=== PATIENT | female | born 1960 ===

== ENCOUNTER 2020-06-10 17:09 | Outpatient (REF) | payer MEDICARE, MEDICAID, SELFPAY | END 2020-06-10 17:10 | disposition home or self-care (01) | LOC: HO.LAB 17:09 | PROVIDERS: PCP Family Medicine; Visit Provider Internal Medicine | DX: Z20.828 Contact with and (suspected) exposure to other viral communicable diseases (principal) | CPT/HCPCS: C9803; U0003 ==

== ENCOUNTER 2020-09-09 07:49 | Outpatient (REF) | payer OTHER, SELFPAY ==
--- NOTE | ~2020-09-09 | XR_ITS ---
EXAMINATION: XR SHOULDER, RIGHT CLINICAL INFORMATION: Pain COMPARISON: None TECHNIQUE: Three views of the right shoulder. FINDINGS: Bone alignment is normal. No fracture or dislocation is seen. The glenohumeral joint is normal. There is arthritis at the acromioclavicular joint. Soft tissues are normal. XR/XR shoulder RT min 2V IMPRESSION: Arthritis at the acromioclavicular joint.
== END 2020-09-09 07:50 | disposition home or self-care (01) ==
LOC: HO.HOSX 07:49
PROVIDERS: Visit Provider Physician Assistant
DX: M75.41 Impingement syndrome of right shoulder (principal); M25.512 Pain in left shoulder
CPT/HCPCS: 20610; 73030; 99202

== ENCOUNTER 2020-10-05 13:39 | Outpatient (REF) | payer OTHER, SELFPAY ==
--- NOTE | ~2020-10-05 | MM_ITS ---
EXAMINATION: MM SCREENING DIGITAL BREAST TOMOSYNTHESIS, BILATERAL CLINICAL INFORMATION: Screening. Asymptomatic. The lifetime risk of breast cancer based on the Tyrer-Cuzick Model is 5%. COMPARISON: Mammography: 08/29/2019, 07/18/2018, 07/05/2018, 06/20/2017 TECHNIQUE: Digital breast tomosynthesis is performed in both the craniocaudal and mediolateral oblique views along with computer-aided detection (CAD). Synthesized 2D images are generated from the tomosynthesis. Additional bilateral exaggerated CC views are provided. FINDINGS: There are scattered areas of fibroglandular density (ACR BI-RADS breast composition Category b). There are no significant masses, abnormal calcifications, or other abnormalities. Breast tissue composition borders on predominantly fatty. Background stromal densities are stable. There are no significant changes. MM/MM tomosynthesis screening BI IMPRESSION: No mammographic evidence of malignancy. ASSESSMENT: BI-RADS 1: Negative RECOMMENDATION: Routine annual mammography screening. This patient's information was entered into a reminder system with a target due date for their next mammogram.
== END 2020-10-05 13:40 | disposition home or self-care (01) ==
LOC: HO.MAMMO 13:39
PROVIDERS: PCP Family Medicine; Visit Provider Family Medicine
DX: Z12.31 Encounter for screening mammogram for malignant neoplasm of breast (principal)
CPT/HCPCS: 77063; 77067

== ENCOUNTER 2020-10-07 08:33 | Outpatient (REF) | payer OTHER, SELFPAY ==
--- NOTE | 2020-10-07 08:38 | EMG_ITS ---
This is a 60-year-old woman with history of having had decompression of the right carpal tunnel few years ago, who comes in with bilateral hand symptoms of pain and numbness with the left being significantly worse than the right. She has a history of diabetes for 21 years and is on Victoza, Tresiba, and metformin. PHYSICAL EXAMINATION: On examination, she is alert and oriented with normal intellectual functions. Cranial nerves II through XII are normal. Muscle tone and strength are normal in all 4 extremities. There is no Tinel or Phalen sign. There is a well-healed scar of previous right carpal tunnel release. IMPRESSION: Carpal tunnel syndrome. Nerve conduction EMG study: Moderate carpal tunnel syndrome on the left. Normal EMG of the left C5 through T1 innervated muscles. There is still persistent evidence of a carpal tunnel syndrome on the right as well. MD DAVE Raymond/ANIA / [id number]
== END 2020-10-07 08:34 | disposition home or self-care (01) ==
LOC: HO.NEURO 08:33
PROVIDERS: Visit Provider Internal Medicine
DX: G56.02 Carpal tunnel syndrome, left upper limb (principal)
CPT/HCPCS: 95885; 95913

== ENCOUNTER 2020-10-15 08:00 | Outpatient (RCR) | payer MEDICARE, SELFPAY ==
--- NOTE | 2020-09-24 11:26 | MHC.PT.EP ---
[facility] [place] Office [place] Office [place] Office [address] [phone] F: [phone] F: [phone] F: [phone] F: [phone] Physical Therapy Plan of Care Date of Evaluation: 09/24/20 Date of Surgery: NA Diagnosis: right shoulder pain subacromial impingement Assessment: The patient arrived with reduced shoulder and cervical ROM. She has decreased strength in her shoulder and periscapular muscles. The patient has poor sitting posture and does a lot of forward head posture to accommodate for her poor shoulder ROM. The patient is a good candidate for skilled PT Frequency and Duration: The patient will be seen 2x/week x 4 weeks Short Term Goals: Pt to be able to report 50% improvement in functional reaching. - Pt to be able to report 50% less pain with getting dressed. Balloon Maker Goals: weeks - The patient to have greater than 160 degrees of flexion and abduction to show improved functional ROM. 4 weeks ? The patient to have 5/5 strength with flexion and abduction to demonstrate functional strength 4 weeks ? The patient to be able to return to all functional reaching, self care ADL's without any limitation from pain or loss of ROM. Treatment Plan: Modalities to reduce pain, spasms and effusion. Manual therapy to restore motion and function. Therapeutic exercise to improve strength and flexibility. Neuromuscular re-education for posture and balance. Therapeutic activities to return to functional activities of daily living. Electronically signed by: Liliam Leyva PT DPT Please sign and return to therapist. Thank you for your referral.
--- NOTE | 2020-10-15 09:29 | MHC.PT.DC ---
[facility] [place] Office [place] Office [place] Office [address] [phone] F: [phone] F: [phone] F: [phone] F: [phone] Physical Therapy Discharge Report Diagnosis: right shoulder pain subacromial impingement Date of Surgery: NA Date of Evaluation: 09/24/20 Date of Discharge: 10/15/20 Treatments to Date: 8 Cancellations to Date: No Shows to Date: Discharge Status: Achieved Goals Improved Function Independent with HEP Discharge Summary: Pt shown appropriate stretches and strengthening for maintence of her CLOF. The patient is currently pain free. She has symmetrical ROM and strength in her UE. flexion 160 bilat, abduction 165, MMT flexion 4+5, abd 4+/5, elbow flexion/ext 5/5 bilaterally. She is currently d/c from skilled PT due to being independent with her HEP. Electronically signed by: Liliam Leyva PT DPT Please sign and return to therapist. Thank you for your referral.
== END 2020-11-23 09:00 | disposition home or self-care (01) ==
LOC: HO.PT 08:00
PROVIDERS: PCP Internal Medicine; Visit Provider Physician Assistant
DX: M75.41 Impingement syndrome of right shoulder (principal)
CPT/HCPCS: 97110; 97112; 97140; 97162

== ENCOUNTER → 2020-10-28 08:44 | Outpatient (BNVA) | payer OTHER, SELFPAY | PROVIDERS: Visit Provider Orthopaedic Surgery | DX: G56.02 Carpal tunnel syndrome, left upper limb (principal); G56.01 Carpal tunnel syndrome, right upper limb; M65.342 Trigger finger, left ring finger | CPT/HCPCS: 99202 ==

== ENCOUNTER → 2021-03-10 10:43 | Outpatient (BNVA) | payer OTHER, SELFPAY | PROVIDERS: PCP Internal Medicine; Visit Provider Orthopaedic Surgery | DX: M65.342 Trigger finger, left ring finger (principal); M65.332 Trigger finger, left middle finger; G56.02 Carpal tunnel syndrome, left upper limb | CPT/HCPCS: 99212 ==

== ENCOUNTER 2021-03-25 11:34 | Day surgery (SDC) | payer OTHER, SELFPAY ==
[2021-03-25 12:29] VITALS: BMI 41.3
--- NOTE | 2021-03-25 12:34 | MHC.SHP ---
Pre-Procedural Eval Section A Date of Service: 03/25/21 The patient is an INPATIENT: No Changes since office visit: No Cold of Flu in the past 2 weeks, No New Medical Problems, No Changes in Medication and No Patient answered all questions The History & Physical has been completed within 30 days and I have reviewed it.: Yes Section B Chief Complaint: carpal tunnel,trigger ring and middle finger Allergies: Allergies Allergy/AdvReac Type Severity Reaction Status Date / Time aspirin [ASPIRIN] Allergy Severe TONGUE Verified 03/10/21 11:10 SWELLING bee pollen [BEE STINGS] Allergy Severe ANAPHYLAXIS Verified 03/10/21 11:10 Hydrocodone Bitartrate Allergy Unknown vomiting Uncoded 01/09/20 00:00 Plan I have reviewed the history and physical and performed a pertinent physical examination on my patient. No changes have occurred unless specified.
--- NOTE | 2021-03-25 12:35 | W.PM.OPN ---
Operative Note Operative Note Date of Service: 03/25/21 Narrative: Preop diagnosis: 1. Left Carpal tunnel syndrome 2. Left middle finger trigger finger 3. Left ring finger trigger finger Postop diagnosis: same Procedure: 1. Left Carpal tunnel release 2. Left middle finger A1 meredith release 3. Left ring finger A1 meredith release Surgeon: Diana Tanner MD Anesthesia: local block using 1% lidocaine with epinephrine Findings: Thickened transverse carpal ligament. EBL: Less than 5 mL Specimens: None Complications: None Disposition: Brought to recovery room in stable condition Plan: Follow-up for 7-10 days for wound check and suture removal Indications: The patient is 60 years old, with left carpal tunnel syndrome and left middle and ring finger trigger fingers that have been unresponsive to nonoperative management. The risks and benefits of operative treatment including but not limited to risk of damage to blood vessels, nerves, tendons, infection, persistent pain, persistent symptoms, or possible need for additional surgery were discussed with the patient and the patient wishes to proceed with surgery. Procedure: Once consent was obtained a local block was performed using a combination of 1% lidocaine with epinephrine. The patient was then brought back to the operating suite and placed on the operative table in supine position. A tourniquet was applied to the proximal aspect of the left upper extremity and the limb was prepped and draped in a standard surgical fashion. Once assured that we had a good block, a 1.5 cm longitudinal incision was made centered over the carpal tunnel. The incision was made through the skin to the subcutaneous tissues using a #15 blade. Dissection was made down to the level of the transverse carpal ligament with care being taken to protect the palmar cutaneous nerve. Once the transverse carpal ligament was clearly visualized, a longitudinal incision was made in the transverse carpal ligament 1st using a #15 blade, then using tenotomy scissors under direct visualization. Care was taken to look for and protect the motor branch of the median nerve when seen in this area. Once satisfied with our carpal tunnel release the wound was copiously irrigated with normal saline and hemostasis was obtained with a brief period of local pressure. Once assured that we had a good block, a 1.5 cm oblique incision was made centered over the A1 meredith of the middle finger . The incision was made through the skin to the subcutaneous tissues using a #15 blade. Careful dissection was made down to the level of the A1 meredith using tenotomy scissors, with care being taken to protect the nearby neurovascular structures. A longitudinal incision was made in the A1 meredith 1st using a #15 blade, then using tenotomy scissors under direct visualization. The A1 meredith was noted to be thickened. Following our A1 meredith release, we no longer saw any locking or catching of the digit with flexion and extension. Once assured that we had a good block, a 1.5 cm oblique incision was made centered over the A1 meredith of the ring finger . The incision was made through the skin to the subcutaneous tissues using a #15 blade. Careful dissection was made down to the level of the A1 meredith using tenotomy scissors, with care being taken to protect the nearby neurovascular structures. A longitudinal incision was made in the A1 meredith 1st using a #15 blade, then using tenotomy scissors under direct visualization. The A1 meredith was noted to be thickened. Following our A1 meredith release, we no longer saw any locking or catching of the digit with flexion and extension. The skin edges were reapproximated with some 5.0 nylon suture material and a sterile dressing was applied. The patient appears to have tolerated the procedure well and with no complications. All digits were well vascularized at the conclusion of the case.
[2021-03-25 12:41] VITALS: BP 129/64; PULSE 84; RESP 16; TEMP 36.6; O2SAT 96
[2021-03-25 14:34] VITALS: BP 130/55; PULSE 91; RESP 17; TEMP 36.2; O2SAT 97
== END 2021-03-25 14:45 | disposition home or self-care (01) ==
PROVIDERS: PCP Internal Medicine; Visit Provider Orthopaedic Surgery
PROC: (CPT 64721; principal; 2021-03-25 13:50)
DX: G56.02 Carpal tunnel syndrome, left upper limb (principal); M65.332 Trigger finger, left middle finger; M65.342 Trigger finger, left ring finger; I10 Essential (primary) hypertension; E11.9 Type 2 diabetes mellitus without complications; Z88.8 Allergy status to other drugs, medicaments and biological substances; J45.909 Unspecified asthma, uncomplicated
CPT/HCPCS: 64721; 26055 ×2

== ENCOUNTER → 2021-04-06 10:09 | Outpatient (BNVA) | payer OTHER, SELFPAY | PROVIDERS: Visit Provider Orthopaedic Surgery | DX: M65.332 Trigger finger, left middle finger (principal); M65.342 Trigger finger, left ring finger; G56.02 Carpal tunnel syndrome, left upper limb | CPT/HCPCS: 99212 ==

== ENCOUNTER 2021-10-07 14:14 | Outpatient (REF) | payer OTHER, SELFPAY ==
--- NOTE | ~2021-10-07 | MM_ITS ---
EXAMINATION: MM SCREENING DIGITAL BREAST TOMOSYNTHESIS, BILATERAL CLINICAL INFORMATION: Screening. Asymptomatic. The lifetime risk of breast cancer based on the Tyrer-Cuzick Model is 5%. COMPARISON: Mammography: October 05, 2020 and studies dating back to June 20, 2017 TECHNIQUE: Digital breast tomosynthesis is performed in both the craniocaudal and mediolateral oblique views along with computer-aided detection (CAD). Synthesized 2D images are generated from the tomosynthesis. FINDINGS: The breasts are almost entirely fatty (ACR BI-RADS breast composition Category a). There are no significant masses, abnormal calcifications, or other abnormalities. MM/MM tomosynthesis screening BI IMPRESSION: There are no significant changes from prior study. ASSESSMENT: BI-RADS 1: Negative RECOMMENDATION: Routine annual mammography screening. This patient's information was entered into a reminder system with a target due date for their next mammogram.
== END 2021-10-07 14:15 | disposition home or self-care (01) ==
LOC: HO.MAMMO 14:14
PROVIDERS: PCP Internal Medicine; Visit Provider Internal Medicine
DX: Z12.31 Encounter for screening mammogram for malignant neoplasm of breast (principal)
CPT/HCPCS: 77063; 77067

== ENCOUNTER → 2022-04-20 12:29 | Outpatient (BNVA) | payer OTHER, SELFPAY | PROVIDERS: Visit Provider Orthopaedic Surgery | DX: M65.352 Trigger finger, left little finger (principal) | CPT/HCPCS: 99212 ==

== ENCOUNTER 2022-05-02 10:28 | Day surgery (SDC) | payer OTHER, SELFPAY ==
[2022-05-02 10:41] VITALS: BMI 38.4
[2022-05-02 10:45] VITALS: BP 155/62; PULSE 67; RESP 16; TEMP 36.6; O2SAT 97
--- NOTE | 2022-05-02 11:49 | MHC.SHP ---
Pre-Procedural Eval Section A Date of Service: 05/02/22 The patient is an INPATIENT: No Changes since office visit: No Cold of Flu in the past 2 weeks, No New Medical Problems, No Changes in Medication and No Patient answered all questions The History & Physical has been completed within 30 days and I have reviewed it.: Yes Section B Chief Complaint: Trigger finger, left little finger Allergies: Allergies Allergy/AdvReac Type Severity Reaction Status Date / Time aspirin [ASPIRIN] Allergy Severe TONGUE Verified 05/02/22 10:41 SWELLING bee pollen [BEE STINGS] Allergy Severe ANAPHYLAXIS Verified 05/02/22 10:41 Plan I have reviewed the history and physical and performed a pertinent physical examination on my patient. No changes have occurred unless specified.
--- NOTE | 2022-05-02 11:49 | W.PM.OPN ---
Operative Note Operative Note Date of Service: 05/02/22 Narrative: Operative Note Preop diagnosis: 1. left little Trigger finger Postop diagnosis: 1. left little Trigger finger Procedure: 1. left little A1 meredith release Surgeon: Diana Tanner MD Anesthesia: local block using 1% lidocaine with epinephrine Findings: No locking or catching after A1 meredith release EBL: Less than 5 mL Tourniquet time: None Specimens: None Complications: None Disposition: Brought to recovery room in stable condition Plan: Follow-up for 10-14 days for wound check and suture removal Indications: The patient is 61 years old, with a left little trigger finger that has been unresponsive to nonoperative management. The risks and benefits of operative treatment including but not limited to risk of damage to blood vessels, nerves, tendons, infection, persistent pain, persistent symptoms, recurrence or possible need for additional surgery were discussed with the patient and the patient wishes to proceed with surgery. Procedure: Once consent was obtained a local block was performed in the preop area using a combination of 1% lidocaine with epinephrine. The patient was then brought back to the operating suite and placed on the operative table in supine position. A tourniquet was applied to the proximal aspect of the left upper extremity and the limb was prepped and draped in a standard surgical fashion. Once assured that we had a good block, a 1.5 cm oblique incision was made centered over the A1 meredith of the left little . The incision was made through the skin to the subcutaneous tissues using a #15 blade. Careful dissection was made down to the level of the A1 meredith using tenotomy scissors, with care being taken to protect the nearby neurovascular structures. A longitudinal incision was made in the A1 meredith 1st using a #15 blade, then using tenotomy scissors under direct visualization. The A1 emredith was noted to be thickened. Following our A1 meredith release, we no longer saw any locking or catching of the digit with flexion and extension. Once satisfied with our A1 meredith release the wound was copiously irrigated with normal saline and hemostasis was obtained with a brief period of local pressure. The skin edges were reapproximated with some 5.0 nylon suture material and a sterile dressing was applied. The patient appears to have tolerated the procedure well and with no complications. All digits were well vascularized at the conclusion of the case.
[2022-05-02 12:36] VITALS: BP 166/71; PULSE 90; RESP 16; O2SAT 96
== END 2022-05-02 12:37 | disposition home or self-care (01) ==
PROVIDERS: Visit Provider Orthopaedic Surgery
PROC: (CPT 26055; principal; 2022-05-02 13:10)
DX: M65.352 Trigger finger, left little finger (principal); E11.9 Type 2 diabetes mellitus without complications; E78.00 Pure hypercholesterolemia, unspecified; I10 Essential (primary) hypertension; J45.998 Other asthma; K21.9 Gastro-esophageal reflux disease without esophagitis; Z88.8 Allergy status to other drugs, medicaments and biological substances; F41.1 Generalized anxiety disorder
CPT/HCPCS: 26055; 88304

== ENCOUNTER 2022-10-24 11:16 | Outpatient (REF) | payer OTHER, SELFPAY ==
--- NOTE | ~2022-10-24 | MM_ITS ---
EXAMINATION: MM SCREENING DIGITAL BREAST TOMOSYNTHESIS, BILATERAL CLINICAL INFORMATION: Screening. Asymptomatic. The lifetime risk of breast cancer based on the Tyrer-Cuzick Model is 5%. COMPARISON: Mammography: 10/07/2021, 10/05/2020, 08/29/2019 TECHNIQUE: Digital breast tomosynthesis is performed in both the craniocaudal and mediolateral oblique views along with computer-aided detection (CAD). Synthesized 2D images are generated from the tomosynthesis. Additional bilateral CC views are provided. FINDINGS: There are scattered areas of fibroglandular density (ACR BI-RADS breast composition Category b). Breast tissue composition borders on predominantly fatty. The right breast is unremarkable and there is no developing density or architectural abnormality or significant mass. There are scattered bilateral benign round and rim and vascular calcifications. The bilateral axilla and skin contours are unremarkable. Left breast tomography shows subtle segmental micronodularity mid central 9:30 position measuring approximately 4 cm anterior to posterior and 2 cm medial to lateral. Some of the foci show low-attenuation centers. Findings may represent sequela from prior trauma (fat necrosis) or possibly focal fibrocystic changes. Patient will be recalled for additional imaging. MM/MM tomosynthesis screening BI IMPRESSION: Left: -Fine grouped segmental micronodularity central 9:30, possibly fat necrosis or focal fibrocystic changes. Right: -No mammographic evidence of malignancy. ASSESSMENT: BI-RADS 0: Incomplete - Need Additional Imaging Evaluation RECOMMENDATION: 1. Additional views left breast (spot CC, spot ML). 2. Targeted ultrasound if warranted after review of the additional views. 3. Radiology department staff will contact the patient for additional imaging. This patient's information was entered into a reminder system with a target due date for their next mammogram.
== END 2022-10-24 11:17 | disposition home or self-care (01) ==
LOC: HO.MAMMO 11:16
PROVIDERS: PCP Nurse Practitioner Family; Visit Provider Nurse Practitioner Family
DX: Z12.31 Encounter for screening mammogram for malignant neoplasm of breast (principal)
CPT/HCPCS: 77063; 77067

== ENCOUNTER 2022-10-28 08:18 | Outpatient (REF) | payer OTHER, SELFPAY ==
--- NOTE | ~2022-10-28 | MM_ITS ---
EXAMINATION: MM DIAGNOSTIC DIGITAL BREAST TOMOSYNTHESIS, LEFT US TARGETED BREAST, LEFT CLINICAL INFORMATION: Micronodularity COMPARISON: Mammography: 10/24/2022 and studies dating back to 06/20/2017. TECHNIQUE: Digital breast tomosynthesis is performed. 2D images are generated from the tomosynthesis. The following views are obtained: Magnification views in craniocaudal and 90-degree mediolateral projections. FINDINGS: The breasts are almost entirely fatty (ACR BI-RADS breast composition category A). Additional views demonstrate persistence of some nodular densities about the medial aspect of the left breast approximately 10 cm from the nipple. Targeted left breast ultrasound did not demonstrate any circumscribed cystic or solid lesions about the medial aspect. At the 9 o'clock to 10 o'clock position, there appears to be some dense parenchyma but this is closer to the nipple than I would suspect for the mammographic finding. Since this is a new finding without ultrasound correlate I recommend a stereotactic core biopsy. Results are discussed with the patient at time of visit. Mammography Center coordinator called above recommendation to Michelle at referring provider's office. MM/MM tomosynthesis added views L IMPRESSION: Medial left breast densities for which stereotactic core biopsy is recommended. ASSESSMENT: BI-RADS 4: Suspicious RECOMMENDATION: Stereotactic core biopsy. This patient's information was entered into a reminder system with a target due date for their next mammogram.
== END 2022-10-28 08:19 | disposition home or self-care (01) ==
LOC: HO.MAMMO 08:18
PROVIDERS: Visit Provider Nurse Practitioner Family
DX: N63.25 Unspecified lump in the left breast, overlapping quadrants (principal)
CPT/HCPCS: 76642; 77061; 77065

== ENCOUNTER 2022-11-02 08:50 | Outpatient (REF) | payer OTHER, SELFPAY ==
--- NOTE | ~2022-11-02 | MM_ITS ---
EXAMINATION: STEREOTACTIC TOMOSYNTHESIS-GUIDED VACUUM-ASSISTED BREAST BIOPSY, LEFT SPECIMEN RADIOGRAPH, LEFT POST PROCEDURE DIGITAL MAMMOGRAM, LEFT CLINICAL INFORMATION: Fine segmental fibronodular densities with lucent centers mid medial left breast, ultrasound occult. Tissue sampling recommended. COMPARISON: Mammography 10/28/2022, 10/24/2022, 10/07/2021, ultrasound left breast 10/28/2022. TECHNIQUE/PROCEDURE: Informed consent was obtained from the patient after discussion of the benefits, risks, and alternatives to biopsy today. Patient appeared to understand. Gave opportunity for questions. Patient signed consent form. BIOPSY TABLE: [employer] Biopsy System. LESION: Fine segmental fibronodular densities with lucent centers mid medial left breast, possibly fat necrosis, fibrocystic change, adenosis, or other. LOCAL ANESTHESIA: 10 mL carbonated 1% lidocaine; 10 mL 1% lidocaine with epinephrine. DERMATOTOMY: Single skin lei dermatotomy performed. NEEDLE: [employer] 9-gauge vacuum assisted core biopsy device. APPROACH: Craniocaudal. TARGETING: Combination of digital breast tomosynthesis and stereotactic digital mammography used for targeting. CORES: 10. CLIP: [employer] T-shaped marker. SPECIMEN RADIOGRAPH: Specimen radiograph is taken in separate room using digital mammography. There are scattered fibroglandular densities in the cores. POST PROCEDURE UNILATERAL DIGITAL MAMMOGRAM: The post biopsy mammogram is performed in separate room using separate digital mammography equipment from the biopsy procedure. CC and ML views are obtained. There are scattered areas of fibroglandular density (breast composition category: b). Breast tissue composition borders on predominantly fatty. The clip marker is in expected position. There is background attenuation from the procedure and anesthesia. No significant hematoma demonstrated. The patient tolerated the procedure well. No immediate complications. Home instructions reviewed with the patient. Final pathology results are pending. MM/MM stereotactic biopsy LT IMPRESSION: 1. Digital tomosynthesis-guided core biopsy left breast with clip placement. 2. Specimen radiograph taken and post procedure mammogram. There is satisfactory positioning of the biopsy clip. 3. Final pathology results pending. An addendum report will be issued.
[2022-11-02] MEDS: Lidocaine HCl 1 % 20 ML VIAL 9 ML SUBCUT (11:23)
[2022-11-02] MEDS: Sodium Bicarbonate 8.4% 50 MEQ/50 ML VIAL SUBCUT (11:24)
[2022-11-02] MEDS: Lidocaine HCl 1%/Epi 1:100,000 10 ML VIAL SUBCUT (11:25)
== END 2022-11-02 08:51 | disposition home or self-care (01) ==
LOC: HO.MAMMO 08:50
PROVIDERS: PCP Nurse Practitioner Family; Visit Provider Surgery
DX: N63.25 Unspecified lump in the left breast, overlapping quadrants (principal)
CPT/HCPCS: 19081; 88305; 99202

== ENCOUNTER → 2022-11-10 09:00 | Outpatient (BNVA) | payer OTHER, SELFPAY | PROVIDERS: PCP Nurse Practitioner Family; Visit Provider Surgery | DX: N63.20 Unspecified lump in the left breast, unspecified quadrant (principal) | CPT/HCPCS: 99212 ==

== ENCOUNTER 2022-11-22 07:35 | Outpatient (REF) | payer OTHER, SELFPAY | END 2022-11-22 07:36 | disposition home or self-care (01) | LOC: HO.US 07:35 | PROVIDERS: PCP Nurse Practitioner Family; Visit Provider Nurse Practitioner Family | DX: Z13.89 Encounter for screening for other disorder (principal) ==

== ENCOUNTER 2022-11-23 08:44 | Outpatient (REF) | payer OTHER, SELFPAY ==
--- NOTE | ~2022-11-23 | US_ITS ---
EXAMINATION: US PELVIS COMPLETE CLINICAL INFORMATION: Increased facial hair COMPARISON: None TECHNIQUE: Transabdominal and transvaginal imaging was performed. FINDINGS: The uterus is of normal size and echogenicity measuring 5.7 x 3.4 x 4.3 cm. The endometrium was not identified sonographically. Multiple myometrial vascular calcifications. The right ovary was not identified sonographically.. The left measures 2.1 x 1.9 x 1.1 cm for a volume of 2.3 mL and is unremarkable in appearance. No adnexal mass.. There is no pelvic free fluid. US/US pelvic and transvaginal IMPRESSION: 1. The right ovary was not identified sonographically. The left ovary is unremarkable in appearance. No adnexal mass. 2. Multiple myometrial vascular calcifications. 3. The endometrium was not identified sonographically.
--- NOTE | ~2022-11-23 | US_ITS ---
EXAMINATION: US ABDOMEN COMPLETE CLINICAL INFORMATION: Left upper quadrant pain. COMPARISON: None available. TECHNIQUE: Real-time imaging of the abdominal viscera. FINDINGS: PANCREAS: Visualized portions of the pancreas are unremarkable. The pancreatic body and tail is obscured by bowel gas. ABDOMINAL AORTA: The proximal, mid, and distal segments are normal in caliber. INFERIOR VENA CAVA: Visualized portions are normal. LIVER: The liver is normal in size. The liver contour is normal. There is diffuse increased liver parenchymal echogenicity, consistent with infiltrative hepatocellular disease. No focal hepatic lesion. There is no intrahepatic biliary duct dilatation seen. GALLBLADDER: Surgically absent. COMMON BILE DUCT: Normal in caliber measuring 1.0 cm in diameter. RIGHT KIDNEY: Normal. No hydronephrosis. No renal calculi or focal parenchymal lesions. The kidney measures 11.5 cm in maximum dimension. LEFT KIDNEY: 1.1 cm benign-appearing left renal cyst, no follow-up imaging recommended. No hydronephrosis or renal calculi. The kidney measures 11.6 cm in maximum dimension. SPLEEN: Normal. The spleen measures 9.9 cm in maximum dimension. FREE FLUID: None. US/US abdomen complete IMPRESSION: * No findings to explain symptoms of abdominal pain. * Increased hepatic echogenicity which can be seen in the setting of hepatic steatosis or underlying liver disease.
== END 2022-11-23 08:45 | disposition home or self-care (01) ==
LOC: HO.US 08:44
PROVIDERS: PCP Nurse Practitioner Family; Visit Provider Nurse Practitioner Family
DX: R10.12 Left upper quadrant pain (principal)
CPT/HCPCS: 76700; 76830; 76856

== ENCOUNTER 2023-06-14 09:21 | Outpatient (AMB) | payer OTHER, SELFPAY ==
--- NOTE | 2023-06-14 09:28 | MHC.OFFVIS ---
Intake Vital Signs 06/14/23 09:29 Height 5 ft 3 in Weight 202 lb BMI 35.8 Intake Visit Reasons: New problem- Right IF pain Intake Note: Armand 62 yr old female who is right hand dominant, presents today for a new problem visit for her right index finger. States she has had throbbing and swelling in palmar MC of her ring index and middle finger. States this started about 6-8 months ago and has worsen. Swelling limits her to make a close fist. Hx of Left small trigger release 05/02/22, CTR left hand CTS with Dr. Tanner, DM and O.A. Allergies aspirin [ASPIRIN] Allergy (Severe, Verified 06/14/23 09:30) TONGUE SWELLING bee pollen [BEE STINGS] Allergy (Severe, Verified 06/14/23 09:30) ANAPHYLAXIS HPI New problem- Right IF pain HPI Details Armand is a 62 year old Diabetic woman who presents with complaints of pain & swelling of her right hand. She complains of swelling & pain in her right index finger.. Her pain is localized primarily in the volar aspect of her finger. She says her swelling limits her ROM. She is concerned that her finger is getting stuck at times, similar to trigger fingers on her left hand, and she has limited the locking by keeping her index finger extended most of the time. She says she has difficulty even holding a pen at times. She has a hx of multiple trigger releases to her left hand. Her left small finger trigger release on 05/02/22, & her left middle & ring fingers on 03/25/21, with good resolution of her symptoms. FORMERLY [facility], [facility]–1983 Medical History (Updated 06/14/23 @ 10:29 by Adis Alvarez) Breast nodule Arthritis Bilateral carpal tunnel syndrome History of trigger finger DDD (degenerative disc disease) Seasonal asthma Anxiety Hypertension Acid reflux Migraines High cholesterol Diabetes Surgical History History of carpal tunnel release S/P arthroscopic surgery of left knee (~1999) History of tonsillectomy History of section Family History Mother No problems noted. Father No problems noted. Paternal Aunt Uterine cancer Social History Alcohol intake: never Patient Tobacco Use Status: Never used Tobacco Second Hand Smoke Exposure: No Current occupational status: disabled Current occupation: rt hand Female Reproductive History Menstrual Age of Menarche: 11 Review of Systems Const All systems reviewed & are unremarkable except as noted in HPI and below Physical Exam Vital Signs: BMI result Body Mass Index 35.8 Const General: cooperative, healthy appearing and no acute distress Orientation/consciousness: patient oriented x3 HEENT Head: Yes normocephalic and Yes atraumatic Eyes EOM: EOMs intact bilaterally Resp Effort & Inspection: normal respiratory effort and able to speak in complete sentences Cardio Jugular venous distension: no JVD Skin General skin exam: turgor normal Rashes: no rashes Neuro General: patient oriented x3 Extrem Other: Evaluation of Right Upper Extremity: The patient is alert, oriented, and in no acute distress She had some mild swelling over the A1 pulleys of the right index and middle fingers and was most tender to palpation over the right index finger A1 meredith. Not really tender over the A1 pulleys of the middle ring and small fingers. She also has some stiffness in the right index finger MCP joint. This was best seen when I asked her to make a fist. Worked on some stretching exercises and I was able to get her MCP joint from 0-90 degrees before leaving clinic today. She can easily bring the middle ring and small fingers close to a fist and back into full extension. With regards to the index finger she was then able to bring her index finger actively to perhaps 2-3 cm from her palm. No erythema or warmth. No lacerations or evidence of open injury. Cap refill brisk and sensation grossly intact to the tips of the digits Psych Appearance: grossly normal Affect: normal affect Attitude: cooperative Office Procedures Fracture Care Details: No fracture, injection Fracture Billing Code: Fracture Billing Code Assessment & Plan Assessment & Plan (1) Diabetes: Code(s): E11.9 - Type 2 diabetes mellitus without complications (2) Trigger finger, right index finger: Code(s): M65.321 - Trigger finger, right index finger (3) Stiffness of finger joint of right hand: Code(s): M25.641 - Stiffness of right hand, not elsewhere classified Plan Assessment & Plan: 1. Right index finger trigger finger 2. Right index finger MCP joint stiffness I educated her about this condition I discussed operative and non-operative treatment options The patient would like to proceed with an injection The risks and benefits of a steroid injection including but not limited to risk of damage to blood vessels, nerves, tendons, infection, skin bleaching, failure to improve symptoms, increased pain, and possible need for further injections or other intervention were discussed with the patient and the patient wishes to proceed with the steroid injection. Once consent was obtained, I sterilely prepped the area over the A1 meredith of the flexor tendon sheath of the right index finger. I then injected the flexor tendon sheath with a combination of 1 mL of dexamethasone (4mg/ml), and 1% lidocaine. The patient tolerated the procedure well with no complications. After her index finger became numb following the injection, we continue to work on range of motion. She was then able to actively bring all fingers including the index finger closed to a tight fist and back into extension. It was during this. That we appreciated visible and palpable locking and catching of the right index finger. If the patient continues to have locking and catching 4-6 weeks following this injection, they may call to schedule appointment to discuss alternative treatment options Follow-up prn 3. Left small trigger finger, S/P release DOS: 05/02/22 4. Left Carpal tunnel syndrome, S/P release 5. Left middle trigger finger, S/P release 6. Left ring trigger finger, S/P release DOS: 03/25/21 All with good resolution of her symptoms Scribed for Diana Tanner MD by Adis Avlarez, medical support specialist, on 06/14/23 at 10:30 AM, EST. Coding Level of Care Code Est Pt Level 3 (89782) Diagnoses Diabetes E11.9 Trigger finger, right index finger M65.321 Stiffness of finger joint of right hand M25.641 CPT Codes Fracture Care - Fracture Billing Code: Fracture Billing Code ([id number])
[2023-06-14 09:29] VITALS: BMI 35.8
== END 2023-06-14 10:35 | disposition home or self-care (01) ==
PROVIDERS: PCP Nurse Practitioner Family; Visit Provider Orthopaedic Surgery
DX: E11.9 Type 2 diabetes mellitus without complications (principal); M65.321 Trigger finger, right index finger; M25.641 Stiffness of right hand, not elsewhere classified
CPT/HCPCS: 20550; 99213

== ENCOUNTER → 2023-06-14 09:21 | Outpatient (BNVA) | payer OTHER, SELFPAY | PROVIDERS: PCP Nurse Practitioner Family; Visit Provider Orthopaedic Surgery | DX: M65.321 Trigger finger, right index finger (principal); M25.641 Stiffness of right hand, not elsewhere classified; E11.9 Type 2 diabetes mellitus without complications | CPT/HCPCS: 99212; J1100 ==

== ENCOUNTER 2023-07-27 08:04 | Outpatient (REF) | payer OTHER, SELFPAY ==
[2023-07-27 12:01] LABS: Alanine Aminotransferase 28 U/L (0-31); Albumin Level 4.2 g/dL (3.5-5.0); Alkaline Phosphatase 60 U/L (39-117); Anion Gap 13 (12-20); Aspartate Amino Transferase 32 U/L (5-31); Bilirubin Total 0.9 mg/dL (0.0-1.0); Blood Urea Nitrogen 16 mg/dL (9-16); Calcium 10.5 mg/dL (8.4-10.2); Carbon Dioxide 30 mmol/L (22-29); Chloride 103 mmol/L (96-108); Cholesterol 113 mg/dL (<200); Estimated Glomerular Filt Rate > 60; Glucose Random 67 mg/dL (60-115); HDL Cholesterol 64 mg/dL (>40); LDL Cholesterol Calculated 39 mg/dL (<100); Sodium 141 mmol/L (135-145); Total Protein 7.2 g/dL (6.5-8.0); Triglycerides 53 mg/dL (<150)
[2023-07-27 12:17] LABS: Microalbum/Creatinine Ratio Ur 12.7 ug/mg cr (<30)
== END 2023-07-27 08:05 | disposition home or self-care (01) ==
LOC: HO.HHCL 08:04
PROVIDERS: Visit Provider Nurse Practitioner Family
DX: E11.9 Type 2 diabetes mellitus without complications (principal)
CPT/HCPCS: 36415; 80053; 80061; 82043; 82570

== ENCOUNTER 2024-02-05 13:11 | Outpatient (REF) | payer OTHER, SELFPAY ==
--- NOTE | ~2024-02-05 | US_ITS ---
EXAMINATION: ULTRASOUND SOFT TISSUES RIGHT THIGH CLINICAL INFORMATION: Lump of right thigh distal lateral. COMPARISON: None available. TECHNIQUE: Targeted ultrasound images were obtained by the vp scientific affairs of the area of concern as indicated by the patient in the distal lateral right thigh. Radiologist was not in attendance. Images were later provided for interpretation. FINDINGS: No discrete mass or fluid collection identified in the area of concern indicated by the patient in the distal lateral right thigh. US/US extremity nonvascular schultz IMPRESSION: No discrete mass or fluid collection identified in the area of concern indicated by the patient in the distal lateral right thigh. Decisions regarding further imaging, treatment or biopsy should be based on the clinical exam, as not all abnormalities are detectable on ultrasound studies. Electronically signed by: Reena Rodriguez MD 02/14/2024 07:40 AM EDT
== END 2024-02-05 13:12 | disposition home or self-care (01) ==
LOC: HO.US 13:11
PROVIDERS: PCP Nurse Practitioner Family; Visit Provider Nurse Practitioner Family
DX: R22.41 Localized swelling, mass and lump, right lower limb (principal)
CPT/HCPCS: 76882

== ENCOUNTER 2024-02-19 08:17 | Outpatient (REF) | payer OTHER, SELFPAY ==
--- NOTE | ~2024-02-19 | XR_ITS ---
EXAMINATION: XR UPRIGHT AP VIEW OF BOTH KNEES XR 2 VIEWS OF THE LEFT KNEE CLINICAL INFORMATION: Pain in the right knee. COMPARISON: None available. TECHNIQUE: Upright view of both knees. Lateral and patellar view of left knee. FINDINGS: LEFT KNEE: Mild osteoarthritis of the medial and lateral compartments manifested by marginal osteophytes. Patellofemoral compartment: Marginal osteophytes and nonuniform joint space narrowing indicative of haxh-ih-kkttupuk osteoarthritis. No effusion. Arterial calcification present. RIGHT KNEE LIMITED AP UPRIGHT: Marginal osteophytes about the medial compartment indicative of mild osteoarthritis. Prominent marginal osteophytes about the lateral compartment with nonuniform joint space narrowing indicative of moderate osteoarthritis. Cannot assess patellofemoral joint on AP projection. Suspect loose body overlying the medial compartment measuring approximately 8 mm. XR/XR knee RT 1V IMPRESSION: LEFT KNEE: Osteoarthritis. RIGHT KNEE limited: Osteoarthritis. Electronically signed by: Norman Jackson MD 02/23/2024 08:06 AM EDT
--- NOTE | ~2024-02-19 | XR_ITS ---
EXAMINATION: XR UPRIGHT AP VIEW OF BOTH KNEES XR 2 VIEWS OF THE LEFT KNEE CLINICAL INFORMATION: Pain in the right knee. COMPARISON: None available. TECHNIQUE: Upright view of both knees. Lateral and patellar view of left knee. FINDINGS: LEFT KNEE: Mild osteoarthritis of the medial and lateral compartments manifested by marginal osteophytes. Patellofemoral compartment: Marginal osteophytes and nonuniform joint space narrowing indicative of vofr-ay-cbkchpbs osteoarthritis. No effusion. Arterial calcification present. RIGHT KNEE LIMITED AP UPRIGHT: Marginal osteophytes about the medial compartment indicative of mild osteoarthritis. Prominent marginal osteophytes about the lateral compartment with nonuniform joint space narrowing indicative of moderate osteoarthritis. Cannot assess patellofemoral joint on AP projection. Suspect loose body overlying the medial compartment measuring approximately 8 mm. XR/XR knee LT 3V IMPRESSION: LEFT KNEE: Osteoarthritis. RIGHT KNEE limited: Osteoarthritis. Electronically signed by: Norman Jackson MD 02/23/2024 08:06 AM EDT
== END 2024-02-19 08:18 | disposition home or self-care (01) ==
LOC: HO.HOSX 08:17
PROVIDERS: PCP Nurse Practitioner Family
DX: M17.0 Bilateral primary osteoarthritis of knee (principal); M25.562 Pain in left knee; M25.561 Pain in right knee
CPT/HCPCS: 20610; 73560; 73562; 99212; J1010

== ENCOUNTER 2024-02-19 08:39 | Outpatient (AMB) | payer OTHER, SELFPAY ==
--- NOTE | 2024-02-19 08:45 | A.OFFVIS_ITS ---
Vital Signs 02/19/24 09:04 Height 5 ft 3 in Weight 209 lb BMI 37.0 Intake Visit Reasons: New Prob - B/L knee pain Intake Note: Armand is a 63 year old female who presents today for a new problem visit with complaints of bilateral knee pain for approximately over 10 years. Patient reports she had a fall in 1998 at work in [place] landing on both of her knees. Hx of Left knee , meniscus tear repair in 1999 in [place]. She expresses sharp pain w/ flexion, extension, bending, squatting down, prolonged sitting and standing. When she ambulates stairs she goes up and down side ways, step by step, due to instability and pain. She has intermittent popping with gait initiation. She does not go out many places by herself with feel of falling. Her pain is on the anterior, medial, and lateral aspect of her B/L knees and she reports shooting pains that radiate from the lateral aspect of her left knee down to her ankle. She has a hard bump on the anterior aspect of the left knee that causes her immediate pain whenever she has to kneel down. She is also mentioning a lump on the left foot that is giving her pains whenever she walks with shoes. Tylenol offers mild relief. Cold and hot gel help with swelling but mild relief as well. She says she is not able to take aspirin or ibuprofen. Allergies aspirin [ASPIRIN] Allergy (Severe, Verified 02/19/24 09:02) TONGUE SWELLING bee pollen [BEE STINGS] Allergy (Severe, Verified 02/19/24 09:02) ANAPHYLAXIS HPI HPI New Prob - B/L knee pain: Details: Patient is a 63-year-old female who presents for evaluation of bilateral knee pain, worse on the left, ongoing for over 10 years. Patient reports that, in 1998, she had a fall while at work, and has been experiencing symptoms in bilateral knees since that time. Patient reports that she did have an arthroscopy with meniscal tear repair in the left knee in 1999 in [place]. Patient reports that she has pain with both flexion and extension of bilateral knees, and that when she kneels she has significant discomfort in both knees, worse on the left. Patient reports that stairs are particularly bothersome, and she feels both pain and instability in bilateral knees while ambulating on stairs, to the point where she feels she needs to go up and down stairs sideways. The patient does report that she also experiences some pain in her left hip and left ankle. Denies any numbness or tingling in the lower extremities. No other acute complaints or concerns at this time. FORMERLY [facility] Medical History Breast nodule Arthritis Bilateral carpal tunnel syndrome History of trigger finger DDD (degenerative disc disease) Seasonal asthma Anxiety Hypertension Acid reflux Migraines High cholesterol Diabetes Surgical History History of carpal tunnel release S/P arthroscopic surgery of left knee (~1999) History of tonsillectomy History of section Family History Mother No problems noted. Father No problems noted. Paternal Aunt Uterine cancer Social History Alcohol intake: never Patient Tobacco Use Status: Never used Tobacco Second Hand Smoke Exposure: No Current occupational status: disabled Current occupation: rt hand Female Reproductive History Menstrual Age of Menarche: 11 Review of Systems Const All systems reviewed & are unremarkable except as noted in HPI and below Physical Exam Vital Signs: BMI result Body Mass Index 37.0 Extrem Other: Patient's R knee edematous on inspection No erythema, ecchymosis noted No lacerations, abrasions, open areas No evidence of infection Patient reports tenderness to palpation of the anterior knee, peripatellar area, medial and lateral joint lines, and posterior knee Patient is able to extend the knee to 0-10 degrees without difficulty Patient is able to flex the knee to 100 degrees without difficulty, but is restricted from going further due to pain Positive Artemio's on both medial and lateral aspects Distal sensation intact Capillary refill brisk L knee exam Patient's L knee normal to inspection No erythema, ecchymosis Minimal edema noted No lacerations, abrasions, open areas No evidence of infection Patient reports tenderness to palpation of the anterior knee, medial and lateral joint lines, patella, No tenderness to palpation of the quad tendon, patellar tendon, or posterior knee Patient is able to extend the knee to 0-10 degrees without difficulty Patient is able to flex the knee to 100 degrees without difficulty, but is restricted further due to pain Positive Artemio's in both the medial and lateral joint lines of the left knee Distal sensation intact Capillary refill brisk Office Procedures Joint Injection/Aspiration Joint Injection/Aspiration Primary Site: left knee Injected: 40 mg of, DepoMedrol, with 8 mL of and 1% plain lidocaine Procedure: The patient tolerated the procedure well and there was some relief with the local anesthesia Coding 35938 - Large joint Procedure code (CPT) selection complete Results Reviewed Results Reviewed: X-rays obtained in the office today and independently reviewed by me, Osiel Deng PA-C, demonstrate moderate arthritic changes of the left knee, as well as moderate to severe arthritic changes of the right knee, with both knees having noted joint space narrowing and osteophyte formation. No fracture or acute bony abnormality noted. Assessment & Plan Assessment & Plan (1) Osteoarthritis of knees, bilateral: Code(s): M17.0 - Bilateral primary osteoarthritis of knee Category: Medical Plan 1. Osteoarthritis of left knee I educated the patient about this condition I discussed conservative, nonoperative, and operative treatment options for this condition, and the patient would like to proceed with an injection The risks and benefits of a steroid injection including but not limited to risk of damage to blood vessels, nerves, tendons, infection, skin bleaching, failure to improve symptoms, increased pain, and possible need for further injections or other intervention were discussed with the patient and the patient wishes to proceed with the steroid injection. Once consent was obtained, I aseptically prepped the area over the anterolateral joint line of the left knee. I then injected the area over the lateral epicondyle with a combination of 40 mg of dexamethasone and 8 mL of 1% lidocaine. The patient tolerated the procedure well with no complications. If the patient continues to experience symptoms over the following few weeks or months, they can make an appointment to return and discuss alternative treatment measures, such as physical therapy. 2. Osteoarthritis of right knee I educated the patient about this condition Educated the patient about conservative, nonoperative, and operative treatment options Due to the patient's diabetes, I informed the patient that I can only perform 1 injection at this time, as multiple steroid injections could cause dangerous spikes in blood sugar I informed the patient that, if she experiences good relief in 4-6 weeks with injection on the left, she can return to our office for right knee injection Patient is amenable to this plan Patient is also referred to physical therapy for range of motion, strengthening, stabilization of bilateral knees Follow-up in 6 weeks for reassessment, sooner with any acute concerns Orders: Orders XR knee LT 3V Today M25.562 - Pain in left knee XR knee RT 1V Today M25.561 - Pain in right knee Coding Level of Care Code Est Pt Level 3 (41223) Diagnoses Osteoarthritis of knees, bilateral M17.0 CPT Codes Coding - 77865 Large joint: 24134 - Large joint ([id number])
[2024-02-19 09:04] VITALS: BMI 37.0
== END 2024-02-19 09:44 | disposition home or self-care (01) ==
PROVIDERS: PCP Nurse Practitioner Family
DX: M17.0 Bilateral primary osteoarthritis of knee (principal)
CPT/HCPCS: 20610; 99213

== ENCOUNTER 2024-04-01 08:28 | Outpatient (AMB) | payer OTHER, SELFPAY ==
--- NOTE | 2024-04-01 08:34 | A.OFFVIS_ITS ---
Vital Signs 04/01/24 08:36 Height 5 ft 3 in Weight 209 lb BMI 37.0 Intake Visit Reasons: OV- Left Knee Pain Intake Note: Armand is a 63 year old female who presents today for a follow up visit of her bilateral knee OA. Patient received an injection in the left knee at her last visit, 02/19/24. Patient reports she did get relief from her last injection. She says some days she does have some pain still but she utilizes in lidocaine patches and OTC medication. She is unable to still kneel or squat down. She reports her right knee has not improved she is having severe pain and it is affecting her ADLs. She is interested in repeating injection on her right knee today. She also has complaints of cyst on her left foot that is bothering her during ambulation. Allergies aspirin [ASPIRIN] Allergy (Severe, Verified 04/01/24 08:36) TONGUE SWELLING bee pollen [BEE STINGS] Allergy (Severe, Verified 04/01/24 08:36) ANAPHYLAXIS HPI HPI OV- Left Knee Pain: Details: Patient is a 63-year-old female who presents for evaluation of right knee pain, ongoing for several years. At last visit, patient did get an injection into her left knee, and she experienced very good relief with this. FORMERLY [facility] Medical History Breast nodule Arthritis Bilateral carpal tunnel syndrome History of trigger finger DDD (degenerative disc disease) Seasonal asthma Anxiety Hypertension Acid reflux Migraines High cholesterol Diabetes Surgical History History of carpal tunnel release S/P arthroscopic surgery of left knee (~1999) History of tonsillectomy History of section Family History Mother No problems noted. Father No problems noted. Paternal Aunt Uterine cancer Social History Alcohol intake: never Patient Tobacco Use Status: Never used Tobacco Second Hand Smoke Exposure: No Current occupational status: disabled Current occupation: rt hand Female Reproductive History Menstrual Age of Menarche: 11 Physical Exam Vital Signs: BMI result Body Mass Index 37.0 Extrem Other: On inspection, there is no visible deformity of the right knee Mild to moderate joint effusion noted of the right knee No erythema, ecchymosis noted No lacerations, abrasions, open areas No evidence of infection Patient reports no tenderness to palpation in the patella, parapatellar region, medial and lateral joint line, posterior knee Patient is able to extend the left knee to 10-15 degrees and flex to approximately 120 degrees without difficulty No ligamentous laxity noted Distal sensation intact Capillary refill brisk Negative Artemio's Results Reviewed Results Reviewed: X-rays obtained in the office today and independently reviewed by me, Osiel Deng PA-C, demonstrate moderate arthritic changes of bilateral knees, slightly worse on the right. No fracture or acute bony abnormality noted. Assessment & Plan Assessment & Plan (1) Osteoarthritis of knees, bilateral: Code(s): M17.0 - Bilateral primary osteoarthritis of knee Category: Medical Plan 1. Right knee osteoarthritis I educated the patient about this condition and the treatment options available, including but not limited to conservative management, physical therapy, and injections Patient would like to proceed with steroid injection into the right knee at this time The risks and benefits of a steroid injection including but not limited to risk of damage to blood vessels, nerves, tendons, infection, skin bleaching, failure to improve symptoms, increased pain, and possible need for further injections or other intervention were discussed with the patient and the patient wishes to proceed with the steroid injection. Once consent was obtained, I aseptically prepped the area over the anterolateral joint line of the right knee. I then injected the area over the lateral epicondyle with a combination of 40 mg of dexamethasone and 8 mL of 1% lidocaine. The patient tolerated the procedure well with no complications. If the patient continues to experience symptoms over the following few weeks or months, they can make an appointment to return and discuss alternative treatment measures, such as physical therapy. Follow-up prn 2. Left knee osteoarthritis Patient experienced good relief from previous injection Patient is educated that she can only received knee injections once every 3 months, and that she can be re-evaluated at that point if the relief from the injection wears off, but does not need an acute follow-up as she has experienced good relief from her injection Patient understands this and is amenable to this plan Patient will follow-up as needed with any acute concerns Coding Level of Care Code Est Pt Level 3 (08003) Diagnoses Osteoarthritis of knees, bilateral M17.0
[2024-04-01 08:36] VITALS: BMI 37.0
== END 2024-04-01 08:58 | disposition home or self-care (01) ==
PROVIDERS: PCP Nurse Practitioner Family
DX: M17.0 Bilateral primary osteoarthritis of knee (principal)
CPT/HCPCS: 20610; 99213

== ENCOUNTER → 2024-04-01 08:28 | Outpatient (BNVA) | payer OTHER, SELFPAY | PROVIDERS: PCP Nurse Practitioner Family | DX: M17.0 Bilateral primary osteoarthritis of knee (principal) | CPT/HCPCS: 20610; 99212; J1010; J2003 ==

== ENCOUNTER 2024-05-10 10:29 | Outpatient (REF) | payer OTHER, SELFPAY | END 2024-05-10 10:30 | disposition home or self-care (01) | LOC: HO.CT 10:29 | PROVIDERS: PCP Nurse Practitioner Family; Visit Provider Nurse Practitioner Family | DX: G43.009 Migraine without aura, not intractable, without status migrainosus (principal) | CPT/HCPCS: 70450 ==

== ENCOUNTER → 2024-06-23 08:08 | Outpatient (BNV) | payer OTHER, SELFPAY | PROVIDERS: PCP Nurse Practitioner Family; Visit Provider Internal Medicine Cardiovascular Disease | DX: Z86.79 Personal history of other diseases of the circulatory system (principal) | CPT/HCPCS: 93010 ==

== ENCOUNTER 2024-07-31 12:27 | Emergency (ER) | payer OTHER, SELFPAY ==
[2024-07-31 12:57] VITALS: BP 118/64; PULSE 102; RESP 18; TEMP 36.7; O2SAT 99; BMI 37.9
--- NOTE | 2024-07-31 13:06 | ED.GENADULT ---
HPI - General Adult General Chief complaint: Abdominal Pain Stated complaint: Stomach Pain, Dizziness, Headache Related Data Home Medications ?Medication ?Instructions ?Recorded ?Confirmed albuterol sulfate 90 mcg/actuation 2 puff inhalation Q4-6H PRN 09/09/20 11/10/22 aerosol inhaler amlodipine 2.5 mg tablet 2.5 mg PO DAILY 09/09/20 11/10/22 atorvastatin 40 mg tablet 40 mg PO BEDTIME 09/09/20 11/10/22 epinephrine 0.3 mg/0.3 mL IM DIRECTED 09/09/20 11/10/22 injection, auto-injector hydrochlorothiazide 25 mg tablet 25 mg PO DAILY 09/09/20 11/10/22 insulin degludec 100 unit/mL (3 unit subcut 09/09/20 11/10/22 mL) subcutaneous pen losartan 50 mg tablet 50 mg PO DAILY 09/09/20 11/10/22 melatonin 3 mg tablet 3 mg PO BEDTIME 09/09/20 11/10/22 metformin 1,000 mg tablet 1,000 mg PO BID 09/09/20 11/10/22 omeprazole 40 mg capsule,delayed 40 mg PO DAILY 09/09/20 11/10/22 release buspirone 10 mg tablet 10 mg PO DAILY 11/02/22 11/10/22 dulaglutide 1.5 mg/0.5 mL mg subcut QWEEK 11/02/22 11/10/22 subcutaneous pen injector (Trulicity) hydroxyzine HCl 25 mg tablet 0 mg PO 11/02/22 11/10/22 insulin degludec 200 unit/mL (3 unit subcut 11/02/22 11/10/22 mL) subcutaneous pen (Tresiba FlexTouch U-200 insulin) Previous Rx's ?Medication ?Instructions ?Recorded hydrocodone 5 mg-acetaminophen 325 1 tab PO Q4-6H PRN pain #5 tabs 05/02/22 mg tablet Allergies Allergy/AdvReac Type Severity Reaction Status Date / Time aspirin [ASPIRIN] Allergy Severe TONGUE Verified 07/31/24 12:59 SWELLING bee pollen [BEE STINGS] Allergy Severe ANAPHYLAXIS Verified 07/31/24 12:59 PMFSH Past Medical History Medical History Breast nodule Arthritis Bilateral carpal tunnel syndrome History of trigger finger DDD (degenerative disc disease) Seasonal asthma Anxiety Hypertension Acid reflux Migraines High cholesterol Diabetes Surgical History History of carpal tunnel release S/P arthroscopic surgery of left knee (~1999) History of tonsillectomy History of section Family History Family History Mother No problems noted. Father No problems noted. Paternal Aunt Uterine cancer Social History Social History Alcohol intake: never Patient Tobacco Use Status: Never used Tobacco Second Hand Smoke Exposure: No Advance Directives: No Advance Directives Information Provided: No Do you have a plan to hurt others: No Plan Current occupational status: disabled Current occupation: rt hand Physical Exam ED Vital Signs: Vital Signs - 24 hr 07/31/24 12:57 Temperature 98.0 F Pulse Rate 102 H Respiratory Rate 18 Blood Pressure 118/64 Pulse Oximetry 99 Oxygen Delivery Method Room Air BMI result Body Mass Index 37.9 Course Course Course Narrative: RME, this is a rapid medical exam performed by Riccardo Riley please refer to primary provider for complete H&P- 64-year-old female presents for evaluation abdominal pain, nausea, diarrhea/constipation. She reports her symptoms are alternating. Her symptoms seemed to worsen when she started Ozempic a few months ago. She is status post cholecystectomy. She also has a history of GERD and hiatal hernia. She has an appointment with GI in October. She reports her last endoscopy was 8 years ago. Plan for labs. Will defer any advanced imaging to primary ER provider Medical Decision Making Lab Data 07/31/24 13:18 07/31/24 13:18 Labs: Lab Results 07/31/24 Range/Units 13:18 WBC 6.2 (4.8-10.8) X10*3/uL RBC 4.98 (4.20-5.50) X10*6/uL Hgb 13.9 (12.0-16.0) g/dl Hct 41.2 (37.0-47.0) % MCV 82.7 (80.0-98.0) fL MCH 27.9 (27.0-33.0) pg MCHC 33.7 (31.0-35.0) g/dl RDW 13.6 (11.0-16.0) % Plt Count 271 (160-400) X10*3/uL MPV 9.5 (9.4-12.3) fL Immature Gran % (Auto) 0.3 (0.0-0.4) % Neut % (Auto) 64.1 (45-73) % Lymph % (Auto) 27.4 (20-40) % Assumption % (Auto) 5.5 (2-11) % Eos % (Auto) 2.1 (0-4) % Baso % (Auto) 0.6 (0-2) % Lymph # (Auto) 1.7 (1.2-4.9) X10*3/uL Assumption # (Auto) 0.3 (0.1-1.2) X10*3/uL Eos # (Auto) 0.1 (0.0-0.4) X10*3/uL Baso # (Auto) 0.0 (0.0-0.2) X10*3/uL Abs Immat Gran (auto) 0.02 (0.00-0.03) X10*3/uL Absolute Neuts (auto) 4.0 (2.0-8.3) x10*3/uL Absolute Nucleated RBC 0.000 (0.0-0.012) X10*3/uL Nucleated RBC % (auto) 0.0 (0.0-0.2) /100WBC PT 10.5 L (10.9-12.4) SEC INR 0.9 (0.9-1.1) Sodium 139 (135-145) mmol/L Potassium 3.7 D (3.3-5.1) mmol/L Chloride 106 (96-108) mmol/L Carbon Dioxide 25 (22-29) mmol/L Anion Gap 12 (12-20) BUN 22 H (9-16) mg/dL Creatinine 0.80 (0.5-1.4) mg/dL Estim Creat Clear Calc 76.5 Estimated GFR > 60 Random Glucose 84 (60-115) mg/dL Lactic Acid 1.4 (0.5-2.0) mmol/L Calcium 9.4 D (8.4-10.2) mg/dL Magnesium 2.1 (1.6-2.6) mg/dL Total Bilirubin 0.6 (0.0-1.0) mg/dL AST 30 (5-31) U/L ALT 25 (0-31) U/L Alkaline Phosphatase 81 (39-117) U/L Total Protein 7.4 (6.5-8.0) g/dL Albumin 4.3 (3.5-5.0) g/dL Lipase 29 (8-78) U/L Discharge Plan Discharge Clinical Impression: Dizziness, Abdominal pain Patient Disposition: Left W/O Completing Treatment Prescriptions: No Action hydrocodone-acetaminophen 5-325 mg tablet 1 tab PO Q4-6H PRN (Reason: pain) Qty: 5 0RF Rx Instructions: Partial Fill upon patient request. hydrochlorothiazide 25 mg tablet 25 mg PO DAILY omeprazole 40 mg capsule,delayed release(DR/EC) 40 mg PO DAILY atorvastatin 40 mg tablet 40 mg PO BEDTIME losartan 50 mg tablet 50 mg PO DAILY Tresiba FlexTouch U-100 100 unit/mL (3 mL) insulin pen subcut metformin 1,000 mg tablet 1,000 mg PO BID amlodipine 2.5 mg tablet 2.5 mg PO DAILY epinephrine 0.3 mg/0.3 mL auto-injector IM DIRECTED albuterol sulfate 90 mcg/actuation HFA aerosol inhaler 2 puff inhalation Q4-6H PRN melatonin 3 mg tablet 3 mg PO BEDTIME hydroxyzine HCl 25 mg tablet 0 mg PO buspirone 10 mg tablet 10 mg PO DAILY Trulicity 1.5 mg/0.5 mL pen injector subcut QWEEK insulin degludec [Tresiba FlexTouch U-200] 200 unit/mL (3 mL) insulin pen subcut Discharge Date/Time: 07/31/24 17:37
[2024-07-31 13:31] LABS: MANUAL DIFF FLAG NO
[2024-07-31 13:33] LABS: Basophils Percent Auto 0.6 % (0-2); Eosinophils Absolute Auto 0.1 X10*3/uL (0.0-0.4); Eosinophils Percent Auto 2.1 % (0-4); Hematocrit 41.2 % (37.0-47.0); Hemoglobin 13.9 g/dl (12.0-16.0); Imm Gran Abs Auto 0.02 X10*3/uL (0.00-0.03); Imm Gran Pct Auto 0.3 % (0.0-0.4); Lymphocytes Absolute Auto 1.7 X10*3/uL (1.2-4.9); Lymphocytes Percent Auto 27.4 % (20-40); Mean Corpuscular HGB Conc 33.7 g/dl (31.0-35.0); Mean Corpuscular Hemoglobin 27.9 pg (27.0-33.0); Mean Corpuscular Volume 82.7 fL (80.0-98.0); Mean Platelet Volume 9.5 fL (9.4-12.3); Monocytes Absolute Auto 0.3 X10*3/uL (0.1-1.2); Monocytes Percent Auto 5.5 % (2-11); Neutrophils Percent Auto 64.1 % (45-73); Platelet Count 271 X10*3/uL (160-400); Red Blood Count 4.98 X10*6/uL (4.20-5.50); Red Cell Distribution Width 13.6 % (11.0-16.0); White Blood Count 6.2 X10*3/uL (4.8-10.8)
[2024-07-31 13:39] LABS: INTERNATIONAL NORM RATIO 0.9 (0.9-1.1); Prothrombin Time 10.5 SEC (10.9-12.4)
[2024-07-31 13:54] LABS: Lactic Acid 1.4 mmol/L (0.5-2.0)
[2024-07-31 13:55] LABS: Alanine Aminotransferase 25 U/L (0-31); Albumin Level 4.3 g/dL (3.5-5.0); Alkaline Phosphatase 81 U/L (39-117); Anion Gap 12 (12-20); Aspartate Amino Transferase 30 U/L (5-31); Bilirubin Total 0.6 mg/dL (0.0-1.0); Blood Urea Nitrogen 22 mg/dL (9-16); Calcium 9.4 mg/dL (8.4-10.2); Carbon Dioxide 25 mmol/L (22-29); Chloride 106 mmol/L (96-108); Creatinine Clr Calc Pharmacy 76.5; Estimated Glomerular Filt Rate > 60; Glucose Random 84 mg/dL (60-115); Lipase 29 U/L (8-78); Magnesium 2.1 mg/dL (1.6-2.6); Potassium 3.7 mmol/L (3.3-5.1); Sodium 139 mmol/L (135-145); Total Protein 7.4 g/dL (6.5-8.0)
== END 2024-07-31 17:37 | disposition left against medical advice (07) ==
PROVIDERS: Physician Assistant; Emergency Provider Emergency Medicine; PCP Nurse Practitioner Family
DX: R42 Dizziness and giddiness (principal); R10.9 Unspecified abdominal pain; Z90.49 Acquired absence of other specified parts of digestive tract
CPT/HCPCS: 36415; 80053; 83605; 83690; 83735; 85025; 85610; 99281; 99283

== ENCOUNTER 2024-08-07 08:48 | Outpatient (REF) | payer OTHER, SELFPAY ==
--- OUTSIDE RECORDS SUMMARY | 2024-08-09 14:25 | XMS_ITS | Encounter Summary ---
Author Organization [employer] Address [address] [facility] [address] [place] [address] Care Team Providers Care Clinical Unit Educator Name Role Phone Claritza CanelaP Primary Care Provider [phone] Yane Morrissey NP Primary Care Provider [phone] Reason for Visit * Reason Onset Date Comments Med Refill Abnormal mammo follow up 10/18/2022 Encounter Details Date Type Department Care Team (Late st Contact Info) Description 10/18/2022 Refill [facility] [address] [place] [address] Elsie Argueta ANP [address] [place] [address] Social History Tobacco Use Types Packs/Day Years Used Date Smoking Tobacco: Never Smokeless Tobacco: Never Alcohol Use Standard Drinks/Week Comments Never 0 (1 standard drink = 0.6 oz pur e alcohol) Depression Answer Date Recorded Patient Health Questionnaire-9 Score 2 06/01/2022 Depression Answer Date Recorded Patient Health Questionnaire-2 Score 0 06/01/2022 Comments Unknown Sex and Gender Information Value Date Recorded Sex Assigned at Female 04/11/2022 10:34 AM EDT Legal Sex Female 10:34 AM EDT Gender Identity Female 04/11/2022 10:34 AM EDT Sexual Orientation Choose not to disclose 2021 10:34 AM EDT documented as of this encounter Miscellaneous Notes * Telephone Encounter - Michelle Castillo - 10/28/2022 10:22 AM EDT Incoming call from Shana at [facility] calling to let us know that patient had abnormal mammography. Recommendation is a stereotactic biopsy of left breast nodularity. Patient is scheduled on 11/02/2022. She will have the consult at 8:00 and the biopsy will be performed at 10:00 am by . Message forwarded to pcp as sid. documented in this encounter Plan of Treatment Upcoming Encounters Date Type Department Care Team (Late st Contact Info) Description 08/12/2024 3:00 PM EST Clinical Support [address] [address] 09/27/2024 1:30 PM EDT Office Visit [address] [address] Yane Morrissey NP [address] [place] [phone] documented as of this encounter Visit Diagnoses Not on filedocumented in this encounter Additional Health Concerns Assessment Noted Time PHQ-9 Depression Total Score: 2 06/01/20 22 9:11 AM EST documented as of this encounter Care Teams Clinical Unit Educator Relationship Specialty Start Date End Date Claritza Canela FNP [address] [place] [address] PCP - General Family Medicine 05/13/22 02/13/24 Yane Morrissey NP [address] [place] [id number] PCP - General Family Medicine 02/14/24 documented as of this encounter
--- OUTSIDE RECORDS SUMMARY | 2024-08-09 14:25 | XMS_ITS | Encounter Summary ---
Author Organization [employer] Address [address] [facility] [address] [place] [address] Care Team Providers Care Data Entry Specialist Name Role Phone Claritza Canela Primary Care Provider [phone] Yane Morrissey NP Primary Care Provider [phone] Reason for Referral * Imaging (Routine) - Closed Specialty Diagnoses / Procedures Referred By Luci leon Referred To Contact Diagnoses Mass of left breast, unspecified quadrant Procedures BI Mammogram Diagnostic Tomosynthesis Left Claritza Canela FNP [address] [place] [address] Phone: tel: fax: [address] Phone: tel: fax: Referral ID Status Reason Start Date Expiration Date Visits Re quested Visits Authorized [id number] Closed 11/11/2022 05/10/2023 1 1 Encounter Details Date Type Department Care Team (Late st Contact Info) Description 11/11/2022 Orders Only [facility] MEDICINE [address] [place] [address] Claritza Canela FNP [address] [place] [address] Mass of left breast, unspecified quadrant (Primary Dx) Social History Tobacco Use Types Packs/Day Years [...] not to disclose 2021 10:34 AM EDT COVID-19 Exposure Response Date Recorded In the last 10 days, have yo u been in contact with someone who was confirmed or suspected to have Coronavirus/COVID-19? No / Unsure 10/26/2022 1:42 PM EDT documented as of this encounter Plan of Treatment Upcoming Encounters Date Type Department Care Team (Late st Contact Info) Description 08/12/2024 3:00 PM EST Clinical Support [address] [address] 09/27/2024 1:30 PM EDT Office Visit [address] [address] Yane Morrissey NP [address] [place] [address] Scheduled Orders Name Type Priority Associated Diagnoses Orde r Schedule BI Mammogram Diagnostic Tomosynthesis Left Imaging Routine Mass of left breast, unspecified quadrant Expected: 11/11/2022, Expires: 01/12/2024 documented as of this encounter Visit Diagnoses Diagnosis Mass of left breast, unspecified quadrant- Primary documented in this encounter Additional Health Concerns Assessment Noted Time PHQ-9 Depression Total Score: 2 06/01/20 22 9:11 AM EST documented as of this encounter Care Teams Data Entry Specialist Relationship Specialty Start Date End Date Claritza Canela FNP [address] [place] [address] PCP - General Family Medicine 05/13/22 02/13/24 Yane Morrissey NP [address] [place] [address] PCP - General Family Medicine 02/14/24 documented as of this encounter
--- OUTSIDE RECORDS SUMMARY | 2024-08-09 14:25 | XMS_ITS | Encounter Summary ---
Author Organization [employer] Address [address] [facility] [address] [place] [address] Care Team Providers Care Catalyst Recovery Operator Name Role Phone Yane Morrissey NP Primary Care Provider Encounter Details Date Type Department Care Team (Late st Contact Info) Description 08/06/2024 3:30 PM EST Office Visit [facility] MEDICINE [address] [place] [address] Omaira Brian MD [address] [place] [address] Generalized abdominal pain (Primary Dx); Clogged ear, bilateral Social History Tobacco Use Types Packs/Day Years Used Date Smoking Tobacco: Never Passive Smoke Exposure: Never Smokeless Tobacco: Never Tobacco Cessation:Counseling Given: Not Answered Alcohol Use Standard Drinks/Week Comments Never 0 (1 standard drink = 0.6 oz pur e alcohol) Depression Answer Date Recorded Patient Health Questionnaire-9 Score 9 05/24/2024 Patient Health Questionnaire-9 Score 9 05/24/2024 Last PHQ-9: Questionnaire Data Not on file 1 07/25/2023 Housing Stability Answer Date Recorded What is your housing situation today? I have sandra wing 05/24/[address] you li ve. Do you have problems with any of the following? None of the above 05/24/2024 Food Insecurity Answer Date Recorded Within the past 12 months, y ou worried that your food would run out before you got money to buy more: Never True 05/24/2024 Within the past 12 months,th e food you bought just didn't last and you didn't have enough money to get more: Never True Transportation Answer Date Recorded In the past 12 months, has l ack of transportation kept you from medical appts, meetings, work or from getting things needed for daily living? No 07/21/2023 Utilities Answer Date Recorded In the past 12 months, has t he electric, gas, oil or water company threatened to shut off services in your home? No 07/21/2023 Depression Answer Date Recorded Patient Health Questionnaire-2 Score 4 05/24/2024 Internet Access Answer Date Recorded Internet Access Q1 Yes 05/24/2024 Internet Access Q2 Not on file 05/24/2024 Comments Unknown Sex and Gender Information Value Date Recorded Sex Assigned at Female 04/11/2022 10:34 AM EDT Legal Sex Female 10:34 AM EDT Gender Identity Female 04/11/2022 10:34 AM EDT Sexual Orientation Choose not to disclose 2021 10:34 AM EDT documented as of this encounter Last Filed Vital Signs Vital Sign Reading Time Taken Comments Blood Pressure 148/78 08/06/2024 3:21 PM EST Pulse 101 08/06/2024 3:21 PM EST Temperature 35.4 ??C (95.8 ??F) 08/06/2024 3:21 PM ES T Respiratory Rate 18 08/06/2024 3:21 PM EST Oxygen Saturation - - Inhaled Oxygen Concentration - - Weight 97.3 kg (214 lb 6.4 oz) 08/06/2024 3:21 P M EST Height 157.5 cm (5' 2 ) 08/06/2024 3:21 PM EST Body Mass Index 39.21 08/06/2024 3:21 PM EST documented in this encounter Progress Notes * Omaira Ashby MD - 08/06/2024 3:30 PM EST SUBJECTIVE: Armand Montilla is a 64 y.o. year old female who presents for Follow up . Acute Concerns: Patient reports abdominal pain for the past month located epigastric area, radiating to left side of her abdomen accompanied with nausea, vomiting and diarrhea she also reports intermittent constipation Patient today also complained of diminished hearing and ear fullness Social History Social History Narrative Not on file Patient Active Problem List Diagnosis Severe anxiety Atypical angina (CMS/HCC) Carpal tunnel syndrome Chronic low back pain Diabetic macular edema (CMS/HCC) Diabetic retinopathy (CMS/HCC) Essential hypertension Gastroesophageal reflux disease with hiatal hernia Hiatal hernia Hyperlipidemia Major depressive disorder Mixed anxiety and depressive disorder Panic attack Post-traumatic osteoarthritis of both knees Type 2 diabetes mellitus (CMS/HCC) Mild intermittent asthma Diabetic polyneuropathy associated with type 2 diabetes mellitus (CMS/HCC) Marital problems Stress-related problem Moderate nonproliferative diabetic retinopathy without macular edema associated with type 2 diabetes mellitus (CMS/HCC) Migraine without aura and without status migrainosus, not intractable Acute gastroenteritis Exercise counseling Dietary counseling Generalized abdominal pain Clogged ear, bilateral Family History Problem Relation Name Age of Onset Diabetes type II Mother 65 Kidney failure Mother Hypertension Mother Cirrhosis Father at 52 Asthma Sister 56 Kidney failure Sister Alzheimer's disease Brother Diabetes type II Brother Review of Systems Constitutional: Negative. HENT: Positive for hearing loss. Respiratory: Negative. Cardiovascular: Negative. Gastrointestinal: Positive for abdominal distention, abdominal pain, constipation, diarrhea, nauseaand vomiting. Negative for anal bleeding, blood in stool and rectal pain. OBJECTIVE: Vitals: 08/06/24 1521 BP: (!) 148/78 BP Location: Left arm Patient Position: Sitting BP Cuff Size: Large adult Pulse: 101 Resp: 18 Temp: 95.8 ??F (35.4 ??C) TempSrc: Oral Weight: 214 lb 6.4 oz (97.3 kg) Height: 5' 2 (1.575 m) Physical Exam Constitutional: Appearance: Normal appearance. HENT: Right Ear: There is impacted cerumen. Left Ear: There is impacted cerumen. Cardiovascular: Rate and Rhythm: Normal rate and regular rhythm. Abdominal: Tenderness: There is generalized abdominal tenderness and tenderness in the epigastric area. Neurological: Mental Status: She is alert. Follow Up: Follow up for 5 days with nurse for ear lavage then f/u with PCP . Current Outpatient Medications on File Prior to Visit Medication Sig Dispense Refill albuterol (Ventolin HFA) 108 (90 Base) MCG/ACT inhaler INHALE 2 PUFFS EVERY 4 TO 6 HOURS NEEDED 18 g 3 Alcohol Swabs (Alcohol Prep) 70 % pads USE EVERY DAY OR NEEDED 100 each 11 amLODIPine (Norvasc) 2.5 MG tablet TAKE 1 TABLET BY MOUTH EVERY DAY IN THE MORNING 90 tablet 1 atorvastatin (Lipitor) 40 MG tablet TAKE 1 TABLET BY MOUTH EVERY MORNING 90 tablet 5 Blood Glucose Monitoring Suppl (FreeStyle Lite) device Inject under the skin 2 times daily. 1 each 0 Blood Glucose Monitoring Suppl (FreeStyle Lite) w/Device kit USE DIRECTED TO TEST BLOOD SUGAR TWICE DAILY busPIRone (Buspar) 10 MG tablet Take 20 mg by mouth at bedtime. clotrimazole-betamethasone (Lotrisone) cream APPLY 1/2 GRAM TOPICALLY TO AFFECTED AREA(S) TWICE DAILY DIRECTED FOR 28 DAYS 15 g 1 cyclobenzaprine (Flexeril) 5 MG tablet TAKE 1 TABLET BY MOUTH THREE TIMES DAILY IN THE MORNING, AT NOON, AND AT BEDTIME NEEDED FOR MUSCLE SPASMS 30 tablet 1 dextran 70-hypromellose (artificial tears) 0.1-0.3 % ophthalmic solution Use 2 drops in each eye every 3-4 hours as needed EPINEPHrine (Epipen) 0.3 MG/0.3ML injection syringe Inject 0.3 mL (0.3 mg) as directed 1 (one) timefor 1 dose. 0.3 mL 0 fluocinonide (Lidex) 0.05 % ointment Apply topically every 12 (twelve) hours. FreeStyle lancets 1 each by Other route if needed in the morning, at noon, and at bedtime (glucose). USE TO TEST BLOOD SUGAR TWICE A DAY 100 each 11 glucose blood (FREESTYLE LITE) test strip TEST BLOOD SUGAR TWICE DAILY DIRECTED 100 strip 5 hydroCHLOROthiazide (HYDRODiuril) 25 MG tablet TAKE ONE TABLET BY MOUTH EVERY DAY 90 tablet 1 Inositol 324 MG tablet Take 1 tablet by mouth Once per day. 90 tablet 3 lidocaine (Lidoderm) 5 % patch APPLY 1 PATCH TOPICALLY TO SKIN, LEAVE ON FOR 12 HOURS AND OFF FOR 12 HOURS DIRECTED 30 patch 2 losartan (Cozaar) 50 MG tablet TAKE 1 TABLET BY MOUTH ONCE DAILY 90 tablet 1 melatonin 3 MG tablet Take 1 tablet by mouth at bedtime. metFORMIN (Glucophage) 1000 MG tablet TAKE 1 TABLET BY MOUTH TWICE DAILY IN THE MORNING AND IN THE EVENING WITH MEALS 180 tablet 1 metoprolol tartrate (Lopressor) 25 MG tablet Take 1 tablet (25 mg) by mouth 2 times daily. 60 tablet 2 Pentips 32G X 4 MM misc USE DIRECTED 100 each 3 rizatriptan (Maxalt) 10 MG tablet Take 1 tablet (10 mg) by mouth 1 (one) time if needed for migraine. May repeat in 2 hours if unresolved. Do not exceed 30 mg in 24 hours. 9 tablet 0 semaglutide (Ozempic) 2 MG/1.5ML solution pen-injector Inject 1 mg under the skin 1 (one) time per week. 3 each 12 Tresiba FlexTouch 200 UNIT/ML injection INJECT 32 UNITS SUBCUTANEOUSLY EVERY DAY AT BEDTIME. 9 mL 1 zoster vaccine-recombinant adjuvanted (Shingrix) 50 MCG/0.5ML vaccine Inject 0.5 mL into the muscle. [DISCONTINUED] omeprazole (PriLOSEC) [address] capsule TAKE 1 CAPSULE BY MOUTH EVERY DAY BEFORE A MEAL 90 capsule 1 [DISCONTINUED] prednisoLONE acetate (Pred-Forte) 1 % ophthalmic suspension INSTILL 1 DROP IN THE AFFECTED EYE THREE TIMES DAILY [DISCONTINUED] sertraline (Zoloft) 25 MG tablet Take 1 tablet (25 mg) by mouth in the morning. 30 tablet 0 No current facility-administered medications on file prior to visit. Problem List Items Addressed This Visit Generalized abdominal pain - Primary I advise patient to avoid NSAIDs, spicy and acid food, I advise to eat at the same time every day, I advise to elevate the head of the bed and take medications as prescribe H. pylori test ordered today Famotidine 40 mg daily Zofran as needed for nausea and vomiting Relevant Medications famotidine (Pepcid) 20 MG tablet ondansetron (Zofran) 4 MG tablet Other Relevant Orders Helicobacter pylori Antigen, EIA, Stool Clogged ear, bilateral Debrox prescribed today Patient will be booked for an appointment with nurse for ear lavage Relevant Medications carbamide peroxide (Debrox) 6.5 % otic solution documented in this encounter Miscellaneous Notes * Assessment & Plan Note - Omaira Ashby MD - 08/06/2024 5:20 PM EST Associated Problem(s): Clogged ear, bilateral Debrox prescribed today Patient will be booked for an appointment with nurse for ear lavage * Assessment & Plan Note - Omaira Ashby MD - 08/06/2024 5:20 PM EST Associated Problem(s): Generalized abdominal pain I advise patient to avoid NSAIDs, spicy and acid food, I advise to eat at the same time every day, I advise to elevate the head of the bed and take medications as prescribe H. pylori test ordered today Famotidine 40 mg daily Zofran as needed for nausea and vomiting documented in this encounter Plan of Treatment Upcoming Encounters Date Type Department Care Team (Late st Contact Info) Description 08/12/2024 3:00 PM EST Clinical Support [address] [address] 09/27/2024 1:30 PM EDT Office Visit [address] [address] Yane Morrissey NP [address] [place] [address] Scheduled Orders Name Type Priority Associated Diagnoses Orde r Schedule Helicobacter pylori??Antigen, EIA, Stool Lab Routine Generalized abdominal pain Expected: 08/06/2024, Expires: 08/06/2025 documented as of this encounter Visit Diagnoses Diagnosis Generalized abdominal pain- Primary Abdominal pain, generalized Clogged ear, bilateral documented in this encounter Additional Health Concerns Assessment Noted Time PHQ-9 Depression Total Score: 9 05/24/20 24 11:18 AM EST documented as of this encounter Care Teams Catalyst Recovery Operator Relationship Specialty Start Date End Date Yane Morrissey NP [address] [place] [address] PCP - General Family Medicine 02/14/24 documented as of this encounter
--- OUTSIDE RECORDS SUMMARY | 2024-08-09 14:26 | XMS_ITS | Encounter Summary ---
Author Organization [employer] Address [address] [facility] 7t [place] [address] Care Team Providers Care Cord Maker Name Role Phone Claritza Canela Primary Care Provider [phone] Yane Morrissey NP Primary Care Provider [phone] Reason for Visit * Reason Onset Date Comments Med Refill 02/02/2024 Encounter Details Date Type Department Care Team (Late st Contact Info) Description 02/02/2024 Refill [facility]INE [address] [place] [address] Claritza Canela FNP [address] [place] [address] Diabetic polyneuropathy associated with type 2 diabetes mellitus (CMS/HCC); Type 2 diabetes mellitus without complication, with long-term current use of insulin (CMS/HCC) Social History Tobacco Use Types Packs/Day Years Used Date Smoking Tobacco: Never Smokeless Tobacco: Never Alcohol Use Standard Drinks/Week Comments Never 0 (1 standard drink = 0.6 oz pur e alcohol) Depression Answer Date Recorded Patient Health Questionnaire-9 Score 23 04/18/2023 Patient Health Questionnaire-9 Score 23 04/18/2023 Last PHQ-9: Questionnaire Data Not on file 1 06/18/2022 Housing Stability Answer Date Recorded What is your housing situation today? I do not have housing (Staying with others, in a hotel, in a longterm, living outside on the street, on a beach, in a car, or in a park 07/21/[address] you li ve. Do you have problems with any of the following? None of the above 07/21/2023 Food Insecurity Answer Date Recorded Within the past 12 months, y ou worried that your food would run out before you got money to buy more: Sometimes True 2023 Within the past 12 months,th e food you bought just didn't last and you didn't have enough money to get more: Sometimes True 07/21/2023 Transportation Answer Date Recorded In the past [...] Answer Date Recorded Patient Health Questionnaire-2 Score 6 04/18/2023 Comments Unknown Sex and Gender Information Value Date Recorded Sex Assigned at Female 04/11/2022 10:34 AM EDT Legal Sex Female 10:34 AM EDT Gender Identity Female 04/11/2022 10:34 AM EDT Sexual Orientation Choose not to disclose 2021 10:34 AM EDT documented as of this encounter Plan of Treatment Upcoming Encounters Date Type Department Care Team (Late st Contact Info) Description 08/12/2024 3:00 PM EST Clinical Support [facility] [address] [place] [address] 09/27/2024 1:30 PM EDT Office Visit [facility] [address] [place] [address] Yane Morrissey NP 230 [place] [address] documented as of this encounter Visit Diagnoses Diagnosis Diabetic polyneuropathy associated with type 2 diabetes mellitus (CMS/HCC) Type 2 diabetes mellitus without complication, with long-term current use of insulin (CMS/HCC) documented in this encounter Additional Health Concerns Assessment Noted Time PHQ-9 Depression Total Score: 23 023 10:13 AM EST documented as of this encounter Care Teams Cord Maker Relationship Specialty Start Date End Date Claritza Canela FNP [address] [place] [address] PCP - General Family Medicine 05/13/22 02/13/24 Yane Morrissey NP 230 [facility] [place] [address] PCP - General Family Medicine 02/14/24 documented as of this encounter
--- OUTSIDE RECORDS SUMMARY | 2024-08-09 14:26 | XMS_ITS | Encounter Summary ---
Author Organization [employer] Address 75 [facility] 7t [place] [address] Care Team Providers Care Room Service Waiter Name Role Phone Claritza Canela Primary Care Provider [phone] Yane Morrissey NP Primary Care Provider [phone] Reason for Visit * Reason Onset Date Comments Medication Question 01/17/2024 Encounter Details Date Type Department Care Team ([facility] st Contact Info) Description 01/17/2024 Telephone [facility] MED[facility]INE [address] [place] [address] Claritza Canela FNP [address] [place], [place] [phone] Medication Question Social History Tobacco Use Types Packs/Day Years [...] with others, in a hotel, in a senior care, living outside on the street, on a [...] encounter Miscellaneous Notes * Telephone Encounter - Shahbaz Pineda RN - 01/17/2024 4:09 PM EDT [facility], pharmacy states they cannot order below medicationbecause supplier ( ) does not carry this medication. Pt. Can buy online. Please review andadvise if needed. * Telephone Encounter - Shawn Monge - 01/17/2024 2:53 PM EDT [facility] calling in regards to Inositol 324 MG tablet. Pharmacy stated theywould not be able to fill medication, pt can buy through on online market but they would be unable to fill it in the pharmacy. If any questions you can contact [facility] at [phone]. documented in this encounter Plan of Treatment Upcoming Encounters Date Type Department Care Team (Late st Contact Info) Description 08/12/2024 3:00 PM EST Clinical Support [address] [address] 09/27/2024 1:30 PM EDT Office Visit [address] [address] Yane Morrissey NP 230 [place] [address] documented as of this encounter Visit Diagnoses Not on filedocumented in this encounter Additional Health Concerns Assessment Noted Time PHQ-9 Depression Total Score: 23 023 10:13 AM EST documented as of this encounter Care Teams Room Service Waiter Relationship Specialty Start Date End Date Claritza Canela FNP [address] [place] [address] PCP - General Family Medicine 05/13/22 02/13/24 Yane Morrissey NP [address] [place] [address] PCP - General Family Medicine 02/14/24 documented as of this encounter
--- OUTSIDE RECORDS SUMMARY | 2024-08-09 14:26 | XMS_ITS | Encounter Summary ---
Author Organization [employer] Address [address] [facility] 7t [place] [address] Care Team Providers Care Wash House Supervisor Name Role Phone Claritza Canela Primary Care Provider [phone] Yane Morrissey NP Primary Care Provider [phone] Reason for Visit * Reason Onset Date Comments Medication Question 08/17/2023 Encounter Details Date Type Department Care Team ([facility] st Contact Info) Description 08/17/2023 Telephone [facility] MEDICINE [address] [place] [address] Claritza Canela FNP [address] [place], [place] [phone] Medication Question Social History Tobacco Use Types [...] with others, in a hotel, in a care home, living outside on the street, on a [...] Telephone Encounter - Shahbaz Pineda RN - 08/17/2023 4:16 PM EST T/C to pt. For below message, pt. States cream was sent by paramedics yesterday at the [facility] pharmacywhich is not covered, pt. Does not remember the name/T/C to [facility] pharmacy for above message, pharmacy states lidocaine 4 % cream was prescribe but not covered through insurance. Pharmacy advised to request PA from provider. PT. Informed about PA request, pt. Verbally agreed and understood. * Telephone Encounter - Malu Judge - 08/17/2023 1:20 PM EST Tc from pt returning call. * Telephone Encounter - Shahbaz Pineda RN - 08/17/2023 11:47 AM EST T/C to pt. For below message, pt.states she is at dental office right now and will give call back. * Telephone Encounter - Shawn Monge - 08/17/2023 9:47 AM EST Tc from pt requesting call back regarding an ointment, pt stated it was sent by paramedics for her hip pain and pt wants to know if medication is covered by her insurance. If not pt would like a alternative medication that is coved by her insurance. Please contact pt at [phone]. documented in this encounter Plan of Treatment Upcoming Encounters Date Type Department Care Team (Late st Contact Info) Description 08/12/2024 3:00 PM EST Clinical Support [address] [address] 09/27/2024 1:30 PM EDT Office Visit [address] [address] Yane Morrissey NP [address] [place] [address] documented as of this encounter Visit Diagnoses Not on filedocumented in this encounter Additional Health Concerns Assessment Noted Time PHQ-9 Depression Total Score: 23 023 10:13 AM EST documented as of this encounter Care Teams Wash House Supervisor Relationship Specialty Start Date End Date Claritza Canela FNP [address] [place] [address] PCP - General Family Medicine 05/13/22 02/13/24 Yane Morrissey NP [address] [place] [address] PCP - General Family Medicine 02/14/24 documented as of this encounter
--- OUTSIDE RECORDS SUMMARY | 2024-08-09 14:26 | XMS_ITS | Encounter Summary ---
Author Organization [employer] Address [address] [facility] [address] 7t [place] [address] Care Team Providers Care Receivable Executive Name Role Phone Yane Morrissey NP Primary Care Provider [phone] Encounter Details Date Type Department Care Team ([facility] st Contact Info) Description 07/03/2024 Telephone [facility] MEDICINE [address] [place], [place] [phone] Latrice Fernandez RN Social History Tobacco Use Types Packs/Day Years [...] encounter Miscellaneous Notes * Telephone Encounter - Latrice Fernandez RN - 08/02/2024 9:25 AM EST TC placed to [facility]. No answer. TC placed to pt. Pt reports she is looking to see gastroenterology to see the provider Anum Conley CNP. Message forwarded to provider for review. * Telephone Encounter - Yane Morrissey NP - 08/02/2024 9:08 AM EST Can we clarify whom/which service pt was trying to see? Thank you * Telephone Encounter - Latrice Fernandez RN - 07/03/2024 10:13 AM EST Incoming fax from [facility]. [address] [facility], 3rd Floor, [place], [place]. Fax states, Patient called our office requesting appt. Patient states that she does not need a referral for insurance coverage; however, she will need a referral to our office for our purposes. Please consider reaching out to the patient to either discuss referral or alternatives. Please fax over referral when and if completed. Please call office with any questions or requests. Thank you. Fax message forwarded to provider to review and advise. documented in this encounter Plan of Treatment Upcoming Encounters Date Type Department Care Team (Late st Contact Info) Description 08/12/2024 3:00 PM EST Clinical Support [address] [address] 09/27/2024 1:30 PM EDT Office Visit [address] [address] Yane Morrissey NP [address] [place] [address] documented as of this encounter Visit Diagnoses Not on filedocumented in this encounter Additional Health Concerns Assessment Noted Time PHQ-9 Depression Total Score: 9 05/24/20 24 11:18 AM EST documented as of this encounter Care Teams Receivable Executive Relationship Specialty Start Date End Date Yane Morrissey NP [address] [place] [address] PCP - General Family Medicine 02/14/24 documented as of this encounter
--- OUTSIDE RECORDS SUMMARY | 2024-08-09 14:26 | XMS_ITS | Encounter Summary ---
Author Organization [employer] Address [address] [facility] 7t [place] [address] Care Team Providers Care Asphalt Patcher Name Role Phone Yane Morrissey NP Primary Care Provider [phone] Reason for Visit * Reason Comments Blood Pressure Check Encounter Details Date Type Department Care Team (Late st Contact Info) Description 07/10/2024 9:30 AM EST Telemedicine [facility] MEDICINE 230 [place] [address] Phuong Adler, ISAAK 230 [place] [address] Essential hypertension Social History Tobacco Use Types Packs/Day Years [...] AM EDT documented as of this encounter Progress Notes * Phuong Adler RN - 07/10/2024 9:30 AM EST S: T/C to pt for nurse televisit for BP Check. Pt reports that she exercises every day walking, doing cardio and lifting weight as able. Pt reports that she eats a lot of high fiber foods, fruits, vegetables, some chicken and turkey. Pt states she cooks with olive oil and avocado oil and prepares her food at home. Pt denies smoking or drinking alcohol. Pt states that he has been experiencing constipation lately. States she took Metmucil this morning and was able to have a small BM. Reports she feels a little uncomfortable but denies abd pain. Pt asking pcp rx a stool softener. Pt denies chestpain, sob, dizziness and visual changes today. Reports she has not been feeling dizzy lately. Pt c/o a slight headache she associates with constipation. Pt states she believes she had a colonoscopy in the [place] 11/2017 and agrees to bring record to medical records. Pt also states that she is concerned because she notices systemic lupus on her problem list. Advised that this is not listed on her current problem list. Encouraged pt to bring that record to medical records. O: Pt currently taking Losartan Potassium 50 mg Take one tablet by mouth once daily and hydrochlorothiazide 25 mg Take one tablet by mouth daily. Pt reports that she takes these medications daily. Ptstates that she stopped taking amlodipine 2.5 mg daily and metoprolol tartrate 25 mg po bid d/t hypotension. A: Pt reports the following home BP readings from 07/04/24-07/10/24: 118/71 AM; 105/66 PM, 109/74 AM;122/61 PM; 119/67 AM; 122/70 AM; 117/70 PM; 129/72 AM; 115/69 PM; 116/68 AM; 124/75; 118/77 AM. P: Pt advised to take medications as rx. Pt encouraged to adhere to low sodium diet. Pt encouraged to continue amount and frequency of exercise. Advised nurse note will be sent to pcp for review and pt will be advised of any changes. documented in this encounter Plan of Treatment Upcoming Encounters Date Type Department Care Team (Late st Contact Info) Description 08/12/2024 3:00 PM EST Clinical Support [address] [address] 09/27/2024 1:30 PM EDT Office Visit [address] [address] Yane Morrissey NP 230 [place] [address] documented as of this encounter Visit Diagnoses Diagnosis Essential hypertension Unspecified essential hypertension documented in this encounter Additional Health Concerns Assessment Noted Time PHQ-9 Depression Total Score: 9 05/24/20 11:18 AM EST documented as of this encounter Care Teams Asphalt Patcher Relationship Specialty Start Date End Date Yane Morrissey NP 230 [place] [address] PCP - General Family Medicine 02/14/24 documented as of this encounter
--- OUTSIDE RECORDS SUMMARY | 2024-08-09 14:26 | XMS_ITS | Encounter Summary ---
Author Organization [employer] Address [address] [facility] [address] 7t [place] [address] Care Team Providers Care Fire Alarm Installer Name Role Phone Claritza CanelaP Primary Care Provider [phone] Yane Morrissey NP Primary Care Provider [phone] Encounter Details Date Type Department Care Team (Late st Contact Info) Description 03/21/2023 Orders Only [facility] MEDICINE 230 [place] [address] Provider, MD [place] Social History Tobacco Use Types Packs/Day Years Used Date Smoking Tobacco: Never Smokeless Tobacco: Never Alcohol Use Standard Drinks/Week Comments Never 0 (1 standard drink = 0.6 oz pur e alcohol) Depression Answer Date Recorded Patient Health Questionnaire-9 Score 2 06/01/2022 Housing Stability Answer Date Recorded What is your housing situation today? I have sandra wing 03/21/[address] you li ve. Do you have problems with any of the following? None of the above 03/21/2023 Food Insecurity Answer Date Recorded Within the past 12 months, y ou worried that your food would run out before you got money to buy more: Never True 03/21/2023 Within the past 12 months,th e food you bought just didn't last and you didn't have enough money to get more: Never True 03/2023 Transportation Answer Date Recorded In the past 12 months, has l ack of transportation kept you from medical appts, meetings, work or from getting things needed for daily living? No 03/21/2023 Utilities Answer Date Recorded In the past 12 months, has t he electric, gas, oil or water company threatened to shut off services in your home? No 03/21/2023 Depression Answer Date Recorded Patient Health Questionnaire-2 [...] Description 08/12/2024 3:00 PM EST Clinical Support [address] [address] 09/27/2024 1:30 PM EDT Office Visit [address] [address] Yane Morrissey NP 230 [place] [address] documented as of this encounter Procedures Procedure Name Priority Date/Time Associated Diagnosis Comments BI STEREOTACTIC MAMMO CORE B IOPSY LEFT Routine 11/02/2022 documented in this encounter Results * BI STEREOTACTIC MAMMO CORE BIOPSY LEFT (11/02/2022) Anatomical Region Laterality Modality Mammography us Historical Provider MD TRACY BI PROCEDURES Final R esult documented in this encounter Visit Diagnoses Not on filedocumented in this encounter Additional Health Concerns Assessment Noted Time PHQ-9 Depression Total Score: 2 06/01/20 22 9:11 AM EST documented as of this encounter Care Teams Fire Alarm Installer Relationship Specialty Start Date End Date Claritza Canela FNP [address] [place] [address] PCP - General Family Medicine 05/13/22 02/13/24 Yane Morrissey NP [address] [place] [address] PCP - General Family Medicine 02/14/24 documented as of this encounter
--- OUTSIDE RECORDS SUMMARY | 2024-08-09 14:26 | XMS_ITS | Encounter Summary ---
Author Organization [employer] Address [address] [facility] [address] 7t [place] [address] Care Team Providers Care Ceramics Teacher Name Role Phone Claritza Canela Primary Care Provider [phone] Yane Morrissey NP Primary Care Provider [phone] Encounter Details Date Type Department Care Team (Late st Contact Info) Description 03/28/2023 Orders Only [facility] [address] [place] [address] Claritza Canela FNP [address] [place] [address] Acute bilateral low back pain with right-sided sciatica Social History Tobacco Use Types Packs/Day Years Used Date Smoking Tobacco: Never Smokeless Tobacco: Never Alcohol Use Standard Drinks/Week Comments Never 0 (1 standard drink = 0.6 oz pur e alcohol) Depression Answer Date Recorded Patient Health Questionnaire-9 Score 2 06/01/2022 Housing Stability Answer Date Recorded What is your housing situation today? I have sandra wing 03/27/[address] you li ve. Do you have problems with any of the following? None of the above 03/27/2023 Food Insecurity Answer Date Recorded Within the past 12 months, y ou worried that your food would run out before you got money to buy more: Never True 03/27/2023 Within the past 12 months,th e food you bought just didn't last and you didn't have enough money to get more: Never True Transportation Answer Date Recorded In the past 12 months, has l ack of transportation kept you from medical appts, meetings, work or from getting things needed for daily living? No 03/27/2023 Utilities Answer Date Recorded In the past 12 months, has t he electric, gas, oil or water company threatened to shut off services in your home? No 03/27/2023 Depression Answer Date Recorded Patient Health Questionnaire-2 [...] Description 08/12/2024 3:00 PM EST Clinical Support [address] [address] 09/27/2024 1:30 PM EDT Office Visit [address] [address] Yane Morrissey NP [address] [place] [address] documented as of this encounter Visit Diagnoses Diagnosis Acute bilateral low back pain with right-sided sciatica documented in this encounter Additional Health Concerns Assessment Noted Time PHQ-9 Depression Total Score: 2 06/01/20 22 9:11 AM EST documented as of this encounter Care Teams Ceramics Teacher Relationship Specialty Start Date End Date Claritza Canela FNP [address] [place] [address] PCP - General Family Medicine 05/13/22 02/13/24 Yane Morrissey NP [address] [place] [address] PCP - General Family Medicine 02/14/24 documented as of this encounter
--- OUTSIDE RECORDS SUMMARY | 2024-08-09 14:26 | XMS_ITS | Encounter Summary ---
Author Organization [employer] Address 75 [facility] 7t [place] [address] Care Team Providers Care Paste Up Copy Camera Operator Name Role Phone Claritza CanelaP Primary Care Provider [phone] Yane Morrissey NP Primary Care Provider [phone] Encounter Details Date Type Department Care Team (Late st Contact Info) Description 07/19/2022 Orders Only [facility] MEDICINE [address] [place] [address] Claritza Canela FNP [address] [place] [address] Type 2 diabetes mellitus without complication, with long-term current use of insulin ([facility]) (Primary Dx) Social History Tobacco Use Types [...] suspected to have Coronavirus/COVID-19? No / Unsure 07/11/2022 3:15 PM EST documented as of this encounter Plan of Treatment Upcoming Encounters Date Type Department Care Team (Late st Contact Info) Description 08/12/2024 3:00 PM EST Clinical Support [address] [address] 09/27/2024 1:30 PM EDT Office Visit [address] [address] Yane Morrissey NP 230 [place] [address] documented as of this encounter Visit Diagnoses Diagnosis Type 2 diabetes mellitus without complication, with long-term current use of insulin ([facility])- Primary documented in this encounter Additional Health Concerns Assessment Noted Time PHQ-9 Depression Total Score: 2 06/01/20 22 9:11 AM EST documented as of this encounter Care Teams Paste Up Copy Camera Operator Relationship Specialty Start Date End Date Claritza Canela FNP [address] [place] [address] PCP - General Family Medicine 05/13/22 02/13/24 Yane Morrissey NP [address] [place] [address] PCP - General Family Medicine 02/14/24 documented as of this encounter
--- OUTSIDE RECORDS SUMMARY | 2024-08-09 14:26 | XMS_ITS | Encounter Summary ---
Author Organization [employer] Address [address] [facility] 7t [place] [address] Care Team Providers Care Assembly Inspector Helper Name Role Phone Claritza CanelaP Primary Care Provider [phone] Yane Morrissey NP Primary Care Provider [phone] Reason for Visit * Reason Comments Med Refill Encounter Details Date Type Department Care Team (Late st Contact Info) Description 11/03/2023 Refill [facility] MEDICINE 230 [place] [address] Claritza Canela FNP [address] [place], [place] [phone] Social History Tobacco Use Types Packs/Day Years [...] with others, in a hotel, in a long-term, living outside on the street, on a [...] Description 08/12/2024 3:00 PM EST Clinical Support [facility] MEDICINE [address] [place] [address] 09/27/2024 1:30 PM EDT Office Visit [facility] MEDICINE [address] [place] [address] Yane Morrissey NP 230 [place] [address] documented as of this encounter Visit Diagnoses Not on filedocumented in this encounter Additional Health Concerns Assessment Noted Time PHQ-9 Depression Total Score: 23 023 10:13 AM EST documented as of this encounter Care Teams Assembly Inspector Helper Relationship Specialty Start Date End Date Claritza Canela FNP [address] [place] [address] PCP - General Family Medicine 05/13/22 02/13/24 Yane Morrissey NP [address] [place] [address] PCP - General Family Medicine 02/14/24 documented as of this encounter
--- OUTSIDE RECORDS SUMMARY | 2024-08-09 14:26 | XMS_ITS | Clinical Summary ---
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 Auto 0.000 0.0 - 0.012 X10*3/uL [facility] 07/31/2024 1:18 PM EST 07/31/2024 1:30 PM EST us Generic External Data Provider LAB BLOOD ORDERAB LES Final Result [facility] [address] [place] [address] [phone] * (ABNORMAL) Prothrombin Time-INR (07/31/2024 1:18 PM EST) Prothrombin Time 10.5(L) 10.9 - 12.4 SEC [facility] INTERNATIONAL NORM RATIO 0.9 0.9 - 1.1 [facility] Comment:INTERNATIONAL NORMAL IZED RATIO (INR) REFERENCE RANGES Reference RangeFor patients not on anticoagulant therapy: 0.9 - 1.1INR ranges for oral anticoagulanttherapy:For prevention and treatment of venous thrombosis and pulmonary embolism: 2.0 - 3.0For acute myocardial infarction with aspirin therapy: 2.0 - 3.0For acute myocardial infarction without aspirin therapy: 3.0 - 4.0For patients with mechanical prosthetic heart valves: 2.5 - 3.5 07/31/2024 1:18 PM EST 07/31/2024 1:30 PM EST Generic External Data Provider LAB BLOOD ORDERAB LES Final Result Performing Organization Address [facility] de Phone Number [facility] [address] [place] [phone] * Magnesium (07/31/2024 1:18 PM EST) Magnesium 2.1 1.6 - 2.6 mg/dL [facility] 07/31/2024 1:18 PM EST 07/31/2024 1:30 PM EST Generic External Data Provider LAB BLOOD ORDERAB LES Final Result Performing Organization Address [facility] Co de Phone Number [facility] [address] [place] [phone] * Lipase (07/31/2024 1:18 PM EST) Lipase 29 8 - 78 U/L [facility] 07/31/2024 1:18 PM EST 07/31/2024 1:30 PM EST Generic External Data Provider LAB BLOOD ORDERAB LES Final Result Performing Organization Address [facility] Co de Phone Number [facility] [address] [place] [address] [phone] * Lactic Acid (07/31/2024 1:18 PM EST) Lactic Acid 1.4 0.5 - 2.0 mmol/L [facility] 07/31/2024 1:18 PM EST 07/31/2024 1:32 PM EST us Generic External Data Provider LAB BLOOD ORDERAB LES Final Result [facility] [address] [place] [address] [phone] * (ABNORMAL) Comprehensive Metabolic Panel (07/31/2024 1:18 PM EST) Sodium 139 135 - 145 mmol/L [facility] Potassium 3.7 3.3 - 5.1 mmol/L [facility] Chloride 106 96 - 108 mmol/L [facility] Carbon Dioxide 25 22 - 29 mmol/L [facility] Anion Gap 12 12 - 20 [facility] Urea Nitrogen (BUN) 22(H) 9 - 16 mg/dL [facility] Creatinine, Serum 0.80 0.5 - 1.4 mg/dL [facility] Creatinine Clr Calc Pharmacy 76.5 [facility] Comment:Provided height and weight: 158.75 cm,95.4 kg.eGFR (calculated from the MDRD study equation) and eCrCl(calculated from the Cockcroft-Gault equation) are based ondifferent parameters and may not yield comparable results.If eCrCl result is absurd, please check patient'sheight/weight. Estimated Glomerular Filt Rate >60 [facility] Comment:Chronic Kidney Disea se: Estimated GFR < 60 mL/min/[id number] Kidney Disease: Estimated GFR < 15 mL/min/1.73m2 Glucose 84 60 - 115 mg/dL [facility] Calcium 9.4 8.4 - 10.2 mg/dL [facility] Bilirubin, Total 0.6 0.0 - 1.0 mg/dL [facility] Aspartate Amino Transferase 30 5 - 31 U/L [facility] Alanine Aminotransferase 25 0 - 31 U/L [facility] Total Protein 7.4 6.5 - 8.0 g/dL [facility] Albumin Level 4.3 3.5 - 5.0 g/dL [facility] Alkaline Phosphatase 81 39 - 117 U/L [facility] 07/31/2024 1:18 PM EST 07/31/2024 1:30 PM EST us Generic External Data Provider LAB BLOOD ORDERAB LES Final Result [facility] [address] [place] [address] [phone] * POCT Glucose (05/24/2024 11:33 AM EST) Glucose Blood, POC 131 60 - 200 mg/dL QC Media Lot # [id number] Lot# Expiration Date Blood Capillary blood specimen / Unknown 05/24/2024 11:33 AM EST us Yane Morrissey NP POINT OF CARE TEST ENTER/EDIT OR DERABLES Final Result * CT Head w/o Contrast (05/10/2024 10:31 AM EST) Anatomical Region Laterality Modality Head, Neck Computed Tomogra phy 05/10/2024 10:3 1 AM EST Narrative 06/26/2024 2:15 AM EST ? [facility] ?[address] ?[place] [address] ? CT Scan Report ? Signed ? Patient: Roldan,Sabad ?MR#: [id number] ?? 97 ? : 1960 ?Acct:[id number] ? Age/Sex: 63 / F ?ADM Date: 11/29/24 ? Loc: HO.CT ? Attending Dr: Yane Morrissey WALL ATTENDANT ? Ordering Physician: Yane Morrissey NP ?? Date of Service: 05/10/24 ?? Procedure(s): CT head/brain wo IV con ?? Accession Number(s): [id number] ? cc: Yane Morrissey NP ? Report Number: ?? [id number]: Total DLP = ?0.00 mGy-cm ?? EXAMINATION: ?? CT HEAD WITHOUT CONTRAST ? CLINICAL INFORMATION: ?? Chronic migraines. ? COMPARISON: ?? None available. ? TECHNIQUE: ?? Contiguous axial imaging was performed from the skull base to vertex ?? without intravenous administration of contrast. ? This CT examination was performed using dose optimization techniques as ?? appropriate, variously including the following: ?? *Automated exposure control. ?? *Adjustment of mA and/or kV according to patient size (this includes ?? techniques or standardized protocols for targeted exams where dose is ?? matched to indication/reason for exam; i.e. extremities or head). ?? *Use of iterative reconstruction technique. ? DLP: ?? 708 mGy-cm ? FINDINGS: ?? There is no evidence of acute intracranial hemorrhage or edematous ?? territorial infarction. Granados-white matter differentiation is preserved. ?? There is no abnormal attenuation within the brain parenchyma. The ?? ventricles are normal in morphology and size. No evidence for ?? obstructive hydrocephalus. The suprasellar cistern remains widely ?? patent. Normal positioning of the cerebellar tonsils. No abnormal mass ?? effect or midline shift. No extra-axial fluid collections. Calcific ?? 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 ?? No hyperdense vessel sign. ? No acute soft tissue or osseous abnormalities. Mild mucosal thickening ?? of the paranasal sinuses. The mastoid air cells and middle ear cavities ?? are clear. Bilateral lens extractions. ? CT/CT head/brain wo IV con ?? IMPRESSION: ?? 1. ??No evidence of acute intracranial hemorrhage or edematous ?? territorial infarction. ?? 2. ??Mild underlying microangiopathy and generalized cerebral volume ?? loss. ? Electronically signed by: ??Usman Engrosette DO ??06/26/2024 02:10 AM EST RP ? Dictated By: ?Orestes Shelby DO ? Signed By: ?<Electronically signed by Orestes Shelby, DO in OV> ? 06/26/24 0210 ? DD/ 1031 ? TD/TT: 05/10/24 1048 ? Tire Debeader: JL ? Procedure Note Donotuseinterpreter, Image - 06/26/[address] [id number] [address] Scan Report Signed Patient: Andrew MontillaR#: [id number] [birth year] : 1960cct:[id number] Age/Sex: 63 / FADM Date: 05/10/24 Loc: HO.CT Attending Dr: Yane Morrissey WALL ATTENDANT Ordering Physician: Yane Morrissey NP Date of Service: 05/10/24 Procedure(s): CT head/brain wo IV con Accession Number(s): [id number] cc: Yane Morrissey WALL ATTENDANT Report Number: [id number]: Total DLP = 0.00 mGy-cm EXAMINATION: CT HEAD WITHOUT CONTRAST CLINICAL INFORMATION: Chronic migraines. COMPARISON: None available. TECHNIQUE: Contiguous axial imaging was performed from the skull base to vertex without intravenous administration of contrast. This CT examination was performed using dose optimization techniques as appropriate, variously including the following: *Automated exposure control. *Adjustment of mA and/or kV according to patient size (this includes techniques or standardized protocols for targeted exams where dose is matched to indication/reason for exam; i.e. extremities or head). *Use of iterative reconstruction technique. DLP: 708 mGy-cm FINDINGS: There is no evidence of acute intracranial hemorrhage or edematous territorial infarction. Granados-white matter differentiation is preserved. There is no abnormal attenuation within the brain parenchyma. The ventricles are normal in morphology and size. No evidence for obstructive hydrocephalus. The suprasellar cistern remains widely patent. Normal positioning of the cerebellar tonsils. No abnormal mass effect or midline shift. No extra-axial fluid collections. Calcific atherosclerotic disease of the intracranial internal carotid arteries. No hyperdense vessel sign. No acute soft tissue or osseous abnormalities. Mild mucosal thickening of the paranasal sinuses. The mastoid air cells and middle ear cavities are clear. Bilateral lens extractions. CT/CT head/brain wo IV con IMPRESSION: 1. No evidence of acute intracranial hemorrhage or edematous territorial infarction. 2. Mild underlying microangiopathy and generalized cerebral volume loss. Electronically signed by: Usman Shelby DO 06/26/2024 02:10 AM EST Dictated By: Orestes Shelby DO Signed By: <Electronically signed by Orestes Shelby DO in OV> 06/26/24 0210 DD/ 1031 TD/TT: 05/10/24 1048 Tire Debeader: ALFREDO Yane Morrissey WALL ATTENDANT IMG CT PROCEDURES Final Result * (ABNORMAL) POCT HGB A1C (01/17/2024 2:21 PM EDT) Hemoglobin A1C 6.4(A) 4.0 - 6.0 % QC Media Lot # [id number] Lot# Expiration Date ,814,400 Blood 01/17/2024 2:21 PM EDT [facility] POINT OF CARE TEST ENTER/EDIT O RDERABLES Final Result * Albumin, Random Urine W/Creatinine (07/27/2023 8:40 AM EST) Creatinine, Urine 132.90 mg/dL [facility] Microalbumin Urine 17.0 mg/L [facility] Microalbum Creatinine Ratio Ur 12.7 <30 ug/mg cr [facility] Comment:Albumin/Creatinine R atio Reference Ranges: Normal: < 30 ug/mg creatinine Microalbuminuria: 30 - 300 ug/mg creatinineClinical Albuminuria: > 300 ug/mg creatinine Urine (Urine, Random) 07/27/2023 8:40 AM EST 07/27/2023 11:28 AM EST [facility] LAB URINE ORDERABLES Final Resu lt [facility] [address] [place] [phone] * Lipid Panel, Standard (07/27/2023 8:06 AM EST) Triglycerides 53 <150 mg/dL [facility] Comment:Desirable Triglyceri de: less than 150 mg/dLBorderline High Triglyceride 150-199 mg/dLHigh Triglyceride: 200-499 mg/dLVery High Triglyceride: greater than or equal to 5OO mg/dL Cholesterol 113 <200 mg/dL [facility] Comment:Desirable Cholestero l: less than 200 mg/dLBorderline High Cholesterol: 200-239 mg/dLHigh Cholesterol: greater than 239 mg/dL LDL Cholesterol Calculated 39 <100 mg/dL [facility] Comment:Desirable LDL: less than 100 mg/dLNear Optimal/Above Optimal LDL: 110- 129 mg/dLBorderline High LDL: 130-159 mg/dLHigh LDL: 160-189 mg/dLVery High LDL: greater than or equal to 190 mg/dL HDL Cholesterol 64 >40 mg/dL [facility] Comment:Desirable HDL: great er than 40 mg/dL Note: This HDL assay may give artificially low results in patients with liver disease. Blood Venous blood specimen / Unknown 07/27/2023 8:06 AM EST 07/27/2023 11:15 AM EST Claritza Canela ADULT CAREGIVER LAB BLOOD ORDERABLES Final Resu lt [facility] [address] [place] [phone] * PAP/HPV (06/16/2023 12:00 AM EST) Historical Provider HEALTH MAINTENANCE Final Result * Mammography (05/05/2023) Mammogram Bi-rads 2 Anatomical Region Laterality Modality Other Historical Provider HEALTH MAINTENANCE Final Result * HEPATITIS C ANTIBODY RFLX (06/20/2019 8:11 AM EST) HEPATITIS C ANTIBODY NONREACTIVE NONREACTIVE [facility] Comment: Antibodies to HCV not detected; does not exclude early acute HCV infection. 06/20/2019 8:11 AM EST Albert Hollingsworth MD HISTORICAL/NON ORDERABLE LABS Fi nal Result Performing Organization Address [facility] Phone Number [facility] [address] [place] [address], * HIV AB/AG (06/20/2019 8:11 AM EST) Pathologist [facility] HIV AG/AB NONREACTIVE [facility] Comment: HIV-1 p24 Ag and/or HIV-1/HIV-2 Ab not detected. ?? A test result that is nonreactive does not exclude the possibility of exposure to or infection with HIV-1 and/or HIV-2. Nonreactive results in this assay for individuals with prior exposure to HIV-1 and/or HIV-2 may be due to antigen and antibody levels that are below the limit of detection of this assay. ?? The Jaime Dicer Machine Operator HIV Ag/Ab Combo assay result and supplemental assay results should be interpreted in conjunction with the patient's clinical presentation, history and other laboratory results. ??If the results are inconsistent with clinical evidence, additional testing is suggested to confirm the result. 06/20/2019 8:11 AM EST Albert Hollingsworth MD HISTORICAL/NON ORDERABLE LABS Fi nal Result Performing Organization Address [facility] Phone Number [facility] [place] [address], * HPV mRNA E6/E7 (07/12/2018 9:56 AM EST) HPV mRNA E6/E7 Not Detected NOT DETECTED [facility] Comment: This test was performed using the APTIMA(R) HPV Assay ([employer] This assay detects E6/E7 viral messenger RNA (mRNA) from 14 high-risk HPV types (16,18,31,33,35,39,45,51, 52,56,58,59,66,68). For additional information please refer to: http://education.ticketscript.[employer]/faq/DRL396z9 (This link is being provided for informational/ educational purposes only.) The analytical performance characteristics of this assay have been determined by [facility] [place], [place]. The modifications have not been cleared or approved by the FDA. This assay has been validated pursuant to the CLIA regulations and is used for clinical purposes. Test Performed by [facility], [facility] [place], [address] [place] [address] Henok Carreno M.D., Ph.D., Director of Laboratories , CLIA [id number] Please note: ??Effective 02/22/2016, HPV testing will be performed using [employer]'s APTIMA test which targets mRNA. Detecting mRNA instead of DNA, as in older methods, offers significant improvements in specificity. 07/12/2018 9:56 AM EST Jayla Wang CNM HISTORICAL/NON ORDERABLE LABS Final Result Performing Organization Address City/State/[facility] Co de Phone Number [facility] [address] from Last 3 Months or Most Recently Relevant to Health Maintenance Insurance [facility] Care Teams Medical Billing Manager Relationship Specialty Start Date End Date Yane Morrissey NP [address] [place] [phone] PCP - General Family Medicine 02/14/24
--- OUTSIDE RECORDS SUMMARY | 2024-08-09 14:26 | XMS_ITS | Encounter Summary ---
Author Organization [employer] Address [address] [facility] 7t [place] [address] Care Team Providers Care Multi Slide Machine Tender Name Role Phone Yane Morrissey NP Primary Care Provider [phone] Reason for Visit * Reason Onset Date Comments Nurse Triage 08/01/2024 Encounter Details Date Type Department Care Team ([facility] st Contact Info) Description 08/01/2024 Telephone [facility] MEDICINE [address] [place] [address] Yane Morrissey NP [address] [place] [address] Nurse Triage Social History Tobacco Use Types Packs/Day Years [...] encounter Miscellaneous Notes * Telephone Encounter - Lizbeth Montilla - 08/01/2024 2:09 PM EST Symptom: Abdominal Pain - Female - Not Outcome: Schedule an urgent appointment (within 4 hours) or talk to a nurse or provider soon Reason: Started within the past 3 days The caller accepted this outcome. [phone] documented in this encounter Plan of Treatment Upcoming Encounters Date Type Department Care Team (Late st Contact Info) Description 08/12/2024 3:00 PM EST Clinical Support [facility] MEDICINE [address] [place] [phone] 09/27/2024 1:30 PM EDT Office Visit [facility]INE [address] [place] [phone] Yane Morrissey NP [address] [place] [address] documented as of this encounter Visit Diagnoses Not on filedocumented in this encounter Additional Health Concerns Assessment Noted Time PHQ-9 Depression Total Score: 9 05/24/20 24 11:18 AM EST documented as of this encounter Care Teams Multi Slide Machine Tender Relationship Specialty Start Date End Date Yane Morrissey NP [address] [place] [address] PCP - General Family Medicine 02/14/24 documented as of this encounter
--- OUTSIDE RECORDS SUMMARY | 2024-08-09 14:26 | XMS_ITS | Encounter Summary ---
Author Organization [employer] Address [address] [facility] [address] [place] [address] Care Team Providers Care Manager Internet Retails Sales Name Role Phone Claritza Canela Primary Care Provider [phone] Yane Morrissey NP Primary Care Provider [phone] Encounter Details Date Type Department Care Team (Late st Contact Info) Description 10/04/2023 Orders Only [facility] [address] [place] [address] Claritza Canela FNP [address] [place] [address] Social History Tobacco Use Types Packs/Day Years [...] with others, in a hotel, in a mcfp, living outside on the street, on a [...] Description 08/12/2024 3:00 PM EST Clinical Support [facility] [address] [place] [phone] 09/27/2024 1:30 PM EDT Office Visit [facility] [address] [place] [phone] Yane Morrissey NP [address] [place] [address] documented as of this encounter Visit Diagnoses Not on filedocumented in this encounter Additional Health Concerns Assessment Noted Time PHQ-9 Depression Total Score: 23 023 10:13 AM EST documented as of this encounter Care Teams Manager [employer] Retails Sales Relationship Specialty Start Date End Date Claritza Canela FNP [address] [place] [phone] PCP - General Family Medicine 05/13/22 02/13/24 Yane Morrissey NP [address] [place] [phone] PCP - General Family Medicine 02/14/24 documented as of this encounter
--- OUTSIDE RECORDS SUMMARY | 2024-08-09 14:26 | XMS_ITS | Encounter Summary ---
Author Organization [employer] Address [address] [facility] 7t [place] [address] Care Team Providers Care Chemical Processing Laborer Name Role Phone Claritza CanelaP Primary Care Provider [phone] Yane Morrissey NP Primary Care Provider [phone] Encounter Details Date Type Department Care Team (Late st Contact Info) Description 01/30/2023 Orders Only [facility] [address] [place] [address] Claritza Canela FNP [address] [place] [address] Social History Tobacco Use Types Packs/Day Years [...] Description 08/12/2024 3:00 PM EST Clinical Support [facility] MEDICINE [address] [place], [place] [phone] 09/27/2024 1:30 PM EDT Office Visit [facility] MEDICINE [address] [place] [address] Yane Morrissey NP [address] [place] [address] documented as of this encounter Visit Diagnoses Not on filedocumented in this encounter Additional Health Concerns Assessment Noted Time PHQ-9 Depression Total Score: 2 06/01/20 9:11 AM EST documented as of this encounter Care Teams Chemical Processing Laborer Relationship Specialty Start Date End Date Claritza Canela FNP [address] [place] [address] PCP - General Family Medicine 05/13/22 02/13/24 Yane Morrissey NP [address] [place] [address] PCP - General Family Medicine 02/14/24 documented as of this encounter
--- OUTSIDE RECORDS SUMMARY | 2024-08-09 14:26 | XMS_ITS | Encounter Summary ---
Author Organization [employer] Address [address] [facility] [place] [address] Care Team Providers Care Gold Blower Name Role Phone Claritza Canela Primary Care Provider [phone] Yane Morrissey NP Primary Care Provider [phone] Reason for Visit * Reason Onset Date Comments Referral 03/23/2023 Encounter Details Date Type Department Care Team ([facility] st Contact Info) Description 03/23/2023 Telephone [facility] MEDICINE [address] [place] [address] Claritza Canela FNP [address] [place] [address] Referral Social History Tobacco Use Types Packs/Day Years [...] encounter Miscellaneous Notes * Telephone Encounter - Margaret Jessica - 03/23/2023 2:11 PM EDT Tc from patient in regards to Endocrinology referral. States she has called office several times left voicemail's and no response. The referral was issued on 10/26/22. documented in this encounter Plan of Treatment Upcoming Encounters Date Type Department Care Team (Late st Contact Info) Description 08/12/2024 3:00 PM EST Clinical Support [facility] MEDICINE [address] [place] [address] 09/27/2024 1:30 PM EDT Office Visit [facility] MEDICINE [address] [place] [phone] Yane Morrissey NP [address] [place] [address] documented as of this encounter Visit Diagnoses Not on filedocumented in this encounter Additional Health Concerns Assessment Noted Time PHQ-9 Depression Total Score: 2 06/01/20 9:11 AM EST documented as of this encounter Care Teams Gold Blower Relationship Specialty Start Date End Date Claritza Canela FNP [address] [place] [address] PCP - General Family Medicine 05/13/22 02/13/24 Yane Morrissey NP [address] [place] [address] PCP - General Family Medicine 02/14/24 documented as of this encounter
--- OUTSIDE RECORDS SUMMARY | 2024-08-09 14:26 | XMS_ITS | Encounter Summary ---
Author Organization [employer] Address 75 [facility] 7t [place] [address] Care Team Providers Care Credit Analyst Name Role Phone Claritza Canela Primary Care Provider [phone] Yane Morrissey NP Primary Care Provider [phone] Reason for Visit * Reason Comments Med Refill Encounter Details Date Type Department Care Team (Late st Contact Info) Description 05/19/2023 Refill [facility] MED[facility]INE [address] [place] [address] Claritza Canela FNP [address] [place], [place] [phone] Anxiety Social History Tobacco Use Types Packs/Day Years [...] Description 08/12/2024 3:00 PM EST Clinical Support [address] [address] 09/27/2024 1:30 PM EDT Office Visit [address] [address] Yane Morrissey NP [address] [place] [address] documented as of this encounter Visit Diagnoses Diagnosis Anxiety Anxiety state, unspecified documented in this encounter Additional Health Concerns Assessment Noted Time PHQ-9 Depression Total Score: 23 023 10:13 AM EST documented as of this encounter Care Teams Credit Analyst Relationship Specialty Start Date End Date Claritza Canela FNP [address] [place] [address] PCP - General Family Medicine 05/13/22 02/13/24 Yane Morrissey NP [address] [place] [address] PCP - General Family Medicine 02/14/24 documented as of this encounter
--- OUTSIDE RECORDS SUMMARY | 2024-08-09 14:26 | XMS_ITS | Encounter Summary ---
Author Organization [employer] Address [address] [facility] [address] 7t [place] [address] Care Team Providers Care Barley Steeper Name Role Phone Claritza CanelaP Primary Care Provider [phone] Yane Morrissey NP Primary Care Provider [phone] Encounter Details Date Type Department Care Team (Late st Contact Info) Description 03/21/2023 Abstract [facility] MED[facility]INE [address] [place] [address] Michelle Castillo Social History Tobacco Use Types Packs/Day Years [...] t he electric, gas, oil or water [email or web address] threatened to shut off services in your [...] 08/12/2024 3:00 PM EST Clinical Support [address] [address] 09/27/2024 1:30 PM EDT Office Visit [address] [address] Yane Morrissey NP [address] [place] [address] documented as of this encounter Visit Diagnoses Not on filedocumented in this encounter Additional Health Concerns Assessment Noted Time PHQ-9 Depression Total Score: 2 06/01/20 22 9:11 AM EST documented as of this encounter Care Teams Barley Steeper Relationship Specialty Start Date End Date Claritza Canela FNP [address] [place] [address] PCP - General Family Medicine 05/13/22 02/13/24 Yane Morrissey NP [address] [place] [address] PCP - General Family Medicine 02/14/24 documented as of this encounter
--- OUTSIDE RECORDS SUMMARY | 2024-08-09 14:26 | XMS_ITS | Encounter Summary ---
Author Organization [employer] Address 75 [facility] 7t [place] [address] Care Team Providers Care Voice Instructor Name Role Phone Claritza Canela STEM SETTER Primary Care Provider [phone] Yane Morrissey NP Primary Care Provider [phone] Encounter Details Date Type Department Care Team ([facility] Contact Info) Description 05/18/2022 Orders Only [facility] MEDICINE [address] [place] [address] Sonya Darnell MD [address] [place] [address] Type 2 diabetes mellitus with hyperosmolarity without coma, without long-term current use of insulin ([facility]) (Primary Dx) Social History Tobacco Use Types Packs/Day Years Used Date Smoking Tobacco: Never Smokeless Tobacco: Never Alcohol Use Standard Drinks/Week Comments Never 0 (1 standard drink = 0.6 oz pur e alcohol) Comments Unknown Sex and Gender Information Value [...] suspected to have Coronavirus/COVID-19? No / Unsure 05/18/2022 2:11 PM EST documented as of this encounter Plan of Treatment Upcoming Encounters Date Type Department Care Team (Late st Contact Info) Description 08/12/2024 3:00 PM EST Clinical Support [address] [address] 09/27/2024 1:30 PM EDT Office Visit [address] [address] Yane Morrissey NP 230 [place] [address] documented as of this encounter Visit Diagnoses Diagnosis Type 2 diabetes mellitus with hyperosmolarity without coma, without long-term current use of insulin ([facility])- Primary documented in this encounter Care Teams Voice Instructor Relationship Specialty Start Date End Date Claritza Canela FNP [address] [place] [address] PCP - General Family Medicine 05/13/22 02/13/24 Yane Morrissey NP [address] [place] [address] PCP - General Family Medicine 02/14/24 documented as of this encounter
--- OUTSIDE RECORDS SUMMARY | 2024-08-09 14:26 | XMS_ITS | Encounter Summary ---
Author Organization [employer] Address 75 [facility] 7t [place] [address] Care Team Providers Care Associate Professor Of Library Science Name Role Phone Claritza Canela Primary Care Provider [phone] Yane Morrissey NP Primary Care Provider [phone] Encounter Details Date Type Department Care Team (Late st Contact Info) Description 11/25/2022 Telephone [facility] [address] [place] [address] Claritza Canela FNP [address] [place] [address] Social History Tobacco Use Types Packs/Day Years [...] PM EDT documented as of this encounter Miscellaneous Notes * Telephone Encounter - Shahbaz Pineda RN - 11/25/2022 4:51 PM EDT After discussion with PCP, pt. Was advised that as per ABD US result states pt. Has fatty liver andno other underlying liver disease. Pt. Also schedule with PCP on 12/07/2022 to discuss US result and next plan. Pt. Verbally agreed and understood. * Telephone Encounter - Ana Carmona LPN - 11/25/2022 3:04 PM EDT Critical Result Line call received from patient who was able to see ABD US results online and is concerned with Impression stating or underlying liver disease . Reassurance provided at time of call.Attempt to reach provider at time of call unavailable at present. Team tasked to follow with PCP and patient as indicated. Protocol Used: Information Only Call - No Triage (Adult) Protocol-Based Disposition: Callback or Video Visit by PCP Today Override (Final) Disposition: Home Care Override Reason: End of day call Override Notes: Await discussion with PCP for explanation of results. Video visit offer not recorded Positive Triage Question: * Nursing judgment * All higher-acuity triage questions were negative documented in this encounter Plan of Treatment Upcoming Encounters Date Type Department Care Team (Late st Contact Info) Description 08/12/2024 3:00 PM EST Clinical Support [facility] [address] [place] [address] 09/27/2024 1:30 PM EDT Office Visit [facility] [address] [place] [address] Yane Morrissey NP [address] [place] [address] documented as of this encounter Visit Diagnoses Not on filedocumented in this encounter Additional Health Concerns Assessment Noted Time PHQ-9 Depression Total Score: 2 06/01/20 22 9:11 AM EST documented as of this encounter Care Teams Associate Professor Of Library Science Relationship Specialty Start Date End Date Claritza Canela FNP [address] [place] [address] PCP - General Family Medicine 05/13/22 02/13/24 Yane Morrissey NP [address] [place] [address] PCP - General Family Medicine 02/14/24 documented as of this encounter
--- OUTSIDE RECORDS SUMMARY | 2024-08-09 14:26 | XMS_ITS | Encounter Summary ---
Author Organization [employer] Address 75 [facility] 7t [place] [address] Care Team Providers Care Actuarial Consultant Name Role Phone Tamaratevin Claritza SORTING SUPERVISOR Primary Care Provider [phone] Yane Morrissey NP Primary Care Provider [phone] Encounter Details Date Type Department Care Team ([facility] Contact Info) Description 05/27/2022 Orders Only [facility] MEDICINE [address] [place] [address] Corina Canchola, ISAAK Social History Tobacco Use Types Packs/Day Years [...] Encounters Date Type Department Care Team (Late Contact Info) Description 08/12/2024 3:00 PM EST Clinical Support [address] [address] 09/27/2024 1:30 PM EDT Office Visit [address] [place] [address] Yane Morrissey NP [address] [place] [address] documented as of this encounter Visit Diagnoses Not on filedocumented in this encounter Care Teams Actuarial Consultant Relationship Specialty Start Date End Date Claritza Canela FNP [address] [place] [address] PCP - General Family Medicine 05/13/22 02/13/24 Yane Morrissey NP 230 [place] [address] PCP - General Family Medicine 02/14/24 documented as of this encounter
--- OUTSIDE RECORDS SUMMARY | 2024-08-09 14:26 | XMS_ITS | Encounter Summary ---
Author Organization [employer] Address [address] [facility] [address] 7t [place] [address] Care Team Providers Care Hydraulic Boom Operator Name Role Phone Yane Morrissey NP Primary Care Provider [phone] Encounter Details Date Type Department Care Team (Late st Contact Info) Description 05/17/2024 Orders Only [facility] [address] [place] [address] Michelle Castillo Social History Tobacco Use Types [...] Upcoming Encounters Date Type Department Care Team ([facility] st Contact Info) Description 08/12/2024 3:00 PM EST Clinical Support [facility] [address] [place] [address] 09/27/2024 1:30 PM EDT Office Visit [facility] [address] [place] [address] Yane Morrissey NP [address] [place] [address] documented as of this encounter Procedures Procedure Name Priority Date/Time Associated Diagnosis Comments PAP/HPV Routine 06/16/2023 10:46 AM EST HM PAP/HPV Routine 06/16/2023 12:00 AM EST documented in this encounter Results * HM PAP/HPV (06/16/2023 10:46 AM EST) Historical Provider HEALTH MAINTENANCE Final Result * HM PAP/HPV (06/16/2023 12:00 AM EST) us Historical Provider HEALTH MAINTENANCE Final Result documented in this encounter Visit Diagnoses Not on filedocumented in this encounter Additional Health Concerns Assessment Noted Time PHQ-9 Depression Total Score: 23 023 10:13 AM EST documented as of this encounter Care Teams Hydraulic Boom Operator Relationship Specialty Start Date End Date Yane Morrissey NP [address] [place] [address] PCP - General Family Medicine 02/14/24 documented as of this encounter
--- OUTSIDE RECORDS SUMMARY | 2024-08-09 14:26 | XMS_ITS | Encounter Summary ---
Author Organization [employer] Address 75 [facility] 7t [place] [address] Care Team Providers Care Tools Developer Name Role Phone Claritza CanelaP Primary Care Provider [phone] Yane Morrissey NP Primary Care Provider [phone] Reason for Visit * Reason Comments Med Refill Encounter Details Date Type Department Care Team (Late st Contact Info) Description 11/29/2022 Refill [facility] [address] [place] [address] Claritza Canela FNP [address] [place], [place] [phone] Rash and nonspecific skin eruption Social History Tobacco Use Types Packs/Day Years [...] suspected to have Coronavirus/COVID-19? No / Unsure 11/30/2022 9:12 AM EDT documented as of this encounter Plan of Treatment Upcoming Encounters Date Type Department Care Team (Late st Contact Info) Description 08/12/2024 3:00 PM EST Clinical Support [facility] [address] 09/27/2024 1:30 PM EDT Office Visit [facility] [address] Yane Morrissey NP [address] [place] [address] documented as of this encounter Visit Diagnoses Diagnosis Rash and nonspecific skin eruption Rash and other nonspecific skin eruption documented in this encounter Additional Health Concerns Assessment Noted Time PHQ-9 Depression Total Score: 2 06/01/20 9:11 AM EST documented as of this encounter Care Teams Tools Developer Relationship Specialty Start Date End Date Clarit[place] [address] PCP - General Family Medicine 05/13/22 02/13/24 Yane Morrissey NP [address] [place] [address] PCP - General Family Medicine 02/14/24 documented as of this encounter
--- OUTSIDE RECORDS SUMMARY | 2024-08-09 14:26 | XMS_ITS | Encounter Summary ---
Author Organization [employer] Address 75 [facility] 7t [place] [address] Care Team Providers Care Naturalist Name Role Phone Yane Morrissey NP Primary Care Provider [phone] Reason for Visit * Reason Onset Date Comments Lab Orders 08/02/2024 ER Follow-up 08/02/2024 Encounter Details Date Type Department Care Team (Late st Contact Info) Description 08/02/2024 Telephone [facility]INE [address] [place] [address] Yane Morrissey NP [address] [place] [address] Lab Orders; ER Follow-up Social History Tobacco Use Types Packs/Day Years [...] encounter Miscellaneous Notes * Telephone Encounter - Evie العراقي RN - 08/02/2024 1:54 PM EST called pt to triage, spoke to pt. pt states seen [facility] 07/24 ER for stomach pain and intermittent vomiting. pt states did not stay for dispo as she felt sick and did not want to stay longer than the 4 hours she was there. also, states was told in Triage that she would need a CT scan but never heard anything about it. pt reports persistent stomach pain, bloating, but denies connection to eating or other activities. given appt 08/06 with red team provider at 3:30 for exam and recheck. advised home care: rest, fluids, light diet, monitor temperature, and call back as needed. insurance verified. Protocol Used: Abdominal Pain - Female (Adult) Protocol-Based Disposition: See in Office or Video Visit within 2 Weeks Positive Triage Question: * Abdominal pain is a chronic symptom (recurrent or ongoing AND lasting > 4 weeks) * All higher-acuity triage questions were negative Care Advice Discussed: * Reassurance and Education - Mild Stomachache * Rest * Drink Clear Fluids * Diet * Avoid Aspirin and NSAIDs * Reasons To Call Back - Severe pain lasts over 1 hour - Constant pain lasts over 2 hours - Intermittent pains (comes and goes, cramps) lasts over 48 hours - You are - You become worse * Telephone Encounter - Alessandro Burch - 08/02/2024 11:37 AM EST Patient calling to report ED visit on : Date: 07/24/2024 Hospital: [facility] Seen for: Adonmonial Pain Symptomatic Yes *if yes message should go to Triage Patient advised will forward to team nurse for follow up Pt states that (ER doctor) called daughter stating that pt needs an outpatient Cat scan order sent to [facility]. Pt is still in a lot of pain currently. Don't Call pt from private number. documented in this encounter Plan of Treatment Upcoming Encounters Date Type Department Care Team (Late st Contact Info) Description 08/12/2024 3:00 PM EST Clinical Support [facility] [address] [place] [address] 09/27/2024 1:30 PM EDT Office Visit [facility] [address] [place] [address] Yane Morrissey NP [address] [place] [address] documented as of this encounter Visit Diagnoses Not on filedocumented in this encounter Additional Health Concerns Assessment Noted Time PHQ-9 Depression Total Score: 9 05/24/20 11:18 AM EST documented as of this encounter Care Teams Naturalist Relationship Specialty Start Date End Date Yane Morrissey NP [address] [place] [address] PCP - General Family Medicine 02/14/24 documented as of this encounter
--- OUTSIDE RECORDS SUMMARY | 2024-08-09 14:26 | XMS_ITS | Encounter Summary ---
Author Organization [employer] Address 75 [facility] 7t [place] [address] Care Team Providers Care Rod Puller Name Role Phone Claritza Canela Primary Care Provider [phone] Yane Morrissey NP Primary Care Provider [phone] Encounter Details Date Type Department Care Team (Late st Contact Info) Description 11/25/2022 Telephone [facility] MEDICINE [address] [place] [address] Claritza Canela FNP [address] [place] [address] Social History Tobacco Use Types Packs/Day Years [...] Description 08/12/2024 3:00 PM EST Clinical Support [address] [address] 09/27/2024 1:30 PM EDT Office Visit [address] [address] Yane Morrsisey NP [address] [place] [address] documented as of this encounter Visit Diagnoses Not on filedocumented in this encounter Additional Health Concerns Assessment Noted Time PHQ-9 Depression Total Score: 2 06/01/20 22 9:11 AM EST documented as of this encounter Care Teams Rod Puller Relationship Specialty Start Date End Date Claritza Canela FNP [address] [place] [address] PCP - General Family Medicine 05/13/22 02/13/24 Yane Morrissey NP [address] [place] [address] PCP - General Family Medicine 02/14/24 documented as of this encounter
--- OUTSIDE RECORDS SUMMARY | 2024-08-09 14:26 | XMS_ITS | Encounter Summary ---
Author Organization [employer] Address [address] [facility] [address] 7t [place] [address] Care Team Providers Care Payroll Administrative Assistant Name Role Phone Yane Morrissey NP Primary Care Provider [phone] Encounter Details Date Type Department Care Team ([facility] st Contact Info) Description 06/03/2024 Telephone [facility] MEDICINE [address] [place] [address] Yane Morrissey NP 230 [place] [address] Social History Tobacco Use Types Packs/Day Years [...] Description 08/12/2024 3:00 PM EST Clinical Support [address] [address] 09/27/2024 1:30 PM EDT Office Visit [address] [address] Yane Morrissey NP [address] [place] [address] documented as of this encounter Visit Diagnoses Not on filedocumented in this encounter Additional Health Concerns Assessment Noted Time PHQ-9 Depression Total Score: 9 05/24/20 24 11:18 AM EST documented as of this encounter Care Teams Payroll Administrative Assistant Relationship Specialty Start Date End Date Yane Morrissey NP [address] [place] [address] PCP - General Family Medicine 02/14/24 documented as of this encounter
--- OUTSIDE RECORDS SUMMARY | 2024-08-09 14:26 | XMS_ITS | Encounter Summary ---
Author Organization [employer] Address 75 [facility] 7t [place] [address] Care Team Providers Care Advertising Strategist Name Role Phone Claritza Canela Primary Care Provider [phone] Yane Morrissey NP Primary Care Provider [phone] Encounter Details Date Type Department Care Team (Late st Contact Info) Description 09/05/2022 Orders Only [facility] MEDICINE 230 [place] [address] Claritza Canela FNP 230 [place] [address] Type 2 diabetes mellitus with hyperosmolarity without coma, without long-term current use of insulin ([facility]) Social History Tobacco Use Types Packs/Day Years [...] suspected to have Coronavirus/COVID-19? No / Unsure 08/30/2022 10:51 AM EDT documented as of this encounter Plan of Treatment Upcoming Encounters Date Type Department Care Team (Late st Contact Info) Description 08/12/2024 3:00 PM EST Clinical Support [address] [address] 09/27/2024 1:30 PM EDT Office Visit [address] [address] Yane Morrissey NP [address] [place] [address] documented as of this encounter Visit Diagnoses Diagnosis Type 2 diabetes mellitus with hyperosmolarity without coma, without long-term current use of insulin ([facility]) documented in this encounter Additional Health Concerns Assessment Noted Time PHQ-9 Depression Total Score: 2 06/01/20 22 9:11 AM EST documented as of this encounter Care Teams Advertising Strategist Relationship Specialty Start Date End Date Claritza Canela FNP [address] [place] [address] PCP - General Family Medicine 05/13/22 02/13/24 Yane Morrissey NP [address] [place] [address] PCP - General Family Medicine 02/14/24 documented as of this encounter
--- OUTSIDE RECORDS SUMMARY | 2024-08-09 14:26 | XMS_ITS | Encounter Summary ---
Author Organization [employer] Address 75 [facility] 7t [place] [address] Care Team Providers Care Student Recruiter Name Role Phone Claritza CanelaP Primary Care Provider [phone] Yane Morrissey NP Primary Care Provider [phone] Encounter Details Date Type Department Care Team (Late st Contact Info) Description 01/30/2023 Orders Only [facility] [address] [place] [address] Claritza Canela FNP [address] [place] [address] Breast density (Primary Dx) Social History Tobacco Use Types [...] Description 08/12/2024 3:00 PM EST Clinical Support [facility] [address] [place] [address] 09/27/2024 1:30 PM EDT Office Visit [facility] 230 [facility] [place] [address] Yane Morrissey NP 230 [place] [address] documented as of this encounter Visit Diagnoses Diagnosis Breast density- Primary Other sign and symptom in breast documented in this encounter Additional Health Concerns Assessment Noted Time PHQ-9 Depression Total Score: 2 06/01/20 22 9:11 AM EST documented as of this encounter Care Teams Student Recruiter Relationship Specialty Start Date End Date Claritza Canela FNP [address] [place] [address] PCP - General Family Medicine 05/13/22 02/13/24 Yane Morrissey NP 230 [place] [address] PCP - General Family Medicine 02/14/24 documented as of this encounter
--- OUTSIDE RECORDS SUMMARY | 2024-08-09 14:26 | XMS_ITS | Encounter Summary ---
Author Organization [employer] Address [address] [facility] [address]t [place] [address] Care Team Providers Care Tile Trimmer Name Role Phone Yane Morrissey NP Primary Care Provider [phone] Encounter Details Date Type Department Care Team (Late st Contact Info) Description 07/31/2024 Orders Only GENERIC EXTERNAL DATA DEPARTMENT Provider, Generic External Data Social History Tobacco Use Types Packs/Day Years [...] Description 08/12/2024 3:00 PM EST Clinical Support [facility] [address] [place] [address] 09/27/2024 1:30 PM EDT Office Visit [facility] [address] [place] [address] Yane Morrissey NP [address] [place] [address] documented as of this encounter Procedures Procedure Name Priority Date/Time Associated Diagnosis Comments CBC WITH AUTO DIFFERENTIAL Routine 07/31/2024 1:18 PM EST PROTHROMBIN TIME-INR Routine 07/31/2024 1:18 PM EST MAGNESIUM Routine 07/31/2024 1:18 PM EST LIPASE Routine 07/31/2024 1:18 PM EST LACTIC ACID Routine 07/31/2024 1:18 PM EST COMPREHENSIVE METABOLIC PANEL Routine 07/31/2024 1:18 PM EST documented in this encounter Results * Lipase (07/31/2024 1:18 PM EST) Lipase 29 8 - 78 U/L [facility] 07/31/2024 1:18 PM EST 07/31/2024 1:30 PM EST us Generic External Data Provider LAB BLOOD ORDERAB LES Final Result Performing Organization Address [facility] Co de Phone Number [facility] [address] [place] [phone] * Magnesium (07/31/2024 1:18 PM EST) Magnesium 2.1 1.6 - 2.6 mg/dL [facility] 07/31/2024 1:18 PM EST 07/31/2024 1:30 PM EST [employer] External Data Provider LAB BLOOD ORDERAB LES Final Result Performing Organization Address [facility] de Phone Number [facility] [address] [place] [phone] * (ABNORMAL) Comprehensive Metabolic Panel (07/31/2024 1:18 PM EST) Sodium 139 135 - 145 mmol/L [facility] Potassium 3.7 3.3 - 5.1 mmol/L [facility] Chloride 106 96 - 108 mmol/L [facility] Carbon Dioxide 25 22 - 29 mmol/L [facility] Anion Gap 12 12 - 20 [facility] Urea Nitrogen (BUN) 22(H) 9 - 16 mg/dL [facility] Creatinine, Serum 0.80 0.5 - 1.4 mg/dL [facility] Creatinine Clr Calc Pharmacy 76.5 [facility] Comment:Provided height and weight: 158.75 cm,95.4 kg.eGFR (calculated from the MDRD study equation) and eCrCl(calculated from the Cockcroft-Gault equation) are based ondifferent parameters and may not yield comparable results.If eCrCl result is absurd, please check patient'sheight/weight. Estimated Glomerular Filt Rate >60 [facility] Comment:Chronic Kidney Disea se: Estimated GFR < 60 mL/min/1.83q0Oplwsn Kidney Disease: Estimated GFR < 15 mL/min/1.73m2 Glucose 84 60 - 115 mg/dL [facility] Calcium 9.4 8.4 - 10.2 mg/dL [facility] Bilirubin, Total 0.6 0.0 - 1.0 mg/dL [facility] Aspartate Amino Transferase 30 5 - 31 U/L [facility] Alanine Aminotransferase 25 0 - 31 U/L [facility] Total Protein 7.4 6.5 - 8.0 g/dL [facility] Albumin Level 4.3 3.5 - 5.0 g/dL [facility] Alkaline Phosphatase 81 39 - 117 U/L [facility] 07/31/2024 1:18 PM EST 07/31/2024 1:30 PM EST us Generic External Data Provider LAB BLOOD ORDERAB LES Final Result Performing Organization Address [facility] Co de Phone Number [facility] [address] [place] [phone] * Lactic Acid (07/31/2024 1:18 PM EST) Lactic Acid 1.4 0.5 - 2.0 mmol/L [facility] 07/31/2024 1:18 PM EST 07/31/2024 1:32 PM EST Generic External Data Provider LAB BLOOD ORDERAB LES Final Result Performing Organization Address [facility] Co de Phone Number [facility] [address] [place] [phone] * (ABNORMAL) Prothrombin Time-INR (07/31/2024 1:18 PM EST) Prothrombin Time 10.5(L) 10.9 - 12.4 SEC [facility] INTERNATIONAL NORM RATIO 0.9 0.9 - 1.1 [facility] Comment:INTERNATIONAL NORMAL IZED RATIO (INR) [...] Provider LAB BLOOD ORDERAB LES Final Result [facility] [address], [place] [phone] * CBC auto differential (07/31/2024 1:18 PM EST) White Blood Count 6.2 4.8 - 10.8 X10*3/uL [facility] Red Blood Count 4.98 4.20 - 5.50 X10*6/uL [facility] Hemoglobin 13.9 12.0 - 16.0 g/dl [facility] Hematocrit 41.2 37.0 - 47.0 % [facility] Mean Corpuscular Volume 82.7 80.0 - 98.0 fL [facility] Mean Corpuscular Hemoglobin 27.9 27.0 - 33.0 pg [facility] Mean Corpuscular HGB Conc 33.7 31.0 - 35.0 g/dl [facility] Red Cell Distribution Width 13.6 11.0 - 16.0 % [facility] Platelet Count 271 160 - 400 X10*3/uL [facility] Mean Platelet Volume 9.5 9.4 - 12.3 fL [facility] Neutrophils Percent Auto 64.1 45 - 73 % [facility] Imm Gran Pct Auto 0.3 0.0 - 0.4 % [facility] Lymphocytes Percent Auto 27.4 20 - 40 % [facility] Monocytes Percent Auto 5.5 2 - 11 % [facility] Eosinophils Percent Auto 2.1 0 - 4 % [facility] Basophils Percent Auto 0.6 0 - 2 % [facility] NRBC Pct Auto 0.0 0.0 - 0.2 /100WBC [facility] Neutrophils Absolute Auto 4.0 2.0 - 8.3 x10*3/uL [facility] Imm Gran Abs Auto 0.02 0.00 - 0.03 X10*3/uL [facility] Lymphocytes Absolute Auto 1.7 1.2 - 4.9 X10*3/uL [facility] Monocytes Absolute Auto 0.3 0.1 - 1.2 X10*3/uL [facility] Eosinophils Absolute Auto 0.1 0.0 - 0.4 X10*3/uL [facility] Basophils Absolute Auto 0.0 0.0 - 0.2 X10*3/uL [facility] NRBC Abs Auto 0.000 0.0 - 0.012 X10*3/uL [facility] 07/31/2024 1:18 PM EST 07/31/2024 1:30 PM EST us Generic External Data Provider LAB BLOOD ORDERAB LES Final Result Performing Organization Address City/State/[facility] Co de Phone Number [facility] [address] [place] [phone] documented in this encounter Visit Diagnoses Not on filedocumented in this encounter Additional Health Concerns Assessment Noted Time PHQ-9 Depression Total Score: 9 05/24/20 24 11:18 AM EST documented as of this encounter Care Teams Tile Trimmer Relationship Specialty Start Date End Date Yane Morrissey NP [address] [place] [address] PCP - General Family Medicine 02/14/24 documented as of this encounter
--- OUTSIDE RECORDS SUMMARY | 2024-08-09 14:26 | XMS_ITS | Encounter Summary ---
Author Organization [employer] Address [address] [place] [address] Care Team Providers Care Filter Tank Operator Name Role Phone Yane Morrissey NP Primary Care Provider [phone] Encounter Details Date Type Department Care Team (Latest Contact Info) Description 08/06/2024 Travel Social History Tobacco Use Types Packs/Day Years Used Date Smoking Tobacco: Never Passive Smoke Exposure: Never Smokeless Tobacco: Never Alcohol Use Standard [...] Description 08/12/2024 3:00 PM EST Clinical Support [address] [address] 09/27/2024 1:30 PM EDT Office Visit [address] [address] Yane Morrissey NP [address] [place] [address] documented as of this encounter Visit Diagnoses Not on filedocumented in this encounter Additional Health Concerns Assessment Noted Time PHQ-9 Depression Total Score: 9 05/24/20 24 11:18 AM EST documented as of this encounter Care Teams Filter Tank Operator Relationship Specialty Start Date End Date Yane Morrissey NP [address] [place] [address] PCP - General Family Medicine 02/14/24 documented as of this encounter
== END 2024-08-07 08:49 | disposition home or self-care (01) ==
LOC: HO.HHCLNP 08:48
PROVIDERS: Visit Provider Internal Medicine
DX: R10.84 Generalized abdominal pain (principal)
CPT/HCPCS: 87338

== ENCOUNTER 2024-09-28 13:42 | Outpatient (REF) | payer OTHER, SELFPAY ==
--- OUTSIDE RECORDS SUMMARY | 2024-09-28 13:44 | XMS_ITS | Encounter Summary ---
Author Organization [employer] Address [address] [facility] 7t [place] [address] Care Team Providers Care Tree Surgeon Name Role Phone Claritza Canela Primary Care Provider [phone] Ynae Morrissey NP Primary Care Provider [phone] Encounter Details Date Type Department Care Team (Late st Contact Info) Description 09/05/[address] [facility] [address] [place] [address] Claritza Canela FNP [address] [place] [address] Type 2 diabetes mellitus with hyperosmolarity without coma, without long-term current use of insulin ([facility]) Social History Tobacco Use Types Packs/Day Years [...] as of this encounter Plan of Treatment Not on file documented as of this encounter Visit Diagnoses Diagnosis Type 2 diabetes mellitus with hyperosmolarity without coma, without long-term current use of insulin ([facility]) documented in this encounter Additional Health Concerns Assessment Noted Time PHQ-9 Depression Total Score: 2 06/01/20 22 9:11 AM EST documented as of this encounter Care Teams Tree Surgeon Relationship Specialty Start Date End Date Claritza Canela FNP [address] [place] [address] PCP - General Family Medicine 05/13/22 02/13/24 Yane Morrissey NP [address] [place] [address] PCP - General Family Medicine 02/14/24 documented as of this encounter
--- OUTSIDE RECORDS SUMMARY | 2024-09-28 13:44 | XMS_ITS | Encounter Summary ---
Author Organization [employer] Address [address] [facility] [address] [address] [place] [address] Care Team Providers Care Facilities Maintenance Assistant Name Role Phone Claritza CanelaP Primary Care Provider [phone] Yane Morrissey NP Primary Care Provider [phone] Encounter Details Date Type Department Care Team (Late st Contact Info) Description 03/21/2023 Abstract [facility] [address] [place] [address] Michelle Castillo Social History Tobacco Use Types [...] t he electric, gas, oil or water Bubbli threatened to shut off services in your [...] documented as of this encounter Care Teams Facilities Maintenance Assistant Relationship Specialty Start Date End Date Claritza Canela FNP [address] [place] [address] PCP - General Family Medicine 05/13/22 02/13/24 Yane Morrissey NP [address] [place] [address] PCP - General Family Medicine 02/14/24 documented as of this encounter
--- OUTSIDE RECORDS SUMMARY | 2024-09-28 13:44 | XMS_ITS | Encounter Summary ---
Author Organization [employer] Address [address] [facility] 7t [place] [address] Care Team Providers Care Literary Agent Name Role Phone Claritza Canela Primary Care Provider [phone] Yane Morrissey NP Primary Care Provider [phone] Encounter Details Date Type Department Care Team (Late st Contact Info) Description 01/30/2023 Orders Only [facility] [address] [place] [address] Claritza Canela FNP [address] [place] [address] Social History Tobacco Use Types Packs/Day Years [...] documented as of this encounter Care Teams Literary Agent Relationship Specialty Start Date End Date Claritza Canela FNP [address] [place] [address] PCP - General Family Medicine 05/13/22 02/13/24 Yane Morrissey NP [address] [place] [address] PCP - General Family Medicine 02/14/24 documented as of this encounter
--- OUTSIDE RECORDS SUMMARY | 2024-09-28 13:44 | XMS_ITS | Encounter Summary ---
Author Organization [employer] Address [address] [facility] 7t [place] [address] Care Team Providers Care Caustic Preparer Name Role Phone Claritza Canela Primary Care Provider [phone] Yane Morrissey NP Primary Care Provider [phone] Encounter Details Date Type Department Care Team (Late st Contact Info) Description 05/27/2022 Orders Only [facility] [address] [place] [address] Corina Canchola, ISAAK Social History Tobacco Use [...] on filedocumented in this encounter Care Teams Caustic Preparer Relationship Specialty Start Date End Date Claritza Canela FNP [address] [place] [address] PCP - General Family Medicine 05/13/22 02/13/24 Yane Morrissey NP [address] [place] [address] PCP - General Family Medicine 02/14/24 documented as of this encounter
--- OUTSIDE RECORDS SUMMARY | 2024-09-28 13:44 | XMS_ITS | Encounter Summary ---
Author Organization [employer] Address [address] [facility] 7t [place] [address] Care Team Providers Care Press Operator Assistant Name Role Phone Yane Morrissey NP Primary Care Provider [phone] Reason for Visit * Reason Comments Med Refill Encounter Details Date Type Department Care Team (Late st Contact Info) Description 08/20/2024 Refill [facility] [address] [place] [address] Omaira Brian MD [address] [place] [address] Clogged ear, bilateral Social History Tobacco Use [...] as of this encounter Visit Diagnoses Diagnosis Clogged ear, bilateral documented in this encounter Additional Health Concerns Assessment Noted Time PHQ-9 Depression Total Score: 9 05/24/20 24 11:18 AM EST documented as of this encounter Care Teams Press Operator Assistant Relationship Specialty Start Date End Date Yane Morrissey NP [address] [place] [address] PCP - General Family Medicine 02/14/24 documented as of this encounter
--- OUTSIDE RECORDS SUMMARY | 2024-09-28 13:44 | XMS_ITS | Encounter Summary ---
Author Organization [employer] Address [address] [facility] [address] [place] [address] Care Team Providers Care Commissary Manager Name Role Phone Yane Morrissey NP Primary Care Provider [phone] Encounter Details Date Type Department Care Team ([facility] st Contact Info) Description 06/03/2024 Telephone [facility] [address] [place] [address] Yane Morrissey NP [address] [place] [address] Social History Tobacco Use Types Packs/Day Years [...] documented as of this encounter Care Teams Commissary Manager Relationship Specialty Start Date End Date Yane Morrissey NP [address] [place] [address] PCP - General Family Medicine 02/14/24 documented as of this encounter
--- OUTSIDE RECORDS SUMMARY | 2024-09-28 13:44 | XMS_ITS | Encounter Summary ---
Author Organization [employer] Address [address] [facility] 7t [place] [address] Care Team Providers Care Java Lead Engineer Name Role Phone Yane Morrissey NP Primary Care Provider [phone] Reason for Visit * Reason Onset Date Comments Lab Orders 08/02/2024 ER Follow-up 08/02/2024 Encounter Details Date Type Department Care Team (Late st Contact Info) Description 08/02/2024 Telephone [facility] [address] [place] [address] Yane Morrissey NP [address] [place] [address] Lab Orders; ER Follow-up Social History Tobacco [...] triage, spoke to pt. pt states seen [facility] 07/24 ER for stomach pain and intermittent [...] ED visit on : Date: 07/24/2024 Hospital: [facility] Seen for: Adonmonial Pain Symptomatic Yes *if yes message should go to Triage Patient advised will forward to team nurse for follow up Pt states that (ER doctor) called daughter stating that pt needs an outpatient Cat scan order sent to [facility]. Pt is still in a lot of pain currently. Don't Call pt from private number. documented in this encounter Plan of Treatment Not on file documented as of this encounter Visit Diagnoses Not on filedocumented in this encounter Additional Health Concerns Assessment Noted Time PHQ-9 Depression Total Score: 9 05/24/20 11:18 AM EST documented as of this encounter Care Teams Java Lead Engineer Relationship Specialty Start Date End Date Yane Morrissey NP [address] [place] [address] PCP - General Family Medicine 02/14/24 documented as of this encounter
--- OUTSIDE RECORDS SUMMARY | 2024-09-28 13:44 | XMS_ITS | Encounter Summary ---
Author Organization [employer] Address [address] [facility] 7t [place] [address] Care Team Providers Care Feed Crusher Operator Name Role Phone Claritza Canela Primary Care Provider [phone] Yane Morrissey NP Primary Care Provider [phone] Reason for Visit * Reason Onset Date Comments Med Refill 02/02/2024 Encounter Details Date Type Department Care Team (Late st Contact Info) Description 02/02/2024 Refill [facility] [address] [place] [address] Claritza Canela FNP [address] [place] [address] Diabetic polyneuropathy associated with type 2 diabetes [...] with others, in a hotel, in a snf, living outside on the street, on a [...] polyneuropathy associated with type 2 diabetes mellitus ([facility]/HCC) Type 2 diabetes mellitus without complication, with long-term current use of insulin ([facility]) documented in this encounter Additional Health Concerns Assessment Noted Time PHQ-9 Depression Total Score: 23 023 10:13 AM EST documented as of this encounter Care Teams Feed Crusher Operator Relationship Specialty Start Date End Date Claritza Canela FNP [address] [place] [address] PCP - General Family Medicine 05/13/22 02/13/24 Yane Morrissey NP [address] [place] [address] PCP - General Family Medicine 02/14/24 documented as of this encounter
--- OUTSIDE RECORDS SUMMARY | 2024-09-28 13:44 | XMS_ITS | Encounter Summary ---
Author Organization [employer] Address [address] [facility] 7t [place] [address] Care Team Providers Care Ride Attendant Name Role Phone Claritza Canela Primary Care Provider [phone] Yane Morrissey NP Primary Care Provider [phone] Encounter Details Date Type Department Care Team (Late st Contact Info) Description 11/25/2022 Telephone [facility] [address] [place] [address] Claritza Canela FNP [address] [place] [address] Social History Tobacco Use Types Packs/Day Years [...] documented as of this encounter Care Teams Ride Attendant Relationship Specialty Start Date End Date Claritza Canela FNP [address] [place] [address] PCP - General Family Medicine 05/13/22 02/13/24 Yane Morrissey NP [address] [place] [address] PCP - General Family Medicine 02/14/24 documented as of this encounter
--- OUTSIDE RECORDS SUMMARY | 2024-09-28 13:44 | XMS_ITS | Encounter Summary ---
Author Organization [employer] Address 75 [facility] 7t [place] [address] Care Team Providers Care Manager Fleet Name Role Phone Yane Morrissey NP Primary Care Provider [phone] Reason for Visit * Reason Comments Med Refill Encounter Details Date Type Department Care Team (Late st Contact Info) Description 08/26/2024 Refill [facility] [address] [place] [address] Claritza Canela FNP [address] [place] [address] Diabetic polyneuropathy associated with type 2 diabetes mellitus (CMS/HCC) Social History Tobacco Use Types Packs/Day [...] associated with type 2 diabetes mellitus (CMS/HCC) documented in this encounter Additional Health Concerns Assessment Noted Time PHQ-9 Depression Total Score: 9 05/24/20 24 11:18 AM EST documented as of this encounter Care Teams Manager Fleet Relationship Specialty Start Date End Date Yane Morrissey NP [address] [place] [address] PCP - General Family Medicine 02/14/24 documented as of this encounter
--- OUTSIDE RECORDS SUMMARY | 2024-09-28 13:44 | XMS_ITS | Encounter Summary ---
Author Organization [employer] Address 75 [facility] 7t [place] [address] Care Team Providers Care Commercial Singer Name Role Phone Claritza Canela Primary Care Provider [phone] Yane Morrissey NP Primary Care Provider [phone] Reason for Visit * Reason Comments Med Refill Encounter Details Date Type Department Care Team (Late st Contact Info) Description 05/19/2023 Refill [facility] [address] [place] [address] Claritza Canela FNP [address] [place], [place] [phone] Anxiety Social History Tobacco Use Types Packs/Day [...] documented as of this encounter Care Teams Commercial Singer Relationship Specialty Start Date End Date Claritza Canela FNP [address] [place] [address] PCP - General Family Medicine 05/13/22 02/13/24 Yane Morrissey NP [address] [place] [address] PCP - General Family Medicine 02/14/24 documented as of this encounter
--- OUTSIDE RECORDS SUMMARY | 2024-09-28 13:44 | XMS_ITS | Encounter Summary ---
Author Organization [employer] Address [address] [facility] 7t [place] [address] Care Team Providers Care Circulation Worker Name Role Phone Claritza CanelaP Primary Care Provider [phone] Yane Morrissey NP Primary Care Provider [phone] Reason for Visit * Reason Comments Med Refill Encounter Details Date Type Department Care Team (Late st Contact Info) Description 11/03/2023 Refill [facility] [address] [place] [address] Claritza Canela FNP [address] [place], [place] [phone] Social History Tobacco Use Types Packs/Day Years [...] with others, in a hotel, in a mcc, living outside on the street, on a [...] documented as of this encounter Care Teams Circulation Worker Relationship Specialty Start Date End Date Claritza Canela FNP [address] [place] [address] PCP - General Family Medicine 05/13/22 02/13/24 Yane Morrissey NP [address] [place] [address] PCP - General Family Medicine 02/14/24 documented as of this encounter
--- OUTSIDE RECORDS SUMMARY | 2024-09-28 13:44 | XMS_ITS | Encounter Summary ---
Author Organization [employer] Address [address] [facility] [address]t [place] [address] Care Team Providers Care Shop Firer/Fireman Name Role Phone Claritza Canela Primary Care Provider [phone] Yane Morrissey NP Primary Care Provider [phone] Reason for Visit * Reason Onset Date Comments Medication Question 01/17/2024 Encounter Details Date Type Department Care Team ([facility] st Contact Info) Description 01/17/[address] [facility] [address] [place] [address] Calritza Canela FNP [address] [place], [place] [id number] Medication Question Social History Tobacco Use Types [...] others, in a hotel, in a senior living, living outside on the street, on a [...] the past 12 months, has t he [employer], gas, oil or water [employer] threatened to shut off services in your [...] encounter Miscellaneous Notes * Telephone Encounter - Sahhbaz Pineda RN - 01/17/2024 4:09 PM EDT [...] any questions you can contact [facility] at [phone]. documented in this encounter Plan of Treatment Not on file documented as of this encounter Visit Diagnoses Not on filedocumented in this encounter Additional Health Concerns Assessment Noted Time PHQ-9 Depression Total Score: 23 11/07/2 023 10:13 AM EST documented as of this encounter Care Teams Shop Firer/Fireman Relationship Specialty Start Date End Date Claritza Canela FNP [address] [place] [address] PCP - General Family Medicine 05/13/22 02/13/24 Yane Morrissey NP [address] [place] [address] PCP - General Family Medicine 02/14/24 documented as of this encounter
--- OUTSIDE RECORDS SUMMARY | 2024-09-28 13:44 | XMS_ITS | Encounter Summary ---
Author Organization [employer] Address [address] [address] [facility] [address] [place] [address] Care Team Providers Care Model Maker Plastic Name Role Phone Yane Morrissey NP Primary Care Provider [phone] Encounter Details Date Type Department Care Team (Late st Contact Info) Description 05/17/2024 Orders Only [facility] MED[facility]INE [address] [place] [address] Michelle Castillo Social History Tobacco Use Types [...] with others, in a hotel, in a assisted, living outside on the street, on a [...] on file documented as of this encounter Procedures Procedure Name Priority Date/Time Associated Diagnosis Comments HM PAP/HPV Routine 06/16/2023 10:46 AM EST PAP/HPV Routine 06/16/2023 12:00 AM EST documented in this encounter Results * HM PAP/HPV (06/16/2023 10:46 AM EST) us Historical Provider HEALTH MAINTENANCE Final Result * HM PAP/HPV (06/16/2023 12:00 AM EST) us Historical Provider HEALTH MAINTENANCE Final Result documented in this encounter Visit Diagnoses Not on filedocumented in this encounter Additional Health Concerns Assessment Noted Time PHQ-9 Depression Total Score: 23 023 10:13 AM EST documented as of this encounter Care Teams Model Maker Plastic Relationship Specialty Start Date End Date Yane Morrissey NP [address] [place] [address] PCP - General Family Medicine 02/14/24 documented as of this encounter
--- OUTSIDE RECORDS SUMMARY | 2024-09-28 13:44 | XMS_ITS | Encounter Summary ---
Author Organization [employer] Address [address] [facility] [address] [place] [address] Care Team Providers Care Area Forester Name Role Phone Yane Morrissey NP Primary Care Provider [phone] Reason for Visit * Reason Onset Date Comments Nurse Triage 08/01/2024 Encounter Details Date Type Department Care Team ([facility] st Contact Info) Description 08/01/2024 Telephone [facility] [address] [place] [address] Yane Morrissey NP [address] [place] [address] Nurse Triage Social History Tobacco Use Types [...] 3 days The caller accepted this outcome. [phone] documented in this encounter Plan of Treatment Not on file documented as of this encounter Visit Diagnoses Not on filedocumented in this encounter Additional Health Concerns Assessment Noted Time PHQ-9 Depression Total Score: 9 05/24/20 11:18 AM EST documented as of this encounter Care Teams Area Forester Relationship Specialty Start Date End Date Yane Morrissey NP [address] [place] [address] PCP - General Family Medicine 02/14/24 documented as of this encounter
--- OUTSIDE RECORDS SUMMARY | 2024-09-28 13:44 | XMS_ITS | Encounter Summary ---
Author Organization [employer] Address [address] [place] [address] Care Team Providers Care Fiber Optic Technician Name Role Phone Claritza Canela Primary Care Provider [phone] Yane Morrissey NP Primary Care Provider [phone] Reason for Visit * Reason Onset Date Comments Referral 03/23/2023 Encounter Details Date Type Department Care Team ([facility] st Contact Info) Description 03/23/2023 Telephone [facility] MEDICINE [address] [place] [address] Claritza Canela FNP [address] [place] [address] Referral Social History Tobacco Use Types Packs/Day [...] documented as of this encounter Care Teams Fiber Optic Technician Relationship Specialty Start Date End Date Claritza Canela FNP [address] [place] [address] PCP - General Family Medicine 05/13/22 02/13/24 Yane Morrissey NP [address] [place] [address] PCP - General Family Medicine 02/14/24 documented as of this encounter
--- OUTSIDE RECORDS SUMMARY | 2024-09-28 13:44 | XMS_ITS | Encounter Summary ---
Author Organization [employer] Address [address] [facility] [address] [place] [address] Care Team Providers Care Trackwalker Name Role Phone Yane Morrissey NP Primary Care Provider [phone] Encounter Details Date Type Department Care Team (Latest Contact Info) Description 09/27/2024 Travel Social History Tobacco Use Types Packs/Day [...] documented as of this encounter Care Teams Trackwalker Relationship Specialty Start Date End Date Yane Morrissey NP [address] [place] [address] PCP - General Family Medicine 02/14/24 documented as of this encounter
--- OUTSIDE RECORDS SUMMARY | 2024-09-28 13:44 | XMS_ITS | Encounter Summary ---
Author Organization [employer] Address [address] [address] [place] [address] Care Team Providers Care Bellmaker Name Role Phone Claritza Canela Primary Care Provider [phone] Yane Morrissey NP Primary Care Provider [phone] Encounter Details Date Type Department Care Team (Late st Contact Info) Description 01/30/[address] [facility] [address] [place] [address] Claritza Canela FNP [address] [place] [address] Breast density (Primary Dx) Social History Tobacco [...] documented as of this encounter Care Teams Bellmaker Relationship Specialty Start Date End Date Claritza Canela FNP [address] [place] [address] PCP - General Family Medicine 05/13/22 02/13/24 Yane Morrissey NP [address] [place] [address] PCP - General Family Medicine 02/14/24 documented as of this encounter
--- OUTSIDE RECORDS SUMMARY | 2024-09-28 13:44 | XMS_ITS | Clinical Summary ---
Author Organization [employer] Address [address] [place] [address] Care Team Providers Care Biometry Teacher Name Role Phone Yane Morrissey NP Primary Care Provider [phone] Allergies Active Allergy Reactions Criticality Noted Date [...] 2 times daily. 1 each 024 Active glucose blood (FREESTYLE LITE) test stripIndications: Diabetic polyneuropathy associated with type 2 diabetes mellitus (CMS/HCC) TEST BLOOD SUGAR TWICE DAILY DIRECTED 100 strip 5 05/16/2 024 Active atorvastatin (Lipitor) 40 MG tablet [...] vaccine Inject 0.5 mL into the muscle. Active Blood Glucose Monitoring Suppl (FreeStyle Lite) w/Device kit USE DIRECTED TO TEST BLOOD SUGAR TWICE DAILY Active busPIRone (Buspar) 10 MG tablet Take 20 mg by mouth at bedtime. Active losartan (Cozaar) 50 MG tabletIndications :Essential hypertension TAKE 1 TABLET BY MOUTH ONCE DAILY 90 tablet 1 Active Alcohol Swabs (Alcohol Prep) 70 % pads USE EVERY DAY OR NEEDED 100 each 11 024 Active amLODIPine (Norvasc) 2.5 MG tabletIndications :Primary hypertension TAKE 1 TABLET BY MOUTH EVERY DAY IN THE MORNING 90 tablet 1 024 Active metFORMIN (Glucophage) 1000 MG tabletIndications :Type 2 diabetes mellitus with hyperosmolarity without coma, without long-term current use of insulin ([facility]) TAKE 1 TABLET BY MOUTH TWICE DAILY IN THE MORNING AND IN THE EVENING WITH MEALS 180 tablet 024 Active FreeStyle lancetsIndication s:Diabetic polyneuropathy associated with type 2 diabetes mellitus ([facility]/HCC) 1 each by Other route if needed in the morning, at noon, and at bedtime (glucose). USE TO TEST BLOOD SUGAR TWICE A DAY 100 each 024 Active hydroCHLOROthiazi de (HYDRODiuril) 25 MG tabletIndications :Essential hypertension TAKE ONE TABLET BY MOUTH EVERY DAY 90 tablet 1 025 Active TRUEplus Lancets 33G miscIndications:T ype 2 diabetes mellitus with diabetic macular edema resolved after treatment, unspecified laterality, unspecified whether mcfp insulin use ([facility]) TEST BLOOD SUGAR TWICE DAILY DIRECTED 100 each 11 025 Active famotidine (Pepcid) 20 MG tabletIndications :Generalized abdominal pain TAKE 2 TABLETS BY MOUTH ONCE A DAY 30 tablet 1 025 Active BD Pen Needle Gaviota 2nd Gen 32G X 4 MM miscIndications:A cute bilateral low back pain with right-sided sciatica,Type 2 diabetes mellitus without complication, with long-term current use of insulin ([facility]) USE DIRECTED 100 each 025 Active Tresiba FlexTouch 200 UNIT/ML injectionIndicati ons:Type 2 diabetes mellitus without complication, with long-term current use of insulin ([facility]) INJECT 32 UNITS SUBCUTANEOUSLY DAILY AT BEDTIME 9 mL 1 025 Active Continuous Glucose Stock Plan Administrator (FreeStyle Ryder 3 [place]) deviceIndications :Type 2 diabetes mellitus without complication, with long-term current use of insulin ([facility]) 1 each Once per day. Use as directed for CGM 1 each 025 Active Continuous Glucose Sensor (FreeStyle Ryder 3 Plus Sensor) miscIndications:T ype 2 diabetes mellitus without complication, with long-term current use of insulin (CMS/HCC) 1 each every 15 days. Apply 1 every 15 days as directed for CGM 2 each Active glucose blood (FreeStyle Precision Petr Test) test strip Use to test blood sugar 4 times daily in case of CGM failure or extremes of BG 100 each 025 2025 Active Semaglutide,0.25 or 0.5MG/DOS, (Ozempic, 0.25 or 0.5 MG/DOSE,) 2 MG/3ML solution pen-injectorIndic ations:Type 2 diabetes mellitus without complication, with long-term current use of insulin (CMS/[facility]) Inject 0.5 mg under the skin 1 (one) time per week. 2 mL 1 Active Pentips 32G X 4 MM miscIndications:A cute bilateral low back pain with right-sided sciatica,Type 2 diabetes mellitus without complication, with long-term current use of insulin (CMS/HCC) USE DIRECTED 100 each 3 024 2024 Discontinued semaglutide (Ozempic) 2 MG/1.5ML solution pen-injector Inject 1 mg under the skin 1 (one) time per week. 3 each 024 2024 Discontinued Tresiba FlexTouch 200 UNIT/ML injectionIndicati ons:Type 2 diabetes mellitus without complication, with long-term current use of insulin ([facility]) INJECT 32 UNITS SUBCUTANEOUSLY EVERY DAY AT BEDTIME. 9 mL 1 024 2024 Discontinued famotidine (Pepcid) 20 MG tabletIndications :Generalized abdominal pain Take 2 tablets (40 mg) by mouth Once per day. 30 tablet 1 025 2024 Discontinued Ozempic, 1 MG/DOSE, 4 MG/3ML solution pen-injector INJECT 1MG SUBCUTANEOUSLY EVERY 7 DAYS IN THE ABDOMEN, THIGHS OR UPPER ARM. ROTATE INJECTION SITES 3 mL 1 025 2024 Discontinued Active Problems Problem Noted Date Diagnosed Date Cervicogenic headache 09/27/2024 Primary hypertension 09/27/2024 Dysuria 09/27/2024 Left lower quadrant abdominal pain 09/27/2024 Pain of left hip 09/27/2024 Generalized abdominal pain 08/06/2024 Assessment & Plan [...] with services. PLAN: 1. Follow up with [facility]: Not recommended for follow-up 2. Patient goal [...] her . Recommended to keep appt with [facility] therapist Carol Schaefer. At this time Armand Montilla meets criteria for Visit Diagnoses: Problem List Items Addressed This Visit Other Severe anxiety Major depressive disorder Patient ready to address current needs Armand is already engage in MH services at [facility]. Strengths include She is in action stage of change and this motivation will serve as treatment engagement. PLAN: 1. Follow up with [facility]: Not recommended for follow-up 2. Patient goal [...] Encounters Date Type Department Care Team Description 09/27/2024 4:00 PM EDT Office Visit [facility] [address] [place] [phone] Yane Morrissey NP Cervicogenic headache (Primary Dx); Type 2 diabetes mellitus without complication, with long-term current use of insulin (CMS/HCC); Primary hypertension; Dysuria; Pain of left hip; Left lower quadrant abdominal pain 09/27/2024 Travel 09/20/2024 Refill [facility] [address] [place] [address] Yane Morrissey NP Type 2 diabetes mellitus without complication, with long-term current use of insulin (CMS/HCC) 09/17/2024 Telephone [facility] [address] [place] [address] [phone] Bridget Hickey MA Chart prep 09/09/2024 Refill [facility] [address] [place] [address] Claritza Canela FNP Acute bilateral low back pain with right-sided sciatica; Type 2 diabetes mellitus without complication, with long-term current use of insulin (CMS/HCC) 09/06/2024 Refill [facility] [address] [place] [phone] Omaira Brian MD Generalized abdominal pain 08/30/[address] [phone] Yane Morrissey NP Prior Authorization (Lidocaine patches); Prior Auth Prescription 08/30/2024 Refill [facility] [address] [place] [phone] Claritza Canela FNP 08/27/2024 Refill [facility] [address] [place] [address] Yane Morrissey NP 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, unspecified laterality, unspecified whether terminal operations supervisor insulin use ([facility]) 08/26/2024 Refill [facility] [address] [place] [phone] Claritza Canela FNP Diabetic polyneuropathy associated with type 2 diabetes mellitus ([facility]) 08/20/2024 Refill [facility] [address] [place] [phone] Omaira Brian MD Clogged ear, bilateral 08/12/2024 3:00 PM EST Clinical Support [address] [address] Johana Howe RN Impacted cerumen of both ears 08/12/2024 Travel 08/06/2024 3:30 PM EST Office Visit [address] [address] Omaira Brian MD Generalized abdominal pain (Primary Dx); Clogged ear, bilateral 08/06/2024 Travel 08/02/[address] [address] Yane Morrissey NP Lab Orders; ER Follow-up 08/01/[address] [address] Yane Morrissey NP Nurse Triage 07/31/2024 Orders Only GENERIC EXTERNAL DATA DEPARTMENT Provider, Generic External Data 07/10/2024 9:30 AM EST Telemedicine [facility] [address] [place] [address] Phuong Adler, ISAAK Essential hypertension 07/04/2024 Travel 07/03/2024 Telephone [facility] [address] [place] [address] Melissa Temple, ISAAK 07/03/2024 Telephone [facility] [address] [place] [address] Latrice Fernandez, ISAAK from Last 3 Months Immunizations Name Administration [...] Sign Reading Time Taken Comments Blood Pressure 152/91 09/27/2024 4:22 PM EDT Pulse 101 09/27/2024 4:12 PM EDT Temperature 36.4 ??C (97.5 ??F) 09/27/2024 4:12 PM ED T Respiratory Rate 18 09/27/2024 4:12 PM EDT Oxygen Saturation 98% 09/27/2024 4:12 PM EDT Inhaled Oxygen Concentration - - Weight 97.5 kg (215 lb) 09/27/2024 4:12 PM EDT Height 157.5 cm (5' 2 ) 09/27/2024 4:12 PM EDT Body Mass Index 39.32 09/27/2024 4:12 PM EDT Plan of Treatment Health Maintenance Due Date Last Done Comments CT Colonography 1960 Colonoscopy 1960 Colorectal Cancer Screening 1960 FIT DNA/Cologuard 1960 FIT 1960 FOBT 1960 Sigmoidoscopy 1960 Diabetes: Foot Exam 1970 DTaP/Tdap/Td Vaccines (1 - Tdap) 1979 Pneumococcal Vaccine: 50+ Years (2 of 2 - PCV) 07/05/2019 07/05/2018 Hepatitis B Vaccines (3 of 3 - 19+ 3-dose series) 08/05/2019 06/10/2019, 08/21/2018 COVID-19 Vaccine (4 - season) 2024 05/18/2022, 04/23/2021, 08/26/2020 Influenza Vaccine (#1) 2024 , 05/18/2022, 07/30/2020, Additional history exists Mammogram 05/05/2024 05/05/2023, 10/10, 10/24/2022, Additional history exists Eye Exam 06/12/2024 06/12/2023 Diabetes: Urine Protein Screening 07/27/2024 07/27/2023, 09/06/2021, 08/31/2020, Additional history exists Lipid Panel 07/27/2024 07/27/2023, 05/12, 09/06/2021, Additional history exists Diabetes: Hemoglobin A1C 03/29/2025 025, 01/17/2024, 07/21/2023, Additional history exists Alcohol/Substance Use Screening 05/24/2025 05/24/2024 Depression Screening 05/24/2025 05/24/2024, 05/24/20 24 SDOH Screening 05/24/2025 05/24/2024 Tobacco Screening 09/27/2025 09/27/2024 Cervical Cancer Screening 06/16/2028 HPV/Cotest 06/16/2028 07/12/2018 [...] Procedure Name Priority Date/Time Associated Diagnosis Comments POCT URINALYSIS DIPSTICK Routine 09/27/2024 5:09 PM EDT Dysuria POCT GLYCATED HEMOGLOBIN, TOTAL Routine 09/27/2024 4:38 PM EDT Type 2 diabetes mellitus without complication, with long-term current use of insulin ([facility]) POCT GLUCOSE Routine 09/27/2024 4:38 PM EDT Type 2 diabetes mellitus without complication, with long-term current use of insulin ([facility]) DE REMOVAL IMPACTED CERUMEN IRRIGATION/LVG UNILAT Routine 08/12/2024 2:44 PM EST Impacted cerumen of both ears HELICOBACTER PYLORI AG, EIA, STOOL Routine 08/07/2024 8:48 AM EST Generalized abdominal pain LIPASE Routine 07/31/2024 1:18 PM EST MAGNESIUM Routine 07/31/2024 1:18 PM EST COMPREHENSIVE METABOLIC PANEL Routine 07/31/2024 1:18 PM EST LACTIC ACID Routine 07/31/2024 1:18 PM EST PROTHROMBIN TIME-INR Routine 07/31/2024 1:18 PM EST CBC WITH AUTO DIFFERENTIAL Routine 07/31/2024 1:18 PM EST ALBUMIN, RANDOM URINE W/CREATININE Routine 07/27/2023 8:40 AM EST Type 2 diabetes mellitus without complication, unspecified whether terminal operations supervisor insulin use ([facility]) LIPID PANEL, STANDARD Routine 07/27/2023 8:06 AM EST Type 2 diabetes mellitus without complication, unspecified whether terminal operations supervisor insulin use (CMS/[facility]) HM PAP/HPV Routine 06/16/2023 12:00 AM EST HM MAMMOGRAPHY Routine 05/05/2023 JAIME HISTORICAL HEPATITIS C ANTIBODY RFLX Routine 06/20/2019 8:11 AM EST CHRISTOPHER HISTORICAL HIV AB/AG Routine 06/20/2019 8:11 AM EST CHRISTOPHER HISTORICAL HPV MRNA E6/E7 Routine 07/12/2018 9:56 AM EST from Last 3 Months or Most Recently Relevant to Health Maintenance Results * (ABNORMAL) POCT Urinalysis (09/27/2024 5:09 PM EDT) Color, UA Yellow Clarity, UA Clear Glucose, UA Negative Bilirubin, UA Negative Ketones, UA Negative Spec Grav, UA 1.020 Blood, UA Positive(A) Negative, None Detected Comment:Trace pH, UA 5.5 Protein, UA Negative Urobilinogen, UA 0.2 Leukocytes, UA Few 15(A) Negative, Rare, Trace Comment:Small Nitrite, UA Negative Negative, None Detected Appearance, UA Clear QC Media Lot # [id number] Lot# Expiration Date ,[id number] Urine 09/27/2024 5:09 PM EDT Yane Morrissey NP POINT OF CARE TEST ENTER/EDIT OR DERABLES Final Result * POCT HGB A1C (09/27/2024 4:38 PM EDT) Hemoglobin A1C 5.9 4.0 - 6.0 % QC Media Lot # [id number] Lot# Expiration Date [id number] Blood 09/27/2024 4:38 PM EDT us Yane Morrissey NP POINT OF CARE TEST ENTER/EDIT OR DERABLES Final Result * POCT Glucose (09/27/2024 4:38 PM EDT) Glucose Blood, POC 89 60 - 200 mg/dL QC Media Lot # [id number] Lot# Expiration Date Blood Capillary blood specimen / Unknown 09/27/2024 4:38 PM EDT Result [facility] Yane Morrissey NP POINT OF CARE TEST ENTER/EDIT OR DERABLES Final Result * DE REMOVAL IMPACTED CERUMEN IRRIGATION/LVG UNILAT (08/12/2024 2:44 PM EST) Narrative Johana Howe RN - 08/12/2024 2:44 PM EST Johana Howe RN ? 08/12/2024 ??2:57 PM Ear Cerumen Removal Date/Time: 08/12/2024 2:44 PM Performed by: Johana Howe RN Authorized by: Capo Marie MD ?? Consent: ??Consent obtained: ??Verbal ??Consent given by: ??Patient ??Risks, benefits, and alternatives were discussed: yes ?Risks discussed: ??Dizziness and incomplete removal [place] protocol: ??Patient identity confirmed: ??Verbally with patient Procedure details: ??Location: ??L ear and R ear ??Procedure type: irrigation ?Procedure outcomes: cerumen removed ?? Post-procedure details: ??Inspection: ??No bleeding and TM intact ??Hearing quality: ??Improved ??Procedure completion: ??Tolerated Result [facility] Capo Marie MD IN CLINIC/BEDSIDE ORDERABLES Fin al Result * Helicobacter pylori??Antigen, EIA, Stool (08/07/2024 8:48 AM EST) H pylori Ag Stool SEE NOTE [facility] Comment:HELICOBACTER PYLORI AG, EIA, STOOL Micro Number: [id number] Test Status: Final Specimen Source: Stool Specimen Quality: Adequate H.pylori Ag: Not Detected Antimicrobials, proton pump inhibitors, and bismuth preparations inhibit H. pylori and ingestion up to two weeks prior to testing may cause false negative results. If clinically indicated the test should be repeated on a new specimen obtained two weeks after discontinuing treatment. Reference Range: Not DetectedTHIS TEST WAS PERFORMED AT:[employer] [place] [id number] HAMILTON MD Stool Rectal contents / Unknown 08/07/2024 8:48 AM EST 08/09/2024 12:13 PM EST Omaira Ashby MD LAB BODY FLUIDS AND S TOOLS ORDERABLES Final Result [facility] [address] [place] [phone] * CBC auto differential (07/31/2024 1:18 PM EST) White Blood Count 6.2 4.8 - 10.8 X10*3/uL [facility] Red Blood Count 4.98 4.20 - 5.50 X10*6/uL [facility] Hemoglobin 13.9 12.0 - 16.0 g/dl [facility] Hematocrit 41.2 37.0 - 47.0 % [facility] Mean Corpuscular Volume 82.7 80.0 - 98.0 fL [facility] Mean Corpuscular Hemoglobin 27.9 27.0 - 33.0 pg [facility] Mean Corpuscular HGB Conc 33.7 31.0 - 35.0 g/dl [facility] Red Cell Distribution Width 13.6 11.0 - 16.0 % [facility] Platelet Count 271 160 - 400 X10*3/uL [facility] Mean Platelet Volume 9.5 9.4 - 12.3 fL [facility] Neutrophils Percent Auto 64.1 45 - 73 % [facility] Imm Gran Pct Auto 0.3 0.0 - 0.4 % [facility] Lymphocytes Percent Auto 27.4 20 - 40 % [facility] Monocytes Percent Auto 5.5 2 - 11 % [facility] Eosinophils Percent Auto 2.1 0 - 4 % [facility] Basophils Percent Auto 0.6 0 - 2 % [facility] NRBC Pct Auto 0.0 0.0 - 0.2 /100WBC [facility] Neutrophils Absolute Auto 4.0 2.0 - 8.3 x10*3/uL [facility] Imm Gran Abs Auto 0.02 0.00 - 0.03 X10*3/uL [facility] Lymphocytes Absolute Auto 1.7 1.2 - 4.9 X10*3/uL [facility] Monocytes Absolute Auto 0.3 0.1 - 1.2 X10*3/uL [facility] Eosinophils Absolute Auto 0.1 0.0 - 0.4 X10*3/uL [facility] Basophils Absolute Auto 0.0 0.0 - 0.2 X10*3/uL [facility] NRBC Abs Auto 0.000 0.0 - 0.012 X10*3/uL [facility] 07/31/2024 1:18 PM EST 07/31/2024 1:30 PM EST us Generic External Data Provider LAB BLOOD ORDERAB LES Final Result Performing Organization Address City/State/[facility] Co de Phone Number [facility] [address] [place] [phone] * (ABNORMAL) Prothrombin Time-INR (07/31/2024 1:18 PM EST) Prothrombin Time 10.5(L) 10.9 - 12.4 SEC [facility] INTERNATIONAL NORM RATIO 0.9 0.9 - 1.1 [facility] Comment:INTERNATIONAL NORMAL IZED RATIO (INR) [...] ORDERAB LES Final Result Performing Organization Address [facility] Co de Phone Number [facility] [address] [place] [phone] * Magnesium (07/31/2024 1:18 PM EST) Magnesium 2.1 1.6 - 2.6 mg/dL [facility] 07/31/2024 1:18 PM EST 07/31/2024 1:30 PM EST us Generic External Data Provider LAB BLOOD ORDERAB LES Final Result Performing Organization Address [facility] ma Phone Number [facility] [address] [place] [phone] * Lipase (07/31/2024 1:18 PM EST) Lipase 29 8 - 78 U/L [facility] 07/31/2024 1:18 PM EST 07/31/2024 1:30 PM EST us Generic External Data Provider LAB BLOOD ORDERAB LES Final Result Performing Organization Address [facility] Co de Phone Number [facility] [address] [place] [phone] * Lactic Acid (07/31/2024 1:18 PM EST) Lactic Acid 1.4 0.5 - 2.0 mmol/L [facility] 07/31/2024 1:18 PM EST 07/31/2024 1:32 PM EST us Generic External Data Provider LAB BLOOD ORDERAB LES Final Result Performing Organization Address [facility] Co de Phone Number [facility] [address] [place] [phone] * (ABNORMAL) Comprehensive Metabolic Panel (07/31/2024 1:18 PM EST) Sodium 139 135 - 145 mmol/L [facility] Potassium 3.7 3.3 - 5.1 mmol/L [facility] Chloride 106 96 - 108 mmol/L [facility] Carbon Dioxide 25 22 - 29 mmol/L [facility] Anion Gap 12 12 - 20 [facility] Urea Nitrogen (BUN) 22(H) 9 - 16 mg/dL [facility] Creatinine, Serum 0.80 0.5 - 1.4 mg/dL [facility] Creatinine Clr Calc Pharmacy 76.5 [facility] Comment:Provided height and weight: 158.75 cm,95.4 kg.eGFR (calculated from the MDRD study equation) and eCrCl(calculated from the Cockcroft-Gault equation) are based ondifferent parameters and may not yield comparable results.If eCrCl result is absurd, please check patient'sheight/weight. Estimated Glomerular Filt Rate >60 [facility] Comment:Chronic Kidney Disea se: Estimated GFR < 60 mL/min/1.99u0Bvpxso Kidney Disease: Estimated GFR < 15 mL/min/1.73m2 Glucose 84 60 - 115 mg/dL [facility] Calcium 9.4 8.4 - 10.2 mg/dL [facility] Bilirubin, Total 0.6 0.0 - 1.0 mg/dL [facility] Aspartate Amino Transferase 30 5 - 31 U/L [facility] Alanine Aminotransferase 25 0 - 31 U/L [facility] Total Protein 7.4 6.5 - 8.0 g/dL [facility] Albumin Level 4.3 3.5 - 5.0 g/dL [facility] Alkaline Phosphatase 81 39 - 117 U/L [facility] 07/31/2024 1:18 PM EST 07/31/2024 1:30 PM EST us Generic External Data Provider LAB BLOOD ORDERAB LES Final Result Performing Organization Address [facility] de Phone Number [facility] [address] [place] [phone] * Albumin, Random Urine W/Creatinine (07/27/2023 8:40 AM EST) Creatinine, Urine 132.90 mg/dL [facility] Microalbumin Urine 17.0 mg/L [facility] Microalbum Creatinine Ratio Ur 12.7 <30 ug/mg cr [facility] Comment:Albumin/Creatinine R atio Reference Ranges: Normal: < 30 ug/mg creatinine Microalbuminuria: 30 - 300 ug/mg creatinineClinical Albuminuria: > 300 ug/mg creatinine Urine (Urine, Random) 07/27/2023 8:40 AM EST 07/27/2023 11:28 AM EST Claritza Canela [facility] LAB URINE ORDERABLES Final Resu lt Performing Organization Address [facility] Co de Phone Number [facility] [address] [place] [phone] * Lipid Panel, Standard (07/27/2023 8:06 AM EST) Triglycerides 53 <150 mg/dL [facility] Comment:Desirable Triglyceri de: less than 150 mg/dLBorderline High Triglyceride 150-199 mg/dLHigh Triglyceride: 200-499 mg/dLVery High Triglyceride: greater than or equal to 5OO mg/dL Cholesterol 113 <200 mg/dL [facility] Comment:Desirable Cholestero l: less than 200 mg/dLBorderline High Cholesterol: 200-239 mg/dLHigh Cholesterol: greater than 239 mg/dL LDL Cholesterol Calculated 39 <100 mg/dL [facility] Comment:Desirable LDL: less than 100 mg/dLNear Optimal/Above Optimal LDL: 110- 129 mg/dLBorderline High LDL: 130-159 mg/dLHigh LDL: 160-189 mg/dLVery High LDL: greater than or equal to 190 mg/dL HDL Cholesterol 64 >40 mg/dL [facility] Comment:Desirable HDL: great er than 40 mg/dL Note: This HDL assay may give artificially low results in patients with liver disease. Blood Venous blood specimen / Unknown 07/27/2023 8:06 AM EST 07/27/2023 11:15 AM EST Claritza Canela [facility] LAB BLOOD ORDERABLES Final Resu lt [facility] [address] [place] [phone] * PAP/HPV (06/16/2023 12:00 AM EST) Historical Provider HEALTH MAINTENANCE Final Result * Mammography (05/05/2023) Pathologist [facility] Mammogram Bi-rads 2 Anatomical Region Laterality Modality Other Historical Provider HEALTH MAINTENANCE Final Result * HEPATITIS C ANTIBODY RFLX (06/20/2019 8:11 AM EST) [facility] HEPATITIS C ANTIBODY NONREACTIVE NONREACTIVE [facility] Comment: Antibodies to HCV not detected; does not exclude early acute HCV infection. 06/20/2019 8:11 AM EST Albert Hollingsworth MD HISTORICAL/NON ORDERABLE LABS Fi nal Result [facility] [address] * HIV AB/AG (06/20/2019 8:11 AM EST) Pathologist [facility] HIV AG/AB NONREACTIVE [facility] ON LAB [...] detection of this assay. ?? The [facility] HIV Ag/Ab Combo assay result and supplemental assay results should be interpreted in conjunction with the patient's clinical presentation, history and other laboratory results. ??If the results are inconsistent with clinical evidence, additional testing is suggested to confirm the result. 06/20/2019 8:11 AM EST Albert Hollingsworth MD HISTORICAL/NON ORDERABLE LABS Fi nal Result [facility] [address] * HPV mRNA E6/E7 (07/12/2018 9:56 AM EST) HPV mRNA E6/E7 Not Detected NOT DETECTED [facility] Comment: This test was performed using the APTIMA(R) HPV Assay ([employer] This assay detects E6/E7 viral messenger RNA (mRNA) from 14 high-risk HPV types (16,18,31,33,35,39,45,51, 52,56,58,59,66,68). For additional information please refer to: http://education.[employer]faq/XZC172i9 (This link is being provided for informational/ educational purposes only.) The analytical performance characteristics of this assay have been determined by [employer] [place], [place]. The modifications have not been cleared or approved by the FDA. This assay has been validated pursuant to the CLIA regulations and is used for clinical purposes. Test Performed by [email or web address], [facility], [address] [place] [address] Henok Carreno M.D., Ph.D., Director of Laboratories , CLIA [id number] Please note: ??Effective 02/22/2016, HPV testing will be performed using [employer]'s APTIMA test which targets mRNA. Detecting mRNA instead of DNA, as in older methods, offers significant improvements in specificity. 07/12/2018 9:56 AM EST Jayla Rizzardini CNM HISTORICAL/NON ORDERABLE LABS Final Result [facility] [address] from Last 3 Months or Most Recently Relevant to Health Maintenance Insurance [facility] < 65 [address] [id number] Care Teams Biometry Teacher Relationship Specialty Start Date End Date Yane Morrissey NP [address] [place] [address] PCP - General Family Medicine 02/14/24
--- OUTSIDE RECORDS SUMMARY | 2024-09-28 13:44 | XMS_ITS | Encounter Summary ---
Author Organization [employer] Address [address] 7[address] [place] [address] Care Team Providers Care Director Of Planning Name Role Phone Claritza CanelaP Primary Care Provider [phone] Yane Morrissey NP Primary Care Provider Encounter Details Date Type Department Care Team (Late st Contact Info) Description 03/21/2023 Orders Only [facility] MEDICINE [address] [place] [address] Provider, MD [place] Social History Tobacco Use [...] documented as of this encounter Care Teams Director Of Planning Relationship Specialty Start Date End Date Claritza Canela FNP [address] [place] [address] PCP - General Family Medicine 05/13/22 02/13/24 Yane Morrissey NP [address] [place] [address] PCP - General Family Medicine 02/14/24 documented as of this encounter
--- OUTSIDE RECORDS SUMMARY | 2024-09-28 13:44 | XMS_ITS | Encounter Summary ---
Author Organization [employer] Address [address] 7[address] [place] [address] Care Team Providers Care Shiatsu Therapist Name Role Phone Claritza Canela Primary Care Provider [phone] Yane Morrissey NP Primary Care Provider [phone] Encounter Details Date Type Department Care Team (Late st Contact Info) Description 03/28/2023 Orders Only [facility] MED & PEDS [address] [place] [address] Claritza Canela FNP [address] [place] [address] Acute bilateral low back pain with right-sided [...] documented as of this encounter Care Teams Shiatsu Therapist Relationship Specialty Start Date End Date Claritza Canela FNP [address] [place] [address] PCP - General Family Medicine 05/13/22 02/13/24 Yane Morrissey NP [address] [place] [address] PCP - General Family Medicine 02/14/24 documented as of this encounter
--- OUTSIDE RECORDS SUMMARY | 2024-09-28 13:44 | XMS_ITS | Encounter Summary ---
Author Organization [employer] Address [address] [facility] [address] 7t [place] [address] Care Team Providers Care First Line Supervisor Name Role Phone Claritza Canela Primary Care Provider [phone] Yane Morrissey NP Primary Care Provider [phone] Reason for Visit * Reason Onset Date Comments Medication Question 08/17/2023 Encounter Details Date Type Department Care Team ([facility] st Contact Info) Description 08/17/2023 Telephone [facility] MEDICINE [address] [place] [address] Claritza Canela FNP [address] [place], [place] [phone] Medication Question Social History Tobacco Use Types [...] was sent by paramedics yesterday at the [facility] pharmacywhich is not covered, pt. Does not remember the name/T/C to [facility] pharmacy for above message, pharmacy states lidocaine [...] by her insurance. Please contact pt at [phone]. documented in this encounter Plan of Treatment Not on file documented as of this encounter Visit Diagnoses Not on filedocumented in this encounter Additional Health Concerns Assessment Noted Time PHQ-9 Depression Total Score: 23 023 10:13 AM EST documented as of this encounter Care Teams First Line Supervisor Relationship Specialty Start Date End Date Claritza Canela FNP [address] [place] [address] PCP - General Family Medicine 05/13/22 02/13/24 Yane Morrissey NP [address] [place] [address] PCP - General Family Medicine 02/14/24 documented as of this encounter
--- OUTSIDE RECORDS SUMMARY | 2024-09-28 13:44 | XMS_ITS | Encounter Summary ---
Author Organization [employer] Address [address] [facility] [address]t [place] [address] Care Team Providers Care Apparel Stock Checker Name Role Phone Claritza Canela Primary Care Provider [phone] Yane Morrissey NP Primary Care Provider [phone] Encounter Details Date Type Department Care Team (Late st Contact Info) Description 11/25/2022 Telephone [facility] MEDICINE [address] [place] [address] Claritza Canela FNP [address] [place] [address] Social History Tobacco Use Types Packs/Day Years [...] documented as of this encounter Care Teams Apparel Stock Checker Relationship Specialty Start Date End Date Claritza Canela FNP [address] [place] [address] PCP - General Family Medicine 05/13/22 02/13/24 Yane Morrissey NP [address] [place] [address] PCP - General Family Medicine 02/14/24 documented as of this encounter
--- OUTSIDE RECORDS SUMMARY | 2024-09-28 13:44 | XMS_ITS | Encounter Summary ---
Author Organization [employer] Address [address] [facility] 7t [place] [address] Care Team Providers Care Answering Service Telephone Operator Name Role Phone Claritza Canela CHIEF DRAFTER Primary Care Provider [phone] Yane Morrissey NP Primary Care Provider [phone] Encounter Details Date Type Department Care Team (Late st Contact Info) Description 05/18/2022 Orders Only [facility] MEDICINE [address] [place] [address] Sonya Darnell MD [address] [place] [address] Type 2 diabetes mellitus with hyperosmolarity without coma, without long-term current use of insulin ([facility]) (Primary Dx) Social History Tobacco Use Types [...] coma, without long-term current use of insulin ([facility])- Primary documented in this encounter Care Teams Answering Service Telephone Operator Relationship Specialty Start Date End Date Claritza Canela FNP [address] [place] [address] PCP - General Family Medicine 05/13/22 02/13/24 Yane Morrissey NP [address] [place] [address] PCP - General Family Medicine 02/14/24 documented as of this encounter
--- OUTSIDE RECORDS SUMMARY | 2024-09-28 13:44 | XMS_ITS | Encounter Summary ---
Author Organization [employer] Address [address] [place] [address] Care Team Providers Care Chemical Production Technician Name Role Phone Claritza Canela Primary Care Provider [phone] Yane Morrissey NP Primary Care Provider [phone] Encounter Details Date Type Department Care Team (Late st Contact Info) Description 10/04/2023 Orders Only [facility] CHC MED & PEDS [address] [place] [address] Claritza Canela FNP [address] [place] [address] Social History Tobacco Use Types Packs/Day Years [...] with others, in a hotel, in a chcf, living outside on the street, on a [...] as of this encounter Care Teams Chemical Production Technician Relationship Specialty Start Date End Date Claritza Canela FNP [address] [place] [address] PCP - General Family Medicine 05/13/22 02/13/24 Yane Morrissey NP [address] [place] [address] PCP - General Family Medicine 02/14/24 documented as of this encounter
--- OUTSIDE RECORDS SUMMARY | 2024-09-28 13:44 | XMS_ITS | Encounter Summary ---
Author Organization [employer] Address [address] [facility] 7t [place] [address] Care Team Providers Care Research Nurse Name Role Phone Claritza CanelaP Primary Care Provider [phone] Yane Morrissey NP Primary Care Provider [phone] Reason for Visit * Reason Comments Med Refill Encounter Details Date Type Department Care Team (Late st Contact Info) Description 11/29/2022 Refill [facility] MEDICINE [address] [place] [address] Claritza Canela FNP [address] [place], [place] [phone] Rash and nonspecific skin eruption Social History [...] documented as of this encounter Care Teams Research Nurse Relationship Specialty Start Date End Date Claritza Canela FNP [address] [place] [address] PCP - General Family Medicine 05/13/22 02/13/24 Yane Morrissey NP [address] [place] [address] PCP - General Family Medicine 02/14/24 documented as of this encounter
--- OUTSIDE RECORDS SUMMARY | 2024-09-28 13:44 | XMS_ITS | Encounter Summary ---
Author Organization [employer] Address [address] [place] [address] 7t [place] [address] Care Team Providers Care Fabric Designer Name Role Phone Yane Morrissey NP Primary Care Provider [phone] Reason for Referral * Medications - Closed Specialty Diagnoses / Procedures Referred By Luci t Referred To Contact Diagnoses Type 2 diabetes mellitus without complication, with long-term current use of insulin ([facility]) Yane Morrissey NP [address] [place], [place] Phone: tel: fax: Referral ID Status Reason Start Date Expiration Date Visits Re quested Visits Authorized [id number] Closed 1 1 * Medications - Pending Review Specialty Diagnoses / Procedures Referred By Luci leon Referred To Contact Diagnoses Type 2 diabetes mellitus without complication, with long-term current use of insulin ([facility]) Yane Morrissey NP [address] [place], [place] Phone: tel: fax: Referral ID Status Reason Start Date Expiration Date V isits Requested Visits Authorized [id number] Pending Review 1 1 * Medications - Pending Review Specialty Diagnoses / Procedures Referred By Luci leno Referred To Contact Diagnoses Type 2 diabetes mellitus without complication, with long-term current use of insulin ([facility]) Yane Morrissey NP [address] [place], [place] Phone: tel: fax: Referral ID Status Reason Start Date Expiration Date V isits Requested Visits Authorized [id number] Pending Review 1 1 * Consultation (Routine) - Pending Review Specialty Diagnoses / Procedures Referred By Contac t Referred To Contact Orthopaedic Surgery Diagnoses Pain of left hip Left lower quadrant abdominal pain Yane Morrissey NP [address] [place] [address] Phone: tel: fax: Referral ID Status Reason Start Date Expiration Date Visits Requested Visits Authorized [id number] Pending Review Specialty Services Required 09/27/2024 09/27/2025 1 1 * Imaging (Urgent) - Pending Review Specialty Diagnoses / Procedures Referred By Contac t Referred To Contact Radiology Diagnoses Left lower quadrant abdominal pain Procedures CT Abdomen Pelvis w/ and w/o Contrast Yane Morrissey NP [address] [place] [address] Phone: tel: fax: Referral ID Status Reason Start Date Expiration Date V isits Requested Visits Authorized [id number] Pending Review 09/27/2024 09/27/2025 1 1 Encounter Details Date Type Department Care Team (Late st Contact Info) Description 09/27/2024 4:00 PM EDT Office Visit [facility] MEDICINE [address] [place] [address] Yane Morrissey NP [address] [place] [address] Cervicogenic headache (Primary Dx); Type 2 diabetes mellitus without complication, with long-term current use of insulin ([facility]); Primary hypertension; Dysuria; Pain of left hip; Left lower quadrant abdominal pain Social History Tobacco Use Types Packs/Day Years [...] Mass Index 39.32 09/27/2024 4:12 PM EDT documented in this encounter Plan of Treatment Scheduled Orders Name Type Priority Associated Diagnoses Orde r Schedule Culture, Urine, Routine Microbiology Routine Dysuria Expected: 09/27/2024 (Approximate), Expires: 09/27/2025 XR Hip 2 or 3 Views Left Imaging Routine Pain of left hip Expected: 09/27/2024, Expires: 09/27/2025 CT Abdomen Pelvis w/ and w/o Contrast Imaging Urgent Left lower quadrant abdominal pain Expected: 09/27/2024, Expires: 09/27/2025 Scheduled Referrals Name Type Priority Associated Diagnoses Order Schedule Referral to Orthopaedic Surgery Outpatient Referral Routine Pain of left hip Left lower quadrant abdominal pain Expected: 09/27/2024 (Approximate), Expires: 09/27/2025 documented as of this encounter Procedures Procedure Name Priority Date/Time Associated Diagnosis Comments POCT URINALYSIS DIPSTICK Routine 09/27/2024 5:09 PM EDT Dysuria POCT GLYCATED HEMOGLOBIN, TOTAL Routine 09/27/2024 4:38 PM EDT Type 2 diabetes mellitus without complication, with long-term current use of insulin ([facility]) POCT GLUCOSE Routine 09/27/2024 4:38 PM EDT Type 2 diabetes mellitus without complication, with long-term current use of insulin ([facility]) documented in this encounter Results * (ABNORMAL) POCT Urinalysis (09/27/2024 5:09 [...] Media Lot # [id number] Lot# Expiration Date 260,450 Urine 09/27/2024 5:09 PM EDT Yane Morrissey MANAGER INTERN POINT OF CARE TEST ENTER/EDIT OR DERABLES Final Result * POCT HGB A1C (09/27/2024 4:38 PM EDT) Hemoglobin A1C 5.9 4.0 - 6.0 % QC Media Lot # [id number] Lot# Expiration Date ,026 Blood 09/27/2024 4:38 PM EDT Yane Morrissey MANAGER INTERN POINT OF CARE TEST ENTER/EDIT OR DERABLES Final Result * POCT Glucose (09/27/2024 4:38 PM EDT) Glucose Blood, POC 89 60 - 200 mg/dL QC Media Lot # [id number] Lot# Expiration Date 620 Blood Capillary blood specimen / Unknown 09/27/2024 4:38 PM EDT Yane Morrissey NP POINT OF CARE TEST ENTER/EDIT OR DERABLES Final Result documented in this encounter Visit Diagnoses Diagnosis Cervicogenic headache- Primary Headache Type 2 diabetes mellitus without complication, with long-term current use of insulin ([facility]) Primary hypertension Unspecified essential hypertension Dysuria Pain of left hip Left lower quadrant abdominal pain documented in this encounter Additional Health Concerns Assessment Noted Time PHQ-9 Depression Total Score: 9 05/24/20 24 11:18 AM EST documented as of this encounter Care Teams Fabric Designer Relationship Specialty Start Date End Date Yane Morrissey NP [address] [place] [address] PCP - General Family Medicine 02/14/24 documented as of this encounter
--- OUTSIDE RECORDS SUMMARY | 2024-09-28 13:44 | XMS_ITS | Encounter Summary ---
Author Organization [employer] Address [address] [facility] 7t [place] [address] Care Team Providers Care Vice President Business Development Name Role Phone Claritza CanelaP Primary Care Provider [phone] Yane Morrissey NP Primary Care Provider [phone] Encounter Details Date Type Department Care Team (Late st Contact Info) Description 07/19/2022 Orders Only [facility] MEDICINE [address] [place] [address] Claritza Canela FNP [address] [place] [address] Type 2 diabetes mellitus without complication, with long-term current use of insulin ([facility]) (Primary Dx) Social History Tobacco Use Types [...] complication, with long-term current use of insulin ([facility])- Primary documented in this encounter Additional Health Concerns Assessment Noted Time PHQ-9 Depression Total Score: 2 06/01/20 22 9:11 AM EST documented as of this encounter Care Teams Vice President Business Development Relationship Specialty Start Date End Date Claritza Canela FNP [address] [place] [address] PCP - General Family Medicine 05/13/22 02/13/24 Yane Morrissey NP [address] [place] [address] PCP - General Family Medicine 02/14/24 documented as of this encounter
--- OUTSIDE RECORDS SUMMARY | 2024-09-28 13:44 | XMS_ITS | Encounter Summary ---
Author Organization [employer] Address [address] [facility] [address]t [place] [address] Care Team Providers Care Acoustical Tile Patternmaker Name Role Phone Claritza CanelaP Primary Care Provider [phone] Yane Morrissey NP Primary Care Provider [phone] Reason for Visit * Reason Onset Date Comments Med Refill Abnormal mammo follow up 10/18/2022 Encounter Details Date Type Department Care Team (Late st Contact Info) Description 10/18/2022 Refill [facility] MEDICINE [address] [place] [address] Elsie Argueta ANP [address] [place] [address] Social History Tobacco Use Types Packs/Day Years [...] AM EDT Incoming call from Shana at [facility] calling to let us know [...] documented as of this encounter Care Teams Acoustical Tile Patternmaker Relationship Specialty Start Date End Date Claritza Canela FNP [address] [place] [address] PCP - General Family Medicine 05/13/22 02/13/24 Yane Morrissey NP [address] [place] [address] PCP - General Family Medicine 02/14/24 documented as of this encounter
== END 2024-09-28 13:43 | disposition home or self-care (01) ==
LOC: HO.HHCLNP 13:42
PROVIDERS: Visit Provider Nurse Practitioner Family
DX: R30.0 Dysuria (principal)
CPT/HCPCS: 87086

== ENCOUNTER 2024-10-23 08:13 | Outpatient (AMB) | payer OTHER, SELFPAY ==
--- NOTE | 2024-10-23 08:17 | A.OFFVIS_ITS ---
Vital Signs 10/23/24 08:19 Height 5 ft 3 in Weight 213 lb BMI 37.7 BP 124/76 Blood Pressure Location Rt brachial Position Sitting Pulse 88 Pulse Source Pulse Oximeter Pulse Oximetry (%) 100 Oxygen Delivery Method Room Air Intake Visit Reasons: Acute Gastroenteritis Intake Note: NEW PATIENT for initial eval of diarrhea, nausea. Last colo/egd 2017. Hospital in the [place]. CC; intermittent N+V, lack of appetite, early satiety, occasional reflux, RLQ pain. Pt also reports having constipation and bloating, denies any evidence of hemorrhoids. Pt reports having chronic sx for many years and have had varying severity throughout. However, pt comments that their sx have been worse over the last 6 mos. Pt did seek care @ [facility] but did not have a positive experience and did not receive the care they were hoping for. Cloth Shrinking Machine Operator Required: No Allergies aspirin [ASPIRIN] Allergy (Severe, Verified 10/23/24 08:28) TONGUE SWELLING bee pollen [BEE STINGS] Allergy (Severe, Verified 10/23/24 08:28) ANAPHYLAXIS HPI HPI Acute Gastroenteritis: Details: 64-year-old female with past medical history of osteoarthritis of her knees, diabetes, hypertension, hyperlipidemia, anxiety is here today for initial consultation. Patient reports she had a colonoscopy and upper endoscopy in October of 2017 in [place]. Patient had normal colonoscopy however she was diagnosed with hiatal hernia and ulcers. Patient was on PPI currently she is on H2 kathy, taking Pepcid. Patient has frequent alternating stools sometimes constipated sometimes diarrhea. Occasionally uses Metamucil. Sometimes patient drinks only water and feels full. Patient reports that when she goes to the bathroom she feels like she does not empty completely. Reports occasional left lower quadrant cramping. Patient denies melena, hematochezia, unintentional weight loss or ribbon like stools. Patient reports occasional dyspepsia without dysphagia or odynophagia. Feels like famotidine has been working for her. Patient is on Ozempic, recently her dose was lowered as her A1c was 5.8 %. Patient is trying to eat food cooked at home [facility] Medical History Breast nodule Arthritis Bilateral carpal tunnel syndrome History of trigger finger DDD (degenerative disc disease) Seasonal asthma Anxiety Hypertension Acid reflux Migraines High cholesterol Diabetes Surgical History S/P LASIK surgery of both eyes History of carpal tunnel release S/P arthroscopic surgery of left knee (~1999) History of tonsillectomy History of section Family History Mother No problems noted. Father No problems noted. Paternal Aunt Uterine cancer Social History Alcohol intake: never Patient Tobacco Use Status: Never used Tobacco Second Hand Smoke Exposure: No Current occupational status: disabled Current occupation: rt hand Female Reproductive History Menstrual Age of Menarche: 11 Review of Systems Const Denies weight gain and Denies weight loss ENT Reports no additional complaints, Denies dysphagia and Denies odynophagia Card Reports no additional complaints Resp Reports no additional complaints GI Reports abdominal pain (Epigastric, LLQ), Denies belching, Denies melena, Reports bloating, Denies change in bowel habits, Reports constipation, Denies dysphagia, Denies excessive flatus, Denies dyspepsia, Reports heartburn, Denies diarrhea, Reports loose stools, Denies nausea, Denies odynophagia and Denies vomiting Reports no additional complaints Musc Reports no additional complaints Neuro Reports no additional complaints Psych Reports no additional complaints Endo Reports no additional complaints Physical Exam Vital Signs: Last Vital Signs Pulse 88 10/23/24 08:19 BP 124/76 10/23/24 08:19 Pulse Ox 100 10/23/24 08:19 Oxygen Delivery Method Room Air 10/23/24 08:19 BMI result Body Mass Index 37.7 Const General: healthy appearing and no acute distress Nutritional Appearance: well nourished and obese Orientation/consciousness: patient oriented x3 Resp Effort & Inspection: normal respiratory effort, able to speak in complete sentences, no tracheal deviation and symmetric chest movement Auscultation: clear to auscultation bilaterally Cardio Rate: regular rate GI Inspection: Yes normal to inspection, No distended and Yes obesity Palpation (GI): Soft to palpation, not firm, nontender and No hepatosplenomegaly present Auscultation: normal bowel sounds General: Yes no CVA tenderness Back/Spine/Pelvis Back: no CVA tenderness Skin General skin exam: elasticity normal, turgor normal and dry skin Neuro General: patient oriented x3 Psych Appearance: grossly normal Mental Status: mental status grossly normal Assessment & Plan Assessment & Plan (1) GERD (gastroesophageal reflux disease): Code(s): K21.9 - Gastro-esophageal reflux disease without esophagitis Qualifiers: Esophagitis presence: esophagitis presence not specified Qualified Code(s): K21.9 - Gastro-esophageal reflux disease without esophagitis (2) Postprandial epigastric pain: Code(s): R10.13 - Epigastric pain (3) Postprandial diarrhea: Code(s): K52.9 - Noninfective gastroenteritis and colitis, unspecified (4) Constipation: Code(s): K59.00 - Constipation, unspecified Qualifiers: Constipation type: slow transit constipation Qualified Code(s): K59.01 - Slow transit constipation (5) LLQ abdominal pain: Code(s): R10.32 - Left lower quadrant pain Plan Patient will start taking fiber daily. Increase fluid intake and activity to promote better bowel motility. Patient will take Senokot in the evening. She will return in couple days for H pylori testing. Stop famotidine 24 hours before the test. Will rule out chronic pancreatitis, celiac. Will check liver panel, vitamin-D, B12, folate, thyroid study. Patient will be sent for upper GI with barium swallow. Discussed with patient avoiding dietary triggers and late night snacking. Staying upright for minimum 3 hours after meals discussed with patient. We also discuss low FODMAP diet. List of food recommended as well as list of food to avoid given to patient. Patient will return to the office in 3 months, sooner on as needed basis. She is agreeable to this plan and verbalizes understanding of instructions. She was given the opportunity to ask questions and all questions answered. Thank you for allowing me to participate in her care Orders: Orders Liver Panel Today R74.01 - Elevation of levels of liver transaminase levels Vitamin D 25-OH (D2 and D3) Today E55.9 - Vitamin D deficiency, unspecified TSH reflex Free T4 Today K59.00 - Constipation, unspecified Transglutaminase IgA Today R10.9 - Unspecified abdominal pain Lipase Today R10.9 - Unspecified abdominal pain Vitamin B12 and Folate Today R19.7 - Diarrhea, unspecified H Pylori Breath Test Today K21.9 - Gastro-esophageal reflux disease without esophagitis FL upper GI w Ba Swallow Today K21.9 - Gastro-esophageal reflux disease without esophagitis Medications: New methylcellulose (laxative) (Citrucel) take it with full glass of water 500 mg PO DAILY 90 tabs 2RF K59.00 - Constipation, unspecified sennosides (Natural Senna Laxative) 17.2 mg (2 x 8.6 mg) PO BEDTIME 60 tabs 3RF constipation K59.00 - Constipation, unspecified famotidine 40 mg PO BEDTIME 30 tabs 3RF K21.9 - Gastro-esophageal reflux disease without esophagitis Coding Level of Care Code New Pt Level 4 (09900) Diagnoses Gastroesophageal reflux disease, unspecified whether esophagitis present K21.9 Esophagitis presence: esophagitis presence not specified Postprandial epigastric pain R10.13 Postprandial diarrhea K52.9 Slow transit constipation K59.01 Constipation type: slow transit constipation LLQ abdominal pain R10.32 Time Spent (min) 50 Comment 35 minutes spent with patient and additional 15 minutes spent reviewing her records
[2024-10-23 08:19] VITALS: BP 124/76; PULSE 88; O2SAT 100; BMI 37.7
--- OUTSIDE RECORDS SUMMARY | 2024-10-23 08:21 | XMS_ITS | Clinical Summary ---
Author Organization [employer] Address [address] [facility] [facility] [address] [place] [address] Care Team Providers Care Brush Filler Hand Name Role Phone Yane Morrissey NP Primary Care Provider [phone] Allergies Active Allergy Reactions Criticality Noted Date [...] BY MOUTH EVERY MORNING 90 tablet 5 Active cyclobenzaprine (Flexeril) 5 MG tablet TAKE [...] 20 mg by mouth at bedtime. Active Alcohol Swabs (Alcohol Prep) 70 % pads USE EVERY DAY OR NEEDED 100 each 11 Active amLODIPine (Norvasc) 2.5 MG tabletIndications :Primary hypertension TAKE 1 TABLET BY MOUTH EVERY DAY IN THE MORNING 90 tablet 1 024 Active metFORMIN (Glucophage) 1000 MG tabletIndications :Type 2 diabetes mellitus with hyperosmolarity without coma, without long-term current use of insulin (CMS/HCC) TAKE 1 TABLET BY MOUTH TWICE DAILY IN THE MORNING AND IN THE EVENING WITH MEALS 180 tablet 1 024 Active FreeStyle lancetsIndication s:Diabetic polyneuropathy associated with type 2 diabetes mellitus (CMS/HCC) 1 each by Other route if needed in the morning, at noon, and at bedtime (glucose). USE TO TEST BLOOD SUGAR TWICE A DAY 100 each 11 024 Active hydroCHLOROthiazi de (HYDRODiuril) 25 MG tabletIndications :Essential hypertension TAKE ONE TABLET BY MOUTH EVERY DAY 90 tablet 1 025 Active TRUEplus Lancets 33G miscIndications:T ype 2 diabetes mellitus with diabetic macular edema resolved after treatment, unspecified laterality, unspecified whether tank terminal gauger insulin use (CMS/HCC) TEST BLOOD SUGAR TWICE DAILY DIRECTED 100 each 025 Active BD Pen Needle Gaviota 2nd Gen 32G X 4 MM miscIndications:A cute bilateral low back pain with right-sided sciatica,Type 2 diabetes mellitus without complication, with long-term current use of insulin (CMS/HCC) USE DIRECTED 100 each 025 Active Tresiba FlexTouch 200 UNIT/ML injectionIndicati ons:Type 2 diabetes mellitus without complication, with long-term current use of insulin (CMS/HCC) INJECT 32 UNITS SUBCUTANEOUSLY DAILY AT BEDTIME 9 mL 1 025 Active Continuous Glucose Assembly Line Brazer (FreeStyle Ryder 3 Edna) deviceIndications :Type 2 diabetes mellitus without complication, with long-term current use of insulin (CMS/HCC) 1 each Once per day. Use as directed for CGM 1 each 025 Active Continuous Glucose Sensor (FreeStyle Ryder 3 Plus Sensor) miscIndications:T ype 2 diabetes mellitus without complication, with long-term current use of insulin (CMS/HCC) 1 each every 15 days. Apply 1 every 15 days as directed for CGM 2 each 025 Active glucose blood (FreeStyle Precision Petr Test) test strip Use to test blood sugar 4 times daily in case of CGM failure or extremes of BG 100 each 11 025 2025 Active Semaglutide,0.25 or 0.5MG/DOS, (Ozempic, 0.25 or 0.5 MG/DOSE,) 2 MG/3ML solution pen-injectorIndic ations:Type 2 diabetes mellitus without complication, with long-term current use of insulin ([facility]) Inject 0.5 mg under the skin 1 (one) time per week. 2 mL 1 025 Active famotidine (Pepcid) 20 MG tabletIndications :Generalized abdominal pain TAKE TWO TABLETS BY MOUTH ONCE A DAY 30 tablet 1 025 Active losartan (Cozaar) 50 MG tabletIndications :Essential hypertension TAKE ONE TABLET BY MOUTH EVERY DAY 90 tablet 1 025 Active semaglutide (Ozempic) 2 MG/1.5ML solution pen-injector Inject 1 mg under the skin 1 (one) time per week. 3 each 024 2024 Discontinued losartan (Cozaar) 50 MG tabletIndications :Essential hypertension TAKE 1 TABLET BY MOUTH ONCE DAILY 90 tablet 1 024 2024 Discontinued Ozempic, 1 MG/DOSE, 4 MG/3ML solution pen-injector INJECT 1MG SUBCUTANEOUSLY EVERY 7 DAYS IN THE ABDOMEN, THIGHS OR UPPER ARM. ROTATE INJECTION SITES 3 mL 1 025 2024 Discontinued famotidine (Pepcid) 20 MG tabletIndications :Generalized abdominal pain TAKE 2 TABLETS BY MOUTH ONCE A DAY 30 tablet 1 025 2024 Discontinued Active Problems Problem Noted Date Diagnosed Date Cervicogenic headache 09/27/2024 Primary hypertension 09/27/2024 Assessment & Plan (10/01/2024 10:39 AM EDT): Above goal today, but pt attributes this to pain and stress Does measure at home Dysuria 09/27/2024 Assessment & Plan (10/01/2024 10:46 AM EDT): UA non diagnostic, will send for culture Left lower quadrant abdominal pain 09/27/2024 Assessment & Plan (10/01/2024 10:46 AM EDT): Pt with left lower quadrant pain, tenderness on palpation CT abdomen and pelvis ordered Pain of left hip 09/27/2024 Assessment & Plan (10/01/2024 10:47 AM EDT): Pt with baseline OA, sig pain with ROM, No recent trauma associated with pain X-ray ordered CT ordered for abd pain Referral to ortho Generalized abdominal pain 08/06/2024 Assessment & Plan [...] continue Dietary counseling 06/06/2024 Assessment & Plan (10/01/2024 10:45 AM EDT): Dietary Recommendations: Fruits, vegetables, whole grains, protein foods, and fat-free or low-fat dairy products are healthy choices. Eat different types of protein foods in your diet. This can include seafood, lean meats, poultry, beans, peas, lentils, nuts, seeds, soy products, and eggs. Limit foods and beverages higher in added sugars, saturated fat, and sodium. Exercise Recommendations: At least 150 minutes of moderate-intensity physical activity per week, or an equivalent combination of moderate- and vigorous-intensity activity Assessment & Plan (06/06/2024 3:21 PM EST): [...] with services. PLAN: 1. Follow up with [facility]: Not recommended for follow-up 2. Patient goal [...] 2 diabetes mellitus 09/03/2018 Assessment & Plan (10/01/2024 10:45 AM EDT): Cgtm, ordered, Pt notes sig appetite reduction, and associated fatigue, Will reduce glp-1 Monitor for hyperglycemia Assessment & Plan (07/14/2022 9:37 AM EST): [...] with services. PLAN: 1. Follow up with [facility]: Not recommended for follow-up 2. Patient goal [...] her . Recommended to keep appt with [facility] therapist Carol Schaefer. At this time Armand Montilla meets criteria for Visit Diagnoses: Problem List Items Addressed This Visit Other Severe anxiety Major depressive disorder Patient ready to address current needs Armand is already engage in MH services at [facility]. Strengths include She is in action stage of change and this motivation will serve as treatment engagement. PLAN: 1. Follow up with [facility]: Not recommended for follow-up 2. Patient goal [...] with services. PLAN: 1. Follow up with [facility]: Not recommended for follow-up 2. Patient goal is to continue attending individual therapy with [facility] 3. Behavioral Recommendations a. Follow PCP recommendation for med management b. Practice self-care and self-compassion c. Set-up healthy boundaries with partner and improve communication skills Panic attack 12/15/2017 Encounters Date Type Department Care Team Description 10/18/2024 Telephone [facility] [address] [place] [address] Melissa Temple, ISAAK 10/17/2024 Refill [facility] [address] [place] [address] Yane Morrissey NP Essential hypertension 10/08/2024 Telephone [facility] [address] [place] [address] Melissa Temple RN 10/07/2024 Refill [facility] [address] [place] [phone] Yane Morrissey NP Generalized abdominal pain 10/02/2024 Telephone [facility] [address] [place] [phone] Yane Morrissey NP Prior Authorization 09/27/2024 4:00 PM EDT Office Visit [facility] [address] [place] [phone] Yane Morrissey NP Cervicogenic headache (Primary Dx); Type 2 diabetes mellitus without complication, with long-term current use of insulin ([facility]); Primary hypertension; Dysuria; Pain of left hip; Left lower quadrant abdominal pain; Dietary counseling; Exercise counseling 09/27/2024 Travel 09/20/2024 Refill [facility] [address] [place] [address] Yane Morrissey NP Type 2 diabetes mellitus without complication, with long-term current use of insulin ([facility]) 09/17/2024 Telephone [facility] [address] [place] [phone] Bridget Hickey MA Chart prep 09/09/2024 Refill [facility] [address] [place] [address] Claritza Canela FNP Acute bilateral low back pain with right-sided sciatica; Type 2 diabetes mellitus without complication, with long-term current use of insulin ([facility]) 09/06/2024 Refill [facility] [address] [place] [address] Omaira Brian MD Generalized abdominal pain 08/30/2024 Telephone [facility] [address] [place] [address] Yane Morrissey NP Prior Authorization (Lidocaine patches); Prior Auth Prescription 08/30/2024 Refill [facility] [address] [place] [address] Claritza Canela FNP 08/27/2024 Refill [facility] [address] [place], [place] [phone] Yane Morrissey NP 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, unspecified laterality, unspecified whether skilled nursing insulin use ([facility]) 08/26/2024 Refill [facility] [address] [place] [address] Claritza Canela FNP Diabetic polyneuropathy associated with type 2 diabetes mellitus ([facility]) 08/20/2024 Refill [facility] [address] [place] [phone] Omaira Brian MD Clogged ear, bilateral 08/12/2024 3:00 PM EST Clinical Support [address] [address] Johana Howe RN Impacted cerumen of both ears 08/12/2024 Travel 08/06/2024 3:30 PM EST Office Visit [address] [phone] Omaira Brian MD Generalized abdominal pain (Primary Dx); Clogged ear, bilateral 08/06/2024 Travel 08/02/2024 Telephone [facility] [address] [place] [address] Yane Morrissey NP Lab Orders; ER Follow-up 08/01/2024 Telephone [facility] [address] [place] [address] Yane Morrissey NP Nurse Triage 07/31/2024 Orders Only GENERIC EXTERNAL DATA DEPARTMENT Provider, Generic External Data from Last 3 Months Immunizations Immunization Administration Dates Next Due Hep B, adult [...] 09/27/2024 4:12 PM EDT Plan of Treatment Upcoming Encounters Date Type Department Care Team (Late st Contact Info) Description 10/29/2024 11:30 AM EDT Clinical Support [address] [address] Health Maintenance Due Date Last Done Comments [...] 05/24/2025 05/24/2024 Depression Screening 05/24/2025 05/24/2024, 05/24/20 SDOH Screening 05/24/2025 05/24/2024 Tobacco Screening 09/27/2025 [...] patient's age to complete this topic Meningococcal B Vaccine Aged Out No l onger eligible based on patient's age to complete [...] Procedure Name Priority Date/Time Associated Diagnosis Comments CULTURE, URINE, ROUTINE Routine 09/28/2024 12:00 AM EDT Dysuria POCT URINALYSIS DIPSTICK Routine 09/27/2024 5:09 PM EDT Dysuria POCT GLYCATED HEMOGLOBIN, TOTAL Routine 09/27/2024 4:38 PM EDT Type 2 diabetes mellitus without complication, with long-term current use of insulin ([facility]) POCT GLUCOSE Routine 09/27/2024 4:38 PM EDT Type 2 diabetes mellitus without complication, with long-term current use of insulin ([facility]) ID REMOVAL IMPACTED CERUMEN IRRIGATION/LVG UNILAT Routine 08/12/2024 [...] 2 diabetes mellitus without complication, unspecified whether skilled nursing insulin use ([facility]) LIPID PANEL, STANDARD Routine 07/27/2023 8:06 AM EST Type 2 diabetes mellitus without complication, unspecified whether tank terminal gauger insulin use ([facility]) PAP/HPV Routine 06/16/2023 12:00 AM EST MAMMOGRAPHY Routine 05/05/2023 JAIME HISTORICAL HEPATITIS C ANTIBODY RFLX Routine 06/20/2019 8:11 AM EST [facility] HISTORICAL HIV AB/AG Routine 06/20/2019 8:11 AM EST [facility] HISTORICAL HPV MRNA E6/E7 Routine 07/12/2018 9:56 AM EST from Last 3 Months or Most Recently Relevant to Health Maintenance Results * Culture, Urine, Routine (09/28/2024 12:00 AM EDT) Urine Urine specimen obtained by clean catch procedure / Unknown 09/28/2024 09/28/2024 Comment:UACC Narrative [facility] - 09/29/2024 11:27 AM EDT Urine Culture Report Result Urine Culture 50,000 to 100,000 cfu/ml Urine Culture Mixed bacterial noé characteristic of Urine Culture urogenital contamination. Specimen Source: Urine clean catch Yane Morrissey NP LAB MICROBIOLOGY - GENERAL ORDER PENNIE Final Result [facility] [address] [place] [phone] * (ABNORMAL) POCT Urinalysis (09/27/2024 5:09 PM [...] Media Lot # [id number] Lot# Expiration Date [id number] Urine 09/27/2024 5:09 PM EDT Yane Morrissey FLIGHT DISPATCHER POINT OF CARE TEST ENTER/EDIT OR DERABLES Final Result * POCT HGB A1C (09/27/2024 4:38 PM EDT) Hemoglobin A1C 5.9 4.0 - 6.0 % QC Media Lot # [id number] Lot# Expiration Date , Blood 09/27/2024 4:38 PM EDT Result [facility] Yane Morrissey FLIGHT DISPATCHER POINT OF CARE TEST ENTER/EDIT OR DERABLES Final Result * POCT Glucose (09/27/2024 4:38 PM EDT) Pathologist [facility] [place] Glucose Blood, POC 89 60 - 200 mg/dL QC Media Lot # [id number] Lot# Expiration Date 025 Blood Capillary blood specimen / Unknown 09/27/2024 4:38 PM EDT Result [facility] Yane Morrissey FLIGHT DISPATCHER POINT OF CARE TEST ENTER/EDIT OR DERABLES Final Result * ID REMOVAL IMPACTED CERUMEN IRRIGATION/LVG UNILAT (08/12/2024 2:44 [...] yes ?Risks discussed: ??Dizziness and incomplete removal Brea protocol: ??Patient identity confirmed: ??Verbally with patient Procedure details: ??Location: ??L ear and R ear ??Procedure type: irrigation ?Procedure outcomes: cerumen removed ?? Post-procedure details: ??Inspection: ??No bleeding and TM intact ??Hearing quality: ??Improved ??Procedure completion: ??Tolerated us Capo Marie MD IN CLINIC/BEDSIDE ORDERABLES Fin al Result * Helicobacter pylori??Antigen, EIA, Stool (08/07/2024 8:48 AM EST) H pylori Ag Stool SEE NOTE [facility] Comment:HELICOBACTER PYLORI AG, EIA, STOOL Micro Number: [id number] Test Status: Final Specimen Source: Stool Specimen Quality: Adequate H.pylori Ag: Not Detected Antimicrobials, proton pump inhibitors, and bismuth preparations inhibit H. pylori and ingestion up to two weeks prior to testing may cause false negative results. If clinically indicated the test should be repeated on a new specimen obtained two weeks after discontinuing treatment. Reference Range: Not DetectedTHIS TEST WAS PERFORMED AT:[facility] [place] [phone] HAMILTON MD Stool Rectal contents / Unknown 08/07/2024 8:48 AM EST 08/09/2024 12:13 PM EST Omaira Ashby MD LAB BODY FLUIDS AND S TOOLS ORDERABLES Final Result [facility] [address] [place] [phone] * CBC auto differential (07/31/2024 1:18 PM EST) White Blood Count 6.2 4.8 - 10.8 X10*3/uL [facility] Red Blood Count 4.98 4.20 - 5.50 X10*6/uL [facility] Hemoglobin 13.9 12.0 - 16.0 g/dl [facility] Hematocrit 41.2 37.0 - 47.0 % [facility] Mean Corpuscular Volume 82.7 80.0 - 98.0 fL [facility] Mean Corpuscular Hemoglobin 27.9 27.0 - 33.0 pg [facility] Mean Corpuscular HGB Conc 33.7 31.0 - 35.0 g/dl [facility] Red Cell Distribution Width 13.6 11.0 - 16.0 % [facility] Platelet Count 271 160 - 400 X10*3/uL [facility] Mean Platelet Volume 9.5 9.4 - 12.3 fL [facility] Neutrophils Percent Auto 64.1 45 - 73 % [facility] Imm Gran Pct Auto 0.3 0.0 - 0.4 % [facility] Lymphocytes Percent Auto 27.4 20 - 40 % [facility] Monocytes Percent Auto 5.5 2 - 11 % [facility] Eosinophils Percent Auto 2.1 0 - 4 % [facility] Basophils Percent Auto 0.6 0 - 2 % [facility] NRBC Pct Auto 0.0 0.0 - 0.2 /100WBC [facility] Neutrophils Absolute Auto 4.0 2.0 - 8.3 x10*3/uL [facility] Imm Gran Abs Auto 0.02 0.00 - 0.03 X10*3/uL [facility] Lymphocytes Absolute Auto 1.7 1.2 - 4.9 X10*3/uL [facility] Monocytes Absolute Auto 0.3 0.1 - 1.2 X10*3/uL [facility] Eosinophils Absolute Auto 0.1 0.0 - 0.4 X10*3/uL [facility] Basophils Absolute Auto 0.0 0.0 - 0.2 X10*3/uL [facility] NRBC Abs Auto 0.000 0.0 - 0.012 X10*3/uL [facility] 07/31/2024 1:18 PM EST 07/31/2024 1:30 PM EST us Generic External Data Provider LAB BLOOD ORDERAB LES Final Result [facility] [address] [place] [phone] * (ABNORMAL) Prothrombin Time-INR (07/31/2024 1:18 PM EST) Prothrombin Time 10.5(L) 10.9 - 12.4 SEC [facility] INTERNATIONAL NORM RATIO 0.9 0.9 - 1.1 [facility] Comment:INTERNATIONAL NORMAL IZED RATIO (INR) REFERENCE [...] ORDERAB LES Final Result Performing Organization Address [facility] Co de Phone Number [facility] [address] [place] [phone] * Magnesium (07/31/2024 1:18 PM EST) Magnesium 2.1 1.6 - 2.6 mg/dL [facility] 07/31/2024 1:18 PM EST 07/31/2024 1:30 PM EST Generic External Data Provider LAB BLOOD ORDERAB LES Final Result Performing Organization Address [facility] Co de Phone Number [facility] [address] [place] [phone] * Lipase (07/31/2024 1:18 PM EST) Lipase 29 8 - 78 U/L [facility] 07/31/2024 1:18 PM EST 07/31/2024 1:30 PM EST Generic External Data Provider LAB BLOOD ORDERAB LES Final Result Performing Organization Address [facility] Co de Phone Number [facility] [address] [place] [phone] * Lactic Acid (07/31/2024 1:18 PM EST) Lactic Acid 1.4 0.5 - 2.0 mmol/L [facility] 07/31/2024 1:18 PM EST 07/31/2024 1:32 PM EST us Generic External Data Provider LAB BLOOD ORDERAB LES Final Result [facility] [address] [place] [phone] * (ABNORMAL) Comprehensive Metabolic Panel (07/31/2024 1:18 PM EST) Sodium 139 135 - 145 mmol/L [facility] Potassium 3.7 3.3 - 5.1 mmol/L [facility] Chloride 106 96 - 108 mmol/L [facility] Carbon Dioxide 25 22 - 29 mmol/L [facility] Anion Gap 12 12 - 20 [facility] Urea Nitrogen (BUN) 22(H) 9 - 16 mg/dL [facility] Creatinine, Serum 0.80 0.5 - 1.4 mg/dL [facility] Creatinine Clr Calc Pharmacy 76.5 [facility] Comment:Provided height and weight: 158.75 cm,95.4 kg.eGFR (calculated from the MDRD study equation) and eCrCl(calculated from the Cockcroft-Gault equation) are based ondifferent parameters and may not yield comparable results.If eCrCl result is absurd, please check patient'sheight/weight. Estimated Glomerular Filt Rate >60 [facility] Comment:Chronic Kidney Disea se: Estimated GFR < 60 mL/min/[id number] Kidney Disease: Estimated GFR < 15 mL/min/1.73m2 Glucose 84 60 - 115 mg/dL [facility] Calcium 9.4 8.4 - 10.2 mg/dL [facility] Bilirubin, Total 0.6 0.0 - 1.0 mg/dL [facility] Aspartate Amino Transferase 30 5 - 31 U/L [facility] Alanine Aminotransferase 25 0 - 31 U/L [facility] Total Protein 7.4 6.5 - 8.0 g/dL [facility] Albumin Level 4.3 3.5 - 5.0 g/dL [facility] Alkaline Phosphatase 81 39 - 117 U/L [facility] 07/31/2024 1:18 PM EST 07/31/2024 1:30 PM EST us Generic External Data Provider LAB BLOOD ORDERAB LES Final Result Performing Organization Address [facility] Co de Phone Number [facility] [address] [place] [phone] * Albumin, Random Urine W/Creatinine (07/27/2023 8:40 AM EST) Creatinine, Urine 132.90 mg/dL [facility] Microalbumin Urine 17.0 mg/L [facility] Microalbum Creatinine Ratio Ur 12.7 <30 ug/mg cr [facility] Comment:Albumin/Creatinine R atio Reference Ranges: Normal: < 30 ug/mg creatinine Microalbuminuria: 30 - 300 ug/mg creatinineClinical Albuminuria: > 300 ug/mg creatinine Urine (Urine, Random) 07/27/2023 8:40 AM EST 07/27/2023 11:28 AM EST us Claritza KEYSP LAB URINE ORDERABLES Final Resu lt Performing Organization Address City/[facility]/ZIP Co de Phone Number [facility] [address] [place] [phone] * Lipid Panel, Standard (07/27/2023 8:06 AM EST) Triglycerides 53 <150 mg/dL [facility] Comment:Desirable Triglyceri de: less than 150 mg/dLBorderline High Triglyceride 150-199 mg/dLHigh Triglyceride: 200-499 mg/dLVery High Triglyceride: greater than or equal to 5OO mg/dL Cholesterol 113 <200 mg/dL [facility] Comment:Desirable Cholestero l: less than 200 mg/dLBorderline High Cholesterol: 200-239 mg/dLHigh Cholesterol: greater than 239 mg/dL LDL Cholesterol Calculated 39 <100 mg/dL [facility] Comment:Desirable LDL: less than 100 mg/dLNear Optimal/Above Optimal LDL: 110- 129 mg/dLBorderline High LDL: 130-159 mg/dLHigh LDL: 160-189 mg/dLVery High LDL: greater than or equal to 190 mg/dL HDL Cholesterol 64 >40 mg/dL [facility] Comment:Desirable HDL: great er than 40 mg/dL Note: This HDL assay may give artificially low results in patients with liver disease. Blood Venous blood specimen / Unknown 07/27/2023 8:06 AM EST 07/27/2023 11:15 AM EST Claritza Canela [employer] LAB BLOOD ORDERABLES Final Resu lt Performing Organization Address [facility] Co de Phone Number [facility] [address] [place] [phone] * PAP/HPV (06/16/2023 12:00 AM EST) Historical Provider HEALTH MAINTENANCE Final Result * Hm Mammography (05/05/2023) Mammogram Bi-rads 2 Anatomical Region Laterality Modality Other Historical Provider HEALTH MAINTENANCE Final Result * HEPATITIS C ANTIBODY RFLX (06/20/2019 8:11 AM EST) HEPATITIS C ANTIBODY NONREACTIVE NONREACTIVE [facility] Comment: Antibodies to HCV not detected; does not exclude early acute HCV infection. 06/20/2019 8:11 AM EST Albert Hollingsworth MD HISTORICAL/NON ORDERABLE LABS Fi nal Result Performing Organization Address City/[facility]/ZIP Co de Phone Number [facility] [address] * HIV AB/AG (06/20/2019 8:11 AM EST) HIV AG/AB NONREACTIVE [facility] [...] detection of this assay. ?? The [employer] Manager HIV Ag/Ab Combo assay result and supplemental assay results should be interpreted in conjunction with the patient's clinical presentation, history and other laboratory results. ??If the results are inconsistent with clinical evidence, additional testing is suggested to confirm the result. 06/20/2019 8:11 AM EST Albert Hollingsworth MD HISTORICAL/NON ORDERABLE LABS Fi nal Result [facility] [address] * HPV mRNA E6/E7 (07/12/2018 9:56 AM EST) Pathologist [facility] [place] HPV mRNA E6/E7 Not Detected NOT DETECTED [facility] Comment: This test was performed using the APTIMA(R) HPV Assay ([employer] This assay detects E6/E7 viral messenger RNA (mRNA) from 14 high-risk HPV types (16,18,31,33,35,39,45,51, 52,56,58,59,66,68). For additional information please refer to: http://education.Eventmag.ru.[employer]/faq/AQM602t5 (This link is being provided for informational/ educational purposes only.) The analytical performance characteristics of this assay have been determined by [employer] [place], [place]. The modifications have not been cleared or approved by the FDA. This assay has been validated pursuant to the CLIA regulations and is used for clinical purposes. Test Performed by [employer], [employer] [facility], [address] [place] [address] Henok Carreno M.D., Ph.D., Director of Laboratories , [facility] [id number] Please note: ??Effective 02/22/2016, HPV testing will be performed using [employer]'s APTIMA test which targets mRNA. Detecting mRNA instead of DNA, as in older methods, offers significant improvements in specificity. 07/12/2018 9:56 AM EST us Jayla Wang CNM HISTORICAL/NON ORDERABLE LABS Final Result [facility] Anywhere [address] from Last 3 Months or Most Recently Relevant to Health Maintenance Insurance [facility] [address] [id number] Care Teams Brush Filler Hand Relationship Specialty Start Date End Date Yane Morrissey NP [address] [place] [address] PCP - General Family Medicine 02/14/24
--- OUTSIDE RECORDS SUMMARY | 2024-10-23 08:21 | XMS_ITS | Encounter Summary ---
Author Organization [employer] Address 75 [facility] 7t [place] [address] Care Team Providers Care Small Stock Facer Name Role Phone Claritza Canela COMMERCIAL CRABBER Primary Care Provider [phone] Yane Morrissey NP Primary Care Provider [phone] Encounter Details Date Type Department Care Team (Late st Contact Info) Description 05/18/2022 Orders Only [facility] MEDICINE [address] [place] [address] Sonya Darnell MD [address] [place] [address] Type 2 diabetes mellitus with hyperosmolarity without coma, without long-term current use of insulin (CMS/[facility]) (Primary Dx) Social History Tobacco Use [...] PM EST documented as of this encounter Functional Status * Over the past 2 weeks, how often have you been bothered by any of the following problems? Question Answer Date of Assessment Author Little interest or pleasure in doing things Several days 05/18/2022 2:39 PM Regla Ybarra [place] Feeling down, depressed, or hopeless Several days 05/18/2022 2:39 PM Regla Ybarra MA Patient Health Questionnaire-2 Score 2 05/18/2022 2:39 PM Emma Ybarra [place] * If you checked off any problems on this questionnaire so far, Question Answer Date of Assessment Author How difficult have these problems made it for you to do your work, take care of things at home, or get along with other people? Somewhat difficult 05/18/2022 2:39 PM Regla Ybarra [place] * Over the past 2 weeks, how often have you been bothered by any of the following problems? Question Answer Date of Assessment Author Feeling tired or having little energy Several days 05/18/2022 2:39 PM Regla Ybarra [place] Poor appetite or overeating Several days 05/18/2022 2: 39 PM Regla Ybarra [place] Feeling bad about yourself - or that you are a failure or have let yourself or your family down Not at all 05/18/2022 2:39 PM Regla Ybarra [place] Trouble concentrating on things, such as reading the newspaper or watching television Several days 05/18/2022 2:39 PM Regla Ybarra MA Moving or speaking so slowly that other people could have noticed? Or the opposite - being so fidgety or restless that you have been moving around a lot more than usual. Not at all 05/18/2022 2:39 PM Regla Ybarra MA Thoughts that you would be better off or hurting yourself in some way Not at all 05/18/2022 2:39 PM Regla Ybarra MA documented as of this encounter Plan of Treatment Upcoming Encounters Date Type Department Care Team (Late st Contact Info) Description 10/29/2024 11:30 AM EDT Clinical Support [address] [address] documented as of this encounter Visit Diagnoses Diagnosis Type 2 diabetes mellitus with hyperosmolarity without coma, without long-term current use of insulin ([facility])- Primary documented in this encounter Care Teams Small Stock Facer Relationship Specialty Start Date End Date Claritza Canela FNP [address] [place] [address] PCP - General Family Medicine 05/13/22 02/13/24 Yane Morrissey NP [address] [place] [address] PCP - General Family Medicine 02/14/24 documented as of this encounter
--- OUTSIDE RECORDS SUMMARY | 2024-10-23 08:21 | XMS_ITS | Encounter Summary ---
Author Organization [employer] Address 75 [facility] 7t [place] [address] Care Team Providers Care Hair Designer Name Role Phone Claritza Canela Primary Care Provider [phone] Yane Morrissey NP Primary Care Provider [phone] Encounter Details Date Type Department Care Team (Late st Contact Info) Description 09/05/2022 Orders Only [facility] MEDICINE [address] [place] [address] Claritza Canela FNP [address] [place] [address] Type 2 diabetes mellitus with hyperosmolarity without coma, without long-term current use of insulin ([facility]) Social History Tobacco Use Types Packs/Day Years [...] Description 10/29/2024 11:30 AM EDT Clinical Support [facility] MEDICINE [address] [place] [address] documented as of this encounter Visit Diagnoses Diagnosis Type 2 diabetes mellitus with hyperosmolarity without coma, without long-term current use of insulin ([facility]) documented in this encounter Additional Health Concerns Assessment Noted Time PHQ-9 Depression Total Score: 2 06/01/20 9:11 AM EST documented as of this encounter Care Teams Hair Designer Relationship Specialty Start Date End Date Claritza Canela FNP [address] [place] [address] PCP - General Family Medicine 05/13/22 02/13/24 Yane Morrissey NP [address] [place] [address] PCP - General Family Medicine 02/14/24 documented as of this encounter
--- OUTSIDE RECORDS SUMMARY | 2024-10-23 08:21 | XMS_ITS | Encounter Summary ---
Author Organization [employer] Address [address] [facility] [address] 7t [place] [address] Care Team Providers Care Welder And Fitter Name Role Phone Claritza CanelaP Primary Care Provider [phone] Yane Morrissey NP Primary Care Provider [phone] Encounter Details Date Type Department Care Team (Late st Contact Info) Description 03/21/2023 Orders Only [facility] MEDICINE [address] [place] [address] Provider, MD [place] Social History Tobacco Use [...] t he electric, gas, oil or water [employer] threatened to shut off services in your [...] Description 10/29/2024 11:30 AM EDT Clinical Support [facility] MEDICINE [address] [place] [address] documented as of this encounter Procedures Procedure Name Priority Date/Time Associated Diagnosis Comments BI STEREOTACTIC MAMMO CORE B IOPSY LEFT Routine 11/02/2022 documented in this encounter Results * BI STEREOTACTIC MAMMO CORE BIOPSY LEFT (11/02/2022) Anatomical Region Laterality Modality Mammography Historical Provider MD TRACY BI PROCEDURES Final R esult documented in this encounter Visit Diagnoses Not on filedocumented in this encounter Additional Health Concerns Assessment Noted Time PHQ-9 Depression Total Score: 2 06/01/20 22 9:11 AM EST documented as of this encounter Care Teams Welder And Fitter Relationship Specialty Start Date End Date Claritza Canela FNP [address] [place] [address] PCP - General Family Medicine 05/13/22 02/13/24 Yane Morrissey NP [address] [place] [address] PCP - General Family Medicine 02/14/24 documented as of this encounter
--- OUTSIDE RECORDS SUMMARY | 2024-10-23 08:21 | XMS_ITS | Encounter Summary ---
Author Organization [employer] Address 75 [facility] 7t [place] [address] Care Team Providers Care Patient Access Specialist Name Role Phone Claritza Canela Primary Care Provider [phone] Yane Morrissey NP Primary Care Provider [phone] Encounter Details Date Type Department Care Team (Late st Contact Info) Description 01/30/2023 Orders Only [facility] [address] [place] [address] Claritza Canela FNP [address] [place] [address] Breast density (Primary Dx) Social History Tobacco [...] Description 10/29/2024 11:30 AM EDT Clinical Support [facility] MED[facility]INE [address] [place] [address] documented as of this encounter Visit Diagnoses Diagnosis Breast density- Primary Other sign and symptom in breast documented in this encounter Additional Health Concerns Assessment Noted Time PHQ-9 Depression Total Score: 2 06/01/20 22 9:11 AM EST documented as of this encounter Care Teams Patient Access Specialist Relationship Specialty Start Date End Date Claritza Canela FNP [address] [place] [address] PCP - General Family Medicine 05/13/22 02/13/24 Yane Morrissey NP [address] [place] [address] PCP - General Family Medicine 02/14/24 documented as of this encounter
--- OUTSIDE RECORDS SUMMARY | 2024-10-23 08:21 | XMS_ITS | Encounter Summary ---
Author Organization [employer] Address 75 [facility] 7t [place] [address] Care Team Providers Care Keyboarding Teacher Name Role Phone Claritza CanelaP Primary Care Provider [phone] Yane Morrissey NP Primary Care Provider [phone] Reason for Visit * Reason Comments Med Refill Encounter Details Date Type Department Care Team (Late st Contact Info) Description 11/29/2022 Refill [facility] MEDICINE [address] [place] [address] Claritza Canela FNP [address] [place] [address] Rash and nonspecific skin eruption Social History [...] Description 10/29/2024 11:30 AM EDT Clinical Support [facility] MEDICINE [address] [place] [address] documented as of this encounter Visit Diagnoses Diagnosis Rash and nonspecific skin eruption Rash and other nonspecific skin eruption documented in this encounter Additional Health Concerns Assessment Noted Time PHQ-9 Depression Total Score: 2 06/01/20 9:11 AM EST documented as of this encounter Care Teams Keyboarding Teacher Relationship Specialty Start Date End Date Claritza Canela FNP [address] [place] [address] PCP - General Family Medicine 05/13/22 02/13/24 Yane Morrissey NP [address] [place] [address] PCP - General Family Medicine 02/14/24 documented as of this encounter
--- OUTSIDE RECORDS SUMMARY | 2024-10-23 08:21 | XMS_ITS | Encounter Summary ---
Author Organization [employer] Address 75 [facility] 7t [place] [address] Care Team Providers Care Wire Machine Cutter Name Role Phone Claritza CanelaP Primary Care Provider [phone] Yane Morrissey NP Primary Care Provider [phone] Reason for Visit * Reason Onset Date Comments Med Refill Abnormal mammo follow up 10/18/2022 Encounter Details Date Type Department Care Team (Late st Contact Info) Description 10/18/2022 Refill [facility] MEDICINE [address] [place] [address] Elsie Argueta ANP [address] [place] [address] Social History Tobacco Use Types Packs/Day Years [...] AM EDT Incoming call from Shana at [facility] calling to let us know [...] Description 10/29/2024 11:30 AM EDT Clinical Support [facility] MEDICINE [address] [place] [address] documented as of this encounter Visit Diagnoses Not on filedocumented in this encounter Additional Health Concerns Assessment Noted Time PHQ-9 Depression Total Score: 2 06/01/20 22 9:11 AM EST documented as of this encounter Care Teams Wire Machine Cutter Relationship Specialty Start Date End Date Claritza Canela FNP [address] [place] [address] PCP - General Family Medicine 05/13/22 02/13/24 Yane Morrissey NP [address] [place] [address] PCP - General Family Medicine 02/14/24 documented as of this encounter
--- OUTSIDE RECORDS SUMMARY | 2024-10-23 08:21 | XMS_ITS | Encounter Summary ---
Author Organization [employer] Address 75 [facility] 7t [place] [address] Care Team Providers Care Inspector Structural Bonding Name Role Phone Yane Morrissey NP Primary Care Provider Reason for Visit * Reason Comments Med Refill Encounter Details Date Type Department Care Team ([facility] st Contact Info) Description 08/26/2024 Refill [facility] MEDICINE [address] [place] [address] Claritza Canela FNP [address] [place] [address] Diabetic polyneuropathy associated with type 2 diabetes [...] Description 10/29/2024 11:30 AM EDT Clinical Support [facility] MEDICINE [address] [place] [address] documented as of this encounter Visit Diagnoses Diagnosis Diabetic polyneuropathy associated with type 2 diabetes mellitus (CMS/HCC) documented in this encounter Additional Health Concerns Assessment Noted Time PHQ-9 Depression Total Score: 9 05/24/20 11:18 AM EST documented as of this encounter Care Teams Inspector Structural Bonding Relationship Specialty Start Date End Date Yane Morrissey NP [address] [place] [address] PCP - General Family Medicine 02/14/24 documented as of this encounter
--- OUTSIDE RECORDS SUMMARY | 2024-10-23 08:21 | XMS_ITS | Encounter Summary ---
Author Organization [employer] Address [address] [facility] [address] 7t [place] [address] Care Team Providers Care Regional Sales Associate Name Role Phone Claritza CanelaP Primary Care Provider [phone] Yane Morrissey NP Primary Care Provider [phone] Encounter Details Date Type Department Care Team (Late st Contact Info) Description 03/21/2023 Abstract [facility] MEDICINE [address] [place] [address] Michelle Castillo Social History Tobacco Use Types [...] the past 12 months, has t he [employer], [employer], oil or water company threatened to shut [...] Description 10/29/2024 11:30 AM EDT Clinical Support [facility] MEDICINE [address] [place] [address] documented as of this encounter Visit Diagnoses Not on filedocumented in this encounter Additional Health Concerns Assessment Noted Time PHQ-9 Depression Total Score: 2 06/01/20 22 9:11 AM EST documented as of this encounter Care Teams Regional Sales Associate Relationship Specialty Start Date End Date Claritza Canela FNP [address] [place] [address] PCP - General Family Medicine 05/13/22 02/13/24 Yane Morrissey NP [address] [place] [address] PCP - General Family Medicine 02/14/24 documented as of this encounter
--- OUTSIDE RECORDS SUMMARY | 2024-10-23 08:21 | XMS_ITS | Encounter Summary ---
Author Organization [employer] Address 75 [facility] 7t [place] [address] Care Team Providers Care Keysmith Name Role Phone Claritza Canela Primary Care Provider [phone] Yane Morrissey NP Primary Care Provider [phone] Reason for Referral * Imaging (Routine) - Closed Specialty Diagnoses / Procedures Referred By Luci leon Referred To Contact Diagnoses Mass of left breast, unspecified quadrant Procedures BI Mammogram Diagnostic Tomosynthesis Left Claritza Canela FNP [address] [place] [address] Phone: tel: fax: [address] Phone: tel: fax: Referral ID Status Reason Start Date Expiration Date Visits Re quested Visits Authorized [id number] Closed 11/11/2022 05/10/2023 1 1 Encounter Details Date Type Department Care Team (Late st Contact Info) Description 11/11/2022 Orders Only [facility] MEDICINE [address] [place] [address] Claritza Canela FNP [address] [place] [address] Mass of left breast, unspecified quadrant (Primary [...] Description 10/29/2024 11:30 AM EDT Clinical Support [facility] MEDICINE [address] [place] [address] Scheduled Orders Name Type Priority Associated Diagnoses [...] documented as of this encounter Care Teams Keysmith Relationship Specialty Start Date End Date Claritza Canela FNP [address] [place] [address] PCP - General Family Medicine 05/13/22 02/13/24 Yane Morrissey NP [address] [place] [address] PCP - General Family Medicine 02/14/24 documented as of this encounter
--- OUTSIDE RECORDS SUMMARY | 2024-10-23 08:21 | XMS_ITS | Encounter Summary ---
Author Organization [employer] Address 75 [facility] 7t [place] [address] Care Team Providers Care Branch Account Executive Name Role Phone Claritza Canela Primary Care Provider [phone] Yane Morrissey NP Primary Care Provider [phone] Encounter Details Date Type Department Care Team (Late st Contact Info) Description 11/25/2022 Telephone [facility] MEDICINE [address] [place] [address] Claritza Canela FNP [address] [place] [address] Social History Tobacco Use Types Packs/Day Years [...] Description 10/29/2024 11:30 AM EDT Clinical Support [facility] MEDICINE [address] [place] [address] documented as of this encounter Visit Diagnoses Not on filedocumented in this encounter Additional Health Concerns Assessment Noted Time PHQ-9 Depression Total Score: 2 06/01/20 22 9:11 AM EST documented as of this encounter Care Teams Branch Account Executive Relationship Specialty Start Date End Date Claritza Canela FNP [address] [place] [address] PCP - General Family Medicine 05/13/22 02/13/24 Yane Morrissey NP [address] [place] [address] PCP - General Family Medicine 02/14/24 documented as of this encounter
--- OUTSIDE RECORDS SUMMARY | 2024-10-23 08:21 | XMS_ITS | Encounter Summary ---
Author Organization [employer] Address 75 [facility] 7t [place] [address] Care Team Providers Care Community Service Organization Director Name Role Phone Yane Morrissey NP Primary Care Provider [phone] Reason for Visit * Reason Comments Med Refill Encounter Details Date Type Department Care Team ([facility] st Contact Info) Description 08/20/2024 Refill [facility] MEDICINE [address] [place] [address] Omaira Brian MD [address] [place] [address] Clogged ear, bilateral Social History Tobacco Use [...] Description 10/29/2024 11:30 AM EDT Clinical Support [facility] MEDICINE [address] [place] [address] documented as of this encounter Visit Diagnoses Diagnosis Clogged ear, bilateral documented in this encounter Additional Health Concerns Assessment Noted Time PHQ-9 Depression Total Score: 9 05/24/20 11:18 AM EST documented as of this encounter Care Teams Community Service Organization Director Relationship Specialty Start Date End Date Yane Morrissey NP [address] [place] [address] PCP - General Family Medicine 02/14/24 documented as of this encounter
--- OUTSIDE RECORDS SUMMARY | 2024-10-23 08:21 | XMS_ITS | Encounter Summary ---
Author Organization [employer] Address 75 [facility] 7t [place] [address] Care Team Providers Care Contact Lens Polisher Name Role Phone Yane Morrissey NP Primary Care Provider [phone] Reason for Visit * Reason Onset Date Comments Lab Orders 08/02/2024 ER Follow-up 08/02/2024 Encounter Details Date Type Department Care Team (Late st Contact Info) Description 08/02/2024 Telephone [facility] MEDICINE [address] [place] [address] Yane Morrissey NP [address] [place] [address] Lab Orders; ER Follow-up Social History Tobacco [...] triage, spoke to pt. pt states seen [facility] [place] for stomach pain and intermittent [...] ED visit on : Date: 07/24/2024 Hospital: [facility] Seen for: Adonmonial Pain Symptomatic Yes *if yes message should go to Triage Patient advised will forward to team nurse for follow up Pt states that (ER doctor) called daughter stating that pt needs an outpatient Cat scan order [place] [facility]. Pt is still in a lot of pain currently. Don't Call pt from private number. documented in this encounter Plan of Treatment Upcoming Encounters Date Type Department Care Team (Late st Contact Info) Description 10/29/2024 11:30 AM EDT Clinical Support [facility] MEDICINE [address] [place] [address] documented as of this encounter Visit Diagnoses Not on filedocumented in this encounter Additional Health Concerns Assessment Noted Time PHQ-9 Depression Total Score: 9 05/24/20 24 11:18 AM EST documented as of this encounter Care Teams Contact Lens Polisher Relationship Specialty Start Date End Date Yane Morrissey NP [address] [place] [address] PCP - General Family Medicine 02/14/24 documented as of this encounter
--- OUTSIDE RECORDS SUMMARY | 2024-10-23 08:21 | XMS_ITS | Encounter Summary ---
Author Organization [employer] Address 75 [facility] 7t [place] [address] Care Team Providers Care Finishing Powder Press Operator Name Role Phone Claritza Canela Primary Care Provider [phone] Yane Morrissey NP Primary Care Provider [phone] Reason for Visit * Reason Onset Date Comments Med Refill 02/02/2024 Encounter Details Date Type Department Care Team (Late st Contact Info) Description 02/02/2024 Refill [facility] MEDICINE [address] [place] [address] Claritza Canela FNP [address] [place] [address] Diabetic polyneuropathy associated with type 2 diabetes [...] with others, in a hotel, in a fpc, living outside on the street, on a [...] Description 10/29/2024 11:30 AM EDT Clinical Support [facility] MEDICINE [address] [place] [address] documented as of this encounter Visit Diagnoses Diagnosis Diabetic polyneuropathy associated with type 2 diabetes mellitus ([facility]/HCC) Type 2 diabetes mellitus without complication, with long-term current use of insulin ([facility]) documented in this encounter Additional Health Concerns Assessment Noted Time PHQ-9 Depression Total Score: 23 023 10:13 AM EST documented as of this encounter Care Teams Finishing Powder Press Operator Relationship Specialty Start Date End Date Claritza Canela FNP [address] [place] [address] PCP - General Family Medicine 05/13/22 02/13/24 Yane Morrissey NP [address] [place] [address] PCP - General Family Medicine 02/14/24 documented as of this encounter
--- OUTSIDE RECORDS SUMMARY | 2024-10-23 08:21 | XMS_ITS | Encounter Summary ---
Author Organization [employer] Address 75 [facility] 7t [place] [address] Care Team Providers Care School Photograph Editor Name Role Phone Clarizta Canela Primary Care Provider [phone] Yane Morrissey NP Primary Care Provider [phone] Encounter Details Date Type Department Care Team (Late st Contact Info) Description 01/30/2023 Orders Only [facility] MED & PEDS [address] [place] [address] Claritza Canela FNP [address] [place] [address] Social History Tobacco Use Types Packs/Day Years [...] Description 10/29/2024 11:30 AM EDT Clinical Support [facility] MEDICINE [address] [place] [address] documented as of this encounter Visit Diagnoses Not on filedocumented in this encounter Additional Health Concerns Assessment Noted Time PHQ-9 Depression Total Score: 2 06/01/20 22 9:11 AM EST documented as of this encounter Care Teams School Photograph Editor Relationship Specialty Start Date End Date Claritza Canela FNP [address] [place] [address] PCP - General Family Medicine 05/13/22 02/13/24 Yane Morrissey NP [address] [place] [address] PCP - General Family Medicine 02/14/24 documented as of this encounter
--- OUTSIDE RECORDS SUMMARY | 2024-10-23 08:21 | XMS_ITS | Encounter Summary ---
Author Organization [employer] Address [address] [facility] 7t [place] [address] Care Team Providers Care Chocolatier Name Role Phone Claritza Canela Primary Care Provider [phone] Yane Morrissey NP Primary Care Provider [phone] Reason for Visit * Reason Onset Date Comments Medication Question 01/17/2024 Encounter Details Date Type Department Care Team (Late st Contact Info) Description 01/17/2024 Telephone [facility] MEDICINE [address] [place] [address] Claritza Canela FNP [address] [place], [place] [phone] Medication Question Social History Tobacco Use Types [...] with others, in a hotel, in a fdc, living outside on the street, on a [...] any questions you can contact [facility] at [phone]. documented in this encounter Plan of Treatment Upcoming Encounters Date Type Department Care Team ([facility] st Contact Info) Description 10/29/2024 11:30 AM EDT Clinical Support [facility] [address] [place] [address] documented as of this encounter Visit Diagnoses Not on filedocumented in this encounter Additional Health Concerns Assessment Noted Time PHQ-9 Depression Total Score: 23 023 10:13 AM EST documented as of this encounter Care Teams Chocolatier Relationship Specialty Start Date End Date Claritza Canela FNP [address] [place] [address] PCP - General Family Medicine 05/13/22 02/13/24 Yane Morrissey NP [address] [place] [address] PCP - General Family Medicine 02/14/24 documented as of this encounter
--- OUTSIDE RECORDS SUMMARY | 2024-10-23 08:21 | XMS_ITS | Encounter Summary ---
Author Organization [employer] Address 75 [facility] 7t [place] [address] Care Team Providers Care Division Order Analyst Name Role Phone Claritza Canela Primary Care Provider [phone] Yane Morrissey NP Primary Care Provider [phone] Encounter Details Date Type Department Care Team (Late st Contact Info) Description 11/25/2022 Telephone [facility] MEDICINE [address] [place] [address] Claritza Canela FNP [address] [place] [address] Social History Tobacco Use Types Packs/Day Years [...] Description 10/29/2024 11:30 AM EDT Clinical Support [facility]INE [address] [place] [address] documented as of this encounter Visit Diagnoses Not on filedocumented in this encounter Additional Health Concerns Assessment Noted Time PHQ-9 Depression Total Score: 2 06/01/20 22 9:11 AM EST documented as of this encounter Care Teams Division Order Analyst Relationship Specialty Start Date End Date Claritza Canela FNP [address] [place] [address] PCP - General Family Medicine 05/13/22 02/13/24 Yane Morrissey NP [address] [place] [address] PCP - General Family Medicine 02/14/24 documented as of this encounter
--- OUTSIDE RECORDS SUMMARY | 2024-10-23 08:22 | XMS_ITS | Encounter Summary ---
Author Organization [employer] Address [address] [facility] [address] [facility] [address] 7t [place] [address] Care Team Providers Care Headlight Assembler Name Role Phone Claritza Canela Primary Care Provider [phone] Yane Morrissey NP Primary Care Provider [phone] Encounter Details Date Type Department Care Team (Late st Contact Info) Description 03/28/2023 Orders Only [facility] MED [facility] PEDS [address] [place] [address] Claritza Canela FNP [address] [place] [address] Acute bilateral low back pain with right-sided [...] Description 10/29/2024 11:30 AM EDT Clinical Support [facility] MEDICINE [address] [place] [address] documented as of this encounter Visit Diagnoses Diagnosis Acute bilateral low back pain with right-sided sciatica documented in this encounter Additional Health Concerns Assessment Noted Time PHQ-9 Depression Total Score: 2 06/01/20 9:11 AM EST documented as of this encounter Care Teams Headlight Assembler Relationship Specialty Start Date End Date Claritza Canela FNP [address] [place] [address] PCP - General Family Medicine 05/13/22 02/13/24 Yane Morrissey NP [address] [place] [address] PCP - General Family Medicine 02/14/24 documented as of this encounter
--- OUTSIDE RECORDS SUMMARY | 2024-10-23 08:22 | XMS_ITS | Encounter Summary ---
Author Organization [employer] Address [address] [facility] [address] 7[address] [place] [address] Care Team Providers Care Entry Level Assistant Manager Name Role Phone Yane Morrissey NP Primary Care Provider [phone] Encounter Details Date Type Department Care Team (Late st Contact Info) Description 06/03/2024 Telephone [facility] MEDICINE [address] [place] [address] Yane Morrissey NP [address] [place] [address] Social History Tobacco Use Types Packs/Day Years [...] Description 10/29/2024 11:30 AM EDT Clinical Support [facility] MEDICINE [address] [place] [address] documented as of this encounter Visit Diagnoses Not on filedocumented in this encounter Additional Health Concerns Assessment Noted Time PHQ-9 Depression Total Score: 9 05/24/20 24 11:18 AM EST documented as of this encounter Care Teams Entry Level Assistant Manager Relationship Specialty Start Date End Date Yane Morrissey NP [address] [place] [address] PCP - General Family Medicine 02/14/24 documented as of this encounter
--- OUTSIDE RECORDS SUMMARY | 2024-10-23 08:22 | XMS_ITS | Encounter Summary ---
Author Organization [employer] Address 75 [facility] 7t [place] [address] Care Team Providers Care Hand Bindery Assembly Worker Name Role Phone Claritza CanelaP Primary Care Provider [phone] Yane Morrissey NP Primary Care Provider [phone] Reason for Visit * Reason Comments Med Refill Encounter Details Date Type Department Care Team (Late st Contact Info) Description 05/19/2023 Refill [facility] MEDICINE [address] [place] [address] Claritza Canela FNP [address] [place] [address] Anxiety Social History Tobacco Use Types Packs/Day [...] Description 10/29/2024 11:30 AM EDT Clinical Support [facility] [address] [place] [address] documented as of this encounter Visit Diagnoses Diagnosis Anxiety Anxiety state, unspecified documented in this encounter Additional Health Concerns Assessment Noted Time PHQ-9 Depression Total Score: 23 023 10:13 AM EST documented as of this encounter Care Teams Hand Bindery Assembly Worker Relationship Specialty Start Date End Date Claritza Canela FNP [address] [place] [address] PCP - General Family Medicine 05/13/22 02/13/24 Yane Morrissey NP [address] [place] [address] PCP - General Family Medicine 02/14/24 documented as of this encounter
--- OUTSIDE RECORDS SUMMARY | 2024-10-23 08:22 | XMS_ITS | Encounter Summary ---
Author Organization [employer] Address 75 [facility] 7t [place] [address] Care Team Providers Care Furnace Repair Mechanic Name Role Phone [place] Claritza WEB MARKETING SPECIALIST Primary Care Provider [phone] Yane Morrissey NP Primary Care Provider [phone] Encounter Details Date Type Department Care Team ([facility] Contact Info) Description 05/27/2022 Orders Only [facility] MEDICINE [address] [place] [address] Corina Canchola, ISAAK Social History Tobacco Use [...] Description 10/29/2024 11:30 AM EDT Clinical Support [facility] [address] [place] [address] documented as of this encounter Visit Diagnoses Not on filedocumented in this encounter Care Teams Furnace Repair Mechanic Relationship Specialty Start Date End Date Claritza Canela FNP [address] [place] [address] PCP - General Family Medicine 05/13/22 02/13/24 Yane Morrissey NP [address] [place] [address] PCP - General Family Medicine 02/14/24 documented as of this encounter
--- OUTSIDE RECORDS SUMMARY | 2024-10-23 08:22 | XMS_ITS | Encounter Summary ---
Author Organization [employer] Address 75 [facility] 7t [place] [address] Care Team Providers Care Mainframe Consultant Name Role Phone Claritza CanelaP Primary Care Provider [phone] Yane Morrissey NP Primary Care Provider [phone] Encounter Details Date Type Department Care Team (Late st Contact Info) Description 07/19/2022 Orders Only [facility] MEDICINE [address] [place] [address] Claritza Canela FNP [address] [place] [address] Type 2 diabetes mellitus without complication, with long-term current use of insulin ([facility]) (Primary Dx) Social History Tobacco Use [...] Description 10/29/2024 11:30 AM EDT Clinical Support [facility]ICINE [address] [place] [address] documented as of this encounter Visit Diagnoses Diagnosis Type 2 diabetes mellitus without complication, with long-term current use of insulin ([facility])- Primary documented in this encounter Additional Health Concerns Assessment Noted Time PHQ-9 Depression Total Score: 2 06/01/20 22 9:11 AM EST documented as of this encounter Care Teams Mainframe Consultant Relationship Specialty Start Date End Date Claritza [place] [address] PCP - General Family Medicine 05/13/22 02/13/24 Yane Morrissey NP [address] [place] [address] PCP - General Family Medicine 02/14/24 documented as of this encounter
--- OUTSIDE RECORDS SUMMARY | 2024-10-23 08:22 | XMS_ITS | Encounter Summary ---
Author Organization [employer] Address [address] [facility] [address] [place] [address] Care Team Providers Care Manager Access Name Role Phone Yane Morrissey NP Primary Care Provider [phone] Encounter Details Date Type Department Care Team (Late st Contact Info) Description 10/18/2024 Telephone [facility] MEDICINE [address] [place], [place] [phone] Melissa [place] RN Social History Tobacco Use Types Packs/Day [...] encounter Miscellaneous Notes * Telephone Encounter - Melissa Temple RN - 10/18/2024 3:06 PM EDT Tc to pt to let them know that the PA has been approved for the CGM supplies. Pt advised to bring supplies to the day of the appointment and agrees with plan. Appointment scheduled on 10/30/24 with [place] team nurse and pt expressed understanding. documented in this encounter Plan of Treatment Upcoming Encounters Date Type Department Care Team (Late st Contact Info) Description 10/29/2024 11:30 AM EDT Clinical Support [facility] MEDICINE [address] [place] [address] documented as of this encounter Visit Diagnoses Not on filedocumented in this encounter Additional Health Concerns Assessment Noted Time PHQ-9 Depression Total Score: 9 05/24/20 11:18 AM EST documented as of this encounter Care Teams Manager Access Relationship Specialty Start Date End Date Yane Morrissey NP [address] [place] [address] PCP - General Family Medicine 02/14/24 documented as of this encounter
--- OUTSIDE RECORDS SUMMARY | 2024-10-23 08:22 | XMS_ITS | Encounter Summary ---
Author Organization [employer] Address 75 [facility] 7t [place] [address] Care Team Providers Care Automation Software Engineer Name Role Phone Yane Morrissey NP Primary Care Provider [phone] Reason for Visit * Reason Comments Med Refill Encounter Details Date Type Department Care Team ([facility] st Contact Info) Description 10/17/2024 Refill [facility] [address] [place] [address] Yane Morrissey NP [address] [place] [address] Essential hypertension Social History Tobacco Use Types [...] Clinical Support [facility] [address] [place] [address] documented as of this encounter Visit Diagnoses Diagnosis Essential hypertension Unspecified essential hypertension documented in this encounter Additional Health Concerns Assessment Noted Time PHQ-9 Depression Total Score: 9 05/24/20 24 11:18 AM EST documented as of this encounter Care Teams Automation Software Engineer Relationship Specialty Start Date End Date Yane Morrissey NP [address] [place] [address] PCP - General Family Medicine 02/14/24 documented as of this encounter
--- OUTSIDE RECORDS SUMMARY | 2024-10-23 08:22 | XMS_ITS | Encounter Summary ---
Author Organization [employer] Address 75 [facility] 7t [place] [address] Care Team Providers Care Pathological Technician Name Role Phone Claritza Canela Primary Care Provider [phone] Yane Morrissey NP Primary Care Provider [phone] Reason for Visit * Reason Onset Date Comments Medication Question 08/17/2023 Encounter Details Date Type Department Care Team (Late st Contact Info) Description 08/17/2023 Telephone [facility] MEDICINE [address] [place] [address] Claritza Canela FNP [address] [place] [address] Medication Question Social History Tobacco Use Types [...] with others, in a hotel, in a prison, living outside on the street, on a [...] was sent by paramedics yesterday at the [facility] pharmacywhich is not covered, pt. Does not remember the name/T/C to [facility] pharmacy for above message, pharmacy states lidocaine [...] by her insurance. Please contact pt at [phone]. documented in this encounter Plan of Treatment Upcoming Encounters Date Type Department Care Team (Late st Contact Info) Description 10/29/2024 11:30 AM EDT Clinical Support [facility] MEDICINE [address] [place] [address] documented as of this encounter Visit Diagnoses Not on filedocumented in this encounter Additional Health Concerns Assessment Noted Time PHQ-9 Depression Total Score: 23 023 10:13 AM EST documented as of this encounter Care Teams Pathological Technician Relationship Specialty Start Date End Date Claritza Canela FNP [address] [place] [address] PCP - General Family Medicine 05/13/22 02/13/24 Yane Morrissey NP [address] [place] [address] PCP - General Family Medicine 02/14/24 documented as of this encounter
--- OUTSIDE RECORDS SUMMARY | 2024-10-23 08:22 | XMS_ITS | Encounter Summary ---
Author Organization [employer] Address [address] [facility] [address] 7[address] [place] [address] Care Team Providers Care Net Developer Contract Name Role Phone Clarizta CanelaP Primary Care Provider [phone] Yane Morrissey NP Primary Care Provider [phone] Reason for Visit * Reason Onset Date Comments Referral 03/23/2023 Encounter Details Date Type Department Care Team ([facility] st Contact Info) Description 03/23/2023 Telephone [facility] MEDICINE [address] [place] [address] Claritza Canela FNP [address] [place] [address] Referral Social History Tobacco Use Types Packs/Day [...] Support [facility] MEDICINE [address] [place] [address] documented as of this encounter Visit Diagnoses Not on filedocumented in this encounter Additional Health Concerns Assessment Noted Time PHQ-9 Depression Total Score: 2 06/01/20 9:11 AM EST documented as of this encounter Care Teams Net Developer Contract Relationship Specialty Start Date End Date Claritza Canela FNP [address] [place] [address] PCP - General Family Medicine 05/13/22 02/13/24 Yane Morrissey NP [address] [place] [address] PCP - General Family Medicine 02/14/24 documented as of this encounter
--- OUTSIDE RECORDS SUMMARY | 2024-10-23 08:22 | XMS_ITS | Encounter Summary ---
Author Organization [employer] Address 75 [facility] 7t [place] [address] Care Team Providers Care Aircraft Machinist Name Role Phone Claritza Canela Primary Care Provider [phone] Yane Morrissey NP Primary Care Provider [phone] Encounter Details Date Type Department Care Team (Late st Contact Info) Description 10/04/2023 Orders Only [facility] MED & PEDS [address] [place] [address] Claritza Canela FNP [address] [place] [address] Social History Tobacco Use Types Packs/Day Years [...] Description 10/29/2024 11:30 AM EDT Clinical Support [facility] MEDICINE [address] [place] [address] documented as of this encounter Visit Diagnoses Not on filedocumented in this encounter Additional Health Concerns Assessment Noted Time PHQ-9 Depression Total Score: 23 023 10:13 AM EST documented as of this encounter Care Teams Aircraft Machinist Relationship Specialty Start Date End Date Claritza Canela FNP [address] [place] [address] PCP - General Family Medicine 05/13/22 02/13/24 Yane Morrissey NP [address] [place] [address] PCP - General Family Medicine 02/14/24 documented as of this encounter
--- OUTSIDE RECORDS SUMMARY | 2024-10-23 08:22 | XMS_ITS | Encounter Summary ---
Author Organization [employer] Address [address] [facility] [address] [place] [address] Care Team Providers Care Supervisor Felting Name Role Phone Yane Morrissey NP Primary Care Provider [phone] Encounter Details Date Type Department Care Team (Late st Contact Info) Description 05/17/2024 Orders Only [facility] MEDICINE [address] [place] [address] Michelle Castillo Social History Tobacco Use Types [...] Description 10/29/2024 11:30 AM EDT Clinical Support [facility] MEDICINE [address] [place] [address] documented as of this encounter Procedures Procedure Name Priority Date/Time Associated Diagnosis Comments HM PAP/HPV Routine 06/16/2023 10:46 AM EST HM [...] documented as of this encounter Care Teams Supervisor Felting Relationship Specialty Start Date End Date Yane Morrissey NP [address] [place] [address] PCP - General Family Medicine 02/14/24 documented as of this encounter
--- OUTSIDE RECORDS SUMMARY | 2024-10-23 08:22 | XMS_ITS | Encounter Summary ---
Author Organization [employer] Address 75 [facility] 7t [place] [address] Care Team Providers Care Camp Dining Room Attendant Name Role Phone Yane Morrissey NP Primary Care Provider [phone] Reason for Visit * Reason Onset Date Comments Nurse Triage 08/01/2024 Encounter Details Date Type Department Care Team ([facility] st Contact Info) Description 08/01/2024 Telephone [facility] MEDICINE [address] [place] [address] Yane Morrissey NP [address] [place] [address] Nurse Triage Social History Tobacco Use Types [...] 3 days The caller accepted this outcome. [phone] documented in this encounter Plan of Treatment Upcoming Encounters Date Type Department Care Team (Late st Contact Info) Description 10/29/2024 11:30 AM EDT Clinical Support [facility] MEDICINE [address] [place] [address] documented as of this encounter Visit Diagnoses Not on filedocumented in this encounter Additional Health Concerns Assessment Noted Time PHQ-9 Depression Total Score: 9 05/24/20 11:18 AM EST documented as of this encounter Care Teams Camp Dining Room Attendant Relationship Specialty Start Date End Date aYne Morrissey NP [address] [place] [address] PCP - General Family Medicine 02/14/24 documented as of this encounter
--- OUTSIDE RECORDS SUMMARY | 2024-10-23 08:22 | XMS_ITS | Encounter Summary ---
Author Organization [employer] Address 75 [facility] 7t [place] [address] Care Team Providers Care Bale Sewer Name Role Phone Claritza CanelaP Primary Care Provider [phone] Yane Morrissey NP Primary Care Provider [phone] Reason for Visit * Reason Comments Med Refill Encounter Details Date Type Department Care Team (Late st Contact Info) Description 11/03/[address] [facility] MEDICINE [address] [place] [address] Claritza Canela FNP [address] [place] [address] Social History Tobacco Use Types Packs/Day Years [...] 11:30 AM EDT Clinical Support [facility] MEDICINE [address] [place] [address] documented as of this encounter Visit Diagnoses Not on filedocumented in this encounter Additional Health Concerns Assessment Noted Time PHQ-9 Depression Total Score: 23 023 10:13 AM EST documented as of this encounter Care Teams Bale Sewer Relationship Specialty Start Date End Date Claritza Canela FNP [address] [place] [address] PCP - General Family Medicine 05/13/22 02/13/24 Yane Morrissey NP [address] [place] [address] PCP - General Family Medicine 02/14/24 documented as of this encounter
== END 2024-10-23 09:11 | disposition home or self-care (01) ==
LOC: HO.HGI 08:13
PROVIDERS: PCP Nurse Practitioner Family; Visit Provider Nurse Practitioner Family
DX: K21.9 Gastro-esophageal reflux disease without esophagitis (principal); R10.13 Epigastric pain; K52.9 Noninfective gastroenteritis and colitis, unspecified; K59.01 Slow transit constipation; R10.32 Left lower quadrant pain
CPT/HCPCS: 99204

== ENCOUNTER → 2024-10-23 08:13 | Outpatient (BNVA) | payer OTHER, SELFPAY | PROVIDERS: PCP Nurse Practitioner Family; Visit Provider Nurse Practitioner Family | DX: K21.9 Gastro-esophageal reflux disease without esophagitis (principal); K52.9 Noninfective gastroenteritis and colitis, unspecified; K59.01 Slow transit constipation; R10.13 Epigastric pain; R10.32 Left lower quadrant pain | CPT/HCPCS: 99202 ==

== ENCOUNTER 2024-10-25 11:20 | Outpatient (REF) | payer OTHER, SELFPAY ==
[2024-10-25 14:48] LABS: Alanine Aminotransferase 27 U/L (0-31); Albumin Level 4.5 g/dL (3.5-5.0); Alkaline Phosphatase 71 U/L (39-117); Aspartate Amino Transferase 29 U/L (5-31); Bilirubin Direct 0.3 mg/dL (0.0-0.5); Bilirubin Total 0.7 mg/dL (0.0-1.0); Lipase 132 U/L (8-78); Total Protein 7.5 g/dL (6.5-8.0)
[2024-10-25 15:02] LABS: TSH reflex Free T4 2.69 uIU/mL (0.32-4.0)
[2024-10-25 15:14] LABS: Folate 11.8 ng/mL (> or = 4.0); Vitamin B12 600 pg/mL (200-900)
[2024-10-29 20:04] LABS: Transglutaminase IgA <1.0 U/mL
[2024-10-30 13:19] LABS: Vitamin D 25-OH, D2 <4 ng/mL; Vitamin D 25-OH, D3 59 ng/mL; Vitamin D 25-OH, Total 59 ng/mL (30-100)
== END 2024-10-25 11:21 | disposition home or self-care (01) ==
LOC: HO.LAB 11:20
PROVIDERS: PCP Internal Medicine; Visit Provider Nurse Practitioner Family
DX: M17.0 Bilateral primary osteoarthritis of knee (principal); K21.9 Gastro-esophageal reflux disease without esophagitis; R74.01 Elevation of levels of liver transaminase levels; E55.9 Vitamin D deficiency, unspecified; K59.00 Constipation, unspecified; R10.9 Unspecified abdominal pain; R19.7 Diarrhea, unspecified
CPT/HCPCS: 20610; 36415; 80076; 82306; 82607; 82746; 83013; 83690; 84443; 86364; 99211; 99212; J1010; J2003

== ENCOUNTER 2024-10-25 11:20 | Outpatient (AMB) | payer OTHER, SELFPAY ==
[2024-10-25 11:23] VITALS: BMI 37.7
--- NOTE | 2024-10-25 11:23 | MHC.OFFVIS ---
Vital Signs 10/25/24 11:23 Height 5 ft 3 in Weight 213 lb BMI 37.7 Intake Visit Reasons: OV - Bilateral Knee OA Intake Note: Armand is a 64 year old female for a follow up of her Bilateral Knee OA. Right Knee Injection - 04/01/24 & Left Knee Injection - 02/19/2024. Pt states the injections were very helpful. Pt states about 2 months ago her knees started bothering her again. Allergies aspirin [ASPIRIN] Allergy (Severe, Verified 10/25/24 11:23) TONGUE SWELLING bee pollen [BEE STINGS] Allergy (Severe, Verified 10/25/24 11:23) ANAPHYLAXIS HPI HPI OV - Bilateral Knee OA: Details: Armand is a 64 year old female for a follow up of her Bilateral Knee OA. Right Knee Injection - 04/01/24 & Left Knee Injection - 02/19/2024. Pt states the injections were very helpful. Pt states about 2 months ago her knees started bothering her again. Patient states that her left knee is bothering her more than her right knee at this time. No other acute complaints or concerns at this time. [facility] Medical History Breast nodule Arthritis Bilateral carpal tunnel syndrome History of trigger finger DDD (degenerative disc disease) Seasonal asthma Anxiety Hypertension Acid reflux Migraines High cholesterol Diabetes Surgical History S/P LASIK surgery of both eyes History of carpal tunnel release S/P arthroscopic surgery of left knee (~1999) History of tonsillectomy History of section Family History Mother No problems noted. Father No problems noted. Paternal Aunt Uterine cancer Social History Alcohol intake: never Patient Tobacco Use Status: Never used Tobacco Second Hand Smoke Exposure: No Current occupational status: disabled Current occupation: rt hand Female Reproductive History Menstrual Age of Menarche: 11 Review of Systems Const All systems reviewed & are unremarkable except as noted in HPI and below Physical Exam Vital Signs: BMI result Body Mass Index 37.7 Extrem Other: L knee exam Patient's L knee normal to inspection No erythema, ecchymosis Minimal edema noted No lacerations, abrasions, open areas No evidence of infection Patient reports tenderness to palpation of the anterior knee, medial and lateral joint lines, patella, No tenderness to palpation of the quad tendon, patellar tendon, or posterior knee Patient is able to extend the knee to 0-10 degrees without difficulty Patient is able to flex the knee to 100 degrees without difficulty, but is restricted further due to pain Negative Artemio's Distal sensation intact Capillary refill brisk Office Procedures AMB Joint Injection/Aspiration Joint Injection/Aspiration Primary Site: left knee Injected: 40 mg of, DepoMedrol, with 8 mL of and 1% plain lidocaine Approach Used: anterolateral Procedure: The patient tolerated the procedure well and there was some relief with the local anesthesia Coding - Large joint Procedure code (CPT) selection complete Assessment & Plan Assessment & Plan (1) Osteoarthritis of knees, bilateral: Code(s): M17.0 - Bilateral primary osteoarthritis of knee Category: Medical Plan 1. Left knee osteoarthritis Patient is educated about this condition Patient is educated about the typical treatment course Patient is a interested in repeat steroid injection at this time The risks and benefits of a steroid injection including but not limited to risk of damage to blood vessels, nerves, tendons, infection, skin bleaching, failure to improve symptoms, increased pain, and possible need for further injections or other intervention were discussed with the patient and the patient wishes to proceed with the steroid injection. Once consent was obtained, I aseptically prepped the area over the anterolateral joint line of the left knee. I then injected the area over the lateral epicondyle with a combination of 40 mg of dexamethasone and 8 mL of 1% lidocaine. The patient tolerated the procedure well with no complications. If the patient continues to experience symptoms over the following few weeks or months, they can make an appointment to return and discuss alternative treatment measures, such as physical therapy. Follow-up prn Coding Level of Care Code Est Pt Level 3 (57293) Diagnoses Osteoarthritis of knees, bilateral M17.0 CPT Codes Coding - Large joint: 56564 - Large joint ([id number])
--- OUTSIDE RECORDS SUMMARY | 2024-10-25 11:42 | XMS_ITS | Encounter Summary ---
Author Organization [employer] Address [address] [facility] [address]t [place] [address] Care Team Providers Care Ct Mri Technologist Name Role Phone Claritza Canela Primary Care Provider [phone] Yane Morrissey NP Primary Care Provider [phone] Encounter Details Date Type Department Care Team (Late st Contact Info) Description 09/05/2022 Orders Only [facility] [address] [place] [address] Claritza Canela FNP [address] [place] [address] Type 2 diabetes mellitus with hyperosmolarity without coma, without long-term current use of insulin ([facility]) Social History Tobacco Use Types Packs/Day Years [...] Description 10/29/2024 11:30 AM EDT Clinical Support [facility] [address] [place] [id number] documented as of this encounter Visit Diagnoses Diagnosis Type 2 diabetes mellitus with hyperosmolarity without coma, without long-term current use of insulin ([facility]) documented in this encounter Additional Health Concerns Assessment Noted Time PHQ-9 Depression Total Score: 2 06/01/20 9:11 AM EST documented as of this encounter Care Teams Ct Mri Technologist Relationship Specialty Start Date End Date Claritza Canela FNP [address] [place] [address] PCP - General Family Medicine 05/13/22 02/13/24 Yane Morrissey NP [address] [place] [address] PCP - General Family Medicine 02/14/24 documented as of this encounter
--- OUTSIDE RECORDS SUMMARY | 2024-10-25 11:42 | XMS_ITS | Encounter Summary ---
Author Organization [employer] Address [address] [facility] 7t [place] [address] Care Team Providers Care Chief Design Drafter Name Role Phone Claritza CanelaP Primary Care Provider [phone] Yane Morrissey NP Primary Care Provider [phone] Reason for Visit * Reason Comments Med Refill Encounter Details Date Type Department Care Team (Late st Contact Info) Description 11/29/2022 Refill [facility] MED[facility]INE [address] [place] [address] Claritza Canela FNP [address] [place] [address] Rash and nonspecific skin eruption Social History [...] Description 10/29/2024 11:30 AM EDT Clinical Support [facility] [address] [place] [address] documented as of this encounter Visit Diagnoses Diagnosis Rash and nonspecific skin eruption Rash and other nonspecific skin eruption documented in this encounter Additional Health Concerns Assessment Noted Time PHQ-9 Depression Total Score: 2 06/01/20 9:11 AM EST documented as of this encounter Care Teams Chief Design Drafter Relationship Specialty Start Date End Date Claritza Canela FNP [address] [place] [address] PCP - General Family Medicine 05/13/22 02/13/24 Yane Morrissey NP [address] [place] [address] PCP - General Family Medicine 02/14/24 documented as of this encounter
--- OUTSIDE RECORDS SUMMARY | 2024-10-25 11:42 | XMS_ITS | Encounter Summary ---
Author Organization [employer] Address [address] [facility] [address]t [place] [address] Care Team Providers Care Foreman/Pile Driving And Erection Name Role Phone Claritza Canela Primary Care Provider [phone] Yane Morrissey NP Primary Care Provider [phone] Encounter Details Date Type Department Care Team (Late st Contact Info) Description 11/25/2022 Telephone [facility] MEDICINE [address] [place] [address] Claritza Canela FNP [address] [place] [address] Social History Tobacco Use Types Packs/Day Years [...] Description 10/29/2024 11:30 AM EDT Clinical Support [facility] MEDICINE [address] [place] [address] documented as of this encounter Visit Diagnoses Not on filedocumented in this encounter Additional Health Concerns Assessment Noted Time PHQ-9 Depression Total Score: 2 06/01/20 22 9:11 AM EST documented as of this encounter Care Teams Foreman/Pile Driving And Erection Relationship Specialty Start Date End Date Claritza Canela FNP [address] [place] [address] PCP - General Family Medicine 05/13/22 02/13/24 Yane Morrissey NP [address] [place] [address] PCP - General Family Medicine 02/14/24 documented as of this encounter
--- OUTSIDE RECORDS SUMMARY | 2024-10-25 11:42 | XMS_ITS | Encounter Summary ---
Author Organization [employer] Address [address] [facility] 7t [place] [address] Care Team Providers Care Moisture Meter Operator Name Role Phone Claritza Canela Primary Care Provider [phone] Yane Morrissey NP Primary Care Provider [phone] Reason for Visit * Reason Onset Date Comments Medication Question 01/17/2024 Encounter Details Date Type Department Care Team (Late st Contact Info) Description 01/17/2024 Telephone [facility] MEDICINE [address] [place] [address] Claritza Canela FNP [address] [place], [place] [id number] Medication Question Social History Tobacco Use Types [...] with others, in a hotel, in a half-way, living outside on the street, on a [...] any questions you can contact [facility] at [phone]. documented in this encounter Plan of Treatment Upcoming Encounters Date Type Department Care Team ([facility] st Contact Info) Description 10/29/2024 11:30 AM EDT Clinical Support [facility] MEDICINE [address] [place] [address] documented as of this encounter Visit Diagnoses Not on filedocumented in this encounter Additional Health Concerns Assessment Noted Time PHQ-9 Depression Total Score: 23 023 10:13 AM EST documented as of this encounter Care Teams Moisture Meter Operator Relationship Specialty Start Date End Date Claritza Canela FNP [address] [place] [address] PCP - General Family Medicine 05/13/22 02/13/24 Yane Morrissey NP [address] [place] [address] PCP - General Family Medicine 02/14/24 documented as of this encounter
--- OUTSIDE RECORDS SUMMARY | 2024-10-25 11:42 | XMS_ITS | Encounter Summary ---
Author Organization [employer] Address [address] [address] [facility] [address] 7[address] [place] [address] Care Team Providers Care Denture Laboratory Technician Name Role Phone Claritza CanelaP Primary Care Provider [phone] Yane Morrissey NP Primary Care Provider [phone] Encounter Details Date Type Department Care Team (Late st Contact Info) Description 03/21/2023 Abstract [facility] MED[facility]INE [address] [place] [address] Michelle Castillo Social History Tobacco Use Types [...] the past 12 months, has t he [employer], oil or water company threatened to shut [...] Description 10/29/2024 11:30 AM EDT Clinical Support [facility] [address] [place] [address] documented as of this encounter Visit Diagnoses Not on filedocumented in this encounter Additional Health Concerns Assessment Noted Time PHQ-9 Depression Total Score: 2 06/01/20 22 9:11 AM EST documented as of this encounter Care Teams Denture Laboratory Technician Relationship Specialty Start Date End Date Claritza Canela FNP [address] [place] [address] PCP - General Family Medicine 05/13/22 02/13/24 Yane Morrissey NP [address] [place] [address] PCP - General Family Medicine 02/14/24 documented as of this encounter
--- OUTSIDE RECORDS SUMMARY | 2024-10-25 11:42 | XMS_ITS | Encounter Summary ---
Author Organization [employer] Address [address] [facility] [address]t [place] [address] Care Team Providers Care Medical Administrative Name Role Phone Claritza Canela Primary Care Provider [phone] Yane Morrissey NP Primary Care Provider [phone] Reason for Referral * Imaging (Routine) - Closed Specialty Diagnoses / Procedures Referred By Luci leon Referred To Contact Diagnoses Mass of left breast, unspecified quadrant Procedures BI Mammogram Diagnostic Tomosynthesis Left Claritza Canela FNP [address] [place] [address] Phone: tel: fax: [address] Phone: tel: fax: Referral ID Status Reason Start Date Expiration Date Visits Re quested Visits Authorized [id number] Closed 11/11/2022 05/10/2023 1 1 Encounter Details Date Type Department Care Team (Late st Contact Info) Description 11/11/2022 Orders Only [facility] MEDICINE [address] [place] [address] Claritza Canela FNP [address] [place] [address] Mass of left breast, unspecified quadrant (Primary [...] Description 10/29/2024 11:30 AM EDT Clinical Support [facility] MEDICINE [address] [place] [address] Scheduled Orders Name Type Priority Associated Diagnoses [...] documented as of this encounter Care Teams Medical Administrative Relationship Specialty Start Date End Date Claritza Canela FNP [address] [place] [address] PCP - General Family Medicine 05/13/22 02/13/24 Yane Morrissey NP [address] [place] [address] PCP - General Family Medicine 02/14/24 documented as of this encounter
--- OUTSIDE RECORDS SUMMARY | 2024-10-25 11:42 | XMS_ITS | Encounter Summary ---
Author Organization [employer] Address [address] [facility] 7t [place] [address] Care Team Providers Care Regional Marketing Director Name Role Phone Claritza CanelaP Primary Care Provider [phone] Yane Morrissey NP Primary Care Provider [phone] Reason for Visit * Reason Onset Date Comments Med Refill Abnormal mammo follow up 10/18/2022 Encounter Details Date Type Department Care Team (Late st Contact Info) Description 10/18/2022 Refill [facility] [address] [place] [address] Elsie Argueta ANP [address] [place] [address] Social History Tobacco Use Types Packs/Day Years [...] EDT Incoming call from Shana at [facility] calling to let us know [...] Clinical Support [facility] [address] [place] [address] documented as of this encounter Visit Diagnoses Not on filedocumented in this encounter Additional Health Concerns Assessment Noted Time PHQ-9 Depression Total Score: 2 06/01/20 22 9:11 AM EST documented as of this encounter Care Teams Regional Marketing Director Relationship Specialty Start Date End Date Claritza Canela FNP [address] [place] [address] PCP - General Family Medicine 05/13/22 02/13/24 Yane Morrissey NP [address] [place] [address] PCP - General Family Medicine 02/14/24 documented as of this encounter
--- OUTSIDE RECORDS SUMMARY | 2024-10-25 11:42 | XMS_ITS | Clinical Summary ---
Author Organization [employer] Address [address] [facility] 7t [place] [address] Care Team Providers Care Continuous Pickling Line Pickler Name Role Phone Yane Morrissey NP Primary Care Provider [phone] Allergies Active Allergy Reactions Criticality Noted Date [...] resolved after treatment, unspecified laterality, unspecified whether watermelon harvesting supervisor insulin use (CMS/HCC) TEST BLOOD SUGAR TWICE [...] 9 mL 1 025 Active Continuous Glucose Stitch Welder (FreeStyle Ryder 3 [place]) deviceIndications :Type 2 diabetes mellitus without complication, [...] complication, with long-term current use of insulin ([facility]) Inject 0.5 mg under the skin 1 [...] with services. PLAN: 1. Follow up with [facility]: Not recommended for follow-up 2. Patient [...] with services. PLAN: 1. Follow up with [facility]: Not recommended for follow-up 2. Patient [...] her . Recommended to keep appt with [facility] therapist Carol Schaefer. At this time Armand Montilla meets criteria for Visit Diagnoses: Problem List Items Addressed This Visit Other Severe anxiety Major depressive disorder Patient ready to address current needs Armand is already engage in MH services at [facility]. Strengths include She is in action stage of change and this motivation will serve as treatment engagement. PLAN: 1. Follow up with [facility]: Not recommended for follow-up 2. Patient [...] with services. PLAN: 1. Follow up with [facility]: Not recommended for follow-up 2. Patient goal is to continue attending individual therapy with [facility] 3. Behavioral Recommendations a. Follow PCP recommendation for med management b. Practice self-care and self-compassion c. Set-up healthy boundaries with partner and improve communication skills Panic attack 12/15/2017 Encounters Date Type Department Care Team Description 10/18/2024 Telephone [facility] MED[facility] [address] [place] [address] Melissa Temple, ISAAK 10/17/2024 Refill [facility] [address] [place] [address] Yane Morrissey NP Essential hypertension 10/08/2024 Telephone [facility] [address] [place] [address] Melissa Temple RN 10/07/2024 Refill [facility] MED[facility]INE [address] [place] [phone] Yane Morrissey NP Generalized abdominal pain 10/02/2024 Telephone [facility] MED[facility] [address] [place] [phone] Yane Morrissey NP Prior Authorization 09/27/2024 4:00 PM EDT Office Visit [facility] [address] [place] [phone] Yane Morrissey NP Cervicogenic headache (Primary Dx); Type 2 diabetes mellitus without complication, with long-term current use of insulin ([facility]); Primary hypertension; Dysuria; Pain of left hip; Left lower quadrant abdominal pain; Dietary counseling; Exercise counseling 09/27/2024 Travel 09/20/2024 Refill [facility] PEDIATRICS [address] [place] [address] Yane Morrissey NP Type 2 diabetes mellitus without complication, with long-term current use of insulin ([facility]) 09/17/2024 Telephone [facility] [address] [place] [phone] Bridget Hickey MA Chart prep 09/09/2024 Refill [facility] [address] [place] [address] Claritza Canela FNP Acute bilateral low back pain with right-sided sciatica; Type 2 diabetes mellitus without complication, with long-term current use of insulin ([facility]) 09/06/2024 Refill [facility] [address] [place] [address] Omaira Brian MD Generalized abdominal pain 08/30/2024 Telephone [facility] [address] [place] [address] Yane Morrissey NP Prior Authorization (Lidocaine patches); Prior Auth Prescription 08/30/2024 Refill [facility] [address] [place] [address] Claritza Canela FNP 08/27/2024 Refill [facility] MED & PEDS [address] [place], [place] [phone] Yane Morrissey NP 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, unspecified laterality, unspecified whether mcfp insulin use ([facility]) 08/26/2024 Refill [facility] [address] [place] [address] Claritza Canela FNP Diabetic polyneuropathy associated with type 2 diabetes mellitus ([facility]) 08/20/2024 Refill [facility] [address] [place] [phone] Omaira Brian MD Clogged ear, bilateral 08/12/2024 3:00 PM EST Clinical Support [address] [address] Johana Howe RN Impacted cerumen of both ears 08/12/2024 Travel 08/06/2024 3:30 PM EST Office Visit [address] [address] Omaira Brian MD Generalized abdominal pain (Primary Dx); Clogged ear, bilateral 08/06/2024 Travel 08/02/2024 Telephone [facility] MEDICINE [address] [place] [address] Yane Morrissey NP Lab Orders; ER Follow-up 08/01/2024 Telephone [facility] [address] [place] [address] Yane Morrissey NP Nurse Triage 07/31/2024 Orders [...] Description 10/29/2024 11:30 AM EDT Clinical Support [address] [address] Health Maintenance Due Date Last Done Comments [...] complication, with long-term current use of insulin ([facility]) POCT GLUCOSE Routine 09/27/2024 4:38 PM EDT Type 2 diabetes mellitus without complication, with long-term current use of insulin ([facility]) [place] REMOVAL IMPACTED CERUMEN IRRIGATION/LVG UNILAT Routine 08/12/2024 [...] 2 diabetes mellitus without complication, unspecified whether mcfp insulin use ([facility]) LIPID PANEL, STANDARD Routine 07/27/2023 8:06 AM EST Type 2 diabetes mellitus without complication, unspecified whether watermelon harvesting supervisor insulin use ([facility]) PAP/HPV Routine 06/16/2023 12:00 AM EST MAMMOGRAPHY [...] procedure / Unknown 09/28/2024 09/28/2024 Comment:UACC Narrative [facility] - 09/29/2024 11:27 AM EDT Urine Culture Report Result Urine Culture 50,000 to 100,000 cfu/ml Urine Culture Mixed bacterial noé characteristic of Urine Culture urogenital contamination. Specimen Source: Urine clean catch Yane Morrissey NP LAB MICROBIOLOGY - GENERAL ORDER PENNIE Final Result [facility] [address] [place] [phone] * (ABNORMAL) POCT Urinalysis (09/27/2024 5:09 [...] Media Lot # [id number] Lot# Expiration Date [id number] Urine 09/27/2024 5:09 PM EDT Yane Morrissey VP SALES POINT OF CARE TEST ENTER/EDIT OR DERABLES Final Result * POCT HGB A1C (09/27/2024 4:38 PM EDT) Hemoglobin A1C 5.9 4.0 - 6.0 % QC Media Lot # [id number] Lot# Expiration Date , Blood 09/27/2024 4:38 PM EDT Result [facility] Yane Morrissey VP SALES POINT OF CARE TEST ENTER/EDIT OR DERABLES Final Result * POCT Glucose (09/27/2024 4:38 PM EDT) Pathologist [facility] Glucose Blood, POC 89 60 - 200 mg/dL QC Media Lot # [id number] Lot# Expiration Date 025 Blood Capillary blood specimen / Unknown 09/27/2024 4:38 PM EDT Result [facility] Yane Morrissey VP SALES POINT OF CARE TEST ENTER/EDIT OR DERABLES Final Result * KS REMOVAL IMPACTED CERUMEN IRRIGATION/LVG UNILAT (08/12/2024 2:44 [...] yes ?Risks discussed: ??Dizziness and incomplete removal Bellamy protocol: ??Patient identity confirmed: ??Verbally with patient Procedure details: ??Location: ??L ear and R ear ??Procedure type: irrigation ?Procedure outcomes: cerumen removed ?? Post-procedure details: ??Inspection: ??No bleeding and TM intact ??Hearing quality: ??Improved ??Procedure completion: ??Tolerated us Capo Marie MD IN CLINIC/BEDSIDE ORDERABLES Fin al Result * Helicobacter pylori??Antigen, EIA, Stool (08/07/2024 8:48 AM EST) H pylori Ag Stool SEE NOTE [facility] Comment:HELICOBACTER PYLORI AG, EIA, STOOL Micro Number: [id number] Test Status: Final Specimen Source: Stool Specimen Quality: Adequate H.pylori Ag: Not Detected Antimicrobials, proton pump inhibitors, and bismuth preparations inhibit H. pylori and ingestion up to two weeks prior to testing may cause false negative results. If clinically indicated the test should be repeated on a new specimen obtained two weeks after discontinuing treatment. Reference Range: Not DetectedTHIS TEST WAS PERFORMED AT:[employer] [place] [id number] HAMILTON MD Stool Rectal contents / Unknown 08/07/2024 8:48 AM EST 08/09/2024 12:13 PM EST Omaira Ashby MD LAB BODY FLUIDS AND S TOOLS ORDERABLES Final Result [facility] [address] [place] [phone] * CBC auto differential (07/31/2024 1:18 PM EST) White Blood Count 6.2 4.8 - 10.8 X10*3/uL [facility] Red Blood Count 4.98 4.20 - 5.50 X10*6/uL [facility] Hemoglobin 13.9 12.0 - 16.0 g/dl [facility] Hematocrit 41.2 37.0 - 47.0 % [facility] Mean Corpuscular Volume 82.7 80.0 - 98.0 fL [facility] Mean Corpuscular Hemoglobin 27.9 27.0 - 33.0 pg [facility] Mean Corpuscular HGB Conc 33.7 31.0 - 35.0 g/dl [facility] Red Cell Distribution Width 13.6 11.0 - 16.0 % [facility] Platelet Count 271 160 - 400 X10*3/uL [facility] Mean Platelet Volume 9.5 9.4 - 12.3 fL [facility] Neutrophils Percent Auto 64.1 45 - 73 % [facility] Imm Gran Pct Auto 0.3 0.0 - 0.4 % [facility] Lymphocytes Percent Auto 27.4 20 - 40 % [facility] Monocytes Percent Auto 5.5 2 - 11 % [facility] Eosinophils Percent Auto 2.1 0 - 4 % [facility] Basophils Percent Auto 0.6 0 - 2 % [facility] NRBC Pct Auto 0.0 0.0 - 0.2 /100WBC [facility] Neutrophils Absolute Auto 4.0 2.0 - 8.3 x10*3/uL [facility] Imm Gran Abs Auto 0.02 0.00 - 0.03 X10*3/uL [facility] Lymphocytes Absolute Auto 1.7 1.2 - 4.9 X10*3/uL [facility] Monocytes Absolute Auto 0.3 0.1 - 1.2 X10*3/uL [facility] Eosinophils Absolute Auto 0.1 0.0 - 0.4 X10*3/uL [facility] Basophils Absolute Auto 0.0 0.0 - 0.2 X10*3/uL [facility] NRBC Abs Auto 0.000 0.0 - 0.012 X10*3/uL [facility] 07/31/2024 1:18 PM EST 07/31/2024 1:30 PM EST us Generic External Data Provider LAB BLOOD ORDERAB LES Final Result [facility] [address] [place] [phone] * (ABNORMAL) Prothrombin Time-INR (07/31/2024 1:18 PM EST) Prothrombin Time 10.5(L) 10.9 - 12.4 SEC [facility] INTERNATIONAL NORM RATIO 0.9 0.9 - 1.1 [facility] Comment:INTERNATIONAL NORMAL IZED RATIO (INR) REFERENCE [...] ORDERAB LES Final Result Performing Organization Address [facility] Co de Phone Number [facility] [address] [place] [phone] * Magnesium (07/31/2024 1:18 PM EST) Magnesium 2.1 1.6 - 2.6 mg/dL [facility] 07/31/2024 1:18 PM EST 07/31/2024 1:30 PM EST Generic External Data Provider LAB BLOOD ORDERAB LES Final Result Performing Organization Address [facility] Co de Phone Number [facility] [address] [place] [phone] * Lipase (07/31/2024 1:18 PM EST) Lipase 29 8 - 78 U/L [facility] 07/31/2024 1:18 PM EST 07/31/2024 1:30 PM EST Generic External Data Provider LAB BLOOD ORDERAB LES Final Result Performing Organization Address [facility] Co de Phone Number [facility] [address] [place] [phone] * Lactic Acid (07/31/2024 1:18 PM EST) Lactic Acid 1.4 0.5 - 2.0 mmol/L [facility] 07/31/2024 1:18 PM EST 07/31/2024 1:32 PM EST us Generic External Data Provider LAB BLOOD ORDERAB LES Final Result [facility] [address] [place] [phone] [phone] * (ABNORMAL) Comprehensive Metabolic Panel (07/31/2024 1:18 PM EST) Sodium 139 135 - 145 mmol/L [facility] Potassium 3.7 3.3 - 5.1 mmol/L [facility] Chloride 106 96 - 108 mmol/L [facility] Carbon Dioxide 25 22 - 29 mmol/L [facility] Anion Gap 12 12 - 20 [facility] Urea Nitrogen (BUN) 22(H) 9 - 16 mg/dL [facility] Creatinine, Serum 0.80 0.5 - 1.4 mg/dL [facility] Creatinine Clr Calc Pharmacy 76.5 [facility] Comment:Provided height and weight: 158.75 cm,95.4 kg.eGFR (calculated from the MDRD study equation) and eCrCl(calculated from the Cockcroft-Gault equation) are based ondifferent parameters and may not yield comparable results.If eCrCl result is absurd, please check patient'sheight/weight. Estimated Glomerular Filt Rate >60 [facility] Comment:Chronic Kidney Disea se: Estimated GFR < 60 mL/min/1.59g7Vijwfn Kidney Disease: Estimated GFR < 15 mL/min/1.73m2 Glucose 84 60 - 115 mg/dL [facility] Calcium 9.4 8.4 - 10.2 mg/dL [facility] Bilirubin, Total 0.6 0.0 - 1.0 mg/dL [facility] Aspartate Amino Transferase 30 5 - 31 U/L [facility] Alanine Aminotransferase 25 0 - 31 U/L [facility] Total Protein 7.4 6.5 - 8.0 g/dL [facility] Albumin Level 4.3 3.5 - 5.0 g/dL [facility] Alkaline Phosphatase 81 39 - 117 U/L [facility] 07/31/2024 1:18 PM EST 07/31/2024 1:30 PM EST us Generic External Data Provider LAB BLOOD ORDERAB LES Final Result Performing Organization Address [facility] Co de Phone Number [facility] [address] [place] [phone] * Albumin, Random Urine W/Creatinine (07/27/2023 8:40 AM EST) Creatinine, Urine 132.90 mg/dL [facility] Microalbumin Urine 17.0 mg/L [facility] Microalbum Creatinine Ratio Ur 12.7 <30 ug/mg cr [facility] Comment:Albumin/Creatinine R atio Reference Ranges: Normal: < 30 ug/mg creatinine Microalbuminuria: 30 - 300 ug/mg creatinineClinical Albuminuria: > 300 ug/mg creatinine Urine (Urine, Random) 07/27/2023 8:40 AM EST 07/27/2023 11:28 AM EST us Claritza KEYSP LAB URINE ORDERABLES Final Resu lt Performing Organization Address City/[facility]/ZIP Co de Phone Number [facility] [address] [place] [phone] * Lipid Panel, Standard (07/27/2023 8:06 AM EST) Triglycerides 53 <150 mg/dL [facility] Comment:Desirable Triglyceri de: less than 150 mg/dLBorderline High Triglyceride 150-199 mg/dLHigh Triglyceride: 200-499 mg/dLVery High Triglyceride: greater than or equal to 5OO mg/dL Cholesterol 113 <200 mg/dL [facility] Comment:Desirable Cholestero l: less than 200 mg/dLBorderline High Cholesterol: 200-239 mg/dLHigh Cholesterol: greater than 239 mg/dL LDL Cholesterol Calculated 39 <100 mg/dL [facility] Comment:Desirable LDL: less than 100 mg/dLNear Optimal/Above Optimal LDL: 110- 129 mg/dLBorderline High LDL: 130-159 mg/dLHigh LDL: 160-189 mg/dLVery High LDL: greater than or equal to 190 mg/dL HDL Cholesterol 64 >40 mg/dL [facility] Comment:Desirable HDL: great er than 40 mg/dL Note: This HDL assay may give artificially low results in patients with liver disease. Blood Venous blood specimen / Unknown 07/27/2023 8:06 AM EST 07/27/2023 11:15 AM EST Claritza Canela SILVER WRAPPER LAB BLOOD ORDERABLES Final Resu lt Performing Organization Address [facility] Co de Phone Number [facility] [address] [place] [phone] * PAP/HPV (06/16/2023 12:00 AM EST) Historical Provider HEALTH MAINTENANCE Final Result * Hm Mammography (05/05/2023) Mammogram Bi-rads 2 Anatomical Region Laterality Modality Other Historical Provider HEALTH MAINTENANCE Final Result * HEPATITIS C ANTIBODY RFLX (06/20/2019 8:11 AM EST) HEPATITIS C ANTIBODY NONREACTIVE NONREACTIVE [facility] Comment: Antibodies to HCV not detected; does not exclude early acute HCV infection. 06/20/2019 8:11 AM EST Albert Hollingsworth MD HISTORICAL/NON ORDERABLE LABS Fi nal Result Performing Organization Address City/[facility]/ZIP Co de Phone Number [facility] [address] * HIV AB/AG (06/20/2019 8:11 AM [...] detection of this assay. ?? The Jaime Staff Certified Nurse Midwife HIV Ag/Ab Combo assay result and supplemental assay results should be interpreted in conjunction with the patient's clinical presentation, history and other laboratory results. ??If the results are inconsistent with clinical evidence, additional testing is suggested to confirm the result. 06/20/2019 8:11 AM EST Albert Hollingsworth MD HISTORICAL/NON ORDERABLE LABS Fi nal Result [facility] [address] * HPV mRNA E6/E7 (07/12/2018 9:56 AM EST) Pathologist [facility] HPV mRNA E6/E7 Not Detected NOT DETECTED [facility] Comment: This test was performed using the APTIMA(R) HPV Assay ([employer] This assay detects E6/E7 viral messenger RNA (mRNA) from 14 high-risk HPV types (16,18,31,33,35,39,45,51, 52,56,58,59,66,68). For additional information please refer to: http://education.MessageGears.Digital Performance/faq/KCT386z5 (This link is being provided for informational/ educational purposes only.) The analytical performance characteristics of this assay have been determined by [employer] [place], [place]. The modifications have not been cleared or approved by the FDA. This assay has been validated pursuant to the CLIA regulations and is used for clinical purposes. Test Performed by [employer], [employer] [facility], [address] [place] [address] Henok Carreno M.D., Ph.D., Director of Laboratories , [facility] [id number] Please note: ??Effective 02/22/2016, HPV testing will be performed using [employer]'s APTIMA test which targets mRNA. Detecting mRNA instead of DNA, as in older methods, offers significant improvements in specificity. 07/12/2018 9:56 AM EST us Jayla Wang CNM HISTORICAL/NON ORDERABLE LABS Final Result [facility] Any[address] from Last 3 Months or Most Recently Relevant to Health Maintenance Insurance [employer] [address] [id number] Care Teams Continuous Pickling Line Pickler Relationship Specialty Start Date End Date Yane Morrissey NP [address] [place] [address] PCP - General Family Medicine 02/14/24
--- OUTSIDE RECORDS SUMMARY | 2024-10-25 11:42 | XMS_ITS | Encounter Summary ---
Author Organization [employer] Address [address] [facility] [address]t [place] [address] Care Team Providers Care Sales Management Trainee Name Role Phone Claritza Canela Primary Care Provider [phone] Yane Morrissey NP Primary Care Provider Encounter Details Date Type Department Care Team (Late st Contact Info) Description 01/30/2023 Orders Only [facility] MED & PEDS [address] [place] [address] Claritza Canela FNP [address] [place] [address] Social History Tobacco Use Types Packs/Day Years [...] 10/29/2024 11:30 AM EDT Clinical Support [facility] MEDICINE [address] [place] [address] documented as of this encounter Visit Diagnoses Not on filedocumented in this encounter Additional Health Concerns Assessment Noted Time PHQ-9 Depression Total Score: 2 06/01/20 22 9:11 AM EST documented as of this encounter Care Teams Sales Management Trainee Relationship Specialty Start Date End Date Claritza Canela FNP [address] [place] [address] PCP - General Family Medicine 05/13/22 02/13/24 Yane Morrissey NP [address] [place] [address] PCP - General Family Medicine 02/14/24 documented as of this encounter
--- OUTSIDE RECORDS SUMMARY | 2024-10-25 11:42 | XMS_ITS | Encounter Summary ---
Author Organization [employer] Address [address] [facility] 7t [place] [address] Care Team Providers Care Jeweler Apprentice Name Role Phone Claritza Canela HAIR WORKER Primary Care Provider [phone] Yane Morrissey NP Primary Care Provider [phone] Encounter Details Date Type Department Care Team (Late st Contact Info) Description 05/18/2022 Orders Only [facility] MEDICINE [address] [place] [address] Sonya Darnell MD [address] [place] [address] Type 2 diabetes mellitus with hyperosmolarity without coma, without long-term current use of insulin ([facility]) (Primary Dx) Social History Tobacco Use [...] Description 10/29/2024 11:30 AM EDT Clinical Support [address] [address] documented as of this encounter Visit Diagnoses Diagnosis Type 2 diabetes mellitus with hyperosmolarity without coma, without long-term current use of insulin ([facility])- Primary documented in this encounter Care Teams Jeweler Apprentice Relationship Specialty Start Date End Date Claritza Canela FNP [address] [place] [address] PCP - General Family Medicine 05/13/22 02/13/24 Yane Morrissey NP [address] [place] [address] PCP - General Family Medicine 02/14/24 documented as of this encounter
--- OUTSIDE RECORDS SUMMARY | 2024-10-25 11:42 | XMS_ITS | Encounter Summary ---
Author Organization [employer] Address 75 [facility] 7t [place] [address] Care Team Providers Care Lean Facilitator Name Role Phone Claritza Canela Primary Care Provider [phone] Yane Morrissey NP Primary Care Provider Encounter Details Date Type Department Care Team (Late st Contact Info) Description 11/25/[address] [facility] MEDICINE [address] [place] [address] Claritza Canela FNP [address] [place] [address] Social History Tobacco Use Types Packs/Day Years [...] 11:30 AM EDT Clinical Support [facility] MEDICINE [address] [place] [address] documented as of this encounter Visit Diagnoses Not on filedocumented in this encounter Additional Health Concerns Assessment Noted Time PHQ-9 Depression Total Score: 2 06/01/20 22 9:11 AM EST documented as of this encounter Care Teams Lean Facilitator Relationship Specialty Start Date End Date Claritza Canela FNP [address] [place] [address] PCP - General Family Medicine 05/13/22 02/13/24 Yane Morrissey NP [address] [place] [address] PCP - General Family Medicine 02/14/24 documented as of this encounter
--- OUTSIDE RECORDS SUMMARY | 2024-10-25 11:42 | XMS_ITS | Encounter Summary ---
Author Organization [email or web address] Address 75 [facility] 7t [place] [address] Care Team Providers Care Credit Collector Name Role Phone Claritza Canela Primary Care Provider [phone] Yane Morrissey NP Primary Care Provider [phone] Reason for Visit * Reason Onset Date Comments Med Refill 02/02/2024 Encounter Details Date Type Department Care Team (Late st Contact Info) Description 02/02/2024 Refill [facility] MEDICINE [address] [place] [address] Claritza Canela FNP [address] [place] [address] Diabetic polyneuropathy associated with type 2 diabetes [...] with others, in a hotel, in a residential, living outside on the street, on a [...] Description 10/29/2024 11:30 AM EDT Clinical Support [facility] MEDICINE [address] [place] [address] documented as of this encounter Visit Diagnoses Diagnosis Diabetic polyneuropathy associated with type 2 diabetes mellitus ([facility]/HCC) Type 2 diabetes mellitus without complication, with long-term current use of insulin ([facility]) documented in this encounter Additional Health Concerns Assessment Noted Time PHQ-9 Depression Total Score: 23 023 10:13 AM EST documented as of this encounter Care Teams Credit Collector Relationship Specialty Start Date End Date Claritza Canela FNP [address] [place] [address] PCP - General Family Medicine 05/13/22 02/13/24 Yane Morrissey NP [address] [place] [address] PCP - General Family Medicine 02/14/24 documented as of this encounter
--- OUTSIDE RECORDS SUMMARY | 2024-10-25 11:42 | XMS_ITS | Encounter Summary ---
Author Organization [employer] Address 75 [facility] 7t [place] [address] Care Team Providers Care Assistant Media Planner Name Role Phone Claritza Canela Primary Care Provider [phone] Yane Morrissey NP Primary Care Provider [phone] Encounter Details Date Type Department Care Team (Late st Contact Info) Description 01/30/2023 Orders Only [facility] PEDS [address] [place] [address] Claritza Canela FNP [address] [place] [address] Breast density (Primary Dx) Social History Tobacco [...] Description 10/29/2024 11:30 AM EDT Clinical Support [facility] MEDICINE [address] [place] [address] documented as of this encounter Visit Diagnoses Diagnosis Breast density- Primary Other sign and symptom in breast documented in this encounter Additional Health Concerns Assessment Noted Time PHQ-9 Depression Total Score: 2 06/01/20 22 9:11 AM EST documented as of this encounter Care Teams Assistant Media Planner Relationship Specialty Start Date End Date Claritza Canela FNP [address] [place] [address] PCP - General Family Medicine 05/13/22 02/13/24 Yane Morrissey NP [address] [place] [address] PCP - General Family Medicine 02/14/24 documented as of this encounter
--- OUTSIDE RECORDS SUMMARY | 2024-10-25 11:42 | XMS_ITS | Encounter Summary ---
Author Organization [employer] Address [address] [facility] [address] 7t [place] [address] Care Team Providers Care Client Manager Large Law Name Role Phone Claritza CanelaP Primary Care Provider [phone] Yane Morrissey NP Primary Care Provider [phone] Encounter Details Date Type Department Care Team (Late st Contact Info) Description 03/21/2023 Orders Only [facility] MEDICINE [address] [place] [address] Provider, MD [place] Social History Tobacco Use [...] t he electric, gas, oil or water [employer] threatened to shut off services in your [...] Description 10/29/2024 11:30 AM EDT Clinical Support [facility] MEDICINE [address] [place] [address] documented as of this encounter Procedures Procedure [...] documented as of this encounter Care Teams Client Manager Large Law Relationship Specialty Start Date End Date Claritza Canela FNP [address] [place] [address] PCP - General Family Medicine 05/13/22 02/13/24 Yane Morrissey NP [address] [place] [address] PCP - General Family Medicine 02/14/24 documented as of this encounter
--- OUTSIDE RECORDS SUMMARY | 2024-10-25 11:43 | XMS_ITS | Encounter Summary ---
Author Organization [employer] Address 75 [facility] 7t [place] [address] Care Team Providers Care Performance Management Consultant Name Role Phone Tamaratevin Claritza WRINGER MACHINE OPERATOR Primary Care Provider [phone] Yane Morrissey NP Primary Care Provider [phone] Encounter Details Date Type Department Care Team ([facility] Contact Info) Description 05/27/2022 Orders Only [facility] MEDICINE [address] [place] [address] Corina Canchola, ISAAK Social History Tobacco Use [...] EDT Clinical Support [facility] MEDICINE [address] [place] [address] documented as of this encounter Visit Diagnoses Not on filedocumented in this encounter Care Teams Performance Management Consultant Relationship Specialty Start Date End Date Claritza Canela FNP [address] [place] [address] PCP - General Family Medicine 05/13/22 02/13/24 Yane Morrissey NP [address] [place] [address] PCP - General Family Medicine 02/14/24 documented as of this encounter
--- OUTSIDE RECORDS SUMMARY | 2024-10-25 11:43 | XMS_ITS | Encounter Summary ---
Author Organization [email or web address] Address 75 [facility] 7t [place] [address] Care Team Providers Care Video Production Intern Name Role Phone Claritza CanelaP Primary Care Provider [phone] Yane Morrissey NP Primary Care Provider [phone] Encounter Details Date Type Department Care Team (Late st Contact Info) Description 07/19/2022 Orders Only [facility] MEDICINE [address] [place] [address] Claritza Canela FNP [address] [place] [address] Type 2 diabetes mellitus without complication, with long-term current use of insulin ([facility]) (Primary Dx) Social History Tobacco Use Types [...] Description 10/29/2024 11:30 AM EDT Clinical Support [facility] MEDICINE [address] [place] [address] documented as of this encounter Visit Diagnoses Diagnosis Type 2 diabetes mellitus without complication, with long-term current use of insulin ([facility])- Primary documented in this encounter Additional Health Concerns Assessment Noted Time PHQ-9 Depression Total Score: 2 06/01/20 22 9:11 AM EST documented as of this encounter Care Teams Video Production Intern Relationship Specialty Start Date End Date Clar[place] [address] PCP - General Family Medicine 05/13/22 02/13/24 Yane Morrissey NP [address] [place] [address] PCP - General Family Medicine 02/14/24 documented as of this encounter
--- OUTSIDE RECORDS SUMMARY | 2024-10-25 11:43 | XMS_ITS | Encounter Summary ---
Author Organization [employer] Address 75 [facility] 7t [place] [address] Care Team Providers Care Recruitment Specialist Name Role Phone Claritza CanelaP Primary Care Provider [phone] Yane Morrissey NP Primary Care Provider [phone] Reason for Visit * Reason Comments Med Refill Encounter Details Date Type Department Care Team (Late st Contact Info) Description 11/03/2023 Refill [facility] MEDICINE [address] [place] [address] Claritza Canela FNP [address] [place] [address] Social History Tobacco Use Types Packs/Day Years [...] 10/29/2024 11:30 AM EDT Clinical Support [facility] MEDICINE [address] [place] [address] documented as of this encounter Visit Diagnoses Not on filedocumented in this encounter Additional Health Concerns Assessment Noted Time PHQ-9 Depression Total Score: 23 023 10:13 AM EST documented as of this encounter Care Teams Recruitment Specialist Relationship Specialty Start Date End Date Claritza Canela FNP [address] [place] [address] PCP - General Family Medicine 05/13/22 02/13/24 Yane Morrissey NP [address] [place] [address] PCP - General Family Medicine 02/14/24 documented as of this encounter
--- OUTSIDE RECORDS SUMMARY | 2024-10-25 11:43 | XMS_ITS | Encounter Summary ---
Author Organization [employer] Address 75 [facility] 7t [place] [address] Care Team Providers Care Vehicle Safety Inspector Name Role Phone Claritza Canela Primary Care Provider [phone] Yane Morrissey NP Primary Care Provider [phone] Reason for Visit * Reason Onset Date Comments Medication Question 08/17/2023 Encounter Details Date Type Department Care Team (Late st Contact Info) Description 08/17/[address] [facility] MEDICINE [address] [place] [address] Claritza Canela FNP [address] [place] [address] Medication Question Social History Tobacco Use Types [...] was sent by paramedics yesterday at the [facility] pharmacywhich is not covered, pt. Does not remember the name/T/C to [facility] pharmacy for above message, pharmacy states [...] by her insurance. Please contact pt at [phone]. documented in this encounter Plan of Treatment Upcoming Encounters Date Type Department Care Team (Late st Contact Info) Description 10/29/2024 11:30 AM EDT Clinical Support [facility] MEDICINE [address] [place] [address] documented as of this encounter Visit Diagnoses Not on filedocumented in this encounter Additional Health Concerns Assessment Noted Time PHQ-9 Depression Total Score: 23 023 10:13 AM EST documented as of this encounter Care Teams Vehicle Safety Inspector Relationship Specialty Start Date End Date Claritza Canela FNP [address] [place] [address] PCP - General Family Medicine 05/13/22 02/13/24 Yane Morrissey NP [address] [place] [address] PCP - General Family Medicine 02/14/24 documented as of this encounter
--- OUTSIDE RECORDS SUMMARY | 2024-10-25 11:43 | XMS_ITS | Encounter Summary ---
Author Organization [employer] Address 75 [facility] 7t [place] [address] Care Team Providers Care Router Machine Operator Name Role Phone Yane Morrissey NP Primary Care Provider [phone] Reason for Visit * Reason Onset Date Comments Lab Orders 08/02/2024 ER Follow-up 08/02/2024 Encounter Details Date Type Department Care Team (Late st Contact Info) Description 08/02/2024 Telephone [facility] MEDICINE [address] [place] [address] Yane Morrissey NP [address] [place] [address] Lab Orders; ER Follow-up Social History Tobacco [...] triage, spoke to pt. pt states seen [facility] 07/24 ER for stomach pain and intermittent [...] ED visit on : Date: 07/24/2024 Hospital: [facility] Seen for: Adonmonial Pain Symptomatic Yes *if yes message should go to Triage Patient advised will forward to team nurse for follow up Pt states that (ER doctor) called daughter stating that pt needs an outpatient Cat scan order sent to [facility]. Pt is still in a lot of pain currently. Don't Call pt from private number. documented in this encounter Plan of Treatment Upcoming Encounters Date Type Department Care Team (Late st Contact Info) Description 10/29/2024 11:30 AM EDT Clinical Support [facility] MEDICINE [address] [place] [address] documented as of this encounter Visit Diagnoses Not on filedocumented in this encounter Additional Health Concerns Assessment Noted Time PHQ-9 Depression Total Score: 9 05/24/20 24 11:18 AM EST documented as of this encounter Care Teams Router Machine Operator Relationship Specialty Start Date End Date Yane Morrissey NP [address] [place] [address] PCP - General Family Medicine 02/14/24 documented as of this encounter
--- OUTSIDE RECORDS SUMMARY | 2024-10-25 11:43 | XMS_ITS | Encounter Summary ---
Author Organization [employer] Address [address] [facility] [address] 7t [place] [address] Care Team Providers Care Cardiac Care Unit Nurse Name Role Phone Yane Morrissey NP Primary Care Provider [phone] Encounter Details Date Type Department Care Team (Late st Contact Info) Description 06/03/2024 Telephone [facility] MEDICINE [address] [place] [address] Yane Morrissey NP [address] [place] [address] Social History Tobacco Use Types Packs/Day Years [...] Description 10/29/2024 11:30 AM EDT Clinical Support [facility] MEDICINE [address] [place] [address] documented as of this encounter Visit Diagnoses Not on filedocumented in this encounter Additional Health Concerns Assessment Noted Time PHQ-9 Depression Total Score: 9 05/24/20 24 11:18 AM EST documented as of this encounter Care Teams Cardiac Care Unit Nurse Relationship Specialty Start Date End Date Yane Morrissey NP [address] [place] [address] PCP - General Family Medicine 02/14/24 documented as of this encounter
--- OUTSIDE RECORDS SUMMARY | 2024-10-25 11:43 | XMS_ITS | Encounter Summary ---
Author Organization [employer] Address 75 [facility] 7t [place] [address] Care Team Providers Care Benzene Operator Name Role Phone Claritza CanelaP Primary Care Provider [phone] Yane Morrissey NP Primary Care Provider Reason for Visit * Reason Comments Med Refill Encounter Details Date Type Department Care Team (Late st Contact Info) Description 05/19/2023 Refill [facility] MEDICINE [address] [place] [address] Claritza Canela FNP [address] [place] [address] Anxiety Social History Tobacco Use Types Packs/Day [...] 11:30 AM EDT Clinical Support [facility] MEDICINE [address] [place] [address] documented as of this encounter Visit Diagnoses Diagnosis Anxiety Anxiety state, unspecified documented in this encounter Additional Health Concerns Assessment Noted Time PHQ-9 Depression Total Score: 23 023 10:13 AM EST documented as of this encounter Care Teams Benzene Operator Relationship Specialty Start Date End Date Claritza Canela FNP [address] [place] [address] PCP - General Family Medicine 05/13/22 02/13/24 Yane Morrissey NP [address] [place] [address] PCP - General Family Medicine 02/14/24 documented as of this encounter
--- OUTSIDE RECORDS SUMMARY | 2024-10-25 11:43 | XMS_ITS | Encounter Summary ---
Author Organization [employer] Address 75 [facility] 7t [place] [address] Care Team Providers Care Hourly Shift Manager Name Role Phone Yane Morrissey NP Primary Care Provider [phone] Reason for Visit * Reason Comments Med Refill Encounter Details Date Type Department Care Team ([facility] st Contact Info) Description 08/26/2024 Refill [facility] MEDICINE [address] [place] [address] Claritza Canela FNP [address] [place] [address] Diabetic polyneuropathy associated with type 2 diabetes [...] 11:30 AM EDT Clinical Support [facility] MEDICINE [address] [place] [address] documented as of this encounter Visit Diagnoses Diagnosis Diabetic polyneuropathy associated with type 2 diabetes mellitus ([facility]/HCC) documented in this encounter Additional Health Concerns Assessment Noted Time PHQ-9 Depression Total Score: 9 05/24/20 11:18 AM EST documented as of this encounter Care Teams Hourly Shift Manager Relationship Specialty Start Date End Date Yane Morrissey NP [address] [place] [address] PCP - General Family Medicine 02/14/24 documented as of this encounter
--- OUTSIDE RECORDS SUMMARY | 2024-10-25 11:43 | XMS_ITS | Encounter Summary ---
Author Organization [employer] Address 75 [facility] 7t [place] [address] Care Team Providers Care Lead Warehouse Associate Name Role Phone Yane Morrissey NP Primary Care Provider [phone] Reason for Visit * Reason Onset Date Comments Nurse Triage 08/01/2024 Encounter Details Date Type Department Care Team ([facility] st Contact Info) Description 08/01/2024 Telephone [facility] MEDICINE [address] [place] [address] Yane Morrissey NP [address] [place] [address] Nurse Triage Social History Tobacco Use Types [...] 3 days The caller accepted this outcome. [phone] documented in this encounter Plan of Treatment Upcoming Encounters Date Type Department Care Team (Late st Contact Info) Description 10/29/2024 11:30 AM EDT Clinical Support [facility] MEDICINE [address] [place] [address] documented as of this encounter Visit Diagnoses Not on filedocumented in this encounter Additional Health Concerns Assessment Noted Time PHQ-9 Depression Total Score: 9 05/24/20 11:18 AM EST documented as of this encounter Care Teams Lead Warehouse Associate Relationship Specialty Start Date End Date Yane Morrissey NP [address] [place] [address] PCP - General Family Medicine 02/14/24 documented as of this encounter
--- OUTSIDE RECORDS SUMMARY | 2024-10-25 11:43 | XMS_ITS | Encounter Summary ---
Author Organization [employer] Address 75 [facility] 7t [place] [address] Care Team Providers Care Dag Coater Name Role Phone Claritza Canela Primary Care Provider [phone] Yane Morrissey NP Primary Care Provider [phone] Encounter Details Date Type Department Care Team (Late st Contact Info) Description 10/04/2023 Orders Only [facility]EDS [address] [place] [address] Claritza Canela FNP [address] [place] [address] Social History Tobacco Use Types Packs/Day Years [...] with others, in a hotel, in a fci, living outside on the street, on a [...] 11:30 AM EDT Clinical Support [facility] MEDICINE [address] [place] [address] documented as of this encounter Visit Diagnoses Not on filedocumented in this encounter Additional Health Concerns Assessment Noted Time PHQ-9 Depression Total Score: 23 023 10:13 AM EST documented as of this encounter Care Teams Dag Coater Relationship Specialty Start Date End Date Claritza Canela FNP [address] [place] [address] PCP - General Family Medicine 05/13/22 02/13/24 Yane Morrissey NP [address] [place] [address] PCP - General Family Medicine 02/14/24 documented as of this encounter
--- OUTSIDE RECORDS SUMMARY | 2024-10-25 11:43 | XMS_ITS | Encounter Summary ---
Author Organization [employer] Address [address] [facility] [address] 7t [place] [address] Care Team Providers Care Maternal Fetal Physician Name Role Phone Claritza CanelaP Primary Care Provider [phone] Yane Morrissey NP Primary Care Provider [phone] Reason for Visit * Reason Onset Date Comments Referral 03/23/2023 Encounter Details Date Type Department Care Team ([facility] st Contact Info) Description 03/23/2023 Telephone [facility] MEDICINE [address] [place] [address] Claritza Canela FNP [address] [place] [address] Referral Social History Tobacco Use Types Packs/Day [...] Description 10/29/2024 11:30 AM EDT Clinical Support [facility] MEDICINE [address] [place] [address] documented as of this encounter Visit Diagnoses Not on filedocumented in this encounter Additional Health Concerns Assessment Noted Time PHQ-9 Depression Total Score: 2 06/01/20 9:11 AM EST documented as of this encounter Care Teams Maternal Fetal Physician Relationship Specialty Start Date End Date Claritza Canela FNP [address] [place] [address] PCP - General Family Medicine 05/13/22 02/13/24 Yane Morrissey NP [address] [place] [address] PCP - General Family Medicine 02/14/24 documented as of this encounter
--- OUTSIDE RECORDS SUMMARY | 2024-10-25 11:43 | XMS_ITS | Encounter Summary ---
Author Organization [employer] Address 75 [facility] 7t [place] [address] Care Team Providers Care Ballet Company Artistic Director Name Role Phone Yane Morrissey NP Primary Care Provider [phone] Reason for Visit * Reason Comments Med Refill Encounter Details Date Type Department Care Team ([facility] st Contact Info) Description 08/20/2024 Refill [facility] MEDICINE [address] [place] [address] Omaira Brian MD [address] [place] [address] Clogged ear, bilateral Social History Tobacco Use [...] Description 10/29/2024 11:30 AM EDT Clinical Support [facility] MEDICINE [address] [place] [address] documented as of this encounter Visit Diagnoses Diagnosis Clogged ear, bilateral documented in this encounter Additional Health Concerns Assessment Noted Time PHQ-9 Depression Total Score: 9 05/24/20 11:18 AM EST documented as of this encounter Care Teams [employer] Artistic Director Relationship Specialty Start Date End Date Yane Morrissey NP [address] [place] [address] PCP - General Family Medicine 02/14/24 documented as of this encounter
--- OUTSIDE RECORDS SUMMARY | 2024-10-25 11:43 | XMS_ITS | Encounter Summary ---
Author Organization [employer] Address [address] [facility] [address] [place] [address] Care Team Providers Care Car Racer Name Role Phone Yane Morrissey NP Primary Care Provider [phone] Encounter Details Date Type Department Care Team (Late st Contact Info) Description 05/17/2024 Orders Only [facility] MEDICINE [address] [place] [address] Michelle Castillo Social History Tobacco Use Types [...] with others, in a hotel, in a intermediate, living outside on the street, on a [...] Description 10/29/2024 11:30 AM EDT Clinical Support [facility] MEDICINE [address] [place] [address] documented as of this encounter Procedures Procedure [...] documented as of this encounter Care Teams Car Racer Relationship Specialty Start Date End Date Yane Morrissey NP [address] [place] [address] PCP - General Family Medicine 02/14/24 documented as of this encounter
--- OUTSIDE RECORDS SUMMARY | 2024-10-25 11:43 | XMS_ITS | Encounter Summary ---
Author Organization [employer] Address [address] [place] [address] Care Team Providers Care Brake Engineer Name Role Phone Claritza Canela Primary Care Provider [phone] Yane Morrissey NP Primary Care Provider [phone] Encounter Details Date Type Department Care Team (Late st Contact Info) Description 03/28/2023 Orders Only [facility]ED[facility] [address] [place] [address] Claritza Canela FNP [address] [place] [address] Acute bilateral low back pain with right-sided [...] 11:30 AM EDT Clinical Support [facility] [address] [place] [address] documented as of this encounter Visit Diagnoses Diagnosis Acute bilateral low back pain with right-sided sciatica documented in this encounter Additional Health Concerns Assessment Noted Time PHQ-9 Depression Total Score: 2 06/01/20 9:11 AM EST documented as of this encounter Care Teams Brake Engineer Relationship Specialty Start Date End Date Claritza Canela FNP [address] [place] [id number] PCP - General Family Medicine 05/13/22 02/13/24 Yane Morrissey NP [address] [place] [id number] PCP - General Family Medicine 02/14/24 documented as of this encounter
== END 2024-10-25 12:05 | disposition home or self-care (01) ==
LOC: HO.HOS 11:20
PROVIDERS: PCP Internal Medicine
DX: M17.0 Bilateral primary osteoarthritis of knee (principal)
CPT/HCPCS: 20610; 99213

== ENCOUNTER 2024-10-25 11:58 | Outpatient (AMB) | payer OTHER, SELFPAY ==
--- NOTE | 2024-10-25 12:35 | AM.OFFVISNUR ---
Intake Visit Reasons: h pylori Allergies aspirin [ASPIRIN] Allergy (Severe, Verified 10/25/24 11:23) TONGUE SWELLING bee pollen [BEE STINGS] Allergy (Severe, Verified 10/25/24 11:23) ANAPHYLAXIS Nursing Note Patient presents for collection of H Pylori breath test. Patient has been fasting for 1 hour (nothing to eat, drink, no chewing gum or smoking) has not taken any antacid medication for at least 2 weeks and has no allergies to artificial sweeteners.?? Assessment & Plan Assessment & Plan (1) GERD (gastroesophageal reflux disease): Code(s): K21.9 - Gastro-esophageal reflux disease without esophagitis Plan Patient presents for collection of H Pylori breath test. Patient has been fasting for 1 hour (nothing to eat, drink, no chewing gum or smoking) has not taken any antacid medication for at least 2 weeks and has no allergies to artificial sweeteners. This test checks for an overgrowth of bacteria in your stomach. We all have bacteria but some may have more than others. It is treatable. if the test comes back negative there is nothing else to do. If the test result is positive we will treat you with 2 antibiotics and a medication to decrease the acid in your stomach (PPI) for 2 weeks. Two weeks after you have completed the treatment we will retest you to make sure the overgrowth has resolved. Patient Instructions: Process for specimen collection and reason for testing was explained to the patient. Specimen collection. Patient instructed to take a deep breath and then exhale into the blue bag, filling it up as much as possible. Patient instructed to drink a mixture of water and the artificial sweetener with a straw. A 15 minute wait period was observed. Patient instructed to take a deep breath and then exhale into the pink bag, filling it up as much as possible Coding Level of Care Code Established Pt Est Pt Level 1 (85127) Patient Type Established Medical Decision Making Straight Forward Diagnoses GERD (gastroesophageal reflux disease) K21.9
== END 2024-10-25 12:36 | disposition home or self-care (01) ==
LOC: HO.HGI 11:58
PROVIDERS: PCP Internal Medicine; Visit Provider Nurse Practitioner Family
DX: K21.9 Gastro-esophageal reflux disease without esophagitis (principal)

== ENCOUNTER 2024-10-25 12:50 | Outpatient (REF) | payer OTHER, SELFPAY ==
--- OUTSIDE RECORDS SUMMARY | 2024-10-25 12:52 | XMS_ITS | Encounter Summary ---
Author Organization [employer] Address [address] [facility] [address] [place] [address] Care Team Providers Care Graduate Engineer Name Role Phone Claritza Canela Primary Care Provider [phone] Yane Morrissey NP Primary Care Provider [phone] Encounter Details Date Type Department Care Team (Late st Contact Info) Description 09/05/2022 Orders Only [facility] [address] [place] [address] Claritza Canela FNP [address] [place] [address] Type 2 diabetes mellitus with hyperosmolarity without coma, without long-term current use of insulin ([facility]) Social History Tobacco Use Types Packs/Day [...] AM EDT Clinical Support [facility] [address] [place] [id number] documented as of this encounter Visit Diagnoses Diagnosis Type 2 diabetes mellitus with hyperosmolarity without coma, without long-term current use of insulin ([facility]) documented in this encounter Additional Health Concerns Assessment Noted Time PHQ-9 Depression Total Score: 2 06/01/20 9:11 AM EST documented as of this encounter Care Teams Graduate Engineer Relationship Specialty Start Date End Date Claritza Canela FNP [address] [place] [id number] PCP - General Family Medicine 05/13/22 02/13/24 Yane Morrissey NP [address] [place] [address] PCP - General Family Medicine 02/14/24 documented as of this encounter
--- OUTSIDE RECORDS SUMMARY | 2024-10-25 12:52 | XMS_ITS | Encounter Summary ---
Author Organization [employer] Address [address] [facility] 7t [place] [address] Care Team Providers Care Registered Nursing Professor Name Role Phone Claritza CanelaP Primary Care Provider [phone] Yane Morrissey NP Primary Care Provider [phone] Reason for Visit * Reason Onset Date Comments Med Refill Abnormal mammo follow up 10/18/2022 Encounter Details Date Type Department Care Team (Late st Contact Info) Description 10/18/2022 Refill [facility] [address] [place] [address] Elsie Argueta ANP [address] [place] [address] Social History Tobacco Use Types Packs/Day Years [...] AM EDT Incoming call from Shana at [facility] calling to let us know [...] 11:30 AM EDT Clinical Support [facility] [address] [place] [address] documented as of this encounter Visit Diagnoses Not on filedocumented in this encounter Additional Health Concerns Assessment Noted Time PHQ-9 Depression Total Score: 2 06/01/20 22 9:11 AM EST documented as of this encounter Care Teams Registered Nursing Professor Relationship Specialty Start Date End Date Claritza Canela FNP [address] [place] [id number] PCP - General Family Medicine 05/13/22 02/13/24 Yane Morrissey NP [address] [place] [address] PCP - General Family Medicine 02/14/24 documented as of this encounter
--- OUTSIDE RECORDS SUMMARY | 2024-10-25 12:52 | XMS_ITS | Encounter Summary ---
Author Organization [employer] Address [address] [facility] [address] [place] [address] Care Team Providers Care Tread Cutter Name Role Phone Claritza CanelaP Primary Care Provider [phone] Yane Morrissey NP Primary Care Provider [phone] Encounter Details Date Type Department Care Team (Late st Contact Info) Description 03/21/2023 Orders Only [facility] [address] [place] [address] Provider, MD [place] Social History Tobacco Use [...] t he electric, gas, oil or water [employer] threatened to shut off services in your [...] Description 10/29/2024 11:30 AM EDT Clinical Support [facility] [address] [place] [address] documented as of this encounter Procedures Procedure [...] documented as of this encounter Care Teams Tread Cutter Relationship Specialty Start Date End Date Claritza Canela FNP [address] [place] [address] PCP - General Family Medicine 05/13/22 02/13/24 Yane Morrissey NP [address] [place] [address] PCP - General Family Medicine 02/14/24 documented as of this encounter
--- OUTSIDE RECORDS SUMMARY | 2024-10-25 12:52 | XMS_ITS | Encounter Summary ---
Author Organization [employer] Address [address] [facility] 7[address] [place] [address] Care Team Providers Care It Generalist Name Role Phone Claritza Canela Primary Care Provider [phone] Yane Morrissey NP Primary Care Provider [phone] Encounter Details Date Type Department Care Team (Late st Contact Info) Description 01/30/2023 Orders Only [facility] PEDS [address] [place] [address] Claritza Canela FNP [address] [place] [address] Social History Tobacco Use Types Packs/Day Years [...] Description 10/29/2024 11:30 AM EDT Clinical Support [facility] [address] [place] [address] documented as of this encounter Visit Diagnoses Not on filedocumented in this encounter Additional Health Concerns Assessment Noted Time PHQ-9 Depression Total Score: 2 06/01/20 22 9:11 AM EST documented as of this encounter Care Teams It Generalist Relationship Specialty Start Date End Date Claritza Canela FNP [address] [place] [address] PCP - General Family Medicine 05/13/22 02/13/24 Yane Morrissey NP [address] [place] [address] PCP - General Family Medicine 02/14/24 documented as of this encounter
--- OUTSIDE RECORDS SUMMARY | 2024-10-25 12:52 | XMS_ITS | Clinical Summary ---
Author Organization [employer] Address [address] [place] [address] Care Team Providers Care Care Nurse Rn Name Role Phone Yane Morrissey NP Primary Care Provider [phone] Allergies Active Allergy Reactions Criticality Noted Date [...] resolved after treatment, unspecified laterality, unspecified whether long term acute care registered nurse insulin use (CMS/HCC) TEST BLOOD SUGAR TWICE [...] 9 mL 1 025 Active Continuous Glucose Engine Research Engineer (FreeStyle Ry[place] 3 [place]) deviceIndications :Type 2 diabetes mellitus without complication, [...] each 025 Active glucose blood (FreeStyle Precision Pter Test) test strip Use to test blood sugar 4 times daily in case of CGM failure or extremes of BG 100 each 11 025 2025 Active Semaglutide,0.25 or 0.5MG/DOS, (Ozempic, 0.25 or 0.5 MG/DOSE,) 2 MG/3ML solution pen-injectorIndic ations:Type 2 diabetes mellitus without complication, with long-term current use of insulin ([facility]) Inject 0.5 mg under the skin 1 [...] with services. PLAN: 1. Follow up with [facility]: Not recommended for follow-up 2. [...] with services. PLAN: 1. Follow up with [facility]: Not recommended for follow-up 2. [...] her . Recommended to keep appt with [facility] therapist Carol Schaefer. At this time Armand Montilla meets criteria for Visit Diagnoses: Problem List Items Addressed This Visit Other Severe anxiety Major depressive disorder Patient ready to address current needs Armand is already engage in MH services at [facility]. Strengths include She is in action stage of change and this motivation will serve as treatment engagement. PLAN: 1. Follow up with [facility]: Not recommended for follow-up 2. [...] with services. PLAN: 1. Follow up with [facility]: Not recommended for follow-up 2. Patient goal is to continue attending individual therapy with [facility]. Behavioral Recommendations a. Follow PCP recommendation for med management b. Practice self-care and self-compassion c. Set-up healthy boundaries with partner and improve communication skills Panic attack 12/15/2017 Encounters Date Type Department Care Team Description 10/18/2024 Telephone [facility] [address] [place] [address] Melissa Temple, ISAAK 10/17/2024 Refill [facility] [address] [place] [address] Yane Morrissey NP Essential hypertension 10/08/2024 Telephone [facility] [address] [place] [address] Melissa Temple RN 10/07/2024 Refill [facility] [address] [place] [phone] Yane Morrissey NP Generalized abdominal pain 10/02/2024 Telephone [facility] [address] [place] [address] Yane Morrissey NP Prior Authorization 09/27/2024 4:00 PM EDT Office Visit [facility] [address] [place] [address] Yane Morrissey NP Cervicogenic headache (Primary Dx); Type 2 diabetes mellitus without complication, with long-term current use of insulin ([facility]); Primary hypertension; Dysuria; Pain of left hip; Left lower quadrant abdominal pain; Dietary counseling; Exercise counseling 09/27/2024 Travel 09/20/2024 Refill [facility] [address] [place] [address] Yane Morrissey NP Type 2 diabetes mellitus without complication, with long-term current use of insulin ([facility]) 09/17/2024 Telephone [facility] [address] [place] [phone] Bridget Hickey MA Chart prep 09/09/2024 Refill [facility] [address] [place] [address] Claritza Canela FNP Acute bilateral low back pain with right-sided sciatica; Type 2 diabetes mellitus without complication, with long-term current use of insulin ([facility]) 09/06/2024 Refill [facility] [address] [place] [address] Omaira Brian MD Generalized abdominal pain 08/30/2024 Telephone [facility] [address] [place] [address] Yane Morrissey NP Prior Authorization (Lidocaine patches); Prior Auth Prescription 08/30/2024 Refill [facility] [address] [place] [address] Claritza Canela FNP 08/27/2024 Refill [facility] [address] [place], [place] [phone] Yane Morrissey NP 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, unspecified laterality, unspecified whether mcc insulin use ([facility]) 08/26/2024 Refill [facility] [address] [place] [address] Claritza Canela FNP Diabetic polyneuropathy associated with type 2 diabetes mellitus ([facility]) 08/20/2024 Refill [facility] [address] [place] [phone] Omaira Brian MD Clogged ear, bilateral 08/12/2024 3:00 PM EST Clinical Support [address] [address] Johana Howe RN Impacted cerumen of both ears 08/12/2024 Travel 08/06/2024 3:30 PM EST Office Visit [address] [address] Omaira Brian MD Generalized abdominal pain (Primary Dx); Clogged ear, bilateral 08/06/2024 Travel 08/02/2024 Telephone [facility] [address] [place] [address] Yane Morrissey NP Lab Orders; ER Follow-up 08/01/2024 Telephone [facility] [address] [place] [address] Yane Morrissey NP Nurse Triage 07/31/2024 Orders [...] Description 10/29/2024 11:30 AM EDT Clinical Support [address] [address] Health Maintenance Due Date Last Done Comments [...] complication, with long-term current use of insulin ([facility]) POCT GLUCOSE Routine 09/27/2024 4:38 PM EDT Type 2 diabetes mellitus without complication, with long-term current use of insulin ([facility]) [place] REMOVAL IMPACTED CERUMEN IRRIGATION/LVG UNILAT Routine 08/12/2024 [...] 2 diabetes mellitus without complication, unspecified whether mcc insulin use ([facility]) LIPID PANEL, STANDARD Routine 07/27/2023 8:06 AM EST Type 2 diabetes mellitus without complication, unspecified whether long term acute care registered nurse insulin use ([facility]) PAP/HPV Routine 06/16/2023 12:00 AM EST MAMMOGRAPHY [...] procedure / Unknown 09/28/2024 09/28/2024 Comment:UACC Narrative [facility] - 09/29/2024 11:27 AM EDT Urine Culture Report Result Urine Culture 50,000 to 100,000 cfu/ml Urine Culture Mixed bacterial noé characteristic of Urine Culture urogenital contamination. Specimen Source: Urine clean catch Yane Morrissey NP LAB MICROBIOLOGY - GENERAL ORDER PENNIE Final Result [facility] [address] [place] [phone] * (ABNORMAL) POCT Urinalysis (09/27/2024 5:09 [...] Media Lot # [id number] Lot# Expiration Date [id number] Urine 09/27/2024 5:09 PM EDT Yane Morrissey WATER FILTERER HELPER POINT OF CARE TEST ENTER/EDIT OR DERABLES Final Result * POCT HGB A1C (09/27/2024 4:38 PM EDT) Hemoglobin A1C 5.9 4.0 - 6.0 % QC Media Lot # [id number] Lot# Expiration Date , Blood 09/27/2024 4:38 PM EDT Result [facility] Yane Morrissey WATER FILTERER HELPER POINT OF CARE TEST ENTER/EDIT OR DERABLES Final Result * POCT Glucose (09/27/2024 4:38 PM EDT) Pathologist [facility] Glucose Blood, POC 89 60 - 200 mg/dL QC Media Lot # [id number] Lot# Expiration Date 025 Blood Capillary blood specimen / Unknown 09/27/2024 4:38 PM EDT Result [facility] Yane Morrissey WATER FILTERER HELPER POINT OF CARE TEST ENTER/EDIT OR DERABLES Final Result * [place] REMOVAL IMPACTED CERUMEN IRRIGATION/LVG UNILAT (08/12/2024 2:44 [...] yes ?Risks discussed: ??Dizziness and incomplete removal Kevil protocol: ??Patient identity confirmed: ??Verbally with patient Procedure details: ??Location: ??L ear and R ear ??Procedure type: irrigation ?Procedure outcomes: cerumen removed ?? Post-procedure details: ??Inspection: ??No bleeding and TM intact ??Hearing quality: ??Improved ??Procedure completion: ??Tolerated us Capo Marie MD IN CLINIC/BEDSIDE ORDERABLES Fin al Result * Helicobacter pylori??Antigen, EIA, Stool (08/07/2024 8:48 AM EST) H pylori Ag Stool SEE NOTE [facility] Comment:HELICOBACTER PYLORI AG, EIA, STOOL Micro Number: [id number] Test Status: Final Specimen Source: Stool Specimen Quality: Adequate H.pylori Ag: Not Detected Antimicrobials, proton pump inhibitors, and bismuth preparations inhibit H. pylori and ingestion up to two weeks prior to testing may cause false negative results. If clinically indicated the test should be repeated on a new specimen obtained two weeks after discontinuing treatment. Reference Range: Not DetectedTHIS TEST WAS PERFORMED AT:[employer] [place] [phone] HAMILTON MD Stool Rectal contents / Unknown 08/07/2024 8:48 AM EST 08/09/2024 12:13 PM EST Omaira Ashby MD LAB BODY FLUIDS AND S TOOLS ORDERABLES Final Result [facility] [address] [place] [phone] * CBC auto differential (07/31/2024 1:18 PM EST) White Blood Count 6.2 4.8 - 10.8 X10*3/uL [facility] Red Blood Count 4.98 4.20 - 5.50 X10*6/uL [facility] Hemoglobin 13.9 12.0 - 16.0 g/dl [facility] Hematocrit 41.2 37.0 - 47.0 % [facility] Mean Corpuscular Volume 82.7 80.0 - 98.0 fL [facility] Mean Corpuscular Hemoglobin 27.9 27.0 - 33.0 pg [facility] Mean Corpuscular HGB Conc 33.7 31.0 - 35.0 g/dl [facility] Red Cell Distribution Width 13.6 11.0 - 16.0 % [facility] Platelet Count 271 160 - 400 X10*3/uL [facility] Mean Platelet Volume 9.5 9.4 - 12.3 fL [facility] Neutrophils Percent Auto 64.1 45 - 73 % [facility] Imm Gran Pct Auto 0.3 0.0 - 0.4 % [facility] Lymphocytes Percent Auto 27.4 20 - 40 % [facility] Monocytes Percent Auto 5.5 2 - 11 % [facility] Eosinophils Percent Auto 2.1 0 - 4 % [facility] Basophils Percent Auto 0.6 0 - 2 % [facility] NRBC Pct Auto 0.0 0.0 - 0.2 /100WBC [facility] Neutrophils Absolute Auto 4.0 2.0 - 8.3 x10*3/uL [facility] Imm Gran Abs Auto 0.02 0.00 - 0.03 X10*3/uL [facility] Lymphocytes Absolute Auto 1.7 1.2 - 4.9 X10*3/uL [facility] Monocytes Absolute Auto 0.3 0.1 - 1.2 X10*3/uL [facility] Eosinophils Absolute Auto 0.1 0.0 - 0.4 X10*3/uL [facility] Basophils Absolute Auto 0.0 0.0 - 0.2 X10*3/uL [facility] NRBC Abs Auto 0.000 0.0 - 0.012 X10*3/uL [facility] 07/31/2024 1:18 PM EST 07/31/2024 1:30 PM EST us Generic External Data Provider LAB BLOOD ORDERAB LES Final Result [facility] [address] [place] [phone] * (ABNORMAL) Prothrombin Time-INR (07/31/2024 1:18 PM EST) Prothrombin Time 10.5(L) 10.9 - 12.4 SEC [facility] INTERNATIONAL NORM RATIO 0.9 0.9 - 1.1 [facility] Comment:INTERNATIONAL NORMAL IZED RATIO (INR) REFERENCE [...] ORDERAB LES Final Result Performing Organization Address [facility] Co de Phone Number [facility] [address] [place] [phone] * Magnesium (07/31/2024 1:18 PM EST) Magnesium 2.1 1.6 - 2.6 mg/dL [facility] 07/31/2024 1:18 PM EST 07/31/2024 1:30 PM EST Generic External Data Provider LAB BLOOD ORDERAB LES Final Result Performing Organization Address [facility] Co de Phone Number [facility] [address] [place] [phone] * Lipase (07/31/2024 1:18 PM EST) Lipase 29 8 - 78 U/L [facility] 07/31/2024 1:18 PM EST 07/31/2024 1:30 PM EST Generic External Data Provider LAB BLOOD ORDERAB LES Final Result Performing Organization Address [facility] Co de Phone Number [facility] [address] [place] [phone] * Lactic Acid (07/31/2024 1:18 PM EST) Lactic Acid 1.4 0.5 - 2.0 mmol/L [facility] 07/31/2024 1:18 PM EST 07/31/2024 1:32 PM EST us Generic External Data Provider LAB BLOOD ORDERAB LES Final Result [facility] [address] [place] [phone] * (ABNORMAL) Comprehensive Metabolic Panel (07/31/2024 1:18 PM EST) Sodium 139 135 - 145 mmol/L [facility] Potassium 3.7 3.3 - 5.1 mmol/L [facility] Chloride 106 96 - 108 mmol/L [facility] Carbon Dioxide 25 22 - 29 mmol/L [facility] Anion Gap 12 12 - 20 [facility] Urea Nitrogen (BUN) 22(H) 9 - 16 mg/dL [facility] Creatinine, Serum 0.80 0.5 - 1.4 mg/dL [facility] Creatinine Clr Calc Pharmacy 76.5 [facility] Comment:Provided height and weight: 158.75 cm,95.4 kg.eGFR (calculated from the MDRD study equation) and eCrCl(calculated from the Cockcroft-Gault equation) are based ondifferent parameters and may not yield comparable results.If eCrCl result is absurd, please check patient'sheight/weight. Estimated Glomerular Filt Rate >60 [facility] Comment:Chronic Kidney Disea se: Estimated GFR < 60 mL/min/[id number] Kidney Disease: Estimated GFR < 15 mL/min/1.73m2 Glucose 84 60 - 115 mg/dL [facility] Calcium 9.4 8.4 - 10.2 mg/dL [facility] Bilirubin, Total 0.6 0.0 - 1.0 mg/dL [facility] Aspartate Amino Transferase 30 5 - 31 U/L [facility] Alanine Aminotransferase 25 0 - 31 U/L [facility] Total Protein 7.4 6.5 - 8.0 g/dL [facility] Albumin Level 4.3 3.5 - 5.0 g/dL [facility] Alkaline Phosphatase 81 39 - 117 U/L [facility] 07/31/2024 1:18 PM EST 07/31/2024 1:30 PM EST us Generic External Data Provider LAB BLOOD ORDERAB LES Final Result Performing Organization Address [facility] Co de Phone Number [facility] [address] [place] [phone] * Albumin, Random Urine W/Creatinine (07/27/2023 8:40 AM EST) Creatinine, Urine 132.90 mg/dL [facility] Microalbumin Urine 17.0 mg/L [facility] Microalbum Creatinine Ratio Ur 12.7 <30 ug/mg cr [facility] Comment:Albumin/Creatinine R atio Reference Ranges: Normal: < 30 ug/mg creatinine Microalbuminuria: 30 - 300 ug/mg creatinineClinical Albuminuria: > 300 ug/mg creatinine Urine (Urine, Random) 07/27/2023 8:40 AM EST 07/27/2023 11:28 AM EST us Claritza KEYSP LAB URINE ORDERABLES Final Resu lt Performing Organization Address City/[facility]/ZIP Co de Phone Number [facility] [address] [place] [phone] * Lipid Panel, Standard (07/27/2023 8:06 AM EST) Triglycerides 53 <150 mg/dL [facility] Comment:Desirable Triglyceri de: less than 150 mg/dLBorderline High Triglyceride 150-199 mg/dLHigh Triglyceride: 200-499 mg/dLVery High Triglyceride: greater than or equal to 5OO mg/dL Cholesterol 113 <200 mg/dL [facility] Comment:Desirable Cholestero l: less than 200 mg/dLBorderline High Cholesterol: 200-239 mg/dLHigh Cholesterol: greater than 239 mg/dL LDL Cholesterol Calculated 39 <100 mg/dL [facility] Comment:Desirable LDL: less than 100 mg/dLNear Optimal/Above Optimal LDL: 110- 129 mg/dLBorderline High LDL: 130-159 mg/dLHigh LDL: 160-189 mg/dLVery High LDL: greater than or equal to 190 mg/dL HDL Cholesterol 64 >40 mg/dL [facility] Comment:Desirable HDL: great er than 40 mg/dL Note: This HDL assay may give artificially low results in patients with liver disease. Blood Venous blood specimen / Unknown 07/27/2023 8:06 AM EST 07/27/2023 11:15 AM EST Claritza Canela MONOMER RECOVERY SUPERVISOR LAB BLOOD ORDERABLES Final Resu lt Performing Organization Address [facility] Co de Phone Number [facility] [address] [place] [phone] * PAP/HPV (06/16/2023 12:00 AM EST) Historical Provider HEALTH MAINTENANCE Final Result * Hm Mammography (05/05/2023) Mammogram Bi-rads 2 Anatomical Region Laterality Modality Other Historical Provider HEALTH MAINTENANCE Final Result * HEPATITIS C ANTIBODY RFLX (06/20/2019 8:11 AM EST) HEPATITIS C ANTIBODY NONREACTIVE NONREACTIVE [facility] Comment: Antibodies to HCV not detected; does not exclude early acute HCV infection. 06/20/2019 8:11 AM EST Albert Hollingsworth MD HISTORICAL/NON ORDERABLE LABS Fi nal Result Performing Organization Address City/[facility]/ZIP Co de Phone Number [facility] [address] * HIV AB/AG (06/20/2019 8:11 AM [...] detection of this assay. ?? The [employer] HIV Ag/Ab Combo assay result and supplemental assay results should be interpreted in conjunction with the patient's clinical presentation, history and other laboratory results. ??If the results are inconsistent with clinical evidence, additional testing is suggested to confirm the result. 06/20/2019 8:11 AM EST Albert Hollingsworth MD HISTORICAL/NON ORDERABLE LABS Fi nal Result [facility] [address] * HPV mRNA E6/E7 (07/12/2018 9:56 AM EST) Pathologist [facility] [place] HPV mRNA E6/E7 Not Detected NOT DETECTED [facility] Comment: This test was performed using the APTIMA(R) HPV Assay ([employer] This assay detects E6/E7 viral messenger RNA (mRNA) from 14 high-risk HPV types (16,18,31,33,35,39,45,51, 52,56,58,59,66,68). For additional information please refer to: http://education.Typemock.Atamasoft/faq/HPP770b8 (This link is being provided for informational/ educational purposes only.) The analytical performance characteristics of this assay have been determined by [employer] [place], [place]. The modifications have not been cleared or approved by the FDA. This assay has been validated pursuant to the CLIA regulations and is used for clinical purposes. Test Performed by [employer], [facility] [employer] [facility], [address] [place] [address] Henok Carreno M.D., Ph.D., Director of Laboratories , [facility] [id number] Please note: ??Effective 02/22/2016, HPV testing will be performed using [employer]'s APTIMA test which targets mRNA. Detecting mRNA instead of DNA, as in older methods, offers significant improvements in specificity. 07/12/2018 9:56 AM EST us Jayla Wang CNM HISTORICAL/NON ORDERABLE LABS Final Result [facility] [address] from Last 3 Months or Most Recently Relevant to Health Maintenance Insurance [facility] [address] [id number] Care Teams Care Nurse Rn Relationship Specialty Start Date End Date Yane Morrissey NP [address] [place] [address] PCP - General Family Medicine 02/14/24
--- OUTSIDE RECORDS SUMMARY | 2024-10-25 12:53 | XMS_ITS | Encounter Summary ---
Author Organization [employer] Address [address] [facility] [address] [place] [address] Care Team Providers Care Final Armature Tester Name Role Phone Yane Morrissey NP Primary Care Provider [phone] Encounter Details Date Type Department Care Team (Late st Contact Info) Description 06/03/2024 Telephone [facility] [address] [place] [address] Yane Morrissey NP [address] [place] [address] Social History Tobacco Use Types Packs/Day Years [...] Clinical Support [facility] [address] [place] [address] documented as of this encounter Visit Diagnoses Not on filedocumented in this encounter Additional Health Concerns Assessment Noted Time PHQ-9 Depression Total Score: 9 05/24/20 24 11:18 AM EST documented as of this encounter Care Teams Final Armature Tester Relationship Specialty Start Date End Date Yane Morrissey NP [address] [place] [address] PCP - General Family Medicine 02/14/24 documented as of this encounter
--- OUTSIDE RECORDS SUMMARY | 2024-10-25 12:53 | XMS_ITS | Encounter Summary ---
Author Organization [employer] Address [address] [facility] [employer] [facility] [employer] [address] [place] [address] Care Team Providers Care Medical Billing Specialist Name Role Phone Claritza Canela Primary Care Provider [phone] Yane Morrissey NP Primary Care Provider [phone] Reason for Visit * Reason Onset Date Comments Med Refill 02/02/2024 Encounter Details Date Type Department Care Team (Late st Contact Info) Description 02/02/2024 Refill [facility] [address] [place] [address] Claritza Canela FNP [address] [place] [address] Diabetic polyneuropathy associated with type 2 diabetes [...] with others, in a hotel, in a penitentiary, living outside on the street, on a [...] Description 10/29/2024 11:30 AM EDT Clinical Support [facility] [address] [place] [address] documented as of this encounter Visit Diagnoses Diagnosis Diabetic polyneuropathy associated with type 2 diabetes mellitus ([facility]/HCC) Type 2 diabetes mellitus without complication, with long-term current use of insulin ([facility]) documented in this encounter Additional Health Concerns Assessment Noted Time PHQ-9 Depression Total Score: 23 023 10:13 AM EST documented as of this encounter Care Teams Medical Billing Specialist Relationship Specialty Start Date End Date Claritza Canela FNP [address] [place] [address] PCP - General Family Medicine 05/13/22 02/13/24 Yane Morrissey NP [address] [place] [address] PCP - General Family Medicine 02/14/24 documented as of this encounter
--- OUTSIDE RECORDS SUMMARY | 2024-10-25 12:53 | XMS_ITS | Encounter Summary ---
Author Organization [employer] Address [address] [facility] [address] [place] [address] Care Team Providers Care Tax Manager Cpa Name Role Phone Claritza Canela Primary Care Provider [phone] Yane Morrissey NP Primary Care Provider [phone] Encounter Details Date Type Department Care Team (Late st Contact Info) Description 11/25/2022 Telephone [facility] [address] [place] [address] Claritza Canela FNP [address] [place] [address] Social History Tobacco Use Types Packs/Day Years [...] Clinical Support [facility] [address] [place] [address] documented as of this encounter Visit Diagnoses Not on filedocumented in this encounter Additional Health Concerns Assessment Noted Time PHQ-9 Depression Total Score: 2 06/01/20 22 9:11 AM EST documented as of this encounter Care Teams Tax Manager Cpa Relationship Specialty Start Date End Date Claritza Canela FNP [address] [place] [address] PCP - General Family Medicine 05/13/22 02/13/24 Yane Morrissey NP [address] [place] [phone] PCP - General Family Medicine 02/14/24 documented as of this encounter
--- OUTSIDE RECORDS SUMMARY | 2024-10-25 12:53 | XMS_ITS | Encounter Summary ---
Author Organization [employer] Address [address] [facility] 7t [place] [address] Care Team Providers Care Vertica Architect Name Role Phone Yane Morrissey NP Primary Care Provider [phone] Reason for Visit * Reason Onset Date Comments Lab Orders 08/02/2024 ER Follow-up 08/02/2024 Encounter Details Date Type Department Care Team (Late st Contact Info) Description 08/02/2024 Telephone [facility] MEDICINE [address] [place] [address] Yane Morrissey NP [address] [place] [address] Lab Orders; ER Follow-up Social History Tobacco [...] triage, spoke to pt. pt states seen [facility] 07/24 ER for stomach pain and intermittent [...] ED visit on : Date: 07/24/2024 Hospital: [facility] Seen for: Adonmonial Pain Symptomatic Yes *if yes message should go to Triage Patient advised will forward to team nurse for follow up Pt states that (ER doctor) called daughter stating that pt needs an outpatient Cat scan order sent to [facility]. Pt is still in a lot of pain currently. Don't Call pt from private number. documented in this encounter Plan of Treatment Upcoming Encounters Date Type Department Care Team (Late st Contact Info) Description 10/29/2024 11:30 AM EDT Clinical Support [facility] MEDICINE [address] [place] [address] documented as of this encounter Visit Diagnoses Not on filedocumented in this encounter Additional Health Concerns Assessment Noted Time PHQ-9 Depression Total Score: 9 05/24/20 24 11:18 AM EST documented as of this encounter Care Teams Vertica Architect Relationship Specialty Start Date End Date Yane Morrissey NP [address] [place] [address] PCP - General Family Medicine 02/14/24 documented as of this encounter
--- OUTSIDE RECORDS SUMMARY | 2024-10-25 12:53 | XMS_ITS | Encounter Summary ---
Author Organization [employer] Address 75 [facility] 7t [place] [address] Care Team Providers Care Comic Artist Name Role Phone Yane Morrissey NP Primary Care Provider [phone] Reason for Visit * Reason Comments Med Refill Encounter Details Date Type Department Care Team ([facility] st Contact Info) Description 08/26/2024 Refill [facility] MEDICINE [address] [place] [address] Claritza Canela FNP [address] [place] [address] Diabetic polyneuropathy associated with type 2 diabetes [...] Description 10/29/2024 11:30 AM EDT Clinical Support [facility] MEDICINE [address] [place] [address] documented as of this encounter Visit Diagnoses Diagnosis Diabetic polyneuropathy associated with type 2 diabetes mellitus (CMS/HCC) documented in this encounter Additional Health Concerns Assessment Noted Time PHQ-9 Depression Total Score: 9 05/24/20 11:18 AM EST documented as of this encounter Care Teams Comic Artist Relationship Specialty Start Date End Date Yane Morrissey NP [address] [place] [address] PCP - General Family Medicine 02/14/24 documented as of this encounter
--- OUTSIDE RECORDS SUMMARY | 2024-10-25 12:53 | XMS_ITS | Encounter Summary ---
Author Organization [employer] Address [address] [facility] [address] 7t [place] [address] Care Team Providers Care Senior Java Data Architect Name Role Phone Claritza CanelaP Primary Care Provider [phone] Yane Morrissey NP Primary Care Provider [phone] Encounter Details Date Type Department Care Team (Late st Contact Info) Description 03/21/2023 Abstract [facility] MEDICINE [address] [place] [address] Michelle Castillo Social History Tobacco Use Types [...] the past 12 months, has t he [email or web address] oil or water company threatened to shut [...] [facility] MEDICINE [address] [place] [address] documented as of this encounter Visit Diagnoses Not on filedocumented in this encounter Additional Health Concerns Assessment Noted Time PHQ-9 Depression Total Score: 2 06/01/20 22 9:11 AM EST documented as of this encounter Care Teams Senior Java Data Architect Relationship Specialty Start Date End Date Claritza Canela FNP [address] [place] [address] PCP - General Family Medicine 05/13/22 02/13/24 Yane Morrissey NP [address] [place] [address] PCP - General Family Medicine 02/14/24 documented as of this encounter
--- OUTSIDE RECORDS SUMMARY | 2024-10-25 12:53 | XMS_ITS | Encounter Summary ---
Author Organization [employer] Address 75 [facility] 7t [place] [address] Care Team Providers Care Language Specialist Name Role Phone Tamaratevin Claritza [employer] Primary Care Provider [phone] Yane Morrissey NP Primary Care Provider [phone] Encounter Details Date Type Department Care Team ([facility] Contact Info) Description 05/27/2022 Orders Only [facility] MEDICINE [address] [place] [id number] Corina Canchola, ISAAK Social History Tobacco Use [...] Clinical Support [facility] MEDICINE [address] [place] [address] documented as of this encounter Visit Diagnoses Not on filedocumented in this encounter Care Teams Language Specialist Relationship Specialty Start Date End Date Claritza Canela FNP [address] [place] [address] PCP - General Family Medicine 05/13/22 02/13/24 Yane Morrissey NP [address] [place] [address] PCP - General Family Medicine 02/14/24 documented as of this encounter
--- OUTSIDE RECORDS SUMMARY | 2024-10-25 12:53 | XMS_ITS | Encounter Summary ---
Author Organization [employer] Address 75 [facility] 7t [place] [address] Care Team Providers Care Position Classification Manager Name Role Phone Claritza CanelaP Primary Care Provider [phone] Yane Morrissey NP Primary Care Provider [phone] Reason for Visit * Reason Comments Med Refill Encounter Details Date Type Department Care Team (Late st Contact Info) Description 11/03/2023 Refill [facility] MEDICINE [address] [place] [address] Claritza Canela FNP [address] [place] [address] Social History Tobacco Use Types Packs/Day Years [...] Description 10/29/2024 11:30 AM EDT Clinical Support [facility] MEDICINE [address] [place] [address] documented as of this encounter Visit Diagnoses Not on filedocumented in this encounter Additional Health Concerns Assessment Noted Time PHQ-9 Depression Total Score: 23 023 10:13 AM EST documented as of this encounter Care Teams Position Classification Manager Relationship Specialty Start Date End Date Claritza Canela FNP [address] [place] [address] PCP - General Family Medicine 05/13/22 02/13/24 Yane Morrissey NP [address] [place] [address] PCP - General Family Medicine 02/14/24 documented as of this encounter
--- OUTSIDE RECORDS SUMMARY | 2024-10-25 12:53 | XMS_ITS | Encounter Summary ---
Author Organization [employer] Address [address] [facility] [address] 7[address] [place] [address] Care Team Providers Care Public Health Nurse Name Role Phone Yane Morrissey NP Primary Care Provider [phone] Encounter Details Date Type Department Care Team (Late st Contact Info) Description 05/17/2024 Orders Only [facility] MEDICINE [address] [place] [address] Michelle Castillo Social History Tobacco Use Types [...] Description 10/29/2024 11:30 AM EDT Clinical Support [facility] MEDICINE [address] [place] [address] documented as of this encounter Procedures Procedure [...] documented as of this encounter Care Teams Public Health Nurse Relationship Specialty Start Date End Date Yane Morrissey NP [address] [place] [address] PCP - General Family Medicine 02/14/24 documented as of this encounter
--- OUTSIDE RECORDS SUMMARY | 2024-10-25 12:53 | XMS_ITS | Encounter Summary ---
Author Organization [employer] Address 75 [facility] 7t [place] [address] Care Team Providers Care Structured Cabling Technician Name Role Phone Yane Morrissey NP Primary Care Provider [phone] Reason for Visit * Reason Comments Med Refill Encounter Details Date Type Department Care Team ([facility] st Contact Info) Description 08/20/2024 Refill [facility] MEDICINE [address] [place] [address] Omaira Brian MD [address] [place] [address] Clogged ear, bilateral Social History Tobacco Use [...] Description 10/29/2024 11:30 AM EDT Clinical Support [facility] MEDICINE [address] [place] [address] documented as of this encounter Visit Diagnoses Diagnosis Clogged ear, bilateral documented in this encounter Additional Health Concerns Assessment Noted Time PHQ-9 Depression Total Score: 9 05/24/20 11:18 AM EST documented as of this encounter Care Teams Structured Cabling Technician Relationship Specialty Start Date End Date Yane Morrissey NP [address] [place] [address] PCP - General Family Medicine 02/14/24 documented as of this encounter
--- OUTSIDE RECORDS SUMMARY | 2024-10-25 12:53 | XMS_ITS | Encounter Summary ---
Author Organization [employer] Address 75 [facility] 7t [place] [address] Care Team Providers Care Epic Cupid Specialists Name Role Phone Claritza Canela Primary Care Provider [phone] Yane Morrissey NP Primary Care Provider [phone] Encounter Details Date Type Department Care Team (Late st Contact Info) Description 11/25/[address] [facility] MEDICINE [address] [place] [address] Claritza Canela FNP [address] [place] [address] Social History Tobacco Use Types Packs/Day Years [...] Description 10/29/2024 11:30 AM EDT Clinical Support [facility] MEDICINE [address] [place] [address] documented as of this encounter Visit Diagnoses Not on filedocumented in this encounter Additional Health Concerns Assessment Noted Time PHQ-9 Depression Total Score: 2 06/01/20 22 9:11 AM EST documented as of this encounter Care Teams Epic Cupid Specialists Relationship Specialty Start Date End Date Claritza Canela FNP [address] [place] [address] PCP - General Family Medicine 05/13/22 02/13/24 Yane Morrissey NP [address] [place] [address] PCP - General Family Medicine 02/14/24 documented as of this encounter
--- OUTSIDE RECORDS SUMMARY | 2024-10-25 12:53 | XMS_ITS | Encounter Summary ---
Author Organization [employer] Address [address] [facility] [address] [place] [address] Care Team Providers Care Medical Auditor Name Role Phone Claritza Canela Primary Care Provider [phone] Yane Morrissey NP Primary Care Provider [phone] Encounter Details Date Type Department Care Team (Late st Contact Info) Description 03/28/2023 Orders Only [facility] MED & PEDS [address] [place] [address] Claritza Canela FNP [address] [place] [address] Acute bilateral low back pain with right-sided [...] [facility] MED[facility]INE [address] [place] [address] documented as of this encounter Visit Diagnoses Diagnosis Acute bilateral low back pain with right-sided sciatica documented in this encounter Additional Health Concerns Assessment Noted Time PHQ-9 Depression Total Score: 2 06/01/20 9:11 AM EST documented as of this encounter Care Teams Medical Auditor Relationship Specialty Start Date End Date Claritza Canela FNP [address] [place] [address] PCP - General Family Medicine 05/13/22 02/13/24 Yane Morrissey NP [address] [place] [address] PCP - General Family Medicine 02/14/24 documented as of this encounter
--- OUTSIDE RECORDS SUMMARY | 2024-10-25 12:53 | XMS_ITS | Encounter Summary ---
Author Organization [employer] Address 75 [facility] 7t [place] [address] Care Team Providers Care On Air Talent Name Role Phone Claritza Canela Primary Care Provider [phone] Yane Morrissey NP Primary Care Provider [phone] Encounter Details Date Type Department Care Team (Late st Contact Info) Description 01/30/2023 Orders Only [facility] MED & PEDS [address] [place] [address] Claritza Canela FNP [address] [place] [address] Breast density (Primary Dx) Social History Tobacco [...] Clinical Support [facility] MEDICINE [address] [place] [address] documented as of this encounter Visit Diagnoses Diagnosis Breast density- Primary Other sign and symptom in breast documented in this encounter Additional Health Concerns Assessment Noted Time PHQ-9 Depression Total Score: 2 06/01/20 22 9:11 AM EST documented as of this encounter Care Teams On Air Talent Relationship Specialty Start Date End Date Claritza Canela FNP [address] [place] [address] PCP - General Family Medicine 05/13/22 02/13/24 Yane Morrissey NP [address] [place] [address] PCP - General Family Medicine 02/14/24 documented as of this encounter
--- OUTSIDE RECORDS SUMMARY | 2024-10-25 12:53 | XMS_ITS | Encounter Summary ---
Author Organization [employer] Address 75 [facility] 7t [place] [address] Care Team Providers Care Field Sales Manager Name Role Phone Yane Morrissey NP Primary Care Provider [phone] Reason for Visit * Reason Onset Date Comments Nurse Triage 08/01/2024 Encounter Details Date Type Department Care Team ([facility] st Contact Info) Description 08/01/2024 Telephone [facility] MEDICINE [address] [place] [address] Yane Morrissey NP [address] [place] [address] Nurse Triage Social History Tobacco Use Types [...] 3 days The caller accepted this outcome. [phone] documented in this encounter Plan of Treatment Upcoming Encounters Date Type Department Care Team (Late st Contact Info) Description 10/29/2024 11:30 AM EDT Clinical Support [facility] MEDICINE [address] [place] [address] documented as of this encounter Visit Diagnoses Not on filedocumented in this encounter Additional Health Concerns Assessment Noted Time PHQ-9 Depression Total Score: 9 05/24/20 11:18 AM EST documented as of this encounter Care Teams Field Sales Manager Relationship Specialty Start Date End Date Yane Morrissey NP [address] [place] [address] PCP - General Family Medicine 02/14/24 documented as of this encounter
--- OUTSIDE RECORDS SUMMARY | 2024-10-25 12:53 | XMS_ITS | Encounter Summary ---
Author Organization [employer] Address 75 [facility] 7t [place] [address] Care Team Providers Care Assembly Loader Name Role Phone Claritza CanelaP Primary Care Provider [phone] Yane Morrissey NP Primary Care Provider Reason for Visit * Reason Comments Med Refill Encounter Details Date Type Department Care Team (Late st Contact Info) Description 11/29/2022 Refill [facility] MEDICINE [address] [place] [address] Claritza Canela FNP [address] [place] [address] Rash and nonspecific skin eruption Social History [...] Description 10/29/2024 11:30 AM EDT Clinical Support [facility] MEDICINE [address] [place] [address] documented as of this encounter Visit Diagnoses Diagnosis Rash and nonspecific skin eruption Rash and other nonspecific skin eruption documented in this encounter Additional Health Concerns Assessment Noted Time PHQ-9 Depression Total Score: 2 06/01/20 9:11 AM EST documented as of this encounter Care Teams Assembly Loader Relationship Specialty Start Date End Date Claritza Canela FNP [address] [place] [address] PCP - General Family Medicine 05/13/22 02/13/24 Yane Morrissey NP [address] [place] [address] PCP - General Family Medicine 02/14/24 documented as of this encounter
--- OUTSIDE RECORDS SUMMARY | 2024-10-25 12:53 | XMS_ITS | Encounter Summary ---
Author Organization [employer] Address 75 [facility] 7t [place] [address] Care Team Providers Care Solar Sales Specialist Name Role Phone Claritza Canela Primary Care Provider [phone] Yane Morrissey NP Primary Care Provider [phone] Encounter Details Date Type Department Care Team (Late st Contact Info) Description 10/04/2023 Orders Only [facility] CHC MED & PEDS [address] [place] [address] Claritza Canela FNP [address] [place] [address] Social History Tobacco Use Types Packs/Day Years [...] Description 10/29/2024 11:30 AM EDT Clinical Support [facility] MEDICINE [address] [place] [address] documented as of this encounter Visit Diagnoses Not on filedocumented in this encounter Additional Health Concerns Assessment Noted Time PHQ-9 Depression Total Score: 23 023 10:13 AM EST documented as of this encounter Care Teams Solar Sales Specialist Relationship Specialty Start Date End Date Claritza Canela FNP [address] [place] [address] PCP - General Family Medicine 05/13/22 02/13/24 Yane Morrissey NP [address] [place] [address] PCP - General Family Medicine 02/14/24 documented as of this encounter
--- OUTSIDE RECORDS SUMMARY | 2024-10-25 12:53 | XMS_ITS | Encounter Summary ---
Author Organization [employer] Address 75 [facility] 7t [place] [address] Care Team Providers Care Snow Removing Supervisor Name Role Phone Claritza Canela Primary Care Provider [phone] Yane Morrissey NP Primary Care Provider [phone] Reason for Visit * Reason Onset Date Comments Medication Question 01/17/2024 Encounter Details Date Type Department Care Team (Late st Contact Info) Description 01/17/2024 Telephone [facility] MEDICINE [address] [place] [address] Claritza Canela FNP [address] [place], [place] [address] Medication Question Social History Tobacco Use Types [...] with others, in a hotel, in a skilled nursing, living outside on the street, on a [...] any questions you can contact [facility] at [phone]. documented in this encounter Plan of Treatment Upcoming Encounters Date Type Department Care Team ([facility] st Contact Info) Description 10/29/2024 11:30 AM EDT Clinical Support [facility] MEDICINE [address] [place] [address] documented as of this encounter Visit Diagnoses Not on filedocumented in this encounter Additional Health Concerns Assessment Noted Time PHQ-9 Depression Total Score: 23 023 10:13 AM EST documented as of this encounter Care Teams Snow Removing Supervisor Relationship Specialty Start Date End Date Claritza Canela FNP [address] [place] [address] PCP - General Family Medicine 05/13/22 02/13/24 Yane Morrissey NP [address] [place] [address] PCP - General Family Medicine 02/14/24 documented as of this encounter
--- OUTSIDE RECORDS SUMMARY | 2024-10-25 12:53 | XMS_ITS | Encounter Summary ---
Author Organization [employer] Address 75 [facility] 7t [place] [address] Care Team Providers Care Byproducts Extractor Name Role Phone Claritza Canela [employer] Primary Care Provider [phone] Yane Morrissey NP Primary Care Provider [phone] Encounter Details Date Type Department Care Team (Late st Contact Info) Description 05/18/2022 Orders Only [facility] MEDICINE [address] [place] [address] Sonya Darnell MD [address] [place] [address] Type 2 diabetes mellitus with hyperosmolarity without coma, without long-term current use of insulin (CMS/[facility]) (Primary Dx) Social History Tobacco Use Types [...] Description 10/29/2024 11:30 AM EDT Clinical Support [address] [address] documented as of this encounter Visit Diagnoses Diagnosis Type 2 diabetes mellitus with hyperosmolarity without coma, without long-term current use of insulin ([facility])- Primary documented in this encounter Care Teams Byproducts Extractor Relationship Specialty Start Date End Date Claritza Canela FNP [address] [place] [address] PCP - General Family Medicine 05/13/22 02/13/24 Yane Morrissey NP [address] [place] [address] PCP - General Family Medicine 02/14/24 documented as of this encounter
--- OUTSIDE RECORDS SUMMARY | 2024-10-25 12:53 | XMS_ITS | Encounter Summary ---
Author Organization [employer] Address 75 [facility] 7t [place] [address] Care Team Providers Care Chief Innovation Officer Name Role Phone Claritza Canela Primary Care Provider Yane Morrissey NP Primary Care Provider [phone] Reason for Visit * Reason Onset Date Comments Medication Question 08/17/2023 Encounter Details Date Type Department Care Team (Late st Contact Info) Description 08/17/2023 Telephone [facility] MEDICINE [address] [place] [address] Claritza Canela FNP [address] [place] [address] Medication Question Social History Tobacco Use Types [...] with others, in a hotel, in a alf, living outside on the street, on a [...] was sent by paramedics yesterday at the [facility] pharmacywhich is not covered, pt. Does not remember the name/T/C to [facility] pharmacy for above message, pharmacy [...] by her insurance. Please contact pt at [phone]. documented in this encounter Plan of Treatment Upcoming Encounters Date Type Department Care Team (Late st Contact Info) Description 10/29/2024 11:30 AM EDT Clinical Support [facility] MEDICINE [address] [place] [address] documented as of this encounter Visit Diagnoses Not on filedocumented in this encounter Additional Health Concerns Assessment Noted Time PHQ-9 Depression Total Score: 23 023 10:13 AM EST documented as of this encounter Care Teams Chief Innovation Officer Relationship Specialty Start Date End Date Claritza Canela FNP [address] [place] [address] PCP - General Family Medicine 05/13/22 02/13/24 Yane Morrissey NP [address] [place] [address] PCP - General Family Medicine 02/14/24 documented as of this encounter
--- OUTSIDE RECORDS SUMMARY | 2024-10-25 12:53 | XMS_ITS | Encounter Summary ---
Author Organization [employer] Address 75 [facility] 7t [place] [address] Care Team Providers Care Ehs Manager Name Role Phone Claritza CanelaP Primary Care Provider [phone] Yane Morrissey NP Primary Care Provider [phone] Encounter Details Date Type Department Care Team (Late st Contact Info) Description 07/19/2022 Orders Only [facility] MEDICINE [address] [place] [address] Claritza Canela FNP [address] [place] [address] Type 2 diabetes mellitus without complication, with long-term current use of insulin ([facility]) (Primary Dx) Social History Tobacco [...] 10/29/2024 11:30 AM EDT Clinical Support [facility] MEDICINE [address] [place] [address] documented as of this encounter Visit Diagnoses Diagnosis Type 2 diabetes mellitus without complication, with long-term current use of insulin ([facility])- Primary documented in this encounter Additional Health Concerns Assessment Noted Time PHQ-9 Depression Total Score: 2 06/01/20 22 9:11 AM EST documented as of this encounter Care Teams Ehs Manager Relationship Specialty Start Date End Date [place] [address] PCP - General Family Medicine 05/13/22 02/13/24 Yane Morrissey NP [address] [place] [address] PCP - General Family Medicine 02/14/24 documented as of this encounter
--- OUTSIDE RECORDS SUMMARY | 2024-10-25 12:53 | XMS_ITS | Encounter Summary ---
Author Organization [employer] Address [address] [facility] [address] [place] [address] Care Team Providers Care Supervisor Hot Dip Tinning Name Role Phone Claritza CanelaP Primary Care Provider [phone] Yane Morrissey NP Primary Care Provider [phone] Reason for Visit * Reason Comments Med Refill Encounter Details Date Type Department Care Team (Late st Contact Info) Description 05/19/2023 Refill [facility] [address] [place] [address] Claritza Canela FNP [address] [place] [address] Anxiety Social History Tobacco Use Types Packs/Day [...] Clinical Support [facility] [address] [place] [address] documented as of this encounter Visit Diagnoses Diagnosis Anxiety Anxiety state, unspecified documented in this encounter Additional Health Concerns Assessment Noted Time PHQ-9 Depression Total Score: 23 023 10:13 AM EST documented as of this encounter Care Teams Supervisor Hot Dip Tinning Relationship Specialty Start Date End Date Claritza Canela FNP [address] [place] [address] PCP - General Family Medicine 05/13/22 02/13/24 Yane Morrissey NP [address] [place] [address] PCP - General Family Medicine 02/14/24 documented as of this encounter
--- OUTSIDE RECORDS SUMMARY | 2024-10-25 12:53 | XMS_ITS | Encounter Summary ---
Author Organization [employer] Address [address] [facility] [address] [place] [address] Care Team Providers Care Salary And Wage Administrator Name Role Phone Claritza CanelaP Primary Care Provider [phone] Yane Morrissey NP Primary Care Provider [phone] Reason for Visit * Reason Onset Date Comments Referral 03/23/2023 Encounter Details Date Type Department Care Team ([facility] st Contact Info) Description 03/23/2023 Telephone [facility] [address] [place] [address] Claritza Canela FNP [address] [place] [address] Referral Social History Tobacco Use Types Packs/Day [...] 10/29/2024 11:30 AM EDT Clinical Support [facility] [address] [place] [address] documented as of this encounter Visit Diagnoses Not on filedocumented in this encounter Additional Health Concerns Assessment Noted Time PHQ-9 Depression Total Score: 2 06/01/20 9:11 AM EST documented as of this encounter Care Teams Salary And Wage Administrator Relationship Specialty Start Date End Date Claritza Canela FNP [address] [place] [address] PCP - General Family Medicine 05/13/22 02/13/24 Yane Morrissey NP [address] [place] [address] PCP - General Family Medicine 02/14/24 documented as of this encounter
[2024-10-25 13:43] LABS: H Pylori Breath Test Negative (Negative)
== END 2024-10-25 12:51 | disposition home or self-care (01) ==
LOC: HO.LNP 12:50
PROVIDERS: Visit Provider Nurse Practitioner Family
DX: Z13.89 Encounter for screening for other disorder (principal)
CPT/HCPCS: 83013

== ENCOUNTER 2024-11-15 06:28 | Outpatient (REF) | payer OTHER, SELFPAY ==
--- NOTE | ~2024-11-15 | CT_ITS ---
EXAMINATION: CT ABDOMEN PELVIS WITH IV CONTRAST HISTORY: tender left lower quadrant pain COMPARISON: There are no prior studies for available comparison. TECHNIQUE: CT scan of the abdomen and pelvis was performed following administration of 85 mL Omnipaque 350 using standard departmental protocol. Coronal and sagittal reformatted images were generated and reviewed. The patient received oral contrast material. This CT exam was performed with one or more of the following dose reduction techniques: automated exposure control, adjustment of the mA and/or kV according to patient size, use of iterative reconstruction technique. DLP: 727 mGy-cm FINDINGS: LOWER CHEST: The visualized lung bases are clear. There is no pleural effusion. CARDIOVASCULATURE: The heart is normal in size. There is no pericardial effusion. LIVER: The liver is normal in size and contour. No liver mass is identified. The hepatic and portal veins are patent. GALLBLADDER / BILE DUCTS: The gallbladder is surgically absent. There is no intra or extrahepatic biliary ductal dilatation. SPLEEN: The spleen is normal in size. No focal splenic lesion is identified. PANCREAS: The pancreas is unremarkable in appearance. ADRENAL GLANDS: Within normal limits. KIDNEYS/RETROPERITONEUM: No renal calculi are identified. There is no hydronephrosis. No renal masses are identified. LYMPH NODES: No abdominal or pelvic lymphadenopathy. VASCULATURE: The abdominal aorta demonstrates atherosclerotic calcification, but is normal in caliber. MESENTERY/PERITONEUM: No free fluid. No masses. There is no free intraperitoneal gas. STOMACH: The stomach is collapsed, limiting evaluation. SMALL BOWEL: The small bowel is normal in caliber. COLON: There is a moderate to large amount of stool throughout the colon. APPENDIX: Normal. URINARY BLADDER/PELVIC ORGANS: The urinary bladder is collapsed, limiting evaluation. The uterus is unremarkable. BONES / SOFT TISSUES: No suspicious bony or soft tissue abnormalities. CT/CT abdomen pelvis w IV con IMPRESSION: Moderate to large amount of stool throughout the colon. Otherwise unremarkable contrast-enhanced CT of the abdomen and pelvis. Electronically signed by: Praveen Farias MD 11/15/2024 10:33 AM EDT
[2024-11-15] MEDS: iohexoL 350 MG/ML 100 ML INFUS..BTL IV (10:26)
[2024-11-15] MEDS: Barium Sulfate Oral (Berry) 450 ML ORAL.SUSP 900 ML PO (10:27)
[2024-11-15 10:59] LABS: Creatinine POC 0.7 mg/dL (0.5-1.4); GFR POC > 60
== END 2024-11-15 06:29 | disposition home or self-care (01) ==
LOC: HO.CT 06:28
PROVIDERS: PCP Nurse Practitioner Family; Visit Provider Nurse Practitioner Family
DX: R10.32 Left lower quadrant pain (principal)
CPT/HCPCS: 20610; 74177; 82565; J1010; J2003; Q9967

== ENCOUNTER → 2024-11-15 06:31 | Outpatient (BNV) | payer OTHER, SELFPAY | PROVIDERS: PCP Nurse Practitioner Family; Visit Provider Radiology Diagnostic Radiology | DX: K56.41 Fecal impaction (principal) | CPT/HCPCS: 74177 ==

== ENCOUNTER 2024-11-15 10:02 | Outpatient (AMB) | payer OTHER, SELFPAY ==
--- NOTE | 2024-11-15 10:04 | A.OFFVIS_ITS ---
Vital Signs 11/15/24 10:06 Height 5 ft 3 in Weight 213 lb BMI 37.7 Intake Visit Reasons: INJ-RT knee injection Intake Note: Armand is a 64 year old female who presents today for a right knee injection for her osteoarthritis of the knee. Patient Allergies aspirin [ASPIRIN] Allergy (Severe, Verified 11/15/24 10:06) TONGUE SWELLING bee pollen [BEE STINGS] Allergy (Severe, Verified 11/15/24 10:06) ANAPHYLAXIS HPI HPI INJ-RT knee injection: Details: Armand is a 64 year old female who presents today for a right knee injection for her osteoarthritis of the knee. Patient states that her L knee has felt much better in the L knee since injection, but the R knee has returned essentially to its pre-injection pain level for the last 1-2 months. [facility] Medical History Breast nodule Arthritis Bilateral carpal tunnel syndrome History of trigger finger DDD (degenerative disc disease) Seasonal asthma Anxiety Hypertension Acid reflux Migraines High cholesterol Diabetes Surgical History S/P LASIK surgery of both eyes History of carpal tunnel release S/P arthroscopic surgery of left knee (~1999) History of tonsillectomy History of section Family History Mother No problems noted. Father No problems noted. Paternal Aunt Uterine cancer Social History Alcohol intake: never Patient Tobacco Use Status: Never used Tobacco Second Hand Smoke Exposure: No Current occupational status: disabled Current occupation: rt hand Female Reproductive History Menstrual Age of Menarche: 11 Review of Systems Const All systems reviewed & are unremarkable except as noted in HPI and below Physical Exam Vital Signs: BMI result Body Mass Index 37.7 Office Procedures Joint Inj/Aspir; Non-Pain Clin Joint Injection/Drain Prep: site was prepped using aseptic technique and injection warnings given Approach Used: anterolateral Shoulders, Hips, Knees, Knee Large Joint Injection : Right Knee Coding Procedure code (CPT) selection complete Assessment & Plan Assessment & Plan (1) Osteoarthritis of knees, bilateral: Code(s): M17.0 - Bilateral primary osteoarthritis of knee Category: Medical Plan 1. Right knee osteoarthritis Patient is educated about this condition Patient is educated about the typical treatment course Patient is a interested in repeat steroid injection at this time The risks and benefits of a steroid injection including but not limited to risk of damage to blood vessels, nerves, tendons, infection, skin bleaching, failure to improve symptoms, increased pain, and possible need for further injections or other intervention were discussed with the patient and the patient wishes to proceed with the steroid injection. Once consent was obtained, I aseptically prepped the area over the anterolateral joint line of the right knee. I then injected the area over the lateral epicondyle with a combination of 40 mg of dexamethasone and 8 mL of 1% lidocaine. The patient tolerated the procedure well with no complications. If the patient continues to experience symptoms over the following few weeks or months, they can make an appointment to return and discuss alternative treatment measures, such as physical therapy. Follow-up prn Coding Level of Care Code Procedure Only Diagnoses Osteoarthritis of knees, bilateral M17.0 CPT Codes Shoulders, Hips, Knees, - Knee Large Joint Injection : Right Knee ([id number])
[2024-11-15 10:06] VITALS: BMI 37.7
--- OUTSIDE RECORDS SUMMARY | 2024-11-15 10:45 | XMS_ITS | Encounter Summary ---
Author Organization [employer] Address [address] [facility] [address] [place] [address] Care Team Providers Care Meter Attendant Name Role Phone Claritza Canela Primary Care Provider [phone] Yane Morrissey NP Primary Care Provider [phone] Reason for Referral * Imaging (Routine) - Closed Specialty Diagnoses / Procedures Referred By Luci leon Referred To Contact Diagnoses Mass of left breast, unspecified quadrant Procedures BI Mammogram Diagnostic Tomosynthesis Left Claritza Canela FNP [address] [place] [address] Phone: tel: fax: [address] Phone: tel: fax: Referral ID Status Reason Start Date Expiration Date Visits Re quested Visits Authorized [id number] Closed 11/11/2022 05/10/2023 1 1 Encounter Details Date Type Department Care Team (Late st Contact Info) Description 11/11/2022 Orders Only [facility] [address] [place] [address] Claritza Canela FNP [address] [place] [address] Mass of left breast, unspecified quadrant (Primary [...] as of this encounter Plan of Treatment Scheduled Orders [...] documented as of this encounter Care Teams Meter Attendant Relationship Specialty Start Date End Date Claritza Canela FNP [address] [place] [address] PCP - General Family Medicine 05/13/22 02/13/24 Yane Morrissey NP [address] [place] [address] PCP - General Family Medicine 02/14/24 documented as of this encounter
== END 2024-11-15 10:26 | disposition home or self-care (01) ==
LOC: HO.HOS 10:02
PROVIDERS: PCP Internal Medicine
DX: M17.0 Bilateral primary osteoarthritis of knee (principal)
CPT/HCPCS: 20610

== ENCOUNTER 2024-12-30 15:11 | Outpatient (AMB) | payer OTHER, SELFPAY ==
[2024-12-30 15:17] VITALS: BMI 37.7
--- NOTE | 2024-12-30 15:17 | MHC.OFFVIS ---
Vital Signs 12/30/24 15:17 Height 5 ft 3 in Weight 213 lb BMI 37.7 Intake Visit Reasons: New prob-LT hip pain Intake Note: Armand is a 64 year old female who presents as an established patient, new problem to evaluate left hip pain. Patient reports her pain has been present for years, states that she has had a lot of falls in the past. States at times her pain becomes severe making it difficult to stand or walk. No previous tx. She described her pain as a persistent stabbing sensation that is located at the posterior aspect of hip that travels to her groin area and down her leg. Numbness and tingling. Hx of vertigo. Patient was recently seen with SARTHAK Deng for bilateral knee pain. Allergies aspirin (ASPIRIN) Allergy (Severe, Verified 12/30/24 15:19) TONGUE SWELLING bee pollen (BEE STINGS) Allergy (Severe, Verified 12/30/24 15:19) ANAPHYLAXIS Medication List - Last Reconciled 12/31/24 by Cory Velasquez PA-C albuterol sulfate 90 mcg/actuation 2 puffs inhalation Q4-6H PRN atorvastatin 40 mg PO BEDTIME buspirone 10 mg PO DAILY epinephrine IM DIRECTED famotidine 40 mg PO BEDTIME hydroxyzine HCl 0 mg PO insulin degludec (Tresiba FlexTouch U-200 insulin) units subcut lancets (TRUEplus Lancets) As directed lidocaine 5% patches topical losartan 50 mg PO DAILY melatonin 3 mg PO BEDTIME metformin 1,000 mg PO BID methylcellulose (laxative) (Citrucel) 500 mg PO DAILY ondansetron HCl mg PO TID-QID PRN rizatriptan mg PO ONCE PRN semaglutide (Ozempic) 0.5 mg subcut QWEEK sennosides (Natural Senna Laxative) 17.2 mg (2 x 8.6 mg) PO BEDTIME topiramate 50 mg PO BID 90 days HPI HPI New prob-LT hip pain: Details: 64 yo female presents to the office today for c/o left sided Si joint and low back pain. She states the pain has been present for years. she denies injury. She states the pain wraps around to the side of her body down her leg. She does c/o n/t. She denies treatment to date. [facility] Medical History (Updated 12/30/24 @ 20:53 by Cory Velasquez PA-C) Breast nodule Arthritis Bilateral carpal tunnel syndrome History of trigger finger DDD (degenerative disc disease) Seasonal asthma Anxiety Hypertension Acid reflux Migraines High cholesterol Diabetes Surgical History (Updated 12/30/24 @ 15:21 by Kaylyn Ramirez Harper) S/P LASIK surgery of both eyes History of carpal tunnel release S/P arthroscopic surgery of left knee (~1999) History of tonsillectomy History of section Family History (Reviewed 10/25/24 @ 11:24 by Nany Singleton [facility]) Mother No problems noted. Father No problems noted. Paternal Aunt Uterine cancer Social History Alcohol intake: never Patient Tobacco Use Status: Never used Tobacco Second Hand Smoke Exposure: No Current occupational status: disabled Current occupation: rt hand Female Reproductive History Menstrual Age of Menarche: 11 Review of Systems Const All systems reviewed & are unremarkable except as noted in HPI and below Physical Exam Vital Signs: BMI result Body Mass Index 37.7 Const General: cooperative and no acute distress Orientation/consciousness: patient oriented x3 Resp Effort & Inspection: normal respiratory effort and able to speak in complete sentences Cardio Peripheral pulses: Peripheral pulses 2+ throughout Neuro General: patient oriented x3 Extrem Other: Pain along the left side of the si joint. No groin pain with rom of the left hip. + SLR. Results Reviewed Results Reviewed: XR hip LT min 2V IMPRESSION: Moderate degenerative changes in the SI joints. Moderate vascular calcifications, increasing since the prior. Minimal roof osteophytes involving left acetabulum. Assessment & Plan Assessment & Plan (1) Chronic SI joint pain: Code(s): M53.3 - Sacrococcygeal disorders, not elsewhere classified; G89.29 - Other chronic pain Category: Medical Plan: We discussed options which include PT for lumbar stabilization, core stab and glute strength. She is hesitant to begin PT but will attempt . I also recommend an appt with Dr Lara for further assessment to determine if she would benefit from other treatment modalities ie injections or further imaging. She is content with this plan. Pt order placed. Orders: Orders XR hip LT min 2V 12/30/24 M25.552 - Pain in left hip Coding Level of Care Code Est Pt Level 3 (67080) Complex EM visit Add On G2211 Diagnoses Chronic SI joint pain M53.3; G89.29
--- OUTSIDE RECORDS SUMMARY | 2024-12-30 15:48 | XMS_ITS | Encounter Summary ---
Author Organization [employer] Address [address] [facility] [address] [place] [address] Care Team Providers Care Client Delivery Specialist Name Role Phone Claritza Canela Primary Care Provider [phone] Yane Morrissey NP Primary Care Provider [phone] Reason for Referral * Imaging (Routine) - Closed Specialty Diagnoses / Procedures Referred By Luci leon Referred To Contact Diagnoses Mass of left breast, unspecified quadrant Procedures BI Mammogram Diagnostic Tomosynthesis Left Claritza Canela FNP [address] [place] [address] Phone: tel: fax: [address] Phone: tel: fax: Referral ID Status Reason Start Date Expiration Date Visits Re quested Visits Authorized [id number] Closed 11/11/2022 05/10/2023 1 1 Encounter Details Date Type Department Care Team (Late st Contact Info) Description 11/11/[address] [facility] [address] [place] [address] Claritza Canela FNP [address] [place] [address] Mass of left breast, unspecified quadrant (Primary [...] as of this encounter Care Teams Client Delivery Specialist Relationship Specialty Start Date End Date Claritza Canela FNP [address] [place] [address] PCP - General Family Medicine 05/13/22 02/13/24 Yane Morrissey NP [address] [place] [address] PCP - General Family Medicine 02/14/24 documented as of this encounter
== END 2024-12-30 16:11 | disposition home or self-care (01) ==
LOC: HO.HOS 15:12
PROVIDERS: PCP Nurse Practitioner Family; Visit Provider Physician Assistant
DX: M53.3 Sacrococcygeal disorders, not elsewhere classified (principal); G89.29 Other chronic pain
CPT/HCPCS: 99213; G2211

== ENCOUNTER 2024-12-30 15:11 | Outpatient (REF) | payer OTHER, SELFPAY ==
--- NOTE | ~2024-12-30 | XR_ITS ---
EXAMINATION: XR HIP, LEFT CLINICAL INFORMATION: M25.552 - Pain in left hip COMPARISON: 02/27/2018 TECHNIQUE: AP upright, AP supine, and frog-leg lateral views of the left hip. FINDINGS: There is sclerosis and narrowing with marginal osteophytes involving the articular portions of the SI joints. There are enthesophytes involving both iliac spines. Moderate vascular calcification is evident in the iliac and femoral arteries, increased since the prior. Numerous phleboliths are present in the pelvis. Left hip joint space is preserved and congruent. There is a small acetabular osteophyte. Interval developing enthesophyte formation is evident at the greater trochanter. 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 Moderate vascular calcifications, increasing since the prior. Minimal roof osteophytes involving left acetabulum. Electronically signed by: Skinny Flores MD 12/30/2024 03:57 PM EDT
== END 2024-12-30 15:12 | disposition home or self-care (01) ==
LOC: HO.HOSX 15:11
PROVIDERS: PCP Nurse Practitioner Family; Visit Provider Physician Assistant
DX: M53.3 Sacrococcygeal disorders, not elsewhere classified (principal); G89.29 Other chronic pain; M25.552 Pain in left hip; M54.50 Low back pain, unspecified
CPT/HCPCS: 73502; 99212

== ENCOUNTER → 2024-12-30 15:42 | Outpatient (BNV) | payer OTHER, SELFPAY | PROVIDERS: PCP Nurse Practitioner Family; Visit Provider Radiology Diagnostic Radiology | DX: M16.12 Unilateral primary osteoarthritis, left hip (principal) | CPT/HCPCS: 73502 ==

== ENCOUNTER 2025-01-24 07:57 | Outpatient (AMB) | payer OTHER, SELFPAY ==
--- OUTSIDE RECORDS SUMMARY | 2025-01-24 08:00 | XMS_ITS | Encounter Summary ---
Author Organization [employer] Address [address] [facility] [address] [place] [address] Care Team Providers Care It Sales Representative Name Role Phone Claritza Canela Primary Care Provider [phone] Yane Morrissey NP Primary Care Provider [phone] Reason for Referral * Imaging (Routine) - Closed Specialty Diagnoses / Procedures Referred By Luci leon Referred To Contact Diagnoses Mass of left breast, unspecified quadrant Procedures BI Mammogram Diagnostic Tomosynthesis Left Claritza Canela FNP [address] [place] [address] Phone: tel: fax: [address] Phone: tel: fax: Referral ID Status Reason Start Date Expiration Date Visits Re quested Visits Authorized [id number] Closed 11/11/2022 05/10/2023 1 1 Encounter Details Date Type Department Care Team (Late st Contact Info) Description 11/11/2022 Orders Only [facility] [address] [place] [address] Claritza Canela FNP [address] [place] [address] Mass of left breast, unspecified quadrant (Primary [...] as of this encounter Care Teams It Sales Representative Relationship Specialty Start Date End Date Claritza Canela FNP [address] [place] [address] PCP - General Family Medicine 05/13/22 02/13/24 Yane Morrissey NP [address] [place] [address] PCP - General Family Medicine 02/14/24 documented as of this encounter
--- NOTE | 2025-01-24 08:15 | MHC.OFFVIS ---
Vital Signs 01/24/25 08:25 Height 5 ft 3 in BP 134/68 Blood Pressure Location Lt brachial Position Sitting Pulse 92 Pulse Source Pulse Oximeter Pulse Oximetry (%) 96 Oxygen Delivery Method Room Air Intake Visit Reasons: 3 m Intake Note: Est pt for GERD mgmt. Labs done. Imaging scheduled. CC: Pt would like to discuss medications as she has some questions regarding possible interactions or contraindications. Pt is not taking her senna and has questions about that medication. Pt is taking famotidine and citrucel but has questions about those as well. Hotel Houseman Required: No Accompanied by: Self / Same As Patient Allergies aspirin (ASPIRIN) Allergy (Severe, Verified 01/24/25 08:15) TONGUE SWELLING bee pollen (BEE STINGS) Allergy (Severe, Verified 01/24/25 08:15) ANAPHYLAXIS HPI HPI 3 m: Details: LAST VISIT: GERD (gastroesophageal reflux disease) Postprandial epigastric pain Postprandial diarrhea Constipation LLQ abdominal pain Plan Patient will start taking fiber daily. Increase fluid intake and activity to promote better bowel motility. Patient will take Senokot in the evening. She will return in couple days for H pylori testing. Stop famotidine 24 hours before the test. Will rule out chronic pancreatitis, celiac. Will check liver panel, vitamin-D, B12, folate, thyroid study. Patient will be sent for upper GI with barium swallow. Discussed with patient avoiding dietary triggers and late night snacking. Staying upright for minimum 3 hours after meals discussed with patient. We also discuss low FODMAP diet. List of food recommended as well as list of food to avoid given to patient. Patient will return to the office in 3 months, sooner on as needed basis. She is agreeable to this plan and verbalizes understanding of instructions. She was given the opportunity to ask questions and all questions answered. ? Thank you for allowing me to participate in her care Orders Liver Panel Today R74.01 Vitamin D 25-OH (D2 and D3) Today E55.9 TSH reflex Free T4 Today K59.00 Transglutaminase IgA Today R10.9 Lipase Today R10.9 Vitamin B12 and Folate Today R19.7 H Pylori Breath Test Today K21.9 FL upper GI w Ba Swallow Today K21.9 New methylcellulose (laxative) (Citrucel) take it with full glass of water 500 mg PO DAILY 90 tabs 2RF K59.00 sennosides (Natural Senna Laxative) 17.2 mg (2 x 8.6 mg) PO BEDTIME 60 tabs 3RF constipation K59.00 famotidine 40 mg PO BEDTIME 30 tabs 3RF K21.9 TODAY'S VISIT: Patient is here today for follow-up. Patient reports that she has been doing fairly well. She is moving her bowels better now. She is taking MiraLax. Staff taking senna as she was worried that it will have side effects. Patient also is taking Citrucel. Reports that her bowels normalized. Her acid reflux is suppressed with famotidine. However patient reports that when she stops taking it for a day or 2 she will experience reflux and epigastric pain. Patient has been on Ozempic for quite some time and her symptoms could be related to Ozempic. She had increased level lipase. We could try Mounjaro to see if patient will feel better on it. Patient denies any nausea or vomiting. Patient reports that she has been eating cleaning. She eats lots of vegetables and fruits. Patient does not eat anything fried or greasy. Patient is not eating sweets. Upper GI series is scheduled for February 06. [facility] Medical History (Updated 01/24/25 @ 08:34 by Anum Conley [facility]) History of pancreatitis Breast nodule Arthritis Bilateral carpal tunnel syndrome History of trigger finger DDD (degenerative disc disease) Seasonal asthma Anxiety Hypertension Acid reflux Migraines High cholesterol Diabetes Surgical History S/P LASIK surgery of both eyes History of carpal tunnel release S/P arthroscopic surgery of left knee (~1999) History of tonsillectomy History of section Family History Mother No problems noted. Father No problems noted. Paternal Aunt Uterine cancer Social History Alcohol intake: never Patient Tobacco Use Status: Never used Tobacco Second Hand Smoke Exposure: No Current occupational status: disabled Current occupation: rt hand Female Reproductive History Menstrual Age of Menarche: 11 Review of Systems Const Denies weight gain and Denies weight loss ENT Reports no additional complaints, Denies dysphagia and Denies odynophagia Card Reports no additional complaints Resp Reports no additional complaints GI Reports abdominal pain (Epigastric, LLQ), Denies belching, Denies melena, Reports bloating, Denies change in bowel habits, Reports constipation, Denies dysphagia, Denies excessive flatus, Denies dyspepsia, Reports heartburn, Denies diarrhea, Reports loose stools, Denies nausea, Denies odynophagia and Denies vomiting Reports no additional complaints Musc Reports no additional complaints Neuro Reports no additional complaints Psych Reports no additional complaints Endo Reports no additional complaints Physical Exam Const General: healthy appearing and no acute distress Nutritional Appearance: well nourished and obese Orientation/consciousness: patient oriented x3 Resp Effort & Inspection: normal respiratory effort, able to speak in complete sentences, no tracheal deviation and symmetric chest movement Auscultation: clear to auscultation bilaterally Cardio Rate: regular rate GI Inspection: Yes normal to inspection, No distended and Yes obesity Palpation (GI): Soft to palpation, not firm, nontender and No hepatosplenomegaly present Auscultation: normal bowel sounds General: Yes no CVA tenderness Back/Spine/Pelvis Back: no CVA tenderness Skin General skin exam: elasticity normal, turgor normal and dry skin Neuro General: patient oriented x3 Psych Appearance: grossly normal Mental Status: mental status grossly normal Results Reviewed Results Reviewed: Laboratory Tests 10/25/24 13:05 Total Bilirubin 0.7 Direct Bilirubin 0.3 AST 29 ALT 27 Alkaline Phosphatase 71 Lipase 132 H Vitamin B12 600 25-OH Vitamin D Total 59 Folate 11.8 TSH 2.69 Tiss Transglutamin IgA <1.0 Assessment & Plan Assessment & Plan (1) Gastroesophageal reflux disease: Code(s): K21.9 - Gastro-esophageal reflux disease without esophagitis Qualifiers: Esophagitis presence: esophagitis presence not specified Qualified Code(s): K21.9 - Gastro-esophageal reflux disease without esophagitis (2) Postprandial epigastric pain: Code(s): R10.13 - Epigastric pain (3) Postprandial diarrhea: Code(s): K52.9 - Noninfective gastroenteritis and colitis, unspecified (4) Constipation: Code(s): K59.00 - Constipation, unspecified Qualifiers: Constipation type: slow transit constipation Qualified Code(s): K59.01 - Slow transit constipation (5) Left lower quadrant abdominal pain: Code(s): R10.32 - Left lower quadrant pain (6) History of pancreatitis: Code(s): Z87.19 - Personal history of other diseases of the digestive system Category: Medical Plan Patient will continue famotidine. Avoid dietary triggers and late night snacking. Staying upright for minimum 3 hours after meals discussed with patient. Patient will take MiraLax daily. Patient can take probiotic. Increase fluid intake and activity to come with her bowel motility. Patient will increase fiber intake. Recommend switching Ozempic to Mounjaro to prevent recurrence the of pancreatitis. Low fat, low carb diet. Patient will follow-up in 2-3 months, sooner on as needed basis. She is agreeable to this plan and verbalizes understanding of instructions. She was given the opportunity to ask questions and all questions answered. Thank you for allowing me to participate in her care Medications: New Lactobacillus rhamnosus GG (Probiotic Digestive Care) ONE CAP orally DAILY 30 caps 5RF Coding Level of Care Code Est Pt Level 4 (37323) Complex EM visit Add On G2211 Diagnoses Gastroesophageal reflux disease, unspecified whether esophagitis present K21.9 Esophagitis presence: esophagitis presence not specified Postprandial epigastric pain R10.13 Postprandial diarrhea K52.9 Slow transit constipation K59.01 Constipation type: slow transit constipation Left lower quadrant abdominal pain R10.32 History of pancreatitis Z87.19 Time Spent (min) 40 Comment 25 minutes spent with patient and additional 15 minutes spent reviewing her records
[2025-01-24 08:25] VITALS: BP 134/68; PULSE 92; O2SAT 96
== END 2025-01-24 08:34 | disposition home or self-care (01) ==
LOC: HO.HGI 07:58
PROVIDERS: PCP Nurse Practitioner Family; Visit Provider Nurse Practitioner Family
DX: K21.9 Gastro-esophageal reflux disease without esophagitis (principal); R10.13 Epigastric pain; K52.9 Noninfective gastroenteritis and colitis, unspecified; K59.01 Slow transit constipation; R10.32 Left lower quadrant pain; Z87.19 Personal history of other diseases of the digestive system
CPT/HCPCS: 99214; G2211

== ENCOUNTER → 2025-01-24 07:57 | Outpatient (BNVA) | payer OTHER, SELFPAY | PROVIDERS: PCP Nurse Practitioner Family; Visit Provider Nurse Practitioner Family | DX: K21.9 Gastro-esophageal reflux disease without esophagitis (principal); R10.13 Epigastric pain; K52.9 Noninfective gastroenteritis and colitis, unspecified; K59.01 Slow transit constipation; R10.32 Left lower quadrant pain; Z87.19 Personal history of other diseases of the digestive system | CPT/HCPCS: 99212 ==

== ENCOUNTER 2025-02-06 08:00 | Outpatient (REF) | payer OTHER, SELFPAY ==
--- NOTE | ~2025-02-06 | FL_ITS ---
EXAMINATION: XR UPPER GI SERIES WITH BARIUM SWALLOW. CLINICAL INFORMATION: Gastroesophageal reflux disease without esophagitis COMPARISON: None available. TECHNIQUE: Routine upper GI air contrast study with barium swallow was performed in upright and lying position. FINDINGS: Following oral administration of thick barium and effervescent granules is normal propagation of bolus from the oral cavity through the pharynx, esophagus into stomach without any evidence of obstruction, narrowing or stricture. The gastroesophageal esophageal junction is widely patent. No intraluminal a subtle filling defect or extrinsic compression seen. There is minimal retention of barium in the vallecula. On placing patient supine and prone lying the course, caliber and peristalsis of the stomach, duodenal bulb and the sweep is normal. There is a small transitional hiatal hernia in supine view with minimal gastroesophageal reflux. The mucosal pattern of stomach, duodenum is normal. FLUOROSCOPY TIME: 2 minute 37 seconds DOSE AREA PRODUCT: 3369 uGy-m2 (microgray-meter squared) FL/FL upper GI w air w Ba Swallow IMPRESSION: Small sliding hiatal hernia with minimal reflux. The upper GI exam is unremarkable. Electronically signed by: Noah Zafar MD 02/06/2025 10:39 AM EDT
== END 2025-02-06 08:01 | disposition home or self-care (01) ==
LOC: HO.XRAY 08:00
PROVIDERS: PCP Nurse Practitioner Family; Visit Provider Nurse Practitioner Family
DX: K21.9 Gastro-esophageal reflux disease without esophagitis (principal)
CPT/HCPCS: 74246

== ENCOUNTER → 2025-02-06 08:02 | Outpatient (BNV) | payer OTHER, SELFPAY | PROVIDERS: PCP Nurse Practitioner Family; Visit Provider Radiology Diagnostic Radiology | DX: K21.9 Gastro-esophageal reflux disease without esophagitis (principal); K44.9 Diaphragmatic hernia without obstruction or gangrene | CPT/HCPCS: 74246 ==

== ENCOUNTER 2025-03-27 09:13 | Outpatient (AMB) | payer OTHER, SELFPAY ==
--- NOTE | 2025-03-27 09:21 | A.OFFVIS_ITS ---
Intake Visit Reasons: 6M/ Migraine Allergies aspirin (ASPIRIN) Allergy (Severe, Verified 03/27/25 09:24) TONGUE SWELLING bee pollen (BEE STINGS) Allergy (Severe, Verified 03/27/25 09:24) ANAPHYLAXIS Medication List - Last Reconciled 03/27/25 by Jacki Jo CNP albuterol sulfate 90 mcg/actuation 2 puffs inhalation Q4-6H PRN atorvastatin 40 mg PO BEDTIME buspirone 10 mg PO DAILY epinephrine IM DIRECTED famotidine 40 mg PO BEDTIME hydrochlorothiazide 25 mg PO DAILY hydroxyzine HCl 0 mg PO insulin degludec (Tresiba FlexTouch U-200 insulin) units subcut Lactobacillus rhamnosus GG (Probiotic Digestive Care) ONE CAP orally DAILY lancets (TRUEplus Lancets) As directed lidocaine 5% patches topical losartan 50 mg PO DAILY melatonin 3 mg PO BEDTIME metformin 1,000 mg PO BID methylcellulose (laxative) (Citrucel) 500 mg PO DAILY ondansetron HCl mg PO TID-QID PRN semaglutide (Ozempic) 0.5 mg subcut QWEEK sennosides (Natural Senna Laxative) 17.2 mg (2 x 8.6 mg) PO BEDTIME topiramate 50 mg PO BID 90 days HPI Comments Details: She was doing okay. Migraines still happened, but less than before, usually triggered by stress. Working with therapist. She stopped amitriptyline because she was concerned about side effects of forgetfulness. Sleep was not so good. She has had migraines since age 11, that had?increased in frequency to 3/ wk in May 2024. They can be associated with nausea, vomiting, photophobia. No triggers have been identified. [facility] Medical History (Updated 03/27/25 @ 09:31 by Jacki Jo CNP) History of pancreatitis Breast nodule Arthritis Bilateral carpal tunnel syndrome History of trigger finger DDD (degenerative disc disease) Seasonal asthma Anxiety Hypertension Acid reflux Migraines High cholesterol Diabetes Surgical History S/P LASIK surgery of both eyes History of carpal tunnel release S/P arthroscopic surgery of left knee (~1999) History of tonsillectomy History of section Family History Mother No problems noted. Father No problems noted. Paternal Aunt Uterine cancer Social History Alcohol intake: never Patient Tobacco Use Status: Never used Tobacco Second Hand Smoke Exposure: No Current occupational status: disabled Current occupation: rt hand Female Reproductive History Menstrual Age of Menarche: 11 Review of Systems Const Denies chills, Denies daytime sleepiness, Reports difficulty sleeping, Denies fatigue, Denies fever(s), Denies frequent falls, Reports headache(s), Denies increased appetite, Denies poor appetite, Denies snoring, Denies weakness, Denies weight gain and Denies weight loss Eyes Denies loss of vision ENT Denies vertigo, Denies dizziness, Reports headache(s) and Denies neck pain Card Denies chest pain at rest, Denies chest pain with activity, Denies syncope, Denies leg edema, Denies palpitations, Denies dyspnea and Denies dyspnea on exertion Resp Denies cough, Denies dyspnea, Denies dyspnea on exertion and Denies snoring GI Denies abdominal pain, Denies constipation, Denies heartburn, Denies diarrhea and Denies nausea Denies urinary frequency, Denies urinary incontinence and Denies urinary urgency Musc Denies abnormal gait, Reports back pain, Reports myalgias, Reports arthralgias, Denies neck pain, Denies numbness and Denies tingling Neuro Denies abnormal gait, Denies vertigo, Denies dizziness, Denies syncope, Denies frequent falls, Reports headache(s), Denies lack of coordination, Denies loss of vision, Denies memory loss, Denies numbness, Denies Other visual disturbances, Denies restless legs, Denies seizure-like activity, Denies tingling, Denies paresthesias, Denies tremor(s) and Denies weakness Psych Reports anxiety, Reports depression, Denies auditory hallucinations, Denies memory loss and Denies visual hallucinations Endo Denies fatigue and Denies palpitations Physical Exam Const Other: General Appearance:? normal, in no acute distress. Heart:? S1, S2 normal, no murmurs. Lungs:? clear anteriorly and posteriorly. Musculoskeletal:? normal. Extremities:? no edema. Psych:? alert, oriented, cognitive function intact, cooperative with exam. Neuro Other: Abnormal Neurological Findings:?none.? Mental Status: alert and oriented X 3. Normal attention, orientation, memory, and affect. Cranial Nerves: Pupils are equal, round, and reactive to light. External ocular muscles are intact. Visual linares are full, no ptosis. Face is symmetrical, no facial weakness or droop. Facial sensations are normal. Tongue protrudes in midline. Palate elevates symmetrically. Shoulder shrugging is normal Motor Examination: Normal muscle tone, bulk and strength. No atrophy or fasciculations. No drift of the extended upper extremities. DTR 2+. Plantars are flexor. Sensory Exam: Normal light touch, temperature, pinprick, vibration, and joint- position sensations. Rhomberg sign is absent. Coordination: No ataxia. No titubation. Gait Exam: Within normal limits. Cerebellar Signs: [id number] is okay. Extrapyramidal System: No tremor, rigidity with normal facial expressions. No bradykinesia. No bradyphrenia. Normal arm swing and posture. No propulsion or retropulsion. Speech: Normal. Results Reviewed Results Reviewed: CT brain 05/10/2024: Negative Assessment & Plan Assessment & Plan (1) Migraines: Code(s): G43.909 - Migraine, unspecified, not intractable, without status migrainosus Category: Medical Qualifiers: Migraine type: unspecified Status migrainosus presence: without status migrainosus Intractability: not intractable Qualified Code(s): G43.909 - Migraine, unspecified, not intractable, without status migrainosus Plan: Continue topiramate 50mg 1 tablet twice a day. (2) Tension headache: Code(s): G44.209 - Tension-type headache, unspecified, not intractable Category: Medical (3) Insomnia: Code(s): G47.00 - Insomnia, unspecified Category: Medical Qualifiers: Insomnia type: unspecified Qualified Code(s): G47.00 - Insomnia, unspecified Plan Meds tried: amitriptyline Coding Level of Care Code Est Pt Level 4 (16211) Diagnoses Migraine without status migrainosus, not intractable, unspecified migraine type G43.909 Migraine type: unspecified Status migrainosus presence: without status migrainosus Intractability: not intractable Tension headache G44.209 Insomnia, unspecified type G47.00 Insomnia type: unspecified
--- OUTSIDE RECORDS SUMMARY | 2025-03-27 10:23 | XMS_ITS | Encounter Summary ---
Author Organization [employer] Address [address] [place] [address] Care Team Providers Care Novelty Balloon Assembler And Packer Name Role Phone Claritza Canela Primary Care Provider [phone] Yane Morrissey NP Primary Care Provider [phone] Reason for Referral * Imaging (Routine) - Closed Specialty Diagnoses / Procedures Referred By Luci leon Referred To Contact Diagnoses Mass of left breast, unspecified quadrant Procedures BI Mammogram Diagnostic Tomosynthesis Left Claritza Canela FNP [address] [place] [address] Phone: tel: fax: [address] Phone: tel: fax: Referral ID Status Reason Start Date Expiration Date Visits Re quested Visits Authorized [id number] Closed 11/11/2022 05/10/2023 1 1 Encounter Details Date Type Department Care Team (Late st Contact Info) Description 11/11/2022 Orders Only [facility] [address] [place] [address] Claritza Canela FNP [address] [place] [address] Mass of left breast, unspecified quadrant (Primary [...] Care Team (Late st Contact Info) Description 05/27/2025 1:00 PM EST Procedure Visit [facility] [address] [place] [address] Yane Morrissey NP [address] [place] [address] Scheduled Orders Name Type Priority Associated Diagnoses [...] documented as of this encounter Care Teams Novelty Balloon Assembler And Packer Relationship Specialty Start Date End Date Claritza Canela FNP [address] [place], [place] [phone] PCP - General Family Medicine 05/13/22 02/13/24 Yane Morrissey NP [address] [place] [address] PCP - General Family Medicine 02/14/24 documented as of this encounter
--- OUTSIDE RECORDS SUMMARY | 2025-03-27 10:23 | XMS_ITS | Encounter Summary ---
Author Organization [employer] Address [address] [facility] [place] [address] Care Team Providers Care Senior Linux Administrator Name Role Phone Claritza CanelaP Primary Care Provider [phone] Yane Morrissey NP Primary Care Provider [phone] Encounter Details Date Type Department Care Team (Late st Contact Info) Description 05/18/2022 Orders Only [facility] [address] [place] [address] Sonya Darnell MD [address] [place] [address] Type 2 diabetes mellitus with hyperosmolarity without coma, without long-term current use of insulin ([facility]) (Primary Dx) Social History Tobacco Use [...] Not at all 05/18/2022 2:39 PM Regla Ybrara [place] Trouble concentrating on things, such as [...] Description 05/27/2025 1:00 PM EST Procedure Visit [facility] [address] [place] [address] Yane Morrissey NP [address] [place] [address] documented as of this encounter Visit Diagnoses Diagnosis Type 2 diabetes mellitus with hyperosmolarity without coma, without long-term current use of insulin (HCC)- Primary documented in this encounter Care Teams Senior Linux Administrator Relationship Specialty Start Date End Date Claritza Canela FNP [address] [place], [place] [phone] PCP - General Family Medicine 05/13/22 02/13/24 Yane Morrissey NP [address] [place], [place] [phone] PCP - General Family Medicine 02/14/24 documented as of this encounter
--- OUTSIDE RECORDS SUMMARY | 2025-03-27 10:23 | XMS_ITS | Encounter Summary ---
Author Organization [employer] Address [address] [place] [address] Care Team Providers Care Boiler Helper Name Role Phone Claritza CanelaP Primary Care Provider [phone] Yane Morrissey NP Primary Care Provider [phone] Encounter Details Date Type Department Care Team (Late st Contact Info) Description 03/21/2023 Orders Only [facility] [address] [place] [address] Provider, MD [place] Social History Tobacco Use [...] t he electric, gas, oil or water Jacked threatened to shut off services in your [...] Description 05/27/2025 1:00 PM EST Procedure Visit [facility] [address] [place] [address] Yane Morrissey NP [address] [place] [address] documented as of this encounter Procedures Procedure [...] documented as of this encounter Care Teams Boiler Helper Relationship Specialty Start Date End Date Claritza Canela FNP [address] [place] [address] PCP - General Family Medicine 05/13/22 02/13/24 Yane Morrissey NP [address] [place] [address] PCP - General Family Medicine 02/14/24 documented as of this encounter
--- OUTSIDE RECORDS SUMMARY | 2025-03-27 10:23 | XMS_ITS | Encounter Summary ---
Author Organization [employer] Address [address] [facility] [address] [place] [address] Care Team Providers Care Media Developer Name Role Phone Yane Morrissey NP Primary Care Provider Reason for Visit * Reason Comments Med Refill Encounter Details Date Type Department Care Team (Late st Contact Info) Description 08/20/2024 Refill [facility] [address] [place] [address] Omaira Brian MD [address] [place] [address] Clogged ear, bilateral Social History Tobacco Use [...] Description 05/27/2025 1:00 PM EST Procedure Visit [facility] [address] [place] [address] Yane Morrissey NP [address] [place] [address] documented as of this encounter Visit Diagnoses Diagnosis Clogged ear, bilateral documented in this encounter Additional Health Concerns Assessment Noted Time PHQ-9 Depression Total Score: 9 05/24/20 24 11:18 AM EST documented as of this encounter Care Teams Media Developer Relationship Specialty Start Date End Date Yane Morrissey NP [address] [place] [address] PCP - General Family Medicine 02/14/24 documented as of this encounter
--- OUTSIDE RECORDS SUMMARY | 2025-03-27 10:23 | XMS_ITS | Encounter Summary ---
Author Organization [employer] Address [address] [facility] [address] [place] [address] Care Team Providers Care Field Service Specialist Name Role Phone Claritza Canela Primary Care Provider [phone] Yane Morrissey NP Primary Care Provider [phone] Encounter Details Date Type Department Care Team (Late st Contact Info) Description 09/05/2022 Orders Only [facility] [address] [place] [address] Claritza Canela FNP [address] [place] [address] Type 2 diabetes mellitus with hyperosmolarity without coma, without long-term current use of insulin ([facility]) Social History Tobacco Use Types Packs/Day Years [...] Description 05/27/2025 1:00 PM EST Procedure Visit [facility] [address] [place] [address] Yane Morrissey NP [address] [place] [address] documented as of this encounter Visit Diagnoses Diagnosis Type 2 diabetes mellitus with hyperosmolarity without coma, without long-term current use of insulin (HCC) documented in this encounter Additional Health Concerns Assessment Noted Time PHQ-9 Depression Total Score: 2 06/01/20 9:11 AM EST documented as of this encounter Care Teams Field Service Specialist Relationship Specialty Start Date End Date Claritza Canela FNP [address] [place] [address] PCP - General Family Medicine 05/13/22 02/13/24 Yane Morrissey NP [address] [place] [address] PCP - General Family Medicine 02/14/24 documented as of this encounter
--- OUTSIDE RECORDS SUMMARY | 2025-03-27 10:23 | XMS_ITS | Encounter Summary ---
Author Organization [email or web address] Address [address] [facility] [address] [place] [address] Care Team Providers Care Bump Grader Operator Name Role Phone Claritza Canela Primary Care Provider [phone] Yane Morrissey NP Primary Care Provider [phone] Reason for Visit * Reason Onset Date Comments Med Refill 02/02/2024 Encounter Details Date Type Department Care Team (Late st Contact Info) Description 02/02/[address] [facility] [address] [place] [address] Claritza Canela FNP [address] [place] [address] Diabetic polyneuropathy associated with type 2 diabetes [...] with others, in a hotel, in a correction, living outside on the street, on a [...] Description 05/27/2025 1:00 PM EST Procedure Visit [facility] [address] [place] [address] Yane Morrissey NP [address] [place] [address] documented as of this encounter Visit Diagnoses Diagnosis Diabetic polyneuropathy associated with type 2 diabetes mellitus (HCC) Type 2 diabetes mellitus without complication, with long-term current use of insulin (HCC) documented in this encounter Additional Health Concerns Assessment Noted Time PHQ-9 Depression Total Score: 23 023 10:13 AM EST documented as of this encounter Care Teams Bump Grader Operator Relationship Specialty Start Date End Date Claritza Canela FNP [address] [place] [address] PCP - General Family Medicine 05/13/22 02/13/24 Yane Morrissey NP [address] [place] [address] PCP - General Family Medicine 02/14/24 documented as of this encounter
--- OUTSIDE RECORDS SUMMARY | 2025-03-27 10:23 | XMS_ITS | Clinical Summary ---
Author Organization [email or web address] Address [address] [facility] [address] [place] [address] Care Team Providers Care Air Analysis Engineering Technician Name Role Phone Yane Morrissey NP Primary Care Provider Allergies Active Allergy Reactions Criticality Noted Date [...] Apply topically every 12 (twelve) hours. Active albuterol (Ventolin HFA) 108 (90 Base) MCG/ACT inhaler INHALE 2 PUFFS EVERY 4 TO 6 HOURS NEEDED 18 g 3 023 Active Blood Glucose Monitoring Suppl (FreeStyle Lite) deviceIndications :Diabetic polyneuropathy associated with type 2 diabetes mellitus (HCC) Inject under the skin 2 times daily. 1 each 024 Active glucose blood (FREESTYLE LITE) test stripIndications: Diabetic polyneuropathy associated with type 2 diabetes mellitus (HCC) TEST BLOOD SUGAR TWICE DAILY DIRECTED 100 strip 5 024 Active cyclobenzaprine (Flexeril) 5 MG tablet TAKE 1 TABLET BY MOUTH THREE TIMES DAILY IN THE MORNING, AT NOON, AND AT BEDTIME NEEDED FOR MUSCLE SPASMS 30 tablet 1 024 Active clotrimazole-beta methasone (Lotrisone) creamIndications: Rash and nonspecific skin eruption APPLY 1/2 GRAM TOPICALLY TO AFFECTED AREA(S) TWICE DAILY DIRECTED FOR 28 DAYS 15 g 1 024 Active metoprolol tartrate (Lopressor) 25 MG tabletIndications :Migraine without aura and without status migrainosus, not intractable Take 1 tablet (25 mg) by mouth 2 times daily. 60 tablet 2 024 Active rizatriptan (Maxalt) 10 MG tabletIndications :Migraine without aura and without status migrainosus, not intractable Take 1 tablet (10 mg) by mouth 1 (one) time if needed for migraine. May repeat in 2 hours if unresolved. Do not exceed 30 mg in 24 hours. 9 tablet 024 Active melatonin 3 MG tablet Take 1 tablet by mouth at bedtime. 020 Active zoster vaccine-recombina nt adjuvanted (Shingrix) 50 MCG/0.5ML vaccine Inject 0.5 mL into the muscle. 021 Active Blood Glucose Monitoring Suppl (FreeStyle Lite) w/Device kit USE DIRECTED TO TEST BLOOD SUGAR TWICE DAILY 024 Active busPIRone (Buspar) 10 MG tablet Take 20 mg by mouth at bedtime. 024 Active Alcohol Swabs (Alcohol Prep) 70 % pads USE EVERY DAY OR NEEDED 100 each 024 Active FreeStyle lancetsIndication s:Diabetic polyneuropathy associated with type 2 diabetes mellitus (HCC) 1 each by Other route if needed in the morning, at noon, and at bedtime (glucose). USE TO TEST BLOOD SUGAR TWICE A DAY 100 each 024 Active TRUEplus Lancets 33G miscIndications:T ype 2 diabetes mellitus with diabetic macular edema resolved after treatment, unspecified laterality, unspecified whether alf insulin use ([facility]) TEST BLOOD SUGAR TWICE DAILY DIRECTED 100 each 025 Active Continuous Glucose Director Of Special Events (FreeStyle Ryder 3 [place]) deviceIndications :Type 2 diabetes mellitus without complication, with long-term current use of insulin ([facility]) 1 each Once per day. Use as directed for CGM 1 each 025 Active Continuous Glucose Sensor (FreeStyle Ryder 3 Plus Sensor) miscIndications:T ype 2 diabetes mellitus without complication, with long-term current use of insulin (HCC) 1 each every 15 days. Apply 1 every 15 days as directed for CGM 2 each 025 Active glucose blood (FreeStyle Precision Petr Test) test strip Use to test blood sugar 4 times daily in case of CGM failure or extremes of BG 100 each 025 2025 Active famotidine (Pepcid) 20 MG tabletIndications :Generalized abdominal pain TAKE TWO TABLETS BY MOUTH ONCE A DAY 30 tablet 1 025 Active losartan (Cozaar) 50 MG tabletIndications :Essential hypertension TAKE ONE TABLET BY MOUTH EVERY DAY 90 tablet 1 025 Active EPINEPHrine (Epipen) 0.3 MG/0.3ML injection syringe Inject 0.3 mL (0.3 mg) as directed 1 (one) time for 1 dose. 2 each 025 Active amLODIPine (Norvasc) 2.5 MG tabletIndications :Primary hypertension TAKE ONE TABLET BY MOUTH EVERY DAY IN THE MORNING 90 tablet 1 025 Active metFORMIN (Glucophage) 1000 MG tabletIndications :Type 2 diabetes mellitus with hyperosmolarity without coma, without long-term current use of insulin (HCC) TAKE ONE TABLET BY MOUTH TWICE A DAY (IN THE MORNING AND IN THE EVENING WITH MEALS). 180 tablet 1 025 Active atorvastatin (Lipitor) 40 MG tablet TAKE ONE TABLET BY MOUTH EVERY DAY IN THE MORNING 90 tablet 3 025 Active insulin pen needle (BD Pen Needle Gaviota 2nd Gen) 32G x 4 mm miscIndications:A cute bilateral low back pain with right-sided sciatica,Type 2 diabetes mellitus without complication, with long-term current use of insulin (HCC) USE DIRECTED 100 each 3 025 Active hydroCHLOROthiazi de (HYDRODiuril) 25 MG tabletIndications :Essential hypertension TAKE ONE TABLET BY MOUTH EVERY DAY 90 tablet 1 025 Active ondansetron (Zofran) 4 MG tabletIndications :Generalized abdominal pain TAKE TWO TABLETS (8 MG) BY MOUTH EVERY 8 HOURS IF NEEDED FOR NAUSEA OR VOMITING FOR UP TO 7 DAYS. 20 tablet 025 Active lidocaine (Lidoderm) 5 % patchIndications: Acute bilateral low back pain with right-sided sciatica APPLY 1 PATCH TOPICALLY TO SKIN; LEAVE ON FOR 12 HOURS & OFF FOR 12 HOURS DIRECTED 30 patch 2 025 Active Insulin Degludec FlexTouch 200 UNIT/ML solution pen-injectorIndic ations:Type 2 diabetes mellitus without complication, with long-term current use of insulin (HCC) Inject 32 Units under the skin at bedtime. INJECT 32 UNITS SUBCUTANEOUSLY DAILY AT BEDTIME 9 mL 1 025 Active gabapentin (Neurontin) 100 MG capsule Take 1 capsule (100 mg) by mouth at bedtime for 4 days, THEN 1 capsule (100 mg) 2 times daily for 7 days, THEN 1 capsule (100 mg) 3 times daily. 108 capsule 025 Active lidocaine (Lidoderm) 5 % patchIndications: Chronic pain of both knees,Post-trauma tic osteoarthritis of both knees,Acute bilateral low back pain with right-sided sciatica Apply 1 patch topically Once per day. Remove & discard patch within 12 hours or as directed by . 30 patch 025 Active Mounjaro 2.5 MG/0.5ML solution auto-injectorIndi cations: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, with long-term current use of insulin, unspecified laterality (HCC) INJECT 2.5 MG SUBCUTANEOUS ONCE A WEEK. 2 mL 025 Active Tirzepatide (Mounjaro) 2.5 MG/0.5ML solution auto-injectorIndi cations: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, with long-term current use of insulin, unspecified laterality (HCC) Inject 2.5 mg under the skin 1 (one) time per week. 2 mL 025 2024 Discontinued Active Problems Problem Noted Date Diagnosed Date Allergic arthritis of both knees 03/21/2025 Assessment & Plan (03/21/2025 2:13 PM EDT): Chronic pain of both knees 03/07/2025 Assessment & Plan (03/07/2025 5:12 PM EDT): Orders: lidocaine (Lidoderm) 5 % patch; Apply 1 patch topically Once per day. Remove & discard patch within 12 hours or as directed by . Mass of foot 10/31/2024 Cervicogenic headache 09/27/2024 Primary hypertension 09/27/2024 Assessment [...] services. PLAN: 1. Follow up with [facility] [place]: Not recommended for follow-up 2. Patient goal [...] services. PLAN: 1. Follow up with [facility] [place]: Not recommended for follow-up 2. Patient goal [...] 2 diabetes mellitus 09/03/2018 Assessment & Plan (03/21/2025 2:13 PM EDT): Orders: POCT Glucose POCT Hgb A1c Microalbumin, Random Urine w/Creatinine; Future Lipid Panel, Standard; Future Comprehensive Metabolic Panel; Future Assessment & Plan (03/07/2025 5:12 PM EDT): Assessment & Plan (10/01/2024 10:45 AM EDT): Cgtm, ordered, Pt notes sig appetite reduction, and associated fatigue, Will reduce glp-1 Monitor for hyperglycemia Assessment & Plan (07/14/2022 9:37 AM EST): -Continues with the following med regimen: Insulin degludec 32 units nightly Trulicity 4.5mg subcutaneous weekly (currently supply issue of current dose) Metformin 1000mg BID Lab Results Component Value Date HGBA1C 7.6 (H) 05/25/2022 Gastroesophageal reflux disease with hiatal rogelio ia 02/27/2018 Assessment & Plan (06/06/2024 3:19 PM EST): Pt with acute bout of n/v/d. Possible side effect of glp-1 pt will be referred to GI Since no further episodes Chronic low back pain 12/28/2017 Post-traumatic osteoarthritis of both knees 12/10 Assessment & Plan (03/07/2025 5:12 PM EDT): Orders: lidocaine (Lidoderm) 5 % patch; Apply 1 patch topically Once per day. Remove & discard patch within 12 hours or as directed by MD. Severe anxiety 12/15/2017 Assessment & Plan (04/11/2023 [...] services. PLAN: 1. Follow up with [facility] [place]: Not recommended for follow-up 2. Patient goal is to continue attending individual therapy with [facility] 3. Behavioral Recommendations a. Follow PCP recommendation for med management b. Practice self-care and self-compassion c. Set-up healthy boundaries with partner and improve communication skills Atypical angina 12/15/2017 Carpal tunnel syndrome 12/15/2017 Essential hypertension 12/15/2017 Assessment & Plan (03/21/2025 2:13 PM EDT): Assessment & Plan (06/06/2024 3:20 PM EST): Above goal in office, pt has home bp cuff and repots consistently at goal. Attributes today reading is elevated due to anxiety Will measure at home Assessment & Plan (07/14/2022 9:38 AM EST): -Well controlled based on home readings -Continue with current med regimen: hydrochlorothiazide 25mg daily Amlodipine 2.5mg daily Losartan 50mg daily Hyperlipidemia 12/15/2017 Major depressive [...] her . Recommended to keep appt with [facility] therapist Carol Schaefer. At this time Armand Montilla meets criteria for Visit Diagnoses: Problem List Items Addressed This Visit Other Severe anxiety Major depressive disorder Patient ready to address current needs Armand is already engage in MH services at [facility]. Strengths include She is in action stage of change and this motivation will serve as treatment engagement. PLAN: 1. Follow up with [facility] [place]: Not recommended for follow-up 2. Patient goal [...] services. PLAN: 1. Follow up with [facility] [place]: Not recommended for follow-up 2. Patient goal is to continue attending individual therapy with [facility] 3. Behavioral Recommendations a. Follow PCP recommendation for med management b. Practice self-care and self-compassion c. Set-up healthy boundaries with partner and improve communication skills Panic attack 12/15/2017 Encounters Date Type Department Care Team Description 03/24/2025 Telephone [facility] [address] [place] [address] Yane Morrissey NP Durable Medical Equipment (Diabetic shoes) 03/24/2025 Telephone [facility] [address] [place] [address] Yane Morrissey NP Durable Medical Equipment (Knee braces) 03/21/2025 1:45 PM EDT Office Visit [facility] [address] [place] [address] Yane Morrissey NP 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, with long-term current use of insulin, unspecified laterality (HCC) (Primary Dx); Essential hypertension; Osteoarthritis of both knees, unspecified osteoarthritis type 03/21/2025 Travel 03/21/2025 Refill [facility] [address] [place] [address] [facility] 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, with long-term current use of insulin, unspecified laterality (HCC) 03/21/2025 Refill [facility] [address] [place] [address] [facility] 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, with long-term current use of insulin, unspecified laterality (HCC) 03/20/2025 Telephone [facility] MED[facility]INE [address] [place] [phone] Yane Morrissey NP Chart Prep 03/14/2025 Patient Outreach [facility] [address], [place] [phone] Yane Morrissey NP Pre-visit Planning (SDOH negative, Tobacco screening negative. ) 03/14/2025 Travel 03/10/2025 Telephone [facility] [address] [place] [phone] Yane Morrissey NP 03/07/2025 3:15 PM EDT Office Visit [facility] [address] [place] [phone] Yane Morrissey NP Chronic pain of both knees (Primary Dx); 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, unspecified laterality, unspecified whether oysterman insulin use ([facility]/HCC); Post-traumatic osteoarthritis of both knees; Acute bilateral low back pain with right-sided sciatica 03/07/2025 Travel 03/06/2025 Travel 03/06/2025 Telephone [facility] [address] [place] [phone] Yane Morrissey NP CHARTPREP 03/03/[address] [address] Yane Morrissey NP 02/21/2025 Refill [facility] [address] [place] [phone] Yane Morrissey NP 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, with long-term current use of insulin, unspecified laterality (CMS/HCC) 01/29/2025 9:30 AM EDT Office Visit [facility] [address] [facility] [place] [address] Capo Marie MD Chronic left-sided low back pain with left-sided sciatica (Primary Dx) 01/29/2025 Travel 01/28/2025 Orders Only [facility] [address] [facility] [place] [address] Yane Morrissey NP 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, with long-term current use of insulin, unspecified laterality (CMS/HCC) (Primary Dx) 01/28/2025 Telephone [facility] [address] [place] [phone] Bryson Bhardwaj MA CHARTPREP 01/27/2025 Telephone [facility] [address] [place] [address] Yane Morrissey NP Nurse Triage 01/27/2025 Telephone [facility] [address] [place] [address] Yane Morrissey NP Medication Question 01/22/2025 Telephone [facility] [address] [place] [phone] Yane Morrissey NP Medication Question 01/22/2025 Refill [facility] [address] [place] [address] Yane Morrissey NP Acute bilateral low back pain with right-sided sciatica 01/22/2025 Refill [facility] [address] [place] [address] Yane Morrissey NP Acute bilateral low back pain with right-sided sciatica 01/13/2025 Refill [facility] [address] [place] [address] Yane Morrissey NP Essential hypertension 01/13/2025 Refill [facility] [address] [place] [address] Omaira Brian MD Generalized abdominal pain 01/13/2025 Refill [facility] [address] [place] [address] Yane Morrissey, OSCAR Type 2 diabetes mellitus without complication, with long-term current use of insulin ([facility]) 01/11/2025 Refill [facility] [address] [place] [address] Yane Morrissey NP Type 2 diabetes mellitus without complication, with long-term current use of insulin ([facility]) 01/10/2025 Refill [facility] [address] [place] [address] Omaira Brian MD Generalized abdominal pain 12/30/2024 Orders Only [facility] External Provider, [facility] 12/30/2024 Telephone [facility] [address] [place] [address] Yane Morrissey NP Med Refill 12/27/2024 Refill [facility] [address] [place] [address] Omaira Brian MD Generalized abdominal pain from Last 3 Months Immunizations Immunization Administration [...] Date Recorded Patient Health Questionnaire-9 Score 2 03/07/2025 Patient Health Questionnaire-9 Score 2 03/07/2025 Last PHQ-9: Questionnaire Data Not on file 0 03/07/2025 Housing Stability Answer Date Recorded What is [...] Date Recorded Patient Health Questionnaire-2 Score 0 03/07/2025 Internet Access Answer Date Recorded Internet Access [...] Sign Reading Time Taken Comments Blood Pressure 152/72 03/21/2025 1:49 PM EDT Pulse 98 03/21/2025 1:49 PM EDT Temperature 36.6 C (97.9 F) 03/21/2025 1:49 PM EDT Respiratory Rate 12 03/21/2025 1:49 PM EDT Oxygen Saturation 97% 03/21/2025 1:49 PM EDT Inhaled Oxygen Concentration - - Weight 99 kg (218 lb 3.2 oz) 03/21/2025 1:49 PM EDT Height 157.5 cm (5' 2 ) 03/21/2025 1:49 PM EDT Body Mass Index 39.91 03/21/2025 1:49 PM EDT Plan of Treatment Upcoming Encounters Date Type Department Care Team (Late st Contact Info) Description 05/27/2025 1:00 PM EST Procedure Visit [facility] [address] [place] [address] Yane Morrissey, OSCAR [address] [place], [place] [phone] Health Maintenance Due Date Last Done Comments CT Colonography 1960 Colonoscopy 1960 Colorectal Cancer Screening 1960 FIT DNA/Cologuard 1960 FIT 1960 FOBT 1960 Sigmoidoscopy 1960 Pneumococcal Vaccine: 50+ Years (2 of 2 - PCV) 07/05/2019 07/05/2018 Hepatitis B Vaccines (3 of 3 - 19+ 3-dose series) 08/05/2019 06/10/2019, 08/21/2018 Mammogram 05/05/2024 05/05/2023, 10/10, 10/24/2022, Additional history exists Eye Exam 06/12/2024 06/12/2023 Diabetes: Urine Protein Screening 07/27/2024 07/27/2023, 09/06/2021, 08/31/2020, Additional history exists Lipid Panel 07/27/2024 07/27/2023, 05/12, 09/06/2021, Additional history exists COVID-19 Vaccine ( season) 2025 05/18/2022, 04/23/2021, 08/26/2020 Influenza Vaccine (#1) 2025 3, 05/18/2022, 07/30/2020, Additional history exists Alcohol/Substance Use Screening 05/24/2025 05/24/2024 Diabetes: Hemoglobin A1C 09/19/20252 025, 09/27/2024, 01/17/2024, Additional history exists Diabetes: Foot Exam 12/16/2025 12/16/2024 Depression Screening 03/07/2026 03/07/2025, 03/07/20 25 Disability Screening 03/07/2026 03/07/2025 SDOH Screening 03/14/2026 03/14/2025 Tobacco Screening 03/21/2026 03/21/2025 Cervical Cancer Screening 06/16/2028 HPV/Cotest 06/16/2028 07/12/2018 Pap Smear 06/16/2028 06/16/2023, 06/16/2023 DTaP/Tdap/Td Vaccines (2 - Td or Tdap) 10/23/2034 10/23/2024 HIV Screening Completed 06/20/2019 Hepatitis C Screening [...] Name Priority Date/Time Associated Diagnosis Comments POCT GLYCATED HEMOGLOBIN, TOTAL Routine 03/21/2025 1:50 PM EDT 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, with long-term current use of insulin, unspecified laterality (HCC) POCT GLUCOSE Routine 03/21/2025 1:50 PM EDT 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, with long-term current use of insulin, unspecified laterality (HCC) FL UPPER GI W AIR W BARIUM SWALLOW Routine 02/06/2025 8:30 AM EDT XR HIP 2 OR 3 VIEWS LEFT Routine 12/30/2024 2:42 PM EDT AMB REFERRAL TO PODIATRY Routine 12/16/2024 Mass of foot, unspecified laterality ALBUMIN, RANDOM URINE W/CREATININE Routine 07/27/2023 8:40 AM EST Type 2 diabetes mellitus without complication, unspecified whether alf insulin use (CMS/HCC) LIPID PANEL, STANDARD Routine 07/27/2023 8:06 AM EST Type 2 diabetes mellitus without complication, unspecified whether oysterman insulin use (CMS/HCC) HM PAP/HPV Routine 06/16/2023 12:00 AM EST HM MAMMOGRAPHY Routine 05/05/2023 [facility] HISTORICAL HEPATITIS C ANTIBODY RFLX Routine 06/20/2019 8:11 AM EST [facility] HISTORICAL HIV AB/AG Routine 06/20/2019 8:11 AM EST [facility] HISTORICAL HPV MRNA E6/E7 Routine 07/12/2018 9:56 AM EST from Last 3 Months or Most Recently Relevant to Health Maintenance Results * (ABNORMAL) POCT Hgb A1c (03/21/2025 1:50 PM EDT) Hemoglobin A1C 6.5(A) 4.0 - 5.7 % QC Media Lot # [id number] Lot# Expiration Date 41,627 Blood 03/21/2025 1:50 PM EDT Yane Morrissey NP POINT OF CARE TEST ENTER/EDIT OR DERABLES Final Result * POCT Glucose (03/21/2025 1:50 PM EDT) Glucose Blood, POC 142 60 - 200 mg/dL QC Media Lot # [id number] Lot# Expiration Date 31,126 Blood Capillary blood specimen / Unknown 03/21/2025 1:50 PM EDT Yane Morrissey NP POINT OF CARE TEST ENTER/EDIT OR DERABLES Final Result * FL Upper GI w/air w/Barium Swallow (02/06/2025 8:30 AM EDT) Anatomical Region Laterality Modality Body Radiographic Shae ging 02/06/2025 8:30 AM EDT Narrative 02/06/2025 10:42 AM EDT [place] [address] Fluoroscopy Report Signed Patient: Armand Montilla MR#: [id number] 97 : 1960 Acct:[id number] Age/Sex: 64 / F ADM Date: 02/06/25 Loc: [facility] Attending Dr: Anum Conley [facility]- Ordering Physician: Anum Conley ASSOCIATE FINANCIAL ADVISOR-SHERIE Date of Service: 02/06/25 Procedure(s): FL upper GI w air w Ba Swallow Accession Number(s): [id number] cc: Yane Morrissey ADMITTING CLERK; Anum Conley EXAMINATION: XR UPPER GI SERIES WITH BARIUM SWALLOW. CLINICAL INFORMATION: Gastroesophageal reflux disease without esophagitis COMPARISON: None available. TECHNIQUE: Routine upper GI air contrast study with barium swallow was performed in upright and lying position. FINDINGS: Following oral administration of thick barium and effervescent granules is normal propagation of bolus from the oral cavity through the pharynx, esophagus into stomach without any evidence of obstruction, narrowing or stricture. The gastroesophageal esophageal junction is widely patent. No intraluminal a subtle filling defect or extrinsic compression seen. There is minimal retention of barium in the vallecula. On placing patient supine and prone lying the course, caliber and peristalsis of the stomach, duodenal bulb and the sweep is normal. There is a small transitional hiatal hernia in supine view with minimal gastroesophageal reflux. The mucosal pattern of stomach, duodenum is normal. FLUOROSCOPY TIME: 2 minute 37 seconds DOSE AREA PRODUCT: 3369 uGy-m2 (microgray-meter squared) FL/FL upper GI w air w Ba Swallow IMPRESSION: Small sliding hiatal hernia with minimal reflux. The upper GI exam is unremarkable. Electronically signed by: Noah Zafar MD 02/06/2025 10:39 AM EDT RP Dictated By: Noah Zafar MD Signed By: <Electronically signed by Noah Zafar MD in [place]> 02/06/25 1039 DD/ 0830 TD/TT: 02/06/25 0845 Paint Laboratory Technician: [facility] [place] Procedure Note Donotuseinterpreter, Image - 02/06/[address] [address] Fluoroscopy Report Signed Patient: Roc Montilla#: [id number] [birth year] : 1960cct:[id number] Age/Sex: 64 / FADM Date: 02/06/25 Loc: [facility] Attending Dr: Anum Conley ASSOCIATE FINANCIAL ADVISOR-SHERIE Ordering Physician: Anum Conley-SHERIE Date of Service: 02/06/25 Procedure(s): FL upper GI w air w Ba Swallow Accession Number(s): [id number] cc: Yane Morrissey ADMITTING CLERK; Anum Conley ASSOCIATE FINANCIAL ADVISOR-SHERIE EXAMINATION: XR UPPER GI SERIES WITH BARIUM SWALLOW. CLINICAL INFORMATION: Gastroesophageal reflux disease without esophagitis COMPARISON: None available. TECHNIQUE: Routine upper GI air contrast study with barium swallow was performed in upright and lying position. FINDINGS: Following oral administration of thick barium and effervescent granules is normal propagation of bolus from the oral cavity through the pharynx, esophagus into stomach without any evidence of obstruction, narrowing or stricture. The gastroesophageal esophageal junction is widely patent. No intraluminal a subtle filling defect or extrinsic compression seen. There is minimal retention of barium in the vallecula. On placing patient supine and prone lying the course, caliber and peristalsis of the stomach, duodenal bulb and the sweep is normal. There is a small transitional hiatal hernia in supine view with minimal gastroesophageal reflux. The mucosal pattern of stomach, duodenum is normal. FLUOROSCOPY TIME: 2 minute 37 seconds DOSE AREA PRODUCT: 3369 uGy-m2 (microgray-meter squared) FL/FL upper GI w air w Ba Swallow IMPRESSION: Small sliding hiatal hernia with minimal reflux. The upper GI exam is unremarkable. Electronically signed by: Noah Zafar MD 02/06/2025 10:39 AM EDT RP Dictated By: Noah Zafar MD Signed By: <Electronically signed by Noah Zafar MD in OV> 02/06/25 1039 DD/ 0830 TD/TT: 02/06/25 0845 Paint Laboratory Technician: JAQUAN [facility] External Provider IMG FLU OROSCOPY PROCEDURES Final Result * XR Hip 2 or 3 Views Left (12/30/2024 2:42 PM EDT) Anatomical Region Laterality Modality Lower Extremities, Hip Left Radiograp hic Imaging 12/30/2024 2:42 PM EDT Narrative 12/30/2024 3:59 PM EDT [facility] [address] [place] [address] XRay Report Signed Patient: Armand Montilla MR#: [id number] 97 : 1960 Acct:[id number] Age/Sex: 64 / F ADM Date: 12/30/24 Loc: [facility] Attending Dr: Cory Velasquez PA-C Ordering Physician: Cory Velasquez PA-C Date of Service: 12/30/24 Procedure(s): XR hip LT min 2V Accession Number(s): [id number] cc: Yane Morrissey ADMITTING CLERK; Cory Velasquez PA-C EXAMINATION: XR HIP, LEFT CLINICAL INFORMATION: M25.552 - Pain in left hip COMPARISON: 02/27/2018 TECHNIQUE: AP upright, AP supine, and frog-leg lateral views of the left hip. FINDINGS: There is sclerosis and narrowing with marginal osteophytes involving the articular portions of the SI joints. There are enthesophytes involving both iliac spines. Moderate vascular calcification is evident in the iliac and femoral arteries, increased since the prior. Numerous phleboliths are present in the pelvis. Left hip joint space is preserved and congruent. There is a small acetabular osteophyte. Interval developing enthesophyte formation is evident at the greater trochanter. 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 Moderate vascular calcifications, increasing since the prior. Minimal roof osteophytes involving left acetabulum. Electronically signed by: Skinny Flores MD 12/30/2024 03:57 PM EDT RP Dictated By: Skinny Flores MD Signed By: <Electronically signed by Skinny Flores MD in OV> 12/30/24 1557 DD/ 1442 TD/TT: 12/30/24 1549 Paint Laboratory Technician: Procedure Note Donotuseinterpreter, Image - 12/30/2024 [facility] [address] [place] [address] [address] [place] [address] XRay Report Signed Patient: Roc Montilla#: [id number] [birth year] : 1960cct:[id number] Age/Sex: 64 / FADM Date: 12/30/24 Loc: [facility] Attending Dr: Cory Velasquez PA-C Ordering Physician: Cory Velasquez PA-C Date of Service: 12/30/24 Procedure(s): XR hip LT min 2V Accession Number(s): [id number] cc: Yane Morrissey NP; Cory Velasquez PA-C EXAMINATION: XR HIP, LEFT CLINICAL INFORMATION: M25.552 - Pain in left hip COMPARISON: 02/27/2018 TECHNIQUE: AP upright, AP supine, and frog-leg lateral views of the left hip. FINDINGS: There is sclerosis and narrowing with marginal osteophytes involving the articular portions of the SI joints. There are enthesophytes involving both iliac spines. Moderate vascular calcification is evident in the iliac and femoral arteries, increased since the prior. Numerous phleboliths are present in the pelvis. Left hip joint space is preserved and congruent. There is a small acetabular osteophyte. Interval developing enthesophyte formation is evident at the greater trochanter. 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 Moderate vascular calcifications, increasing since the prior. Minimal roof osteophytes involving left acetabulum. Electronically signed by: Skinny Flores MD 12/30/2024 03:57 PM EDT RP Dictated By: Skinny Flores MD Signed By: <Electronically signed by Skinny Flores MD in OV> 12/30/24 1557 DD/ 1442 TD/TT: 12/30/24 1549 Paint Laboratory Technician: [facility] External Provider IMG XR PROCEDURES Final Result * Referral to Podiatry (12/16/2024) Yane Morrissey ADMITTING CLERK OUTPATIENT REFERRAL ORDERABLES F inal Result * Albumin, Random Urine W/Creatinine (07/27/2023 8:40 AM EST) Creatinine, Urine 132.90 mg/dL [facility] Microalbumin Urine 17.0 mg/L [facility] Microalbum Creatinine Ratio Ur 12.7 <30 ug/mg cr [facility] Comment:Albumin/Creatinine R atio Reference Ranges: Normal: < 30 ug/mg creatinine Microalbuminuria: 30 - 300 ug/mg creatinineClinical Albuminuria: > 300 ug/mg creatinine Urine (Urine, Random) 07/27/2023 8:40 AM EST 07/27/2023 11:28 AM EST Claritza Canela ASSOCIATE FINANCIAL ADVISOR LAB URINE ORDERABLES Final Resu lt [facility] [address] [place] [address] [phone] * Lipid Panel, Standard (07/27/2023 8:06 AM EST) Triglycerides 53 <150 mg/dL [facility] Comment:Desirable Triglyceri de: less than 150 mg/dLBorderline High Triglyceride 150-199 mg/dLHigh Triglyceride: 200-499 mg/dLVery High Triglyceride: greater than or equal to 5OO mg/dL Cholesterol 113 <200 mg/dL [facility] Comment:Desirable Cholestero l: less than 200 mg/dLBorderline High Cholesterol: 200-239 mg/dLHigh Cholesterol: greater than 239 mg/dL LDL Cholesterol Calculated 39 <100 mg/dL [facility] Comment:Desirable LDL: less than 100 mg/dLNear Optimal/Above Optimal LDL: 110- 129 mg/dLBorderline High LDL: 130-159 mg/dLHigh LDL: 160-189 mg/dLVery High LDL: greater than or equal to 190 mg/dL HDL Cholesterol 64 >40 mg/dL [facility] Comment:Desirable HDL: great er than 40 mg/dL Note: This HDL assay may give artificially low results in patients with liver disease. Blood Venous blood specimen / Unknown 07/27/2023 8:06 AM EST 07/27/2023 11:15 AM EST Claritza Canela ASSOCIATE FINANCIAL ADVISOR LAB BLOOD ORDERABLES Final Resu lt Performing Organization Address [facility] Co de Phone Number [facility] [address] [place] [phone] * PAP/HPV (06/16/2023 12:00 AM EST) Historical Provider HEALTH MAINTENANCE Final Result * Mammography (05/05/2023) Mammogram Bi-rads 2 Anatomical Region Laterality Modality Other Historical Provider HEALTH MAINTENANCE Final Result * HEPATITIS C ANTIBODY RFLX (06/20/2019 8:11 AM EST) HEPATITIS C ANTIBODY NONREACTIVE NONREACTIVE [facility] Comment: Antibodies to HCV not detected; does not exclude early acute HCV infection. 06/20/2019 8:11 AM EST Albert Hollingsworth MD HISTORICAL/NON ORDERABLE LABS Fi nal Result Performing Organization Address City/[facility]/ZIP Co de Phone Number [facility] [address] * HIV AB/AG (06/20/2019 8:11 AM EST) HIV AG/AB NONREACTIVE [facility] Comment: HIV-1 p24 Ag and/or HIV-1/HIV-2 Ab not detected. A test result that is nonreactive does not exclude the possibility of exposure to or infection with HIV-1 and/or HIV-2. Nonreactive results in this assay for individuals with prior exposure to HIV-1 and/or HIV-2 may be due to antigen and antibody levels that are below the limit of detection of this assay. The [employer] HIV Ag/Ab Combo assay result and supplemental assay results should be interpreted in conjunction with the patient's clinical presentation, history and other laboratory results. If the results are inconsistent with clinical evidence, additional testing is suggested to confirm the result. 06/20/2019 8:11 AM EST Albert Hollingsworth MD HISTORICAL/NON ORDERABLE LABS Fi nal Result [facility] [address] * HPV mRNA E6/E7 (07/12/2018 9:56 AM EST) Pathologist [facility] HPV mRNA E6/E7 Not Detected NOT DETECTED [facility] Comment: This test was performed using the APTIMA(R) HPV Assay ([employer] This assay detects E6/E7 viral messenger RNA (mRNA) from 14 high-risk HPV types (16,18,31,33,35,39,45,51, 52,56,58,59,66,68). For additional information please refer to: http://education.Wazoku/faq/TSN259l3 (This link is being provided for informational/ educational purposes only.) The analytical performance characteristics of this assay have been determined by [employer] [place], [place]. The modifications have not been cleared or approved by the FDA. This assay has been validated pursuant to the CLIA regulations and is used for clinical purposes. Test Performed by [facility], [address] [place], [place] Henok Carreno M.D., Ph.D., Director of Laboratories , [place] [id number] Please note: Effective 02/22/2016, HPV testing will be performed using [employer]'s APTIMA test which targets mRNA. Detecting mRNA instead of DNA, as in older methods, offers significant improvements in specificity. 07/12/2018 9:56 AM EST Jayla Wang CNM HISTORICAL/NON ORDERABLE LABS Final Result [facility] [address] from Last 3 Months or Most Recently Relevant to Health Maintenance Insurance [facility] < 65 [address] [place] [id number] [place] [address] Care Teams Air Analysis Engineering Technician Relationship Specialty Start Date End Date Ynae Morrissey NP [address] [place] [address] PCP - General Family Medicine 02/14/24
--- OUTSIDE RECORDS SUMMARY | 2025-03-27 10:23 | XMS_ITS | Encounter Summary ---
Author Organization [employer] Address [address] [facility] 7t [place] [address] Care Team Providers Care Cook Fry Name Role Phone Claritza Canela Primary Care Provider [phone] Yane Morrissey NP Primary Care Provider [phone] Encounter Details Date Type Department Care Team (Late st Contact Info) Description 01/30/2023 Orders Only [facility]S [address] [place] [address] Claritza Canela FNP [address] [place] [address] Social History Tobacco Use Types Packs/Day Years [...] 1:00 PM EST Procedure Visit [facility] [address] [place] [address] Yane Morrissey NP [address] [place] [address] documented as of this encounter Visit Diagnoses Not on filedocumented in this encounter Additional Health Concerns Assessment Noted Time PHQ-9 Depression Total Score: 2 06/01/20 22 9:11 AM EST documented as of this encounter Care Teams Cook Fry Relationship Specialty Start Date End Date Claritza Canela FNP [address] [place] [address] PCP - General Family Medicine 05/13/22 02/13/24 Yane Morrissey NP [address] [place] [address] PCP - General Family Medicine 02/14/24 documented as of this encounter
--- OUTSIDE RECORDS SUMMARY | 2025-03-27 10:23 | XMS_ITS | Encounter Summary ---
Author Organization [employer] Address [address] [facility] 7t [place] [address] Care Team Providers Care Corporate Travel Agent Name Role Phone Claritza CanelaP Primary Care Provider [phone] Yane Morrissey NP Primary Care Provider [phone] Reason for Visit * Reason Onset Date Comments Med Refill Abnormal mammo follow up 10/18/2022 Encounter Details Date Type Department Care Team (Late st Contact Info) Description 10/18/2022 Refill [facility] [address] [place] [address] Elsie Argueta ANP [address] [place] [address] Social History Tobacco Use Types Packs/Day Years [...] Description 05/27/2025 1:00 PM EST Procedure Visit [facility] [address] [place] [address] Yane Morrissey NP [address] [place] [address] documented as of this encounter Visit Diagnoses Not on filedocumented in this encounter Additional Health Concerns Assessment Noted Time PHQ-9 Depression Total Score: 2 06/01/20 22 9:11 AM EST documented as of this encounter Care Teams Corporate Travel Agent Relationship Specialty Start Date End Date Claritza Canela FNP [address] [place] [address] PCP - General Family Medicine 05/13/22 02/13/24 Yane Morrissey NP [address] [place] [address] PCP - General Family Medicine 02/14/24 documented as of this encounter
--- OUTSIDE RECORDS SUMMARY | 2025-03-27 10:23 | XMS_ITS | Encounter Summary ---
Author Organization [employer] Address [address] [facility] 7t [place] [address] Care Team Providers Care Business Account Leader Name Role Phone Yane Morrissey NP Primary Care Provider [phone] Reason for Visit * Reason Comments Med Refill Encounter Details Date Type Department Care Team (Late st Contact Info) Description 08/26/2024 Refill [facility] [address] [place] [address] Claritza Canela FNP [address] [place] [address] Diabetic polyneuropathy associated with type 2 diabetes [...] Description 05/27/2025 1:00 PM EST Procedure Visit [facility] [address] [place] [address] Yane Morrissey NP [address] [place] [address] documented as of this encounter Visit Diagnoses Diagnosis Diabetic polyneuropathy associated with type 2 diabetes mellitus (HCC) documented in this encounter Additional Health Concerns Assessment Noted Time PHQ-9 Depression Total Score: 9 05/24/20 24 11:18 AM EST documented as of this encounter Care Teams Business Account Leader Relationship Specialty Start Date End Date Yane Morrissey NP [address] [place] [address] PCP - General Family Medicine 02/14/24 documented as of this encounter
--- OUTSIDE RECORDS SUMMARY | 2025-03-27 10:23 | XMS_ITS | Encounter Summary ---
Author Organization [employer] Address [address] [facility] 7t [place] [address] Care Team Providers Care Fashion Adviser Name Role Phone Claritza Canela Primary Care Provider [phone] Yane Morrissey NP Primary Care Provider [phone] Reason for Visit * Reason Onset Date Comments Medication Question 01/17/2024 Encounter Details Date Type Department Care Team (Late st Contact Info) Description 01/17/2024 Telephone [facility] [address] [place] [address] Claritza Canela FNP [address] [place], [place] [phone] Medication Question Social History Tobacco Use Types [...] any questions you can contact [facility] at [phone]. documented in this encounter Plan of Treatment Upcoming Encounters Date Type Department Care Team (Late st Contact Info) Description 05/27/2025 1:00 PM EST Procedure Visit [facility] [address] [place] [address] Yane Morrissey NP [address] [place] [address] documented as of this encounter Visit Diagnoses Not on filedocumented in this encounter Additional Health Concerns Assessment Noted Time PHQ-9 Depression Total Score: 23 023 10:13 AM EST documented as of this encounter Care Teams Fashion Adviser Relationship Specialty Start Date End Date Claritza Canela FNP [address] [place] [address] PCP - General Family Medicine 05/13/22 02/13/24 Yane Morrissey NP [address] [place] [address] PCP - General Family Medicine 02/14/24 documented as of this encounter
--- OUTSIDE RECORDS SUMMARY | 2025-03-27 10:23 | XMS_ITS | Encounter Summary ---
Author Organization [employer] Address [address] [facility] 7t [place] [address] Care Team Providers Care Industrial Sewer Name Role Phone Claritza CanelaP Primary Care Provider [phone] Yane Morrissey NP Primary Care Provider [phone] Encounter Details Date Type Department Care Team (Late st Contact Info) Description 01/30/2023 Orders Only [facility] MED & PEDS [address] [place] [address] Claritza Canela FNP [address] [place] [address] Breast density (Primary Dx) Social History Tobacco [...] Description 05/27/2025 1:00 PM EST Procedure Visit [facility] [address] [place] [address] Yane Morrissey NP [address] [place] [address] documented as of this encounter Visit Diagnoses Diagnosis Breast density- Primary Other sign and symptom in breast documented in this encounter Additional Health Concerns Assessment Noted Time PHQ-9 Depression Total Score: 2 06/01/20 22 9:11 AM EST documented as of this encounter Care Teams Industrial Sewer Relationship Specialty Start Date End Date Claritza Canela FNP [address] [place] [address] PCP - General Family Medicine 05/13/22 02/13/24 Yane Morrissey NP [address] [place] [address] PCP - General Family Medicine 02/14/24 documented as of this encounter
--- OUTSIDE RECORDS SUMMARY | 2025-03-27 10:23 | XMS_ITS | Encounter Summary ---
Author Organization [employer] Address [address] [facility] 7t [place] [address] Care Team Providers Care Fire Adjuster Name Role Phone Claritza Canela Primary Care Provider [phone] Yane Morrissey NP Primary Care Provider [phone] Reason for Visit * Reason Comments Med Refill Encounter Details Date Type Department Care Team (Late st Contact Info) Description 11/29/2022 Refill [facility] [address] [place] [address] Claritza Canela FNP [address] [place], [place] [phone] Rash and nonspecific skin eruption Social History [...] Description 05/27/2025 1:00 PM EST Procedure Visit [facility] [address] [place] [address] Yane Morrissey NP [address] [place] [address] documented as of this encounter Visit Diagnoses Diagnosis Rash and nonspecific skin eruption Rash and other nonspecific skin eruption documented in this encounter Additional Health Concerns Assessment Noted Time PHQ-9 Depression Total Score: 2 06/01/20 9:11 AM EST documented as of this encounter Care Teams Fire Adjuster Relationship Specialty Start Date End Date Claritza Canela FNP [address] [place] [address] PCP - General Family Medicine 05/13/22 02/13/24 Yane Morrissey NP [address] [place] [address] PCP - General Family Medicine 02/14/24 documented as of this encounter
--- OUTSIDE RECORDS SUMMARY | 2025-03-27 10:23 | XMS_ITS | Encounter Summary ---
Author Organization [employer] Address [address] [facility] [address]t [place] [address] Care Team Providers Care Play Therapist Name Role Phone Claritza CanelaP Primary Care Provider [phone] Yane Morrissey NP Primary Care Provider [phone] Encounter Details Date Type Department Care Team (Late st Contact Info) Description 03/21/2023 Abstract [facility] [address] [place] [address] Michelle Castillo Social History Tobacco Use Types [...] t he electric, gas, oil or water [employer] threatened to shut off services in your [...] Description 05/27/2025 1:00 PM EST Procedure Visit [facility] [address] [place] [address] Yane Morrissey NP [address] [place] [address] documented as of this encounter Visit Diagnoses Not on filedocumented in this encounter Additional Health Concerns Assessment Noted Time PHQ-9 Depression Total Score: 2 06/01/20 22 9:11 AM EST documented as of this encounter Care Teams Play Therapist Relationship Specialty Start Date End Date Claritza Canela FNP [address] [place] [address] PCP - General Family Medicine 05/13/22 02/13/24 Yane Morrissey NP [address] [place] [address] PCP - General Family Medicine 02/14/24 documented as of this encounter
--- OUTSIDE RECORDS SUMMARY | 2025-03-27 10:24 | XMS_ITS | Encounter Summary ---
Author Organization [employer] Address 75 [facility] 7t [place] [address] Care Team Providers Care Sleeper Cutter Name Role Phone Yane Morrissey NP Primary Care Provider [phone] Reason for Visit * Reason Onset Date Comments Med Refill 01/13/2025 Encounter Details Date Type Department Care Team (Late st Contact Info) Description 01/13/2025 Refill [facility] MEDICINE [address] [place] [address] Yane Morrissey NP [address] [place] [address] Type 2 diabetes mellitus without complication, with long-term current use of insulin ([facility]) Social History Tobacco Use Types [...] Visit [facility] MEDICINE [address] [place] [address] Yane Morrissey NP [address] [place] [address] documented as of this encounter Visit Diagnoses Diagnosis Type 2 diabetes mellitus without complication, with long-term current use of insulin (HCC) documented in this encounter Additional Health Concerns Assessment Noted Time PHQ-9 Depression Total Score: 9 05/24/20 11:18 AM EST documented as of this encounter Care Teams Sleeper Cutter Relationship Specialty Start Date End Date Yane Morrissey NP [address] [place] [address] PCP - General Family Medicine 02/14/24 documented as of this encounter
--- OUTSIDE RECORDS SUMMARY | 2025-03-27 10:24 | XMS_ITS | Encounter Summary ---
Author Organization [employer] Address [address] [facility] 7t [place] [address] Care Team Providers Care Comparator Operator Name Role Phone Yane Morrissey NP Primary Care Provider [phone] Reason for Visit * Reason Onset Date Comments Nurse Triage 01/27/2025 Encounter Details Date Type Department Care Team ([facility] st Contact Info) Description 01/27/2025 Telephone [facility] [address] [place] [address] Yane Morrissey NP [address] [place] [address] Nurse Triage Social History Tobacco Use Types [...] encounter Miscellaneous Notes * Telephone Encounter - Paola Benson RN - 01/27/2025 11:18 AM EDT Triage call Pt reports severe pain low back which radiates into left hip and leg. Pt reports some numbness when pain is severe. Pt is going to PT at [facility] in [place] which started 01/20/25 and is twice weekly. Pt is very happy with PT care. Pt is taking tylenol for pain but, unable to take alternating motrin due to allergy. Pt is requesting to see provider due to unable to sleep or be active due to pain. When this pain is severe Pt is unable to lift leg to follow PT instruction. ASK apt with Dr. Marie 01/29/25 930asm. Insurance is verified as active prior to booking. home care is reviewed. Protocol Used: Back Pain (Adult) Protocol-Based Disposition: See in Office or Video Visit within 3 Days Video visit not offered Positive Triage Questions: * Pain radiates into the thigh or further down the leg * Patient wants to be seen * All higher-acuity triage questions were negative Care Advice Discussed: * Reassurance and Education - Back Pain * Cold or Heat * Sleep * Continue Activity * Pain Medicines * Reasons To Call Back - Fever occurs - Numbness or weakness occurs - Loss of control of your bladder or bowel - Severe pain not better after taking pain medicines - Pain begins to shoot into the leg - Pain lasts over 2 weeks - Pain becomes worse - You become worse * Telephone Encounter - Kellyjose alejandro Ap - 01/27/2025 10:36 AM EDT Symptom: Back Pain - Not From Injury Outcome: Talk to a nurse or provider within 15 minutes Reason: Can't walk (unless normally can't walk) The caller accepted this outcome. Contact pt at [phone] documented in this encounter Plan of Treatment Upcoming Encounters Date Type Department Care Team (Late st Contact Info) Description 05/27/2025 1:00 PM EST Procedure Visit [facility] [address] [place] [address] Yane Morrissey NP [address] [place] [address] documented as of this encounter Visit Diagnoses Not on filedocumented in this encounter Additional Health Concerns Assessment Noted Time PHQ-9 Depression Total Score: 9 05/24/20 24 11:18 AM EST documented as of this encounter Care Teams Comparator Operator Relationship Specialty Start Date End Date Yane Morrissey NP [address] [place] [address] PCP - General Family Medicine 02/14/24 documented as of this encounter
--- OUTSIDE RECORDS SUMMARY | 2025-03-27 10:24 | XMS_ITS | Encounter Summary ---
Author Organization [employer] Address 75 [facility] 7t [place] [address] Care Team Providers Care Lamination Spinner Name Role Phone Yane Morrissey NP Primary Care Provider [phone] Reason for Visit * Reason Onset Date Comments Med Refill 01/22/2025 Encounter Details Date Type Department Care Team (Late st Contact Info) Description 01/22/2025 Refill [facility] MED[facility]INE [address] [place] [address] Yane Morrissey NP 230 [place] [address] Acute bilateral low back pain with right-sided [...] Procedure Visit [facility] [address] [place] [address] Yane Morrissey NP 230 [place] [address] documented as of this encounter Visit Diagnoses Diagnosis Acute bilateral low back pain with right-sided sciatica documented in this encounter Additional Health Concerns Assessment Noted Time PHQ-9 Depression Total Score: 9 05/24/20 24 11:18 AM EST documented as of this encounter Care Teams Lamination Spinner Relationship Specialty Start Date End Date Yane Morrissey NP 230 [place] [address] PCP - General Family Medicine 02/14/24 documented as of this encounter
--- OUTSIDE RECORDS SUMMARY | 2025-03-27 10:24 | XMS_ITS | Encounter Summary ---
Author Organization [employer] Address 75 [facility] 7t [place] [address] Care Team Providers Care Pump House Engineer Name Role Phone Yane Morrissey NP Primary Care Provider Reason for Visit * Reason Onset Date Comments Durable Medical Equipment 03/24/2025 Diabet ic shoes Encounter Details Date Type Department Care Team (Late st Contact Info) Description 03/24/2025 Telephone [facility] [address] [place] [address] Yane Morrissey NP [address] [place] [address] Durable Medical Equipment (Diabetic shoes) Social History Tobacco Use Types Packs/Day Years [...] encounter Miscellaneous Notes * Telephone Encounter - Maria Esther Bazzi - 03/24/2025 11:49 AM EDT RX for diabetic shoes generated and sent to PCP for signature via [employer]. Once signed, will be faxed to [facility] and sent to scan. If patient calls to check status on above, please advise them to contact [facility] direct care supervisor . * Telephone Encounter - Maria Esther Bazzi - 03/24/2025 11:49 AM EDT ----- Message from Yane Morrissey sent at 03/21/2025 2:13 PM EDT ----- Good afternoon, Pt sees [facility] for diabetic shoes, requesting for diabetic shoes to go there. Thank you documented in this encounter Plan of Treatment Upcoming Encounters Date Type Department Care Team (Late st Contact Info) Description 05/27/2025 1:00 PM EST Procedure Visit [facility] [address] [place] [address] Yane Morrissey NP [address] [place] [address] documented as of this encounter Visit Diagnoses Not on filedocumented in this encounter Additional Health Concerns Assessment Noted Time PHQ-9 Depression Total Score: 2 03/07/20 25 3:42 PM EDT documented as of this encounter Care Teams Pump House Engineer Relationship Specialty Start Date End Date Yane Morrissey NP [address] [place] [address] PCP - General Family Medicine 02/14/24 documented as of this encounter
--- OUTSIDE RECORDS SUMMARY | 2025-03-27 10:24 | XMS_ITS | Encounter Summary ---
Author Organization [employer] Address 75 [facility] 7t [place] [address] Care Team Providers Care Patient Accounts Specialist Name Role Phone Yane Morrissey NP Primary Care Provider [phone] Reason for Visit * Reason Onset Date Comments Nurse Triage 08/01/2024 Encounter Details Date Type Department Care Team ([facility] st Contact Info) Description 08/01/[address] [facility] MEDICINE [address] [place] [address] Yane Morrissey NP [address] [place] [address] Nurse Triage Social History Tobacco Use Types [...] 3 days The caller accepted this outcome. [phone] documented in this encounter Plan of Treatment Upcoming Encounters Date Type Department Care Team (Late st Contact Info) Description 05/27/2025 1:00 PM EST Procedure Visit [facility] [address] [place] [address] Yane Morrissey NP [address] [place] [address] documented as of this encounter Visit Diagnoses Not on filedocumented in this encounter Additional Health Concerns Assessment Noted Time PHQ-9 Depression Total Score: 9 05/24/20 24 11:18 AM EST documented as of this encounter Care Teams Patient Accounts Specialist Relationship Specialty Start Date End Date Yane Morrissey NP [address] [place] [address] PCP - General Family Medicine 02/14/24 documented as of this encounter
--- OUTSIDE RECORDS SUMMARY | 2025-03-27 10:24 | XMS_ITS | Encounter Summary ---
Author Organization [employer] Address 75 [facility] 7t [place] [address] Care Team Providers Care Devulcanizer Operator Name Role Phone Yane Morrissey NP Primary Care Provider [phone] Reason for Visit * Reason Onset Date Comments Med Refill 01/13/2025 Encounter Details Date Type Department Care Team (Late st Contact Info) Description 01/13/2025 Refill [facility] [address] [place] [address] Omaira Brian MD [address] [place] [address] Generalized abdominal pain Social History Tobacco Use Types [...] Description 05/27/2025 1:00 PM EST Procedure Visit [facility] [address] [place] [address] Yane Morrissey NP [address] [place] [address] documented as of this encounter Visit Diagnoses Diagnosis Generalized abdominal pain Abdominal pain, generalized documented in this encounter Additional Health Concerns Assessment Noted Time PHQ-9 Depression Total Score: 9 05/24/20 24 11:18 AM EST documented as of this encounter Care Teams Devulcanizer Operator Relationship Specialty Start Date End Date Yane Morrissey NP [address] [place] [address] PCP - General Family Medicine 02/14/24 documented as of this encounter
--- OUTSIDE RECORDS SUMMARY | 2025-03-27 10:24 | XMS_ITS | Encounter Summary ---
Author Organization [employer] Address 75 [facility] 7t [place] [address] Care Team Providers Care Cigarette Machine Filler Name Role Phone Yane Morrissey NP Primary Care Provider [phone] Reason for Visit * Reason Onset Date Comments Lab Orders 08/02/2024 ER Follow-up 08/02/2024 Encounter Details Date Type Department Care Team (Late st Contact Info) Description 08/02/2024 Telephone [facility] MEDICINE 230 [place] [address] Yane Morrissey NP [address] [place] [address] Lab Orders; ER Follow-up Social History Tobacco [...] triage, spoke to pt. pt states seen [facility] 07/24 ER for stomach pain and intermittent [...] ED visit on : Date: 07/24/2024 Hospital: [facility] Seen for: Adonmonial Pain Symptomatic Yes *if yes message should go to Triage Patient advised will forward to team nurse for follow up Pt states that (ER doctor) called daughter stating that pt needs an outpatient Cat scan order sent to [facility]. Pt is still in a lot of pain currently. Don't Call pt from private number. documented in this encounter Plan of Treatment Upcoming Encounters Date Type Department Care Team (Late st Contact Info) Description 05/27/2025 1:00 PM EST Procedure Visit [facility] MEDICINE [address] [place] [address] Yane Morrissey NP [address] [place] [address] documented as of this encounter Visit Diagnoses Not on filedocumented in this encounter Additional Health Concerns Assessment Noted Time PHQ-9 Depression Total Score: 9 05/24/20 24 11:18 AM EST documented as of this encounter Care Teams Cigarette Machine Filler Relationship Specialty Start Date End Date Yane Morrissey NP [address] [place] [address] PCP - General Family Medicine 02/14/24 documented as of this encounter
--- OUTSIDE RECORDS SUMMARY | 2025-03-27 10:24 | XMS_ITS | Encounter Summary ---
Author Organization [employer] Address 75 [facility] 7t [place] [address] Care Team Providers Care As400 Consultant Name Role Phone Claritza Canela Primary Care Provider [phone] Yane Morrissey NP Primary Care Provider [phone] Reason for Visit * Reason Comments Med Refill Encounter Details Date Type Department Care Team (Late st Contact Info) Description 05/19/[address] [facility] MEDICINE [address] [place] [address] Claritza Canela FNP [address] [place], [place] [phone] Anxiety Social History Tobacco Use Types Packs/Day [...] 1:00 PM EST Procedure Visit [facility] MEDICINE [address] [place] [address] Yane Morrissey NP [address] [place] [address] documented as of this encounter Visit Diagnoses Diagnosis Anxiety Anxiety state, unspecified documented in this encounter Additional Health Concerns Assessment Noted Time PHQ-9 Depression Total Score: 23 023 10:13 AM EST documented as of this encounter Care Teams As400 Consultant Relationship Specialty Start Date End Date Claritza Canela FNP [address] [place] [address] PCP - General Family Medicine 05/13/22 02/13/24 Yane Morrissey NP [address] [place] [address] PCP - General Family Medicine 02/14/24 documented as of this encounter
--- OUTSIDE RECORDS SUMMARY | 2025-03-27 10:24 | XMS_ITS | Encounter Summary ---
Author Organization [employer] Address [address] [facility] [address] 7t [place] [address] Care Team Providers Care First Aid Nurse Name Role Phone Claritza CanelaP Primary Care Provider [phone] Yane Morrissey NP Primary Care Provider [phone] Reason for Visit * Reason Onset Date Comments Referral 03/23/2023 Encounter Details Date Type Department Care Team (Late st Contact Info) Description 03/23/2023 Telephone [facility] MEDICINE 230 [place] [address] Claritza Canela FNP 230 [place] [address] Referral Social History Tobacco Use Types Packs/Day [...] Description 05/27/2025 1:00 PM EST Procedure Visit [facility] [address] [place] [address] Yane Morrissey NP [address] [place] [address] documented as of this encounter Visit Diagnoses Not on filedocumented in this encounter Additional Health Concerns Assessment Noted Time PHQ-9 Depression Total Score: 2 06/01/20 22 9:11 AM EST documented as of this encounter Care Teams First Aid Nurse Relationship Specialty Start Date End Date Claritza Canela FNP [address] [place] [address] PCP - General Family Medicine 05/13/22 02/13/24 Yane Morrissey NP [address] [place] [address] PCP - General Family Medicine 02/14/24 documented as of this encounter
--- OUTSIDE RECORDS SUMMARY | 2025-03-27 10:24 | XMS_ITS | Encounter Summary ---
Author Organization [employer] Address 75 [facility] 7t [place] [address] Care Team Providers Care Glaze Carrier Name Role Phone Yane Morrissey NP Primary Care Provider [phone] Reason for Visit * Reason Onset Date Comments Durable Medical Equipment 03/24/2025 Knee b races Encounter Details Date Type Department Care Team (Late st Contact Info) Description 03/24/2025 Telephone [facility] MEDICINE [address] [place] [address] Yane Morrissey NP [address] [place] [address] Durable Medical Equipment (Knee braces) Social History Tobacco Use Types Packs/Day Years [...] Encounter - Maria Esther Bazzi - 03/24/2025 11:36 AM EDT RX for Brace previously sent to [facility] assisted living care manager and already in progress per [facility] message from Palmira Lorenzo dated 03/14/2025. 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 Thank you documented in this encounter Plan of Treatment Upcoming Encounters Date Type Department Care Team (Late st Contact Info) Description 05/27/2025 1:00 PM EST Procedure Visit [facility] MEDICINE [address] [place] [address] Yane Morrissey NP [address] [place] [address] documented as of this encounter Visit Diagnoses Not on filedocumented in this encounter Additional Health Concerns Assessment Noted Time PHQ-9 Depression Total Score: 2 03/07/20 25 3:42 PM EDT documented as of this encounter Care Teams Glaze Carrier Relationship Specialty Start Date End Date Yane Morrissey NP 230 [place] [address] PCP - General Family Medicine 02/14/24 documented as of this encounter
--- OUTSIDE RECORDS SUMMARY | 2025-03-27 10:24 | XMS_ITS | Encounter Summary ---
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, with long-term current use of insulin, unspecified laterality (HCC) Social History Tobacco Use Types Packs/Day Years [...] 1:00 PM EST Procedure Visit [facility] MEDICINE [address] [place] [address] Yane Morrissey NP [address] [place] [address] documented as of this encounter Visit Diagnoses Diagnosis 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
--- OUTSIDE RECORDS SUMMARY | 2025-03-27 10:24 | XMS_ITS | Encounter Summary ---
Author Organization [employer] Address [address] [facility] [address] 7t [place] [address] Care Team Providers Care Animal Feeder Name Role Phone Claritza Canela Primary Care Provider [phone] Yane Morrissey NP Primary Care Provider [phone] Encounter Details Date Type Department Care Team (Late st Contact Info) Description 03/28/2023 Orders Only [facility] PEDS [address] [place] [address] Claritza Canela FNP [address] [place] [address] Acute bilateral low back pain with right-sided [...] 05/27/2025 1:00 PM EST Procedure Visit [facility] MEDICINE 230 [place] [address] Yane Morrissey NP [address] [place] [address] documented as of this encounter Visit Diagnoses Diagnosis Acute bilateral low back pain with right-sided sciatica documented in this encounter Additional Health Concerns Assessment Noted Time PHQ-9 Depression Total Score: 2 06/01/20 22 9:11 AM EST documented as of this encounter Care Teams Animal Feeder Relationship Specialty Start Date End Date Claritza Canela FNP 230 [place] [address] PCP - General Family Medicine 05/13/22 02/13/24 Yane Morrissey NP [address] [place] [address] PCP - General Family Medicine 02/14/24 documented as of this encounter
--- OUTSIDE RECORDS SUMMARY | 2025-03-27 10:24 | XMS_ITS | Encounter Summary ---
Author Organization [employer] Address 75 [facility] 7t [place] [address] Care Team Providers Care Distribution System Operator Name Role Phone Yane Morrissey NP Primary Care Provider [phone] Reason for Visit * Reason Onset Date Comments Med Refill 01/13/2025 Encounter Details Date Type Department Care Team (Late st Contact Info) Description 01/13/2025 Refill [facility] MEDICINE [address] [place] [address] Yane Morrissey NP [address] [place] [address] Essential hypertension Social History Tobacco Use Types [...] Description 05/27/2025 1:00 PM EST Procedure Visit [facility] MEDICINE [address] [place] [address] Yane Morrissey NP [address] [place] [address] documented as of this encounter Visit Diagnoses Diagnosis Essential hypertension Unspecified essential hypertension documented in this encounter Additional Health Concerns Assessment Noted Time PHQ-9 Depression Total Score: 9 05/24/20 24 11:18 AM EST documented as of this encounter Care Teams Distribution System Operator Relationship Specialty Start Date End Date Yane Morrissey NP [address] [place] [address] PCP - General Family Medicine 02/14/24 documented as of this encounter
--- OUTSIDE RECORDS SUMMARY | 2025-03-27 10:24 | XMS_ITS | Encounter Summary ---
Author Organization [employer] Address 75 [facility] 7t [place] [address] Care Team Providers Care Director Of Public Safety Name Role Phone Claritza CanelaP Primary Care Provider [phone] Yane Morrissey NP Primary Care Provider [phone] Encounter Details Date Type Department Care Team (Late st Contact Info) Description 07/19/2022 Orders Only [facility] MEDICINE [address] [place] [address] Claritza Canela FNP [address] [place] [address] Type 2 diabetes mellitus without complication, with long-term current use of insulin ([facility]) (Primary Dx) Social History Tobacco Use [...] [facility] [address] [place] [address] Yane Morrissey NP [address] [place] [address] documented as of this encounter Visit Diagnoses Diagnosis Type 2 diabetes mellitus without complication, with long-term current use of insulin (HCC)- Primary documented in this encounter Additional Health Concerns Assessment Noted Time PHQ-9 Depression Total Score: 2 06/01/20 9:11 AM EST documented as of this encounter Care Teams Director Of Public Safety Relationship Specialty Start Date End Date Claritza Canela FNP [address] [place] [address] PCP - General Family Medicine 05/13/22 02/13/24 Yane Morrissey NP [address] [place] [address] PCP - General Family Medicine 02/14/24 documented as of this encounter
--- OUTSIDE RECORDS SUMMARY | 2025-03-27 10:24 | XMS_ITS | Encounter Summary ---
Author Organization [employer] Address 75 [facility] 7t [place] [address] Care Team Providers Care Senior Unix Administrator Name Role Phone Claritza Canela Primary Care Provider [phone] Yane Morrissey NP Primary Care Provider [phone] Encounter Details Date Type Department Care Team (Late Contact Info) Description 05/27/2022 Orders Only [facility] MEDICINE [address] [place] [address] Corina Canchola, ISAAK Social History Tobacco Use [...] Description 05/27/2025 1:00 PM EST Procedure Visit [facility] MEDICINE 230 [place], [place] [phone] Yane Morrissey NP [address] [place], [place] [address] documented as of this encounter Visit Diagnoses Not on filedocumented in this encounter Care Teams Senior Unix Administrator Relationship Specialty Start Date End Date Claritza Canela FNP [address] [place] [address] PCP - General Family Medicine 05/13/22 02/13/24 Yane Morrissey NP [address] [place] [address] PCP - General Family Medicine 02/14/24 documented as of this encounter
--- OUTSIDE RECORDS SUMMARY | 2025-03-27 10:24 | XMS_ITS | Encounter Summary ---
Author Organization [employer] Address 75 [facility] 7t [place] [address] Care Team Providers Care Business Planning Manager Name Role Phone Claritza Canela Primary Care Provider [phone] Yane Morrissey NP Primary Care Provider [phone] Encounter Details Date Type Department Care Team (Late st Contact Info) Description 10/04/2023 Orders Only [facility] MED [facility] PEDS [address] [place] [address] Claritza Canela FNP [address] [place] [address] Social History Tobacco Use Types Packs/Day Years [...] with others, in a hotel, in a [place] [facility] [place], living outside on the street, on a [...] Description 05/27/2025 1:00 PM EST Procedure Visit [facility] MEDICINE [address] [place] [address] Yane Morrissey NP [address] [place] [address] documented as of this encounter Visit Diagnoses Not on filedocumented in this encounter Additional Health Concerns Assessment Noted Time PHQ-9 Depression Total Score: 23 023 10:13 AM EST documented as of this encounter Care Teams Business Planning Manager Relationship Specialty Start Date End Date Claritza Canela FNP [address] [place] [address] PCP - General Family Medicine 05/13/22 02/13/24 Yane Morrissey NP [address] [place] [address] PCP - General Family Medicine 02/14/24 documented as of this encounter
--- OUTSIDE RECORDS SUMMARY | 2025-03-27 10:24 | XMS_ITS | Encounter Summary ---
Author Organization [employer] Address 75 [facility] 7t [place] [address] Care Team Providers Care Gas Pumper Name Role Phone Claritza Canela Primary Care Provider [phone] Yane Morrissey NP Primary Care Provider [phone] Reason for Visit * Reason Onset Date Comments Medication Question 08/17/2023 Encounter Details Date Type Department Care Team (Late st Contact Info) Description 08/17/2023 Telephone [facility] MEDICINE [address] [place] [address] Claritza Canela FNP [address] [place], [place] [id number] Medication Question Social History Tobacco Use Types [...] was sent by paramedics yesterday at the [facility] pharmacywhich is not covered, pt. Does not remember the name/T/C to [facility] pharmacy for above message, pharmacy [...] by her insurance. Please contact pt at [phone]. documented in this encounter Plan of Treatment Upcoming Encounters Date Type Department Care Team (Late st Contact Info) Description 05/27/2025 1:00 PM EST Procedure Visit [facility] MEDICINE [address] [place] [address] Yane Morrissey NP [address] [place] [address] documented as of this encounter Visit Diagnoses Not on filedocumented in this encounter Additional Health Concerns Assessment Noted Time PHQ-9 Depression Total Score: 23 023 10:13 AM EST documented as of this encounter Care Teams Gas Pumper Relationship Specialty Start Date End Date Claritza Canela FNP [address] [place] [address] PCP - General Family Medicine 05/13/22 02/13/24 Yane Morrissey NP [address] [place] [address] PCP - General Family Medicine 02/14/24 documented as of this encounter
--- OUTSIDE RECORDS SUMMARY | 2025-03-27 10:24 | XMS_ITS | Encounter Summary ---
Author Organization [employer] Address [address] [facility] [address] [place] [address] Care Team Providers Care Shipwright Name Role Phone Claritza CanelaP Primary Care Provider [phone] Yane Morrissey NP Primary Care Provider [phone] Reason for Visit * Reason Comments Med Refill Encounter Details Date Type Department Care Team (Late st Contact Info) Description 11/03/2023 Refill [facility] MEDICINE [address] [place] [address] Claritza Canela FNP [address] [place], [place] [id number] Social History Tobacco Use Types Packs/Day Years [...] 05/27/2025 1:00 PM EST Procedure Visit [facility] MEDICINE [address] [place] [address] Yane Morrissey NP [address] [place] [address] documented as of this encounter Visit Diagnoses Not on filedocumented in this encounter Additional Health Concerns Assessment Noted Time PHQ-9 Depression Total Score: 23 023 10:13 AM EST documented as of this encounter Care Teams Shipwright Relationship Specialty Start Date End Date Claritza Canela FNP [address] [place] [address] PCP - General Family Medicine 05/13/22 02/13/24 Yane Morrissey NP [address] [place] [address] PCP - General Family Medicine 02/14/24 documented as of this encounter
--- OUTSIDE RECORDS SUMMARY | 2025-03-27 10:24 | XMS_ITS | Encounter Summary ---
Author Organization [employer] Address [address] [facility] 7[address] [place] [address] Care Team Providers Care Technical Business Systems Analyst Name Role Phone Yane Morrissey NP Primary Care Provider [phone] Encounter Details Date Type Department Care Team (Late st Contact Info) Description 05/17/2024 Orders Only [facility] MEDICINE [address] [place] [address] Michelle Castillo Social History Tobacco Use Types [...] 1:00 PM EST Procedure Visit [facility] MED[facility] [address] [place] [address] Yane Morrissey NP [address] [place] [address] documented as of this encounter Procedures Procedure Name Priority Date/Time Associated Diagnosis Comments HM PAP/HPV Routine 06/16/2023 10:46 AM EST HM PAP/HPV Routine 06/16/2023 12:00 AM EST documented in this encounter Results * HM PAP/HPV (06/16/2023 10:46 AM EST) us Historical Provider HEALTH MAINTENANCE Final Result * HM PAP/HPV (06/16/2023 12:00 AM EST) Historical Provider HEALTH MAINTENANCE Final Result documented in this encounter Visit Diagnoses Not on filedocumented in this encounter Additional Health Concerns Assessment Noted Time PHQ-9 Depression Total Score: 23 023 10:13 AM EST documented as of this encounter Care Teams Technical Business Systems Analyst Relationship Specialty Start Date End Date Yane Morrissey NP [address] [place] [address] PCP - General Family Medicine 02/14/24 documented as of this encounter
== END 2025-03-27 09:42 | disposition home or self-care (01) ==
LOC: HO.HSM 09:14
PROVIDERS: PCP Nurse Practitioner Family; Referring Provider Internal Medicine; Visit Provider Registered Nurse
DX: G43.909 Migraine, unspecified, not intractable, without status migrainosus (principal); G44.209 Tension-type headache, unspecified, not intractable; G47.00 Insomnia, unspecified
CPT/HCPCS: 99214

== ENCOUNTER → 2025-03-27 09:13 | Outpatient (BNVA) | payer OTHER, SELFPAY | PROVIDERS: PCP Nurse Practitioner Family; Referring Provider Internal Medicine; Visit Provider Registered Nurse | DX: G43.009 Migraine without aura, not intractable, without status migrainosus (principal); G44.209 Tension-type headache, unspecified, not intractable; G47.00 Insomnia, unspecified | CPT/HCPCS: 99212 ==

== ENCOUNTER 2025-04-03 10:09 | Outpatient (REF) | payer OTHER, SELFPAY ==
--- NOTE | ~2025-04-03 | XR_ITS ---
CLINICAL HISTORY: M54.9 - Dorsalgia, unspecified 3 views lumbar spine Comparison: None provided Findings: Severe multilevel facet arthropathy is present. Gasy-me-wffepaoi multilevel marginal osteophyte formation and disc space narrowing is also seen. There is grade 1 retrolisthesis of L1, L2, and L3. There is mild loss of anterior vertebral body height at T12. Cholecystectomy clips are noted. IMPRESSION: 1. 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 2. Mild loss of anterior vertebral body height at T12. 3. Grade 1 retrolisthesis of L1, L2, and L3. This document has been electronically signed by: Ladi Nesbitt on 04/04/2025 10:30:10
== END 2025-04-03 10:10 | disposition home or self-care (01) ==
LOC: HO.HOSX 10:09
PROVIDERS: PCP Nurse Practitioner Family; Visit Provider Physical Medicine & Rehabilitation
DX: G89.29 Other chronic pain (principal); M53.3 Sacrococcygeal disorders, not elsewhere classified; M54.16 Radiculopathy, lumbar region
CPT/HCPCS: 72100; 99202

== ENCOUNTER 2025-04-03 10:09 | Outpatient (AMB) | payer OTHER, SELFPAY ==
--- NOTE | 2025-04-03 10:13 | MHC.OFFVIS ---
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 Pain started about 10 years ago and had a bad fall about 5 years ago. States she has fallen multiple times due to having vertigo and knee problems. Patient reports radiating sharp pain mainly down her left side. She has pain on mat right as well but ot not as bad. States pain is worsen with prolong walking, sitting and laying down. At times she has numbness and tingling in her toes and cramps in her left calf. Patient has tried P.T many years ago with no pain relief. Allergies aspirin (ASPIRIN) Allergy (Severe, Verified 04/03/25 10:19) TONGUE SWELLING bee pollen (BEE STINGS) Allergy (Severe, Verified 04/03/25 10:19) ANAPHYLAXIS Medication List - Last Reconciled 04/03/25 by Xochitl Garland MD albuterol sulfate 90 mcg/actuation 2 puffs inhalation Q4-6H PRN atorvastatin 40 mg PO BEDTIME buspirone 10 mg PO DAILY epinephrine IM DIRECTED famotidine 40 mg PO BEDTIME hydrochlorothiazide 25 mg PO DAILY insulin degludec (Tresiba FlexTouch U-200 insulin) units subcut Lactobacillus rhamnosus GG (Probiotic Digestive Care) ONE CAP orally DAILY lancets (TRUEplus Lancets) As directed lidocaine 5% patches topical losartan 50 mg PO DAILY melatonin 3 mg PO BEDTIME metformin 1,000 mg PO BID methylcellulose (laxative) (Citrucel) 500 mg PO DAILY ondansetron HCl mg PO TID-QID PRN semaglutide (Ozempic) 0.5 mg subcut QWEEK sennosides (Natural Senna Laxative) 17.2 mg (2 x 8.6 mg) PO BEDTIME topiramate 50 mg PO BID 90 days HPI Comments Details: Chronic more than 10 years. Pain worse on left than right, pointing to Si joint area and coccyx. Radiates to buttocks and posterior thigh. While sleeping, would feel a left calf cramp. Numbness goes down same distribution. Very hard to move her leg. Has already changed her mattress/bed without relief. Has done PT before, had massage, but no relief. Last PT 2 1/2 weeks ago. Xray of hip showed degenerative changes on SI joint and acetabulum. Ortho did not think this was related to hip joint though. She also reports spasms on right upper back/trapezius. History of CTS, follows with hand surgery. X-rays showed SI joint degeneration and left hip arthritis. Incidental finding of vascular calcifications. Patient says she follows with her PCP and her hypertension is controlled. She verbalized understanding of risks for cardiac if hypertension and cholesterol are not well managed. [facility] Medical History (Updated 04/03/25 @ 10:36 by Xochitl Garland MD) History of pancreatitis Breast nodule Arthritis Bilateral carpal tunnel syndrome History of trigger finger DDD (degenerative disc disease) Seasonal asthma Anxiety Hypertension Acid reflux Migraines High cholesterol Diabetes Surgical History S/P LASIK surgery of both eyes History of carpal tunnel release S/P arthroscopic surgery of left knee (~1999) History of tonsillectomy History of section Family History Mother No problems noted. Father No problems noted. Paternal Aunt Uterine cancer Social History Alcohol intake: never Patient Tobacco Use Status: Never used Tobacco Second Hand Smoke Exposure: No Current occupational status: disabled Current occupation: rt hand Female Reproductive History Menstrual Age of Menarche: 11 Review of Systems Const All systems reviewed & are unremarkable except as noted in HPI and below Physical Exam Exam Exam: Constitutional: Patient appears to be in no acute distress, well nourished and well developed. Patient was appropriately conversant and oriented. Good historian. MSK: No specific abnormalities found on inspection of the spine and all extremities. Very tender on left SI joint and gluteus, to the point of tears. But denied tenderness over lumbar spinous processes or facets. Limited range of motion due to pain. Limited left hip range of motion due to pain. Strength is 5/5 in all muscle groups tested. No increased tone noted. Neurological: Neurologic examination of the upper and lower extremities was nonfocal with intact sensation, muscle stretch reflexes and without focal motor deficits . Akbar?s negative bilaterally. Babinski was down going bilaterally. Clonus was negative. Gait is antalgic without loss of balance. Vital Signs: BMI result Body Mass Index 37.7 Results Reviewed Results Reviewed: Ordering Physician: Cory Velasquez PA-C Date of Service: 12/30/24 Procedure(s): XR hip LT min 2V Accession Number(s): [id number] cc: Yane Morrissey CORPORATE FINANCIAL ANALYST; Cory Velasquez PA-C~ EXAMINATION: XR HIP, LEFT CLINICAL INFORMATION: M25.552 - Pain in left hip COMPARISON: 02/27/2018 TECHNIQUE: AP upright, AP supine, and frog-leg lateral views of the left hip. FINDINGS: There is sclerosis and narrowing with marginal osteophytes involving the articular portions of the SI joints. There are enthesophytes involving both iliac spines. Moderate vascular calcification is evident in the iliac and femoral arteries, increased since the prior. Numerous phleboliths are present in the pelvis. Left hip joint space is preserved and congruent. There is a small acetabular osteophyte. Interval developing enthesophyte formation is evident at the greater trochanter. 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 Moderate vascular calcifications, increasing since the prior. Minimal roof osteophytes involving left acetabulum. Electronically signed by: Skinny Flores MD 12/30/2024 03:57 PM EDT RP I reviewed records from the following: ortho Assessment & Plan Assessment & Plan (1) Chronic SI joint pain: Code(s): M53.3 - Sacrococcygeal disorders, not elsewhere classified; G89.29 - Other chronic pain Category: Medical (2) Left lumbar radiculitis: Code(s): M54.16 - Radiculopathy, lumbar region Category: Medical Plan Chronic lower back pain, most likely left SI joint dysfunction. However, ruling out possibility of lumbar disc herniation causing nerve root impingement. Lumbar x-rays to be done today. If normal, then we will refer patient to pain management for SI joint injection. If shows L5-S1 disc space decreased, then it would be reasonable to obtain lumbar MRI for further information. Assessment and plan discussed with patient, and patient was agreeable. All questions were answered thoroughly. Follow up after results. Xochitl Garland MD, ANGELA Board Certified, [place] Board [employer] and Rehabilitation (ABPMR) Board Certified, [place] Board of Electrodiagnostic Medicine (ABEM) Orders: Orders XR lumbar spine 2-3V Today M54.9 - Dorsalgia, unspecified Coding Level of Care Code New Pt Level 4 (40800) Complex EM visit Add On G2211 Diagnoses Chronic SI joint pain M53.3; G89.29 Left lumbar radiculitis M54.16
[2025-04-03 10:14] VITALS: BMI 37.7
--- OUTSIDE RECORDS SUMMARY | 2025-04-03 11:56 | XMS_ITS | Encounter Summary ---
Author Organization [employer] Address [address] [facility] [address] [place] [address] Care Team Providers Care Chiller Technician Name Role Phone Claritza CanelaP Primary Care Provider [phone] Yane Morrissey NP Primary Care Provider [phone] Encounter Details Date Type Department Care Team (Late st Contact Info) Description 03/21/2023 Abstract [facility] MEDICINE [address] [place] [address] Michelle Castillo Social History Tobacco Use Types [...] t he electric, gas, oil or water [employer] threatened to shut off services in your [...] Description 05/27/2025 1:00 PM EST Procedure Visit [facility] MEDICINE [address] [place] [address] Yane Morrissey NP [address] [place] [address] documented as of this encounter Visit Diagnoses Not on filedocumented in this encounter Additional Health Concerns Assessment Noted Time PHQ-9 Depression Total Score: 2 06/01/20 22 9:11 AM EST documented as of this encounter Care Teams Chiller Technician Relationship Specialty Start Date End Date Claritza Canela FNP [address] [place] [address] PCP - General Family Medicine 05/13/22 02/13/24 Yane Morrissey NP [address] [place] [address] PCP - General Family Medicine 02/14/24 documented as of this encounter
--- OUTSIDE RECORDS SUMMARY | 2025-04-03 11:56 | XMS_ITS | Encounter Summary ---
Author Organization [employer] Address [address] [facility] 7t [place] [address] Care Team Providers Care Painter Aircraft Name Role Phone Claritza CanelaP Primary Care Provider [phone] Yane Morrissey NP Primary Care Provider [phone] Reason for Visit * Reason Onset Date Comments Med Refill Abnormal mammo follow up 10/18/2022 Encounter Details Date Type Department Care Team (Late st Contact Info) Description 10/18/2022 Refill [facility] MEDICINE [address] [place] [address] Elsie Argueta ANP [address] [place] [address] Social History Tobacco Use Types Packs/Day Years [...] AM EDT Incoming call from Shana at [facility] calling to [...] Description 05/27/2025 1:00 PM EST Procedure Visit [facility] MEDICINE [address] [place] [address] Yane Morrissey NP [address] [place] [address] documented as of this encounter Visit Diagnoses Not on filedocumented in this encounter Additional Health Concerns Assessment Noted Time PHQ-9 Depression Total Score: 2 06/01/20 22 9:11 AM EST documented as of this encounter Care Teams Painter Aircraft Relationship Specialty Start Date End Date Claritza Canela FNP [address] [place] [address] PCP - General Family Medicine 05/13/22 02/13/24 Yane Morrissey NP [address] [place] [address] PCP - General Family Medicine 02/14/24 documented as of this encounter
--- OUTSIDE RECORDS SUMMARY | 2025-04-03 11:56 | XMS_ITS | Encounter Summary ---
Author Organization [employer] Address [address] [facility] [address] [place] [address] Care Team Providers Care Forklift Truck Mechanic Name Role Phone Claritza Canela Primary Care Provider [phone] Yane Morrissey NP Primary Care Provider [phone] Reason for Referral * Imaging (Routine) - Closed Specialty Diagnoses / Procedures Referred By Luci leon Referred To Contact Diagnoses Mass of left breast, unspecified quadrant Procedures BI Mammogram Diagnostic Tomosynthesis Left Claritza Canela FNP [address] [place] [address] Phone: tel: fax: [address] Phone: tel: fax: Referral ID Status Reason Start Date Expiration Date Visits Re quested Visits Authorized [id number] Closed 11/11/2022 05/10/2023 1 1 Encounter Details Date Type Department Care Team (Late st Contact Info) Description 11/11/2022 Orders Only [facility] MEDICINE [address] [place] [address] Claritza Canela FNP [address] [place] [address] Mass of left breast, unspecified quadrant (Primary [...] Description 05/27/2025 1:00 PM EST Procedure Visit [facility] MEDICINE [address] [place] [address] Yane Morrissey NP [address] [place] [address] Scheduled Orders Name Type Priority Associated Diagnoses [...] documented as of this encounter Care Teams Forklift Truck Mechanic Relationship Specialty Start Date End Date Claritza Canela FNP [address] [place], [place] [id number] PCP - General Family Medicine 05/13/22 02/13/24 Yane Morrissey NP [address] [place] [address] PCP - General Family Medicine 02/14/24 documented as of this encounter
--- OUTSIDE RECORDS SUMMARY | 2025-04-03 11:56 | XMS_ITS | Encounter Summary ---
Author Organization [employer] Address [address] [place] [address] Care Team Providers Care Elevator Serviceman Name Role Phone Claritza CanelaP Primary Care Provider [phone] Yane Morrissey NP Primary Care Provider [phone] Encounter Details Date Type Department Care Team (Late st Contact Info) Description 03/21/2023 Orders Only [facility] MEDICINE [address] [place] [address] Provider, MD [place] Social History Tobacco Use [...] t he electric, gas, oil or water [employer] threatened to shut off services in your [...] Procedure Visit [facility] MEDICINE [address] [place] [address] Yane Morrissey NP [address] [place] [address] documented as of this encounter Procedures Procedure [...] documented as of this encounter Care Teams Elevator Serviceman Relationship Specialty Start Date End Date Claritza Canela FNP [address] [place] [address] PCP - General Family Medicine 05/13/22 02/13/24 Yane Morrissey NP [address] [place] [address] PCP - General Family Medicine 02/14/24 documented as of this encounter
--- OUTSIDE RECORDS SUMMARY | 2025-04-03 11:56 | XMS_ITS | Encounter Summary ---
Author Organization [employer] Address [address] [facility] [address]t [place] [address] Care Team Providers Care Charger Operator Name Role Phone Claritza Canela Primary Care Provider [phone] Yane Morrissey NP Primary Care Provider [phone] Encounter Details Date Type Department Care Team (Late st Contact Info) Description 01/30/2023 Orders Only [facility] P[facility]S [address] [place] [address] Claritza Canela FNP [address] [place] [address] Social History Tobacco Use Types Packs/Day Years [...] Description 05/27/2025 1:00 PM EST Procedure Visit [facility] MEDICINE [address] [place] [address] Yane Morrissey NP [address] [place] [address] documented as of this encounter Visit Diagnoses Not on filedocumented in this encounter Additional Health Concerns Assessment Noted Time PHQ-9 Depression Total Score: 2 06/01/20 22 9:11 AM EST documented as of this encounter Care Teams Charger Operator Relationship Specialty Start Date End Date Claritza Canela FNP [address] [place] [address] PCP - General Family Medicine 05/13/22 02/13/24 Yane Morrissey NP [address] [place] [address] PCP - General Family Medicine 02/14/24 documented as of this encounter
--- OUTSIDE RECORDS SUMMARY | 2025-04-03 11:56 | XMS_ITS | Encounter Summary ---
Author Organization [employer] Address [address] [facility] [address] [place] [address] Care Team Providers Care Crocodile Farmer Name Role Phone Claritza Canela Primary Care Provider [phone] Yane Morrissey NP Primary Care Provider [phone] Encounter Details Date Type Department Care Team (Late st Contact Info) Description 09/05/[address] [facility] MEDICINE [address] [place] [address] Claritza Canela FNP [address] [place] [address] Type 2 diabetes mellitus with hyperosmolarity without coma, without long-term current use of insulin ([facility]) Social History Tobacco Use Types Packs/Day Years [...] Description 05/27/2025 1:00 PM EST Procedure Visit [facility] MEDICINE [address] [place] [address] Yane Morrissey NP [address] [place] [address] documented as of this encounter Visit Diagnoses Diagnosis Type 2 diabetes mellitus with hyperosmolarity without coma, without long-term current use of insulin (HCC) documented in this encounter Additional Health Concerns Assessment Noted Time PHQ-9 Depression Total Score: 2 06/01/20 9:11 AM EST documented as of this encounter Care Teams Crocodile Farmer Relationship Specialty Start Date End Date Claritza Canela FNP [address] [place] [address] PCP - General Family Medicine 05/13/22 02/13/24 Yane Morrissey NP [address] [place] [address] PCP - General Family Medicine 02/14/24 documented as of this encounter
--- OUTSIDE RECORDS SUMMARY | 2025-04-03 11:56 | XMS_ITS | Clinical Summary ---
Author Organization [employer] Address [address] [facility] 7t [place] [address] Care Team Providers Care Cap Machine Operator Name Role Phone Yane Morrissey NP Primary Care Provider [phone] Allergies Active Allergy Reactions Criticality Noted Date [...] resolved after treatment, unspecified laterality, unspecified whether assisted insulin use ([facility]) TEST BLOOD SUGAR TWICE DAILY DIRECTED 100 each 025 Active Continuous Glucose Supplemental Manager (FreeStyle Ryder 3 Rumson) deviceIndications :Type 2 diabetes mellitus without complication, with long-term current use of insulin ([facility]) 1 each Once per day. Use as [...] . Recommended to keep appt with [facility] therapist Carol Schaefer. At this time Armand Montilla meets criteria for Visit Diagnoses: Problem List Items Addressed This Visit Other Severe anxiety Major depressive disorder Patient ready to address current needs Armand is already engage in MH services at [facility]. 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, with long-term current use of insulin, unspecified laterality (HCC) (Primary Dx); Essential hypertension; Osteoarthritis of both knees, unspecified osteoarthritis type 03/21/2025 Travel 03/21/2025 Refill [facility] MEDICINE [address] [place] [address] [facility] 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, with long-term current use of insulin, unspecified laterality (HCC) 03/21/2025 Refill [facility] MEDICINE [address] [place] [address] [facility] 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, unspecified laterality, unspecified whether press tender long goods insulin use ([facility]/HCC); Post-traumatic osteoarthritis of both knees; Acute bilateral low back pain with right-sided sciatica 03/07/2025 Travel 03/06/2025 Travel 03/06/2025 Telephone [facility] MEDICINE [address] [place] [address] Yane Morrissey NP CHARTPREP 03/03/[address] [address] Yane Morrissey NP 02/21/2025 Refill [facility] MEDICINE [address] [place] [address] Yane Morrissey NP 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, with long-term current use of insulin, unspecified laterality (CMS/HCC) 01/29/2025 9:30 AM EDT Office Visit [facility] [address] [facility] [place] [address] Capo Marie MD Chronic left-sided low back pain with left-sided sciatica (Primary Dx) 01/29/2025 Travel 01/28/2025 Orders Only [facility] MED[facility] [address] [facility] [place] [address] Yane Morrissey NP 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, with long-term current use of insulin, unspecified laterality (CMS/HCC) (Primary Dx) 01/28/2025 Telephone [facility] MEDICINE [address] [place] [address] Bryson Bhardwaj [place] CHARTPREP 01/27/2025 Telephone [facility] MEDICINE [address] [place] [address] Yane Morrissey NP Nurse Triage 01/27/2025 Telephone [facility] MEDICINE [address] [place] [address] Yane Morrissey NP Medication Question 01/22/2025 Telephone [facility] MEDICINE [address] [place] [address] Yane Morrissey NP Medication Question 01/22/2025 Refill [facility] MEDICINE [address] [place] [address] Yane Morrissey NP Acute bilateral low back pain with right-sided sciatica 01/22/2025 Refill [facility] MEDICINE [address] [place] [address] Yane Morrissey NP Acute bilateral low back pain with right-sided sciatica 01/13/2025 Refill [facility] MEDICINE [address] [place] [address] Yane Morrissey NP Essential hypertension 01/13/2025 Refill [facility] MEDICINE [address] [place] [address] Omaira Brian MD Generalized abdominal pain 01/13/2025 Refill [facility] MEDICINE [address] [place] [address] Yane Morrissey, OSCAR Type 2 diabetes mellitus without complication, with long-term current use of insulin ([facility]) 01/11/2025 Refill [facility] PEDIATRICS [address] [place] [address] Yane Morrissey, OSCAR Type 2 diabetes mellitus without complication, with long-term current use of insulin ([facility]) 01/10/2025 Refill [facility] MEDICINE [address] [place] [address] Oamira Brian MD Generalized abdominal pain from Last [...] [facility] [address] [place] [address] Yane Morrissey NP [address] [place] [address] Health Maintenance Due Date Last Done Comments [...] 05/18/2022, 04/23/2021, 08/26/2020 Influenza Vaccine (#1) 2025 , 05/18/2022, 07/30/2020, Additional history exists Alcohol/Substance Use Screening 05/24/2025 05/24/2024 Diabetes: Hemoglobin A1C 09/19/2025 025, 09/27/2024, 01/17/2024, Additional history exists Diabetes: [...] BARIUM SWALLOW Routine 02/06/2025 8:30 AM EDT AMB REFERRAL TO PODIATRY Routine 12/16/2024 Mass of foot, unspecified laterality ALBUMIN, RANDOM URINE W/CREATININE Routine 07/27/2023 8:40 AM EST Type 2 diabetes mellitus without complication, unspecified whether press tender long goods insulin use (CMS/HCC) LIPID PANEL, STANDARD Routine 07/27/2023 8:06 AM EST Type 2 diabetes mellitus without complication, unspecified whether assisted insulin use (CMS/HCC) PAP/HPV Routine 06/16/2023 12:00 AM EST MAMMOGRAPHY Routine 05/05/2023 JAIME HISTORICAL HEPATITIS C ANTIBODY RFLX Routine 06/20/2019 8:11 AM EST JAIME HISTORICAL HIV AB/AG Routine 06/20/2019 8:11 AM EST ZCHRISTOPHER HISTORICAL HPV MRNA E6/E7 Routine 07/12/2018 9:56 AM EST from Last 3 Months or Most Recently Relevant to Health Maintenance Results * (ABNORMAL) POCT Hgb A1c (03/21/2025 1:50 PM EDT) Hemoglobin A1C 6.5(A) 4.0 - 5.7 % [employer] Media Lot # [id number] Lot# Expiration Date 41,627 Blood 03/21/2025 1:50 PM EDT Yane Morrissey MAINFRAME CONSULTANT POINT OF CARE TEST ENTER/EDIT OR DERABLES Final Result * POCT Glucose (03/21/2025 1:50 PM EDT) Pathologist [facility] Glucose Blood, POC 142 60 - 200 mg/dL [employer] Media Lot # [id number] Lot# Expiration Date 31,126 Blood Capillary blood specimen / Unknown 03/21/2025 1:50 PM EDT Yane Morrissey MAINFRAME CONSULTANT POINT OF CARE TEST ENTER/EDIT OR DERABLES Final Result * FL Upper GI w/air w/Barium Swallow (02/06/2025 8:30 AM EDT) Anatomical Region Laterality Modality Body Radiographic Shae ging 02/06/2025 8:30 AM EDT Narrative 02/06/2025 10:42 AM EDT [address] [address] Fluoroscopy Report Signed Patient: Armand Montilla MR#: [id number] 97 : 1960 Acct:[id number] Age/Sex: 64 / F ADM Date: 02/06/25 Loc: [facility] Attending Dr: Aunm Conley [facility] Ordering Physician: Anum Conley [facility] Date of Service: 02/06/25 Procedure(s): FL upper GI w air w Ba Swallow Accession Number(s): [id number] cc: Yane Morrissey MAINFRAME CONSULTANT; Anum Conley [facility] EXAMINATION: XR UPPER GI SERIES WITH BARIUM [...] Noah Zafar MD 02/06/2025 10:39 AM EDT Dictated By: Noah Zafar MD Signed By: <Electronically signed by Noah Zafar MD in OV> 02/06/25 1039 DD/ 0830 TD/TT: 02/06/25 0845 Greige Mender: [facility] Procedure Note Donotuseinterpreter, Image - 02/06/[address] [address] Fluoroscopy Report Signed Patient: Roc Montilla#: [id number] [birth year] : 1960cct:[id number] Age/Sex: 64 / FADM Date: 02/06/25 Loc: HO.XRAY Attending Dr: Anum Conley [facility] Ordering Physician: Anum Conley [facility] Date of Service: 02/06/25 Procedure(s): FL upper GI w air w Ba Swallow Accession Number(s): [id number] cc: Yane Morrissey MAINFRAME CONSULTANT; Anum Conley [facility] EXAMINATION: XR UPPER GI SERIES WITH BARIUM [...] Noah Zafar MD 02/06/2025 10:39 AM EDT Dictated By: Noah Zafar MD Signed By: <Electronically signed by Noah Zafar MD in OV> 02/06/25 1039 DD/ 0830 TD/TT: 02/06/25 0845 Greige Mender: JAQUAN [facility] External Provider IMG FLU OROSCOPY PROCEDURES Final Result * Referral to Podiatry (12/16/2024) us Yane Morrissey MAINFRAME CONSULTANT OUTPATIENT REFERRAL ORDERABLES F inal Result * Albumin, Random Urine W/Creatinine (07/27/2023 8:40 AM EST) Creatinine, Urine 132.90 mg/dL [facility] Microalbumin Urine 17.0 mg/L [facility] Microalbum Creatinine Ratio Ur 12.7 <30 ug/mg cr [facility] Comment:Albumin/Creatinine R atio Reference Ranges: Normal: < 30 ug/mg creatinine Microalbuminuria: 30 - 300 ug/mg creatinineClinical Albuminuria: > 300 ug/mg creatinine Urine (Urine, Random) 07/27/2023 8:40 AM EST 07/27/2023 11:28 AM EST us Claritza Canela BUSINESS OPERATIONS SPECIALIST LAB URINE ORDERABLES Final Resu lt [facility] [address] [place] [phone] * Lipid Panel, Standard (07/27/2023 8:06 AM EST) Triglycerides 53 <150 mg/dL [facility] Comment:Desirable Triglyceri de: less than 150 mg/dLBorderline High Triglyceride 150-199 mg/dLHigh Triglyceride: 200-499 mg/dLVery High Triglyceride: greater than or equal to 5OO mg/dL Cholesterol 113 <200 mg/dL [facility] Comment:Desirable Cholestero l: less than 200 mg/dLBorderline High Cholesterol: 200-239 mg/dLHigh Cholesterol: greater than 239 mg/dL LDL Cholesterol Calculated 39 <100 mg/dL [facility] Comment:Desirable LDL: less than 100 mg/dLNear Optimal/Above Optimal LDL: 110- 129 mg/dLBorderline High LDL: 130-159 mg/dLHigh LDL: 160-189 mg/dLVery High LDL: greater than or equal to 190 mg/dL HDL Cholesterol 64 >40 mg/dL [facility] Comment:Desirable HDL: great er than 40 mg/dL Note: This HDL assay may give artificially low results in patients with liver disease. Blood Venous blood specimen / Unknown 07/27/2023 8:06 AM EST 07/27/2023 11:15 AM EST Claritza Canela BUSINESS OPERATIONS SPECIALIST LAB BLOOD ORDERABLES Final Resu lt [facility] [address] [place] [address] [phone] * PAP/HPV (06/16/2023 12:00 AM EST) Historical Provider HEALTH MAINTENANCE Final Result * Mammography (05/05/2023) [facility] Mammogram Bi-rads 2 Anatomical Region Laterality Modality Other Historical Provider HEALTH MAINTENANCE Final Result * HEPATITIS C ANTIBODY RFLX (06/20/2019 8:11 AM EST) [facility] HEPATITIS C ANTIBODY NONREACTIVE NONREACTIVE [facility] Comment: Antibodies to HCV not detected; does not exclude early acute HCV infection. 06/20/2019 8:11 AM EST Albert Hollingsworth MD HISTORICAL/NON ORDERABLE LABS Fi nal Result [facility] [address] * HIV AB/AG (06/20/2019 8:11 AM EST) [facility] HIV AG/AB NONREACTIVE NR [facility] [...] of detection of this assay. The Jaime Tax Collection Coordinator HIV Ag/Ab Combo assay result and supplemental assay results should be interpreted in conjunction with the patient's clinical presentation, history and other laboratory results. If the results are inconsistent with clinical evidence, additional testing is suggested to confirm the result. 06/20/2019 8:11 AM EST Albert Hollingsworth MD HISTORICAL/NON ORDERABLE LABS Fi nal Result Performing Organization Address [facility]/ZIP Co de Phone Number [facility] [address] * HPV mRNA E6/E7 (07/12/2018 9:56 AM EST) HPV mRNA E6/E7 Not Detected NOT DETECTED [facility] Comment: This test was performed using the APTIMA(R) HPV Assay ([employer] This assay detects E6/E7 viral messenger RNA (mRNA) from 14 high-risk HPV types (16,18,31,33,35,39,45,51, 52,56,58,59,66,68). For additional information please refer to: http://education.[employer]/faq/VEI841a7 (This link is being provided for informational/ educational purposes only.) The analytical performance characteristics of this assay have been determined by [employer] [place], [place]. The modifications have not been cleared or approved by the FDA. This assay has been validated pursuant to the CLIA regulations and is used for clinical purposes. Test Performed by [facility], [employer] [facility], [address] [place] [address] Henok Carreno M.D., Ph.D., Director of Laboratories , CLIA [id number] Please note: Effective 02/22/2016, HPV testing will be performed using [employer]'s APTIMA test which targets mRNA. Detecting mRNA instead of DNA, as in older methods, offers significant improvements in specificity. 07/12/2018 9:56 AM EST Jayla Wang CNM HISTORICAL/NON ORDERABLE LABS Final Result Performing Organization Address City/[facility]/ZIP Co de Phone Number [facility] [address] [place] [address], from Last 3 Months or Most Recently Relevant to Health Maintenance Insurance [facility] < 65 [place] SHAY [id number] Care Teams Cap Machine Operator Relationship Specialty Start Date End Date Yane Morrissey NP [address] [place] [address] [place] [address] PCP - General Family Medicine 02/14/24
--- OUTSIDE RECORDS SUMMARY | 2025-04-03 11:56 | XMS_ITS | Encounter Summary ---
Author Organization [employer] Address [address] [facility] 7t [place] [address] Care Team Providers Care Beekeeper Name Role Phone Claritza Canela Primary Care Provider [phone] Yane Morrissey NP Primary Care Provider [phone] Reason for Visit * Reason Comments Med Refill Encounter Details Date Type Department Care Team (Late st Contact Info) Description 11/29/2022 Refill [facility] MEDICINE [address] [place] [address] Claritza Canela FNP [address] [place], [place] [phone] Rash and nonspecific skin eruption Social History [...] PM EST Procedure Visit [facility] MEDICINE [address] [place] [address] Yane Morrissey NP [address] [place] [address] documented as of this encounter Visit Diagnoses Diagnosis Rash and nonspecific skin eruption Rash and other nonspecific skin eruption documented in this encounter Additional Health Concerns Assessment Noted Time PHQ-9 Depression Total Score: 2 06/01/20 9:11 AM EST documented as of this encounter Care Teams Beekeeper Relationship Specialty Start Date End Date Claritza Canela FNP [address] [place] [address] PCP - General Family Medicine 05/13/22 02/13/24 Yane Morrissey NP [address] [place] [address] PCP - General Family Medicine 02/14/24 documented as of this encounter
--- OUTSIDE RECORDS SUMMARY | 2025-04-03 11:56 | XMS_ITS | Encounter Summary ---
Author Organization [employer] Address [address] [facility] 7t [place] [address] Care Team Providers Care Instrument Repair Specialist Name Role Phone Claritza CanelaP Primary Care Provider [phone] Yane Morrissey NP Primary Care Provider [phone] Encounter Details Date Type Department Care Team (Late st Contact Info) Description 05/18/2022 Orders Only [facility] MEDICINE [address] [place] [address] Sonya Darnell MD [address] [place] [address] Type 2 diabetes mellitus with hyperosmolarity without coma, without long-term current use of insulin (CMS/[facility]) (Primary Dx) Social History Tobacco Use Types [...] Description 05/27/2025 1:00 PM EST Procedure Visit [facility] MEDICINE [address] [place] [address] Yane Morrissey NP [address] [place] [address] documented as of this encounter Visit Diagnoses Diagnosis Type 2 diabetes mellitus with hyperosmolarity without coma, without long-term current use of insulin (HCC)- Primary documented in this encounter Care Teams Instrument Repair Specialist Relationship Specialty Start Date End Date Claritza Canela FNP [address] [place], [place] [phone] PCP - General Family Medicine 05/13/22 02/13/24 Yane Morrissey NP [address] [place], [place] [phone] PCP - General Family Medicine 02/14/24 documented as of this encounter
--- OUTSIDE RECORDS SUMMARY | 2025-04-03 11:56 | XMS_ITS | Encounter Summary ---
Author Organization [employer] Address [address] [facility] 7t [place] [address] Care Team Providers Care Abrasive Water Jet Cutter Operator Name Role Phone Claritza Canela Primary Care Provider [phone] Yane Morrissey NP Primary Care Provider [phone] Encounter Details Date Type Department Care Team (Late st Contact Info) Description 01/30/2023 Orders Only [facility] [address] [place] [address] Claritza Canela FNP [address] [place] [address] Breast density (Primary Dx) Social History Tobacco [...] Description 05/27/2025 1:00 PM EST Procedure Visit [facility] MEDICINE [address] [place] [address] Yane Morrissey NP [address] [place] [address] documented as of this encounter Visit Diagnoses Diagnosis Breast density- Primary Other sign and symptom in breast documented in this encounter Additional Health Concerns Assessment Noted Time PHQ-9 Depression Total Score: 2 06/01/20 22 9:11 AM EST documented as of this encounter Care Teams Abrasive Water Jet Cutter Operator Relationship Specialty Start Date End Date Claritza Canela FNP [address] [place] [address] PCP - General Family Medicine 05/13/22 02/13/24 Yane Morrissey NP [address] [place] [address] PCP - General Family Medicine 02/14/24 documented as of this encounter
--- OUTSIDE RECORDS SUMMARY | 2025-04-03 11:57 | XMS_ITS | Encounter Summary ---
Author Organization [employer] Address [address] [facility] 7t [place] [address] Care Team Providers Care Clinical Laboratory Director Name Role Phone Claritza CanelaP Primary Care Provider [phone] Yane Morrissey NP Primary Care Provider [phone] Reason for Visit * Reason Onset Date Comments Referral 03/23/2023 Encounter Details Date Type Department Care Team (Late st Contact Info) Description 03/23/2023 Telephone [facility] MEDICINE [address] [place] [address] Claritza Canela FNP [address] [place] [address] Referral Social History Tobacco Use Types Packs/Day [...] Description 05/27/2025 1:00 PM EST Procedure Visit [facility] MEDICINE [address] [place] [address] Yane Morrissey NP [address] [place] [address] documented as of this encounter Visit Diagnoses Not on filedocumented in this encounter Additional Health Concerns Assessment Noted Time PHQ-9 Depression Total Score: 2 06/01/20 22 9:11 AM EST documented as of this encounter Care Teams Clinical Laboratory Director Relationship Specialty Start Date End Date Claritza Canela FNP [address] [place] [address] PCP - General Family Medicine 05/13/22 02/13/24 Yane Morrissey NP [address] [place] [address] PCP - General Family Medicine 02/14/24 documented as of this encounter
--- OUTSIDE RECORDS SUMMARY | 2025-04-03 11:57 | XMS_ITS | Encounter Summary ---
Author Organization [employer] Address [address] [facility] [address]t [place] [address] Care Team Providers Care General Ledger Bookkeeper Name Role Phone Yane Morrissey NP Primary Care Provider [phone] Reason for Visit * Reason Onset Date Comments Med Refill 03/21/2025 Encounter Details Date Type Department Care Team (Late st Contact Info) Description 03/21/2025 Refill [facility] MEDICINE [address] [place] [address] [facility] [address] [place] [address] Type 2 diabetes mellitus with diabetic macular [...] 1:00 PM EST Procedure Visit [facility] MEDICINE [address] [place] [address] Yane Morrissey NP [address] [place] [address] documented as of this encounter Visit Diagnoses Diagnosis 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
--- OUTSIDE RECORDS SUMMARY | 2025-04-03 11:57 | XMS_ITS | Encounter Summary ---
Author Organization [employer] Address [address] [facility] 7t [place] [address] Care Team Providers Care Pelt Inspector Name Role Phone Claritza Canela Primary Care Provider [phone] Yane Morrissey NP Primary Care Provider [phone] Reason for Visit * Reason Onset Date Comments Med Refill 02/02/2024 Encounter Details Date Type Department Care Team (Late st Contact Info) Description 02/02/2024 Refill [facility] MEDICINE [address] [place] [address] Claritza Canela FNP [address] [place] [address] Diabetic polyneuropathy associated with type 2 diabetes [...] 05/27/2025 1:00 PM EST Procedure Visit [facility] MEDICINE [address] [place] [address] Yane Morrissey NP [address] [place] [address] documented as of this encounter Visit Diagnoses Diagnosis Diabetic polyneuropathy associated with type 2 diabetes mellitus (HCC) Type 2 diabetes mellitus without complication, with long-term current use of insulin (HCC) documented in this encounter Additional Health Concerns Assessment Noted Time PHQ-9 Depression Total Score: 23 023 10:13 AM EST documented as of this encounter Care Teams Pelt Inspector Relationship Specialty Start Date End Date Claritza Canela FNP [address] [place] [address] PCP - General Family Medicine 05/13/22 02/13/24 Yane Morrissey NP [address] [place] [address] PCP - General Family Medicine 02/14/24 documented as of this encounter
--- OUTSIDE RECORDS SUMMARY | 2025-04-03 11:57 | XMS_ITS | Encounter Summary ---
Author Organization [employer] Address 75 [facility] 7t [place] [address] Care Team Providers Care Appian Developer Name Role Phone Yane Morrissey NP Primary Care Provider [phone] Reason for Visit * Reason Onset Date Comments Med Refill 01/22/2025 Encounter Details Date Type Department Care Team (Late st Contact Info) Description 01/22/2025 Refill [facility] MEDICINE [address] [place] [address] Yane Morrissey NP [address] [place] [address] Acute bilateral low back pain with right-sided [...] Description 05/27/2025 1:00 PM EST Procedure Visit [facility] MEDICINE [address] [place] [address] Yane Morrissey NP [address] [place] [address] documented as of this encounter Visit Diagnoses Diagnosis Acute bilateral low back pain with right-sided sciatica documented in this encounter Additional Health Concerns Assessment Noted Time PHQ-9 Depression Total Score: 9 05/24/20 24 11:18 AM EST documented as of this encounter Care Teams Appian Developer Relationship Specialty Start Date End Date Yane Morrissey NP [address] [place] [address] PCP - General Family Medicine 02/14/24 documented as of this encounter
--- OUTSIDE RECORDS SUMMARY | 2025-04-03 11:57 | XMS_ITS | Encounter Summary ---
Author Organization [employer] Address 75 [facility] 7t [place] [address] Care Team Providers Care Axle And Frame Mechanic Name Role Phone Yane Morrissey NP Primary Care Provider [phone] Reason for Visit * Reason Comments Med Refill Encounter Details Date Type Department Care Team (Late st Contact Info) Description 08/26/2024 Refill [facility] MEDICINE [address] [place] [address] Claritza Canela FNP [address] [place] [address] Diabetic polyneuropathy associated with type 2 diabetes [...] Description 05/27/2025 1:00 PM EST Procedure Visit [facility] MEDICINE [address] [place] [address] Yane Morrissey NP [address] [place] [address] documented as of this encounter Visit Diagnoses Diagnosis Diabetic polyneuropathy associated with type 2 diabetes mellitus (HCC) documented in this encounter Additional Health Concerns Assessment Noted Time PHQ-9 Depression Total Score: 9 05/24/20 24 11:18 AM EST documented as of this encounter Care Teams Axle And Frame Mechanic Relationship Specialty Start Date End Date Yane Morrissey NP [address] [place] [address] PCP - General Family Medicine 02/14/24 documented as of this encounter
--- OUTSIDE RECORDS SUMMARY | 2025-04-03 11:57 | XMS_ITS | Encounter Summary ---
Author Organization [employer] Address 75 [facility] 7t [place] [address] Care Team Providers Care Pathology Transcriptionist Name Role Phone Yane Morrissey NP Primary Care Provider [phone] Reason for Visit * Reason Onset Date Comments Nurse Triage 08/01/2024 Encounter Details Date Type Department Care Team ([facility] st Contact Info) Description 08/01/[address] [facility] MEDICINE [address] [place] [address] Yane Morrissey NP [address] [place] [address] Nurse Triage Social History Tobacco Use Types [...] Miscellaneous Notes * Telephone Encounter - Lizbeth Monitlla - 08/01/2024 2:09 PM EST Symptom: Abdominal Pain - Female - Not Outcome: Schedule an urgent appointment (within 4 hours) or talk to a nurse or provider soon Reason: Started within the past 3 days The caller accepted this outcome. [phone] documented in this encounter Plan of Treatment Upcoming Encounters Date Type Department Care Team (Late st Contact Info) Description 05/27/2025 1:00 PM EST Procedure Visit [facility] MEDICINE [address] [place] [address] Yane Morrissey NP [address] [place] [address] documented as of this encounter Visit Diagnoses Not on filedocumented in this encounter Additional Health Concerns Assessment Noted Time PHQ-9 Depression Total Score: 9 05/24/20 24 11:18 AM EST documented as of this encounter Care Teams Pathology Transcriptionist Relationship Specialty Start Date End Date aYne Morrissey NP [address] [place] [address] PCP - General Family Medicine 02/14/24 documented as of this encounter
--- OUTSIDE RECORDS SUMMARY | 2025-04-03 11:57 | XMS_ITS | Encounter Summary ---
Author Organization [employer] Address 75 [facility] 7t [place] [address] Care Team Providers Care Green Tire Inspector Name Role Phone Claritza Canela Primary Care Provider [phone] Yane Morrissey NP Primary Care Provider [phone] Reason for Visit * Reason Onset Date Comments Medication Question 01/17/2024 Encounter Details Date Type Department Care Team (Late st Contact Info) Description 01/17/2024 Telephone [facility] MEDICINE [address] [place] [address] Claritza Canela FNP [address] [place], [place] [phone] Medication Question Social History Tobacco Use Types [...] any questions you can contact [employer] at [phone]. documented in this encounter Plan of Treatment Upcoming Encounters Date Type Department Care Team (Late st Contact Info) Description 05/27/2025 1:00 PM EST Procedure Visit [facility] MEDICINE [address] [place] [address] Yane Morrissey NP [address] [place] [address] documented as of this encounter Visit Diagnoses Not on filedocumented in this encounter Additional Health Concerns Assessment Noted Time PHQ-9 Depression Total Score: 23 023 10:13 AM EST documented as of this encounter Care Teams Green Tire Inspector Relationship Specialty Start Date End Date Claritza Canela FNP [address] [place] [address] PCP - General Family Medicine 05/13/22 02/13/24 Yane Morrissey NP [address] [place] [address] PCP - General Family Medicine 02/14/24 documented as of this encounter
--- OUTSIDE RECORDS SUMMARY | 2025-04-03 11:57 | XMS_ITS | Encounter Summary ---
Author Organization [employer] Address 75 [facility] 7t [place] [address] Care Team Providers Care Lead Applier Name Role Phone Yane Morrissey NP Primary Care Provider [phone] Reason for Visit * Reason Onset Date Comments Med Refill 01/13/2025 Encounter Details Date Type Department Care Team (Late st Contact Info) Description 01/13/2025 Refill [facility] MEDICINE [address] [place] [address] Yane Morrissey NP [address] [place] [address] Essential hypertension Social History Tobacco Use Types [...] Description 05/27/2025 1:00 PM EST Procedure Visit [facility] MEDICINE [address] [place] [address] Yane Morrissey NP [address] [place] [address] documented as of this encounter Visit Diagnoses Diagnosis Essential hypertension Unspecified essential hypertension documented in this encounter Additional Health Concerns Assessment Noted Time PHQ-9 Depression Total Score: 9 05/24/20 24 11:18 AM EST documented as of this encounter Care Teams Lead Applier Relationship Specialty Start Date End Date Yane Morrissey NP [address] [place] [address] PCP - General Family Medicine 02/14/24 documented as of this encounter
--- OUTSIDE RECORDS SUMMARY | 2025-04-03 11:57 | XMS_ITS | Encounter Summary ---
Author Organization [employer] Address 75 [facility] 7t [place] [address] Care Team Providers Care Environmental Engineering Professor Name Role Phone Claritza CanelaP Primary Care Provider [phone] Yane Morrissey NP Primary Care Provider [phone] Encounter Details Date Type Department Care Team (Late st Contact Info) Description 07/19/2022 Orders Only [facility] MEDICINE [address] [place] [address] Claritza Canela FNP [address] [place] [address] Type 2 diabetes mellitus without complication, with long-term current use of insulin ([facility]) (Primary Dx) Social History Tobacco Use [...] [facility] [address] [place] [address] Yane Morrissey NP [address] [place] [address] documented as of this encounter Visit Diagnoses Diagnosis Type 2 diabetes mellitus without complication, with long-term current use of insulin (HCC)- Primary documented in this encounter Additional Health Concerns Assessment Noted Time PHQ-9 Depression Total Score: 2 06/01/20 9:11 AM EST documented as of this encounter Care Teams Environmental Engineering Professor Relationship Specialty Start Date End Date Claritza Canela FNP [address] [place] [address] PCP - General Family Medicine 05/13/22 02/13/24 Yane Morrissey NP [address] [place] [address] PCP - General Family Medicine 02/14/24 documented as of this encounter
--- OUTSIDE RECORDS SUMMARY | 2025-04-03 11:57 | XMS_ITS | Encounter Summary ---
Author Organization [email or web address] Address 75 [facility] 7t [place] [address] Care Team Providers Care Product Transfer Pumper Name Role Phone Claritza Canela Primary Care Provider [phone] Yane Morrissey NP Primary Care Provider [phone] Reason for Visit * Reason Onset Date Comments Medication Question 08/17/2023 Encounter Details Date Type Department Care Team (Late st Contact Info) Description 08/17/2023 Telephone [facility] MEDICINE [address] [place] [address] Claritza Canela FNP [address] [place], [place] [phone] Medication Question Social History Tobacco Use Types [...] with others, in a hotel, in a custodial, living outside on the street, on a [...] was sent by paramedics yesterday at the [facility] pharmacywhich is not covered, pt. Does not remember the name/T/C to [facility] pharmacy for above message, pharmacy states [...] by her insurance. Please contact pt at [phone]. documented in this encounter Plan of Treatment Upcoming Encounters Date Type Department Care Team (Late st Contact Info) Description 05/27/2025 1:00 PM EST Procedure Visit [facility] MEDICINE [address] [place] [address] Yane Morrissey NP [address] [place] [address] documented as of this encounter Visit Diagnoses Not on filedocumented in this encounter Additional Health Concerns Assessment Noted Time PHQ-9 Depression Total Score: 23 023 10:13 AM EST documented as of this encounter Care Teams Product Transfer Pumper Relationship Specialty Start Date End Date Claritza Canela FNP [address] [place] [address] PCP - General Family Medicine 05/13/22 02/13/24 Yane Morrissey NP [address] [place] [address] PCP - General Family Medicine 02/14/24 documented as of this encounter
--- OUTSIDE RECORDS SUMMARY | 2025-04-03 11:57 | XMS_ITS | Encounter Summary ---
Author Organization [employer] Address [address] [facility] [address] 7t [place] [address] Care Team Providers Care Supervisor Glycerin Name Role Phone Claritza Canela Primary Care Provider [phone] Yane Morrissey NP Primary Care Provider [phone] Encounter Details Date Type Department Care Team (Late st Contact Info) Description 03/28/2023 Orders Only [facility]C MED & PEDS [address] [place] [address] Claritza Canela FNP [address] [place] [address] Acute bilateral low back pain with right-sided [...] Description 05/27/2025 1:00 PM EST Procedure Visit [facility] MEDICINE [address] [place] [address] Yane Morrissey NP [address] [place] [address] documented as of this encounter Visit Diagnoses Diagnosis Acute bilateral low back pain with right-sided sciatica documented in this encounter Additional Health Concerns Assessment Noted Time PHQ-9 Depression Total Score: 2 06/01/20 22 9:11 AM EST documented as of this encounter Care Teams Supervisor Glycerin Relationship Specialty Start Date End Date Claritza Canela FNP [address] [place] [address] PCP - General Family Medicine 05/13/22 02/13/24 Yane Morrissey NP [address] [place] [address] PCP - General Family Medicine 02/14/24 documented as of this encounter
--- OUTSIDE RECORDS SUMMARY | 2025-04-03 11:57 | XMS_ITS | Encounter Summary ---
Author Organization [employer] Address 75 [facility] 7t [place] [address] Care Team Providers Care Financial Service Representative Name Role Phone Claritza Canela Primary Care Provider [phone] Yane Morrissey NP Primary Care Provider [phone] Reason for Visit * Reason Comments Med Refill Encounter Details Date Type Department Care Team (Late st Contact Info) Description 05/19/2023 Refill [facility] MEDICINE [address] [place] [address] Claritza Canela FNP [address] [place], [place] [phone] Anxiety Social History Tobacco Use Types Packs/Day [...] Description 05/27/2025 1:00 PM EST Procedure Visit [facility] MEDICINE [address] [place] [address] Yane Morrissey NP [address] [place] [address] documented as of this encounter Visit Diagnoses Diagnosis Anxiety Anxiety state, unspecified documented in this encounter Additional Health Concerns Assessment Noted Time PHQ-9 Depression Total Score: 23 023 10:13 AM EST documented as of this encounter Care Teams Financial Service Representative Relationship Specialty Start Date End Date Claritza Canela FNP [address] [place] [address] PCP - General Family Medicine 05/13/22 02/13/24 Yane Morrissey NP [address] [place] [address] PCP - General Family Medicine 02/14/24 documented as of this encounter
--- OUTSIDE RECORDS SUMMARY | 2025-04-03 11:57 | XMS_ITS | Encounter Summary ---
Author Organization [employer] Address 75 [facility] 7t [place] [address] Care Team Providers Care Business Associate Name Role Phone Yane Morrissey NP Primary Care Provider [phone] Reason for Visit * Reason Onset Date Comments Nurse Triage 01/27/2025 Encounter Details Date Type Department Care Team ([facility] st Contact Info) Description 01/27/2025 Telephone [facility] MEDICINE [address] [place] [address] Yane Morrissey NP [address] [place] [address] Nurse Triage Social History Tobacco Use Types [...] severe. Pt is going to PT at [facility] in [place] which started 01/20/25 and is twice weekly. [...] caller accepted this outcome. Contact pt at [phone] documented in this encounter Plan of Treatment Upcoming Encounters Date Type Department Care Team (Late st Contact Info) Description 05/27/2025 1:00 PM EST Procedure Visit [facility] MEDICINE [address] [place] [address] Yane Morrissey NP [address] [place] [address] documented as of this encounter Visit Diagnoses Not on filedocumented in this encounter Additional Health Concerns Assessment Noted Time PHQ-9 Depression Total Score: 9 05/24/20 24 11:18 AM EST documented as of this encounter Care Teams Business Associate Relationship Specialty Start Date End Date Yane Morrissey NP [address] [place] [address] PCP - General Family Medicine 02/14/24 documented as of this encounter
--- OUTSIDE RECORDS SUMMARY | 2025-04-03 11:57 | XMS_ITS | Encounter Summary ---
Author Organization [employer] Address 75 [facility] 7t [place] [address] Care Team Providers Care Motorcycle Assembler Name Role Phone Claritza Canela Primary Care Provider [phone] Yane Morrissey NP Primary Care Provider [phone] Encounter Details Date Type Department Care Team (Late st Contact Info) Description 10/04/2023 Orders Only [facility] CHC MED & PEDS [address] [place] [address] Claritza Canela FNP [address] [place] [address] Social History Tobacco Use Types Packs/Day Years [...] with others, in a hotel, in a detention, living outside on the street, on a [...] Procedure Visit [facility] MEDICINE [address] [place] [address] Yane Morrissey NP [address] [place] [address] documented as of this encounter Visit Diagnoses Not on filedocumented in this encounter Additional Health Concerns Assessment Noted Time PHQ-9 Depression Total Score: 23 023 10:13 AM EST documented as of this encounter Care Teams Motorcycle Assembler Relationship Specialty Start Date End Date Claritza Canela FNP [address] [place] [address] PCP - General Family Medicine 05/13/22 02/13/24 Yane Morrissey NP [address] [place] [address] PCP - General Family Medicine 02/14/24 documented as of this encounter"
--- OUTSIDE RECORDS SUMMARY | 2025-04-03 11:57 | XMS_ITS | Encounter Summary ---
Author Organization [employer] Address 75 [facility] 7t [place] [address] Care Team Providers Care Dial Refinisher Name Role Phone Claritza Canela Primary Care Provider [phone] Yane Morrissey NP Primary Care Provider Encounter Details Date Type Department Care Team (Late Contact Info) Description 05/27/2022 Orders Only [facility] MEDICINE [address] [place] [address] Corina Canchola, ISAAK Social History Tobacco Use [...] 05/27/2025 1:00 PM EST Procedure Visit [facility] MEDICINE [address] [place], [place] [phone] Yane Morrissey NP [address] [place], [place] [phone] documented as of this encounter Visit Diagnoses Not on filedocumented in this encounter Care Teams Dial Refinisher Relationship Specialty Start Date End Date Claritza Canela FNP [address] [place] [address] PCP - General Family Medicine 05/13/22 02/13/24 Yane Morrissey NP [address] [place] [address] PCP - General Family Medicine 02/14/24 documented as of this encounter
--- OUTSIDE RECORDS SUMMARY | 2025-04-03 11:57 | XMS_ITS | Encounter Summary ---
Author Organization [employer] Address 75 [facility] 7t [place] [address] Care Team Providers Care Superintendent Of Generation Name Role Phone Claritza CanelaP Primary Care Provider [phone] Yane Morrissey NP Primary Care Provider [phone] Reason for Visit * Reason Comments Med Refill Encounter Details Date Type Department Care Team (Late st Contact Info) Description 11/03/2023 Refill [facility] MEDICINE [address] [place] [address] Claritza Canela FNP [address] [place], [place] [phone] Social History Tobacco Use Types Packs/Day Years [...] with others, in a hotel, in a retirement, living outside on the street, on a [...] Description 05/27/2025 1:00 PM EST Procedure Visit [facility] MEDICINE [address] [place] [address] Yane Morrissey NP [address] [place] [address] documented as of this encounter Visit Diagnoses Not on filedocumented in this encounter Additional Health Concerns Assessment Noted Time PHQ-9 Depression Total Score: 23 023 10:13 AM EST documented as of this encounter Care Teams Superintendent Of Generation Relationship Specialty Start Date End Date Claritza Canela FNP [address] [place] [address] PCP - General Family Medicine 05/13/22 02/13/24 Yane Morrissey NP [address] [place] [address] PCP - General Family Medicine 02/14/24 documented as of this encounter
--- OUTSIDE RECORDS SUMMARY | 2025-04-03 11:57 | XMS_ITS | Encounter Summary ---
Author Organization [employer] Address 75 [facility] 7t [place] [address] Care Team Providers Care Shaker Screen Operator Name Role Phone Yane Morrissey NP Primary Care Provider [phone] Reason for Visit * Reason Comments Med Refill Encounter Details Date Type Department Care Team (Late st Contact Info) Description 08/20/2024 Refill [facility] MEDICINE [address] [place] [address] Omaira Brian MD [address] [place] [address] Clogged ear, bilateral Social History Tobacco Use [...] 1:00 PM EST Procedure Visit [facility] MEDICINE [address] [place] [address] Yane Morrissey NP [address] [place] [address] documented as of this encounter Visit Diagnoses Diagnosis Clogged ear, bilateral documented in this encounter Additional Health Concerns Assessment Noted Time PHQ-9 Depression Total Score: 9 05/24/20 24 11:18 AM EST documented as of this encounter Care Teams Shaker Screen Operator Relationship Specialty Start Date End Date Yane Morrissey NP [address] [place] [address] PCP - General Family Medicine 02/14/24 documented as of this encounter
--- OUTSIDE RECORDS SUMMARY | 2025-04-03 11:57 | XMS_ITS | Encounter Summary ---
Author Organization [employer] Address 75 [facility] 7t [place] [address] Care Team Providers Care Mill Washer Name Role Phone Yane Morrissey NP Primary Care Provider Reason for Visit * Reason Onset Date Comments Med Refill 01/13/2025 Encounter Details Date Type Department Care Team (Late st Contact Info) Description 01/13/2025 Refill [facility] MEDICINE [address] [place] [address] Yane Morrissey NP [address] [place] [address] Type 2 diabetes mellitus without complication, with long-term current use of insulin ([facility]) Social History Tobacco Use Types Packs/Day Years [...] Description 05/27/2025 1:00 PM EST Procedure Visit [facility] MEDICINE [address] [place] [address] Yane Morrissey NP [address] [place] [address] documented as of this encounter Visit Diagnoses Diagnosis Type 2 diabetes mellitus without complication, with long-term current use of insulin (HCC) documented in this encounter Additional Health Concerns Assessment Noted Time PHQ-9 Depression Total Score: 9 05/24/20 11:18 AM EST documented as of this encounter Care Teams Mill Washer Relationship Specialty Start Date End Date Yane Morrissey NP [address] [place] [address] PCP - General Family Medicine 02/14/24 documented as of this encounter
--- OUTSIDE RECORDS SUMMARY | 2025-04-03 11:57 | XMS_ITS | Encounter Summary ---
Author Organization [employer] Address 75 [facility] 7t [place] [address] Care Team Providers Care Vendor Quality Supervisor Name Role Phone Yane Morrissey NP Primary Care Provider [phone] Reason for Visit * Reason Onset Date Comments Lab Orders 08/02/2024 ER Follow-up 08/02/2024 Encounter Details Date Type Department Care Team (Late st Contact Info) Description 08/02/2024 Telephone [facility] [address] [place] [address] Yane Morrissey NP [address] [place] [address] Lab Orders; ER Follow-up Social History Tobacco [...] triage, spoke to pt. pt states seen [facility] 07/24 ER for stomach pain [...] ED visit on : Date: 07/24/2024 Hospital: [facility] Seen for: Adonmonial Pain Symptomatic Yes *if yes message should go to Triage Patient advised will forward to team nurse for follow up Pt states that (ER doctor) called daughter stating that pt needs an outpatient Cat scan order sent to [facility]. Pt is still in a lot of pain currently. Don't Call pt from private number. documented in this encounter Plan of Treatment Upcoming Encounters Date Type Department Care Team (Late st Contact Info) Description 05/27/2025 1:00 PM EST Procedure Visit [facility] [address] [place] [address] Yane Morrissey NP [address] [place] [address] documented as of this encounter Visit Diagnoses Not on filedocumented in this encounter Additional Health Concerns Assessment Noted Time PHQ-9 Depression Total Score: 9 05/24/20 24 11:18 AM EST documented as of this encounter Care Teams Vendor Quality Supervisor Relationship Specialty Start Date End Date Yane Morrissey NP [address] [place] [address] PCP - General Family Medicine 02/14/24 documented as of this encounter
--- OUTSIDE RECORDS SUMMARY | 2025-04-03 11:57 | XMS_ITS | Encounter Summary ---
Author Organization [employer] Address [address] [facility] 7t [place] [address] Care Team Providers Care Canary Raiser Name Role Phone Yane Morrissey NP Primary Care Provider [phone] Encounter Details Date Type Department Care Team (Late st Contact Info) Description 05/17/2024 Orders Only [facility] MEDICINE [address] [place] [address] Michelle Castillo Social History Tobacco Use Types [...] 05/27/2025 1:00 PM EST Procedure Visit [facility] [address] [place] [address] Yane Morrissey NP [address] [place] [address] documented as of this encounter Procedures Procedure [...] documented as of this encounter Care Teams Canary Raiser Relationship Specialty Start Date End Date Yane Morrissey NP [address] [place] [address] PCP - General Family Medicine 02/14/24 documented as of this encounter
--- OUTSIDE RECORDS SUMMARY | 2025-04-03 11:57 | XMS_ITS | Encounter Summary ---
Author Organization [employer] Address [address] [facility] 7t [place] [address] Care Team Providers Care Plastics Fabricator Or Welder Name Role Phone Yane Morrissey NP Primary Care Provider [phone] Reason for Visit * Reason Onset Date Comments Med Refill 01/13/2025 Encounter Details Date Type Department Care Team (Late st Contact Info) Description 01/13/2025 Refill [facility] MEDICINE [address] [place] [address] Omaira Brian MD [address] [place] [address] Generalized abdominal pain Social History Tobacco Use [...] Procedure Visit [facility] MED[facility]INE [address] [place] [address] Yane Morrissey NP [address] [place] [address] documented as of this encounter Visit Diagnoses Diagnosis Generalized abdominal pain Abdominal pain, generalized documented in this encounter Additional Health Concerns Assessment Noted Time PHQ-9 Depression Total Score: 9 05/24/20 24 11:18 AM EST documented as of this encounter Care Teams Plastics Fabricator Or Welder Relationship Specialty Start Date End Date Yane Morrissey NP [address] [place] [address] PCP - General Family Medicine 02/14/24 documented as of this encounter
== END 2025-04-03 11:31 | disposition home or self-care (01) ==
PROVIDERS: PCP Nurse Practitioner Family; Visit Provider Physical Medicine & Rehabilitation
DX: M53.3 Sacrococcygeal disorders, not elsewhere classified (principal); G89.29 Other chronic pain; M54.16 Radiculopathy, lumbar region
CPT/HCPCS: 99204; G2211

== ENCOUNTER → 2025-04-03 10:46 | Outpatient (BNV) | payer OTHER, SELFPAY | PROVIDERS: PCP Nurse Practitioner Family; Visit Provider Radiology Vascular & Interventional Radiology | DX: M47.815 Spondylosis without myelopathy or radiculopathy, thoracolumbar region (principal) | CPT/HCPCS: 72100 ==

== ENCOUNTER 2025-04-04 13:10 | Outpatient (AMB) | payer OTHER, SELFPAY ==
[2025-04-04 13:19] VITALS: BMI 37.7
--- NOTE | 2025-04-04 13:19 | MHC.OFFVIS ---
Vital Signs 04/04/25 13:19 Height 5 ft 3 in Weight 213 lb BMI 37.7 Intake Visit Reasons: INJ-RT knee injection-last one 11/15/24 Intake Note: Armand is a 64 year old female who presents today for follow up of his Right Knee Osteoarthritis. Patient was given a right knee steroid injection on 11/15/24. Patient reports the injection helped. Shee wishes to repeat it today. Allergies aspirin (ASPIRIN) Allergy (Severe, Verified 04/04/25 13:30) TONGUE SWELLING bee pollen (BEE STINGS) Allergy (Severe, Verified 04/04/25 13:30) ANAPHYLAXIS HPI HPI INJ-RT knee injection-last one 11/15/24: Details: Armand is a 64 year old female who presents today for follow up of his Right Knee Osteoarthritis. Patient was given a right knee steroid injection on 11/15/24. Patient reports the injection helped. Shee wishes to repeat it today. [facility], [facility] Medical History (Updated 04/04/25 @ 11:29 by Xochitl Garland MD) History of pancreatitis Breast nodule Arthritis Bilateral carpal tunnel syndrome History of trigger finger DDD (degenerative disc disease) Seasonal asthma Anxiety Hypertension Acid reflux Migraines High cholesterol Diabetes Surgical History S/P LASIK surgery of both eyes History of carpal tunnel release S/P arthroscopic surgery of left knee (~1999) History of tonsillectomy History of section Family History Mother No problems noted. Father No problems noted. Paternal Aunt Uterine cancer Social History Alcohol intake: never Patient Tobacco Use Status: Never used Tobacco Second Hand Smoke Exposure: No Current occupational status: disabled Current occupation: rt hand Female Reproductive History Menstrual Age of Menarche: 11 Physical Exam Vital Signs: BMI result Body Mass Index 37.7 Office Procedures Joint Inj/Aspir; Non-Pain Clin Joint Injection/Drain Prep: site was prepped using aseptic technique and injection warnings given Approach Used: anterolateral Procedure: The patient tolerated the procedure well and there was some relief with the local anesthesia Shoulders, Hips, Knees, Knee Large Joint Injection 93830: Right Knee Coding Procedure code (CPT) selection complete Assessment & Plan Assessment & Plan (1) Osteoarthritis of knees, bilateral: Code(s): M17.0 - Bilateral primary osteoarthritis of knee Category: Medical Plan 1. Right knee osteoarthritis Patient is educated about this condition Patient is educated about the typical treatment course Patient is a interested in repeat steroid injection at this time The risks and benefits of a steroid injection including but not limited to risk of damage to blood vessels, nerves, tendons, infection, skin bleaching, failure to improve symptoms, increased pain, and possible need for further injections or other intervention were discussed with the patient and the patient wishes to proceed with the steroid injection. Once consent was obtained, I aseptically prepped the area over the anterolateral joint line of the right knee. I then injected the area over the lateral epicondyle with a combination of 40 mg of dexamethasone and 8 mL of 1% lidocaine. The patient tolerated the procedure well with no complications. If the patient continues to experience symptoms over the following few weeks or months, they can make an appointment to return and discuss alternative treatment measures, such as physical therapy. Follow-up prn Coding Level of Care Code Procedure Only Diagnoses Osteoarthritis of knees, bilateral M17.0 CPT Codes Shoulders, Hips, Knees, - Knee Large Joint Injection 78857: Right Knee ([id number])
--- OUTSIDE RECORDS SUMMARY | 2025-04-04 15:10 | XMS_ITS | Encounter Summary ---
Author Organization [employer] Address [address] [facility] 7t [place] [address] Care Team Providers Care Educational Paraprofessional Name Role Phone Claritza CanelaP Primary Care Provider [phone] Yane Morrissey NP Primary Care Provider [phone] Reason for Visit * Reason Onset Date Comments Med Refill Abnormal mammo follow up 10/18/2022 Encounter Details Date Type Department Care Team (Late st Contact Info) Description 10/18/2022 Refill [facility]INE [address] [place] [address] Elsie Argueta ANP [address] [place] [address] Social History Tobacco Use Types Packs/Day Years [...] AM EDT Incoming call from Shana at [facility] calling to let us know [...] 1:00 PM EST Procedure Visit [facility] [address] [place] [address] Yane Morrissey NP [address] [place] [address] documented as of this encounter Visit Diagnoses Not on filedocumented in this encounter Additional Health Concerns Assessment Noted Time PHQ-9 Depression Total Score: 2 06/01/20 22 9:11 AM EST documented as of this encounter Care Teams Educational Paraprofessional Relationship Specialty Start Date End Date Claritza Canela FNP [address] [place] [address] PCP - General Family Medicine 05/13/22 02/13/24 Yane Morrissey NP [address] [place] [address] PCP - General Family Medicine 02/14/24 documented as of this encounter
--- OUTSIDE RECORDS SUMMARY | 2025-04-04 15:10 | XMS_ITS | Encounter Summary ---
Author Organization [employer] Address [address] [facility] 7t [place] [address] Care Team Providers Care Drilling Superintendent Name Role Phone Claritza Canela Primary Care Provider [phone] Yane Morrissey NP Primary Care Provider [phone] Reason for Referral * Imaging (Routine) - Closed Specialty Diagnoses / Procedures Referred By Luci leon Referred To Contact Diagnoses Mass of left breast, unspecified quadrant Procedures BI Mammogram Diagnostic Tomosynthesis Left Claritza Canela FNP [address] [place] [address] Phone: tel: fax: [address] Phone: tel: fax: Referral ID Status Reason Start Date Expiration Date Visits Re quested Visits Authorized [id number] Closed 11/11/2022 05/10/2023 1 1 Encounter Details Date Type Department Care Team (Late st Contact Info) Description 11/11/2022 Orders Only [facility] MEDICINE [address] [place] [address] Claritza Canela FNP [address] [place] [address] Mass of left breast, unspecified quadrant (Primary [...] Description 05/27/2025 1:00 PM EST Procedure Visit [facility] [address] [place] [address] Yane Morrissey NP [address] [place] [address] Scheduled Orders Name Type Priority Associated Diagnoses [...] documented as of this encounter Care Teams Drilling Superintendent Relationship Specialty Start Date End Date Claritza Canela FNP [address] [place], [place] [phone] PCP - General Family Medicine 05/13/22 02/13/24 Yane Morrissey NP [address] [place] [address] PCP - General Family Medicine 02/14/24 documented as of this encounter
--- OUTSIDE RECORDS SUMMARY | 2025-04-04 15:11 | XMS_ITS | Encounter Summary ---
Author Organization [employer] Address 75 [facility] 7t [place] [address] Care Team Providers Care Field Servicer Name Role Phone Yane Morrissey NP Primary Care Provider [phone] Reason for Visit * Reason Onset Date Comments Med Refill 01/22/2025 Encounter Details Date Type Department Care Team (Late st Contact Info) Description 01/22/2025 Refill [facility] MEDICINE [address] [place] [address] Yane Morrissey NP [address] [place] [address] Acute bilateral low back pain with right-sided [...] Description 05/27/2025 1:00 PM EST Procedure Visit [facility] MEDICINE [address] [place] [address] Yane Morrissey NP [address] [place] [address] documented as of this encounter Visit Diagnoses Diagnosis Acute bilateral low back pain with right-sided sciatica documented in this encounter Additional Health Concerns Assessment Noted Time PHQ-9 Depression Total Score: 9 05/24/20 24 11:18 AM EST documented as of this encounter Care Teams Field Servicer Relationship Specialty Start Date End Date Yane Morrissey NP [address] [place] [address] PCP - General Family Medicine 02/14/24 documented as of this encounter
--- OUTSIDE RECORDS SUMMARY | 2025-04-04 15:11 | XMS_ITS | Encounter Summary ---
Author Organization [employer] Address [address] [facility] 7t [place] [address] Care Team Providers Care Press Clippings Cutter And Paster Name Role Phone Claritza Canela Primary Care Provider [phone] Yane Morrissey NP Primary Care Provider [phone] Reason for Visit * Reason Comments Med Refill Encounter Details Date Type Department Care Team (Late st Contact Info) Description 05/19/2023 Refill [facility] MEDICINE [address] [place] [address] Claritza Canela FNP [address] [place], [place] [phone] Anxiety Social History Tobacco Use Types Packs/Day [...] Description 05/27/2025 1:00 PM EST Procedure Visit [facility] MED[facility]INE [address] [place] [address] Yane Morrissey NP [address] [place] [address] documented as of this encounter Visit Diagnoses Diagnosis Anxiety Anxiety state, unspecified documented in this encounter Additional Health Concerns Assessment Noted Time PHQ-9 Depression Total Score: 23 023 10:13 AM EST documented as of this encounter Care Teams Press Clippings Cutter And Paster Relationship Specialty Start Date End Date Claritza Canela FNP [address] [place] [address] PCP - General Family Medicine 05/13/22 02/13/24 Yane Morrissey NP [address] [place] [address] PCP - General Family Medicine 02/14/24 documented as of this encounter
--- OUTSIDE RECORDS SUMMARY | 2025-04-04 15:11 | XMS_ITS | Encounter Summary ---
Author Organization [employer] Address 75 [facility] 7t [place] [address] Care Team Providers Care Laborer Petroleum Refinery Name Role Phone Claritza Canela Primary Care Provider [phone] Yane Morrissey NP Primary Care Provider [phone] Encounter Details Date Type Department Care Team (Late st Contact Info) Description 01/30/2023 Orders Only [facility] [address] [place] [address] Claritza Canela FNP [address] [place] [address] Breast density (Primary Dx) Social History Tobacco [...] 1:00 PM EST Procedure Visit [facility] MEDICINE [address] [place] [address] Yane Morrissey NP [address] [place] [address] documented as of this encounter Visit Diagnoses Diagnosis Breast density- Primary Other sign and symptom in breast documented in this encounter Additional Health Concerns Assessment Noted Time PHQ-9 Depression Total Score: 2 06/01/20 22 9:11 AM EST documented as of this encounter Care Teams Laborer Petroleum Refinery Relationship Specialty Start Date End Date Claritza Canela FNP [address] [place] [address] PCP - General Family Medicine 05/13/22 02/13/24 Yane Morrissey NP [address] [place] [address] PCP - General Family Medicine 02/14/24 documented as of this encounter
--- OUTSIDE RECORDS SUMMARY | 2025-04-04 15:11 | XMS_ITS | Encounter Summary ---
Author Organization [employer] Address 75 [facility] 7t [place] [address] Care Team Providers Care Carburizer Name Role Phone Claritza Cnaela Primary Care Provider [phone] Yane Morrissey NP Primary Care Provider [phone] Encounter Details Date Type Department Care Team (Late Contact Info) Description 05/27/2022 Orders Only [facility] MEDICINE [address] [place] [address] Corina Canchola, ISAAK Social History Tobacco Use [...] 1:00 PM EST Procedure Visit [facility] MEDICINE [address] [place], [place] [phone] Yane Morrissey NP [address] [place], [place] [phone] documented as of this encounter Visit Diagnoses Not on filedocumented in this encounter Care Teams Carburizer Relationship Specialty Start Date End Date Claritza Canela FNP [address] [place] [address] PCP - General Family Medicine 05/13/22 02/13/24 Yane Morrissey NP [address] [place] [address] PCP - General Family Medicine 02/14/24 documented as of this encounter
--- OUTSIDE RECORDS SUMMARY | 2025-04-04 15:11 | XMS_ITS | Encounter Summary ---
Author Organization [employer] Address 75 [facility] 7t [place] [address] Care Team Providers Care Social Insurance Specialist Name Role Phone Claritza Canela Primary Care Provider [phone] Yane Morrissey NP Primary Care Provider [phone] Reason for Visit * Reason Onset Date Comments Med Refill 02/02/2024 Encounter Details Date Type Department Care Team (Late st Contact Info) Description 02/02/2024 Refill [facility] [address] [place] [address] Claritza Canela FNP [address] [place] [address] Diabetic polyneuropathy associated with type 2 diabetes [...] 1:00 PM EST Procedure Visit [facility] [address] [place] [address] Yane Morrissey NP [address] [place] [address] documented as of this encounter Visit Diagnoses Diagnosis Diabetic polyneuropathy associated with type 2 diabetes mellitus (HCC) Type 2 diabetes mellitus without complication, with long-term current use of insulin (HCC) documented in this encounter Additional Health Concerns Assessment Noted Time PHQ-9 Depression Total Score: 23 023 10:13 AM EST documented as of this encounter Care Teams Social Insurance Specialist Relationship Specialty Start Date End Date Claritza Canela FNP [address] [place] [address] PCP - General Family Medicine 05/13/22 02/13/24 Yane Morrissey NP [address] [place] [address] PCP - General Family Medicine 02/14/24 documented as of this encounter
--- OUTSIDE RECORDS SUMMARY | 2025-04-04 15:11 | XMS_ITS | Encounter Summary ---
Author Organization [email or web address] Address [address] [facility] 7t [place] [address] Care Team Providers Care Co Founder And Chief Strategy Officer Name Role Phone Claritza CanelaP Primary Care Provider [phone] Yane Morrissey NP Primary Care Provider [phone] Encounter Details Date Type Department Care Team (Late st Contact Info) Description 07/19/2022 Orders Only [facility] MEDICINE [address] [place] [address] Claritza Canela FNP [address] [place] [address] Type 2 diabetes mellitus without complication, with long-term current use of insulin ([facility]) (Primary Dx) Social History [...] 1:00 PM EST Procedure Visit [facility] MEDICINE [address] [place] [address] Yane Morrissey NP [address] [place] [address] documented as of this encounter Visit Diagnoses Diagnosis Type 2 diabetes mellitus without complication, with long-term current use of insulin (HCC)- Primary documented in this encounter Additional Health Concerns Assessment Noted Time PHQ-9 Depression Total Score: 2 06/01/20 9:11 AM EST documented as of this encounter Care Teams Co Founder And Chief Strategy Officer Relationship Specialty Start Date End Date Claritza Canela FNP [address] [place] [address] PCP - General Family Medicine 05/13/22 02/13/24 Yane Morrissey NP [address] [place] [address] PCP - General Family Medicine 02/14/24 documented as of this encounter
--- OUTSIDE RECORDS SUMMARY | 2025-04-04 15:11 | XMS_ITS | Encounter Summary ---
Author Organization [employer] Address 75 [facility] 7t [place] [address] Care Team Providers Care Urban Planner Name Role Phone Yane Morrissey NP Primary Care Provider [phone] Reason for Visit * Reason Onset Date Comments Lab Orders 08/02/2024 ER Follow-up 08/02/2024 Encounter Details Date Type Department Care Team (Late st Contact Info) Description 08/02/2024 Telephone [facility] MEDICINE [address] [place] [address] Yane Morrissey NP [address] [place] [address] Lab Orders; ER Follow-up Social History Tobacco [...] triage, spoke to pt. pt states seen [facility] 07/24 ER for stomach pain and intermittent [...] ED visit on : Date: 07/24/2024 Hospital: [facility] Seen for: Adonmonial Pain Symptomatic Yes *if yes message should go to Triage Patient advised will forward to team nurse for follow up Pt states that (ER doctor) called daughter stating that pt needs an outpatient Cat scan order sent to [facility]. Pt is still in a lot of pain currently. Don't Call pt from private number. documented in this encounter Plan of Treatment Upcoming Encounters Date Type Department Care Team (Late st Contact Info) Description 05/27/2025 1:00 PM EST Procedure Visit [facility] MEDICINE [address] [place] [address] Yane Morrissey NP [address] [place] [address] documented as of this encounter Visit Diagnoses Not on filedocumented in this encounter Additional Health Concerns Assessment Noted Time PHQ-9 Depression Total Score: 9 05/24/20 24 11:18 AM EST documented as of this encounter Care Teams Urban Planner Relationship Specialty Start Date End Date Yane Morrissey NP [address] [place] [address] PCP - General Family Medicine 02/14/24 documented as of this encounter
--- OUTSIDE RECORDS SUMMARY | 2025-04-04 15:11 | XMS_ITS | Clinical Summary ---
Author Organization [employer] Address [address] [facility] 7t [place] [address] Care Team Providers Care Acid Blower Name Role Phone Yane Morrissey NP Primary Care Provider [phone] Allergies Active Allergy Reactions Criticality Noted Date [...] resolved after treatment, unspecified laterality, unspecified whether intermediate insulin use ([facility]) TEST BLOOD SUGAR TWICE DAILY DIRECTED 100 each 025 Active Continuous Glucose Area Attendant (FreeStyle [employer] 3 [place]) deviceIndications :Type 2 diabetes mellitus without complication, with long-term current use of insulin ([facility]) 1 each Once per day. [...] of improvement communication skills. At this time Aramnd Montilla meets criteria for Visit Diagnoses: Problem List Items Addressed This Visit Other Major depressive disorder Marital problems Stress-related problem Patient ready to address current needs Yes Strengths include committed to engage with services. PLAN: 1. Follow up with [facility]: Not recommended for follow-up 2. Patient goal [...] services. PLAN: 1. Follow up with [facility]: Not recommended for follow-up 2. Patient goal [...] services. PLAN: 1. Follow up with [facility]: Not recommended for follow-up 2. Patient goal [...] her . Recommended to keep appt with [facility] therapist Carol Schaefer. At this time Armand Montilla meets criteria for Visit Diagnoses: Problem List Items Addressed This Visit Other Severe anxiety Major depressive disorder Patient ready to address current needs Armand is already engage in MH services at [facility]. Strengths include She is in action stage of change and this motivation will serve as treatment engagement. PLAN: 1. Follow up with [facility]: Not recommended for follow-up 2. Patient goal [...] services. PLAN: 1. Follow up with [facility]: Not recommended for follow-up 2. Patient goal is to continue attending individual therapy with [facility]. Behavioral Recommendations a. Follow PCP recommendation for med management b. Practice self-care and self-compassion c. Set-up healthy boundaries with partner and improve communication skills Panic attack 12/15/2017 Encounters Date Type Department Care Team Description 04/03/2025 Orders Only [facility] External Provider, [facility] 03/24/2025 Telephone [facility] [address] [place] [address] Yane Morrissey NP Durable Medical Equipment (Diabetic shoes) 03/24/2025 Telephone [facility] [address] [place] [address] Yane Morrissey NP Durable Medical Equipment (Knee braces) 03/21/2025 1:45 PM EDT Office Visit [facility] [address] [place] [address] Yane Morrissey NP 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, with long-term current use of insulin, unspecified laterality (HCC) (Primary Dx); Essential hypertension; Osteoarthritis of both knees, unspecified osteoarthritis type 03/21/2025 Travel 03/21/2025 Refill [facility] [address] [place] [address] [place], [facility] 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, with long-term current use of insulin, unspecified laterality (HCC) 03/21/2025 Refill [facility] [address] [place] [address] [facility], [facility] 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, unspecified laterality, unspecified whether intermediate insulin use ([facility]/HCC); Post-traumatic osteoarthritis of both knees; Acute bilateral low back pain with right-sided sciatica 03/07/2025 Travel 03/06/2025 Travel 03/06/2025 Telephone [facility] [address] [place] [address] Yane Morrissey NP CHARTPREP 03/03/2025 Telephone [facility] [address] [place] [address] Yane Morrissey NP 02/21/2025 Refill [facility] [address] [place] [address] Yane Morrissey NP 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, with long-term current use of insulin, unspecified laterality (CMS/HCC) 01/29/2025 9:30 AM EDT Office Visit [facility] [address] [place] [address] Name, MD Capo Chronic left-sided low back pain with left-sided sciatica (Primary Dx) 01/29/2025 Travel 01/28/2025 Orders Only [facility] [address] [place] [address] Yane Morrissey NP 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, with long-term current use of insulin, unspecified laterality ([facility]/HCC) (Primary Dx) 01/28/2025 Telephone [facility] [address] [place] [address] Bryson Bhardwaj MA CHARTPREP 01/27/2025 Telephone [facility] [address] [place] [address] Yane Morrissey NP Nurse Triage 01/27/2025 Telephone [facility] [address] [place] [address] Yane Morrissey NP Medication Question 01/22/2025 Telephone [facility] [address] [place] [address] Yane Morrissey NP Medication Question 01/22/2025 Refill [facility] [address] [place] [address] Yane Morrissey NP Acute bilateral low back pain with right-sided sciatica 01/22/2025 Refill [facility] [address] [place] [address] Yane Morrissey NP Acute bilateral low back pain with right-sided sciatica 01/13/2025 Refill [facility] [address] [place] [address] Yane Morrissey NP Essential hypertension 01/13/2025 Refill [facility] [address] [place] [address] Omaira Brian MD Generalized abdominal pain 01/13/2025 Refill [facility] [address] [place] [address] Yane Morrissey NP Type 2 diabetes mellitus without complication, with long-term current use of insulin ([facility]) 01/11/2025 Refill [facility] PEDIATRICS [address] [place] [address] Yane Morrissey NP Type 2 diabetes mellitus without complication, with long-term current use of insulin ([facility]) 01/10/2025 Refill [facility] [address] [place] [address] Omaira Brian MD Generalized abdominal pain from [...] Description 05/27/2025 1:00 PM EST Procedure Visit [facility] [address] [place] [address] Yane Morrissey, NUT CHOPPER [address] [place] [address] Health Maintenance Due Date Last Done Comments [...] Procedure Name Priority Date/Time Associated Diagnosis Comments XR LUMBAR SPINE 2-3 VIEWS Routine 04/04/2025 10:30 AM EDT POCT GLYCATED HEMOGLOBIN, TOTAL Routine 03/21/2025 1:50 PM EDT 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 HISTORICAL HEPATITIS C ANTIBODY RFLX Routine 06/20/2019 8:[address] [facility] HISTORICAL HIV AB/AG Routine 06/20/2019 8:[address] [facility] HISTORICAL HPV MRNA E6/E7 Routine 07/12/2018 9:56 AM EST from Last 3 Months or Most Recently Relevant to Health Maintenance Results * XR Lumbar Spine 2-3 Views (04/04/2025 10:30 AM EDT) Anatomical Region Laterality Modality Spine, L-spine Radiographic Shae ging 04/04/2025 10:3 0 AM EDT Narrative 04/04/2025 10:32 AM EDT [facility] [address] [place] [address] [place] [address] XRay Report Signed Patient: Armand Montilla MR#: [id number] 97 : 1960 Acct:[id number] Age/Sex: 64 / F ADM Date: 04/03/25 Loc: [facility] Attending Dr: Xochitl Garland MD Ordering Physician: Xochitl Lara Date of Service: 04/03/25 Procedure(s): XR lumbar spine 2-3V Accession Number(s): [id number] cc: Yane Morrissey NUT CHOPPER; Xochitl Lara Reason for Exam: M54.9 - Dorsalgia, unspecified CLINICAL HISTORY: M54.9 - Dorsalgia, unspecified 3 views lumbar spine Comparison: None provided Findings: Severe multilevel facet arthropathy is present. Gung-az-cpnwmmmc multilevel marginal osteophyte formation and disc space narrowing is also seen. There is grade 1 retrolisthesis of L1, L2, and L3. There is mild loss of anterior vertebral body height at T12. Cholecystectomy clips are noted. IMPRESSION: 1. 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 2. Mild loss of anterior vertebral body height at T12. 3. Grade 1 retrolisthesis of L1, L2, and L3. This document has been electronically signed by: Ladi Nesbitt on 04/04/2025 10:30:10 Dictated By: Ladi Nesbitt MD Signed By: <Electronically signed by Ladi Nesbitt MD in OV> 04/04/25 1031 DD/ 1030 TD/TT: 04/04/25 1030 E Mail System Administrator: Procedure Note Donotuseinterpreter, Image - 04/04/2025 [facility] [address] [place] [address] [place] [address] XRay Report Signed Patient: Roc Montilla#: [id number] [birth year] : 1960cct:[id number] Age/Sex: 64 / FADM Date: 04/03/25 Loc: [facility] Attending Dr: Xochitl Garland MD Ordering Physician: Xochitl Lara Date of Service: 04/03/25 Procedure(s): XR lumbar spine 2-3V Accession Number(s): [id number] cc: Yane Morrissey NUT CHOPPER; Xochitl Lara Reason for Exam: M54.9 - Dorsalgia, unspecified CLINICAL HISTORY: M54.9 - Dorsalgia, unspecified 3 views lumbar spine Comparison: None provided Findings: Severe multilevel facet arthropathy is present. Pglf-mb-uplpcjxk multilevel marginal osteophyte formation and disc space narrowing is also seen. There is grade 1 retrolisthesis of L1, L2, and L3. There is mild loss of anterior vertebral body height at T12. Cholecystectomy clips are noted. IMPRESSION: 1. 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 2. Mild loss of anterior vertebral body height at T12. 3. Grade 1 retrolisthesis of L1, L2, and L3. This document has been electronically signed by: Ladi Nesbitt on 04/04/2025 10:30:10 Dictated By: Ladi Nesbitt MD Signed By: <Electronically signed by Ladi Nesbitt MD in OV> 04/04/25 1031 DD/ 1030 TD/TT: 04/04/25 1030 E Mail System Administrator: [facility] External Provider IMG XR PROCEDURES Final Result * (ABNORMAL) POCT Hgb A1c (03/21/2025 1:50 PM EDT) Hemoglobin A1C 6.5(A) 4.0 - 5.7 % QC Media Lot # [id number] Lot# Expiration Date 41,627 Blood 03/21/2025 1:50 PM EDT Yane Morrissey NUT CHOPPER POINT OF CARE TEST ENTER/EDIT OR DERABLES Final Result * POCT Glucose (03/21/2025 1:50 PM EDT) Glucose Blood, POC 142 60 - 200 mg/dL QC Media Lot # [id number] Lot# Expiration Date 31,126 Blood Capillary blood specimen / Unknown 03/21/2025 1:50 PM EDT Result [facility] Yane Morrissey NUT CHOPPER POINT OF CARE TEST ENTER/EDIT OR DERABLES Final Result * FL Upper GI w/air w/Barium Swallow (02/06/2025 8:30 AM EDT) Anatomical Region Laterality Modality Body Radiographic Shae ging 02/06/2025 8:30 AM EDT Narrative 02/06/2025 10:42 AM EDT [address] [address] Fluoroscopy Report Signed Patient: Armand Montilla MR#: [id number] [birth year] : 1960 Acct:[id number] Age/Sex: 64 / F ADM Date: 02/06/25 Loc: [facility] Attending Dr: Anum Conley LEAD SUSTAINABILITY SPECIALIST-BC Ordering Physician: Anum Conley LEAD SUSTAINABILITY SPECIALIST-BC Date of Service: 02/06/25 Procedure(s): FL upper GI w air w Ba Swallow Accession Number(s): [id number] cc: Yane Morrissey NUT CHOPPER; Anum Conley EXAMINATION: XR UPPER GI SERIES [...] 02/06/25 1039 DD/ 0830 TD/TT: 02/06/25 0845 E Mail System Administrator: [facility] [place] [place] Procedure Note Donotuseinterpreter, Image - 02/06/[address] [address] Fluoroscopy Report Signed Patient: Roc Montilla#: [id number] [birth year] : 1Acct:[id number] Age/Sex: 64 / FADM Date: 02/06/25 Loc: HO.XRAY Attending Dr: Anum BATISTA-SHERIE Ordering Physician: Anum Conley-SHERIE Date of Service: 02/06/25 Procedure(s): FL upper GI w air w Ba Swallow Accession Number(s): [id number] cc: Yane Morrissey NUT CHOPPER; Anum Conley [facility] EXAMINATION: XR UPPER GI SERIES WITH [...] 02/06/25 1039 DD/ 0830 TD/TT: 02/06/25 0845 E Mail System Administrator: JAQUAN [facility] External Provider IMG FLU OROSCOPY PROCEDURES Final Result * Referral to Podiatry (12/16/2024) Yane Morrissey NP OUTPATIENT REFERRAL ORDERABLES F inal Result * Albumin, Random Urine W/Creatinine (07/27/2023 8:40 AM EST) Creatinine, Urine 132.90 mg/dL [facility] Microalbumin Urine 17.0 mg/L [facility] Microalbum Creatinine Ratio Ur 12.7 <30 ug/mg cr [facility] Comment:Albumin/Creatinine R atio Reference Ranges: Normal: < 30 ug/mg creatinine Microalbuminuria: 30 - 300 ug/mg creatinineClinical Albuminuria: > 300 ug/mg creatinine Urine (Urine, Random) 07/27/2023 8:40 AM EST 07/27/2023 11:28 AM EST Claritza Tamaratevin [facility] URINE ORDERABLES Final Resu lt [facility] [address] [place] [phone] * Lipid Panel, Standard (07/27/2023 8:06 AM EST) Triglycerides 53 <150 mg/dL [facility] Comment:Desirable Triglyceri de: less than 150 mg/dLBorderline High Triglyceride 150-199 mg/dLHigh Triglyceride: 200-499 mg/dLVery High Triglyceride: greater than or equal to 5OO mg/dL Cholesterol 113 <200 mg/dL [facility] Comment:Desirable Cholestero l: less than 200 mg/dLBorderline High Cholesterol: 200-239 mg/dLHigh Cholesterol: greater than 239 mg/dL LDL Cholesterol Calculated 39 <100 mg/dL [facility] Comment:Desirable LDL: less than 100 mg/dLNear Optimal/Above Optimal LDL: 110- 129 mg/dLBorderline High LDL: 130-159 mg/dLHigh LDL: 160-189 mg/dLVery High LDL: greater than or equal to 190 mg/dL HDL Cholesterol 64 >40 mg/dL [facility] Comment:Desirable HDL: great er than 40 mg/dL Note: This HDL assay may give artificially low results in patients with liver disease. Blood Venous blood specimen / Unknown 07/27/2023 8:06 AM EST 07/27/2023 11:15 AM EST Claritza Canela [facility] BLOOD ORDERABLES Final Resu lt Performing Organization Address City/[facility]/ZIP Co de Phone Number [facility] [address] [place] [address] [phone] * PAP/HPV (06/16/2023 12:00 AM EST) Historical Provider HEALTH MAINTENANCE Final Result * Mammography (05/05/2023) Mammogram Bi-rads 2 Anatomical Region Laterality Modality Other Historical Provider HEALTH MAINTENANCE Final Result * HEPATITIS C ANTIBODY RFLX (06/20/2019 8:11 AM EST) [facility] HEPATITIS C ANTIBODY NONREACTIVE NONREACTIVE [facility] Comment: Antibodies to HCV not detected; does not exclude early acute HCV infection. 06/20/2019 8:11 AM EST Albert Hollingsworth MD HISTORICAL/NON ORDERABLE LABS Fi nal Result Performing Organization Address [facility] Co de Phone Number [facility] [address] * HIV AB/AG (06/20/2019 8:11 AM EST) [facility] HIV AG/AB NONREACTIVE NR [facility] [...] limit of detection of this assay. The [employer] Work Order Detailer HIV Ag/Ab Combo assay result and supplemental assay results should be interpreted in conjunction with the patient's clinical presentation, history and other laboratory results. If the results are inconsistent with clinical evidence, additional testing is suggested to confirm the result. 06/20/2019 8:11 AM EST Albert Hollingsworth MD HISTORICAL/NON ORDERABLE LABS Fi nal Result Performing Organization Address [facility]/ZIP Co de Phone Number [facility] [address] * HPV mRNA E6/E7 (07/12/2018 9:56 AM EST) HPV mRNA E6/E7 Not Detected NOT DETECTED [facility] Comment: This test was performed using the APTIMA(R) HPV Assay ([employer] This assay detects E6/E7 viral messenger RNA (mRNA) from 14 high-risk HPV types (16,18,31,33,35,39,45,51, 52,56,58,59,66,68). For additional information please refer to: http://education.Hooptap/faq/DOC198z6 (This link is being provided for informational/ educational purposes only.) The analytical performance characteristics of this assay have been determined by [employer] [place], [place]. The modifications have not been cleared or approved by the FDA. This assay has been validated pursuant to the CLIA regulations and is used for clinical purposes. Test Performed by [facility], [employer] [place], [address] [place] [address] Henok Carreno M.D., Ph.D., Director of Laboratories , CLIA [id number] Please note: Effective 02/22/2016, HPV testing will be performed using [employer]'s APTIMA test which targets mRNA. Detecting mRNA instead of DNA, as in older methods, offers significant improvements in specificity. 07/12/2018 9:56 AM EST us Jayla Wang CNM HISTORICAL/NON ORDERABLE LABS Final Result Performing Organization Address [facility] Co de Phone Number [facility] [address] from Last 3 Months or Most Recently Relevant to Health Maintenance Insurance [facility] < 65 SARTHAK SHAY [id number] Care Teams Acid Blower Relationship Specialty Start Date End Date Yane Morrissey NP [address] [place] [address] MARIKA METCALF [address] PCP - General Family Medicine 02/14/24
--- OUTSIDE RECORDS SUMMARY | 2025-04-04 15:11 | XMS_ITS | Encounter Summary ---
Author Organization [employer] Address [address] [facility] 7t [place] [address] Care Team Providers Care Studio Associate Name Role Phone Yane Morrissey NP Primary Care Provider [phone] Reason for Visit * Reason Onset Date Comments Med Refill 03/21/2025 Encounter Details Date Type Department Care Team (Late st Contact Info) Description 03/21/2025 Refill [facility] [address] [place] [address] [facility] [address] [place] [address] Type 2 diabetes mellitus with diabetic macular [...] Description 05/27/2025 1:00 PM EST Procedure Visit [facility] [address] [place] [address] Yane Morrissey NP [address] [place] [address] documented as of this encounter Visit Diagnoses Diagnosis 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
--- OUTSIDE RECORDS SUMMARY | 2025-04-04 15:11 | XMS_ITS | Encounter Summary ---
Author Organization [employer] Address [address] [facility] 7t [place] [address] Care Team Providers Care Director Of Strategic Alliances Name Role Phone Claritza CanelaP Primary Care Provider [phone] Yane Morrissey NP Primary Care Provider [phone] Reason for Visit * Reason Comments Med Refill Encounter Details Date Type Department Care Team (Late st Contact Info) Description 11/03/2023 Refill [facility] [address] [place] [address] Claritza Canela FNP [address] [place], [place] [phone] Social History Tobacco Use Types Packs/Day Years [...] EST Procedure Visit [facility] [address] [place] [address] Yane Morrissey NP [address] [place] [address] documented as of this encounter Visit Diagnoses Not on filedocumented in this encounter Additional Health Concerns Assessment Noted Time PHQ-9 Depression Total Score: 23 023 10:13 AM EST documented as of this encounter Care Teams Director Of Strategic Alliances Relationship Specialty Start Date End Date Claritza Canela FNP [address] [place] [address] PCP - General Family Medicine 05/13/22 02/13/24 Yane Morrissey NP [address] [place] [address] PCP - General Family Medicine 02/14/24 documented as of this encounter
--- OUTSIDE RECORDS SUMMARY | 2025-04-04 15:11 | XMS_ITS | Encounter Summary ---
Author Organization [employer] Address [address] [facility] 7t [place] [address] Care Team Providers Care Emergency Department Nurse Name Role Phone Yane Morrissey NP Primary Care Provider [phone] Reason for Visit * Reason Onset Date Comments Med Refill 01/13/2025 Encounter Details Date Type Department Care Team (Late st Contact Info) Description 01/13/2025 Refill [facility] MEDICINE [address] [place] [address] Omaira Brian MD [address] [place] [address] Generalized abdominal pain Social History Tobacco Use [...] 1:00 PM EST Procedure Visit [facility] MEDICINE [address] [place] [address] Yane Morrissey NP [address] [place] [address] documented as of this encounter Visit Diagnoses Diagnosis Generalized abdominal pain Abdominal pain, generalized documented in this encounter Additional Health Concerns Assessment Noted Time PHQ-9 Depression Total Score: 9 05/24/20 24 11:18 AM EST documented as of this encounter Care Teams Emergency Department Nurse Relationship Specialty Start Date End Date Yane Morrissey NP [address] [place] [address] PCP - General Family Medicine 02/14/24 documented as of this encounter
--- OUTSIDE RECORDS SUMMARY | 2025-04-04 15:11 | XMS_ITS | Encounter Summary ---
Author Organization [employer] Address [address] [facility] [address] [address] 7t [place] [address] Care Team Providers Care Can Handler Name Role Phone Claritza CanelaP Primary Care Provider [phone] Yane Morrissey NP Primary Care Provider [phone] Encounter Details Date Type Department Care Team (Late st Contact Info) Description 03/21/2023 Orders Only [facility] [address] [place] [address] Provider, MD [place] Social History Tobacco Use [...] t he electric, gas, oil or water [employer] threatened to shut off services in your [...] Description 05/27/2025 1:00 PM EST Procedure Visit [facility] [address] [place] [address] Yane Morrissey NP [address] [place] [address] documented as of this encounter Procedures Procedure [...] documented as of this encounter Care Teams Can Handler Relationship Specialty Start Date End Date Claritza Canela FNP [address] [place] [address] PCP - General Family Medicine 05/13/22 02/13/24 Yane Morrissey NP [address] [place] [address] PCP - General Family Medicine 02/14/24 documented as of this encounter
--- OUTSIDE RECORDS SUMMARY | 2025-04-04 15:11 | XMS_ITS | Encounter Summary ---
Author Organization [employer] Address 75 [facility] 7t [place] [address] Care Team Providers Care Pharmacy Operations Coordinator Name Role Phone Claritza Canela Primary Care Provider [phone] Yane Morrissey NP Primary Care Provider [phone] Reason for Visit * Reason Onset Date Comments Medication Question 01/17/2024 Encounter Details Date Type Department Care Team (Late st Contact Info) Description 01/17/2024 Telephone [facility] [address] [place] [address] Claritza Canela FNP [address] [place], [place] [id number] Medication Question Social History Tobacco Use Types [...] any questions you can contact [employer] at [phone]. documented in this encounter Plan of Treatment Upcoming Encounters Date Type Department Care Team (Late st Contact Info) Description 05/27/2025 1:00 PM EST Procedure Visit [facility] [address] [place] [address] Yane Morrissey NP 230 [place] [address] documented as of this encounter Visit Diagnoses Not on filedocumented in this encounter Additional Health Concerns Assessment Noted Time PHQ-9 Depression Total Score: 23 023 10:13 AM EST documented as of this encounter Care Teams Pharmacy Operations Coordinator Relationship Specialty Start Date End Date Claritza Canela FNP [address] [place] [address] PCP - General Family Medicine 05/13/22 02/13/24 Yane Morrissey NP [address] [place] [address] PCP - General Family Medicine 02/14/24 documented as of this encounter
--- OUTSIDE RECORDS SUMMARY | 2025-04-04 15:11 | XMS_ITS | Encounter Summary ---
Author Organization [employer] Address 75 [facility] 7t [place] [address] Care Team Providers Care Wax Molder Name Role Phone Claritza Canela Primary Care Provider [phone] Yane Morrissey NP Primary Care Provider [phone] Encounter Details Date Type Department Care Team (Late st Contact Info) Description 10/04/2023 Orders Only [facility] [address] [place] [address] Claritza Canela FNP [address] [place] [address] Social History Tobacco Use Types Packs/Day Years [...] Description 05/27/2025 1:00 PM EST Procedure Visit [facility] [address] [place] [address] Yane Morrissey NP [address] [place] [address] documented as of this encounter Visit Diagnoses Not on filedocumented in this encounter Additional Health Concerns Assessment Noted Time PHQ-9 Depression Total Score: 23 023 10:13 AM EST documented as of this encounter Care Teams Wax Molder Relationship Specialty Start Date End Date Claritza Canela FNP [address] [place] [address] PCP - General Family Medicine 05/13/22 02/13/24 Yane Morrissey NP [address] [place] [address] PCP - General Family Medicine 02/14/24 documented as of this encounter
--- OUTSIDE RECORDS SUMMARY | 2025-04-04 15:11 | XMS_ITS | Encounter Summary ---
Author Organization [employer] Address 75 [facility] 7t [place] [address] Care Team Providers Care Junior Systems Administrator Name Role Phone Yane Morrissey NP Primary Care Provider [phone] Reason for Visit * Reason Comments Med Refill Encounter Details Date Type Department Care Team (Late st Contact Info) Description 08/26/2024 Refill [facility] [address] [place] [address] Claritza Canlea FNP [address] [place] [address] Diabetic polyneuropathy associated with type 2 diabetes [...] Description 05/27/2025 1:00 PM EST Procedure Visit [facility] [address] [place] [address] Yane Morrissey NP [address] [place] [address] documented as of this encounter Visit Diagnoses Diagnosis Diabetic polyneuropathy associated with type 2 diabetes mellitus (HCC) documented in this encounter Additional Health Concerns Assessment Noted Time PHQ-9 Depression Total Score: 9 05/24/20 24 11:18 AM EST documented as of this encounter Care Teams Junior Systems Administrator Relationship Specialty Start Date End Date Yane Morrissey NP [address] [place] [address] PCP - General Family Medicine 02/14/24 documented as of this encounter
--- OUTSIDE RECORDS SUMMARY | 2025-04-04 15:11 | XMS_ITS | Encounter Summary ---
Author Organization [employer] Address 75 [facility] 7t [place] [address] Care Team Providers Care Professional Athlete Name Role Phone Yane Morrissey NP Primary Care Provider [phone] Reason for Visit * Reason Onset Date Comments Med Refill 01/13/2025 Encounter Details Date Type Department Care Team (Late st Contact Info) Description 01/13/2025 Refill [facility] [address] [place] [address] Yane Morrissey NP [address] [place] [address] Essential hypertension Social History Tobacco Use Types [...] Description 05/27/2025 1:00 PM EST Procedure Visit [facility] [address] [place] [address] Yane Morrissey NP [address] [place] [address] documented as of this encounter Visit Diagnoses Diagnosis Essential hypertension Unspecified essential hypertension documented in this encounter Additional Health Concerns Assessment Noted Time PHQ-9 Depression Total Score: 9 05/24/20 24 11:18 AM EST documented as of this encounter Care Teams Professional Athlete Relationship Specialty Start Date End Date Yane Morrissey NP [address] [place] [address] PCP - General Family Medicine 02/14/24 documented as of this encounter
--- OUTSIDE RECORDS SUMMARY | 2025-04-04 15:11 | XMS_ITS | Encounter Summary ---
Author Organization [employer] Address 75 [facility] 7t [place] [address] Care Team Providers Care Dough Mixer Operator Name Role Phone Yane Morrissey NP Primary Care Provider [phone] Encounter Details Date Type Department Care Team (Late st Contact Info) Description 05/17/2024 Orders Only [facility] [address] [place] [address] Michelle Castillo Social History Tobacco Use Types [...] 1:00 PM EST Procedure Visit [facility] [address] [place] [address] Yane Morrissey NP 230 [place] [address] documented as of this encounter Procedures Procedure [...] documented as of this encounter Care Teams Dough Mixer Operator Relationship Specialty Start Date End Date Yane Morrissey NP 230 [place] [address] PCP - General Family Medicine 02/14/24 documented as of this encounter
--- OUTSIDE RECORDS SUMMARY | 2025-04-04 15:11 | XMS_ITS | Encounter Summary ---
Author Organization [employer] Address 75 [facility] 7t [place] [address] Care Team Providers Care Card Maker Name Role Phone Claritza Canela Primary Care Provider [phone] Yane Morrissey NP Primary Care Provider [phone] Encounter Details Date Type Department Care Team (Late st Contact Info) Description 09/05/2022 Orders Only [facility] [address] [place] [address] Claritza Canela FNP [address] [place] [address] Type 2 diabetes mellitus with hyperosmolarity without coma, without long-term current use of insulin ([facility]) Social History Tobacco Use Types [...] 1:00 PM EST Procedure Visit [facility] [address] [place] [address] Yane Morrissey NP [address] [place] [address] documented as of this encounter Visit Diagnoses Diagnosis Type 2 diabetes mellitus with hyperosmolarity without coma, without long-term current use of insulin (HCC) documented in this encounter Additional Health Concerns Assessment Noted Time PHQ-9 Depression Total Score: 2 06/01/20 9:11 AM EST documented as of this encounter Care Teams Card Maker Relationship Specialty Start Date End Date Claritza Canela FNP [address] [place] [address] PCP - General Family Medicine 05/13/22 02/13/24 Yane Morrissey NP [address] [place] [address] PCP - General Family Medicine 02/14/24 documented as of this encounter
--- OUTSIDE RECORDS SUMMARY | 2025-04-04 15:11 | XMS_ITS | Encounter Summary ---
Author Organization [employer] Address [address] 7t [place] [address] Care Team Providers Care Air Compressor Operator Name Role Phone Claritza Canela Primary Care Provider [phone] Yane Morrissey NP Primary Care Provider [phone] Encounter Details Date Type Department Care Team (Late st Contact Info) Description 03/28/2023 Orders Only [facility] & PEDS [address] [place] [address] Claritza Canela FNP [address] [place] [address] Acute bilateral low back pain with right-sided [...] Description 05/27/2025 1:00 PM EST Procedure Visit [facility] [address] [place] [address] Yane Morrissey NP 230 [place] [address] documented as of this encounter Visit Diagnoses Diagnosis Acute bilateral low back pain with right-sided sciatica documented in this encounter Additional Health Concerns Assessment Noted Time PHQ-9 Depression Total Score: 2 06/01/20 22 9:11 AM EST documented as of this encounter Care Teams Air Compressor Operator Relationship Specialty Start Date End Date Claritza Canela FNP [address] [place] [address] PCP - General Family Medicine 05/13/22 02/13/24 Yane Morrissey NP [address] [place] [address] PCP - General Family Medicine 02/14/24 documented as of this encounter
--- OUTSIDE RECORDS SUMMARY | 2025-04-04 15:11 | XMS_ITS | Encounter Summary ---
Author Organization [employer] Address 75 [facility] 7t [place] [address] Care Team Providers Care Financial Controller Name Role Phone Yane Morrissey NP Primary Care Provider [phone] Reason for Visit * Reason Onset Date Comments Nurse Triage 08/01/2024 Encounter Details Date Type Department Care Team ([facility] st Contact Info) Description 08/01/2024 Telephone [facility] [address] [place] [address] Yane Morrissey NP [address] [place] [address] Nurse Triage Social History Tobacco Use Types [...] 3 days The caller accepted this outcome. [phone] documented in this encounter Plan of Treatment Upcoming Encounters Date Type Department Care Team (Late st Contact Info) Description 05/27/2025 1:00 PM EST Procedure Visit [facility] [address] [place] [address] Yane Morrissey NP [address] [place] [address] documented as of this encounter Visit Diagnoses Not on filedocumented in this encounter Additional Health Concerns Assessment Noted Time PHQ-9 Depression Total Score: 9 05/24/20 24 11:18 AM EST documented as of this encounter Care Teams Financial Controller Relationship Specialty Start Date End Date Yane Morrissey NP [address] [place] [address] PCP - General Family Medicine 02/14/24 documented as of this encounter
--- OUTSIDE RECORDS SUMMARY | 2025-04-04 15:11 | XMS_ITS | Encounter Summary ---
Author Organization [employer] Address [address] [facility] [address] 7t [place] [address] Care Team Providers Care Community Organizer Name Role Phone Yane Morrissey NP Primary Care Provider Encounter Details Date Type Department Care Team (Late st Contact Info) Description 04/03/2025 Orders Only [facility] External Provider, [facility] Social History Tobacco Use Types Packs/Day Years [...] Description 05/27/2025 1:00 PM EST Procedure Visit [facility] [address] [place] [address] Yane Morrissey NP 230 [place], [place] [phone] documented as of this encounter Procedures Procedure Name Priority Date/Time Associated Diagnosis Comments XR LUMBAR SPINE 2-3 VIEWS Routine 04/04/2025 10:30 AM EDT documented in this encounter Results * XR Lumbar Spine 2-3 Views (04/04/2025 10:30 AM EDT) Anatomical Region Laterality Modality Spine, L-spine Radiographic Shae ging 04/04/2025 10:3 0 AM EDT Narrative 04/04/2025 10:32 AM EDT [facility] [address] [place] [address] Drive [address] [place] [address] XRay Report Signed Patient: Armand Montilla MR#: [id number] [birth year] : 1960 Acct:[id number] Age/Sex: 64 / F ADM Date: 04/03/25 Loc: HO.SAMX Attending Dr: Xochitl Garland MD Ordering Physician: Xochitl Lara Date of Service: 04/03/25 Procedure(s): XR lumbar spine 2-3V Accession Number(s): [id number] cc: Yane Morrissey ASSISTANT PARALEGAL; Xochitl Lara Reason for Exam: M54.9 - Dorsalgia, unspecified CLINICAL HISTORY: M54.9 - Dorsalgia, unspecified 3 views lumbar spine Comparison: None provided Findings: Severe multilevel facet arthropathy is present. Yvmk-dc-[id number] multilevel marginal osteophyte formation and disc space [...] 04/04/25 1031 DD/ 1030 TD/TT: 04/04/25 1030 Kiln Furniture Caster: Procedure Note Donotuseinterpreter, Image - 04/04/2025 [facility] [address] [place] [address] XRay Report Signed Patient: Roc Montilla#: [id number] [birth year] : 1960cct:[id number] Age/Sex: 64 / FADM Date: 04/03/25 Loc: HO.HOSX Attending Dr: Xochitl Garland MD Ordering Physician: Xochitl Lara Date of Service: 04/03/25 Procedure(s): XR lumbar spine 2-3V Accession Number(s): [id number] cc: Yane Morrissey ASSISTANT PARALEGAL; Xochitl Lara Reason for Exam: M54.9 - Dorsalgia, unspecified CLINICAL HISTORY: M54.9 - Dorsalgia, unspecified 3 views lumbar spine Comparison: None provided Findings: Severe multilevel facet arthropathy is present. Icoq-gg-imcvrrks multilevel marginal osteophyte formation and disc space [...] 04/04/25 1031 DD/ 1030 TD/TT: 04/04/25 1030 Kiln Furniture Caster: [facility] External Provider IMG XR PROCEDURES Final Result documented in this encounter Visit Diagnoses Not on filedocumented in this encounter Additional Health Concerns Assessment Noted Time PHQ-9 Depression Total Score: 2 03/07/20 25 3:42 PM EDT documented as of this encounter Care Teams Community Organizer Relationship Specialty Start Date End Date Yane Morrissey NP [address] [place] [address] PCP - General Family Medicine 02/14/24 documented as of this encounter
--- OUTSIDE RECORDS SUMMARY | 2025-04-04 15:11 | XMS_ITS | Encounter Summary ---
Author Organization [employer] Address 75 [facility] 7t [place] [address] Care Team Providers Care Telephone Instrument Supervisor Name Role Phone Yane Morrissey NP Primary Care Provider [phone] Reason for Visit * Reason Onset Date Comments Nurse Triage 01/27/2025 Encounter Details Date Type Department Care Team ([facility] st Contact Info) Description 01/27/2025 Telephone [facility] [address] [place] [address] Yane Morrissey NP [address] [place] [address] Nurse Triage Social History Tobacco Use Types [...] severe. Pt is going to PT at [facility] in [place] which started 01/20/25 and is twice weekly. [...] caller accepted this outcome. Contact pt at [phone] documented in this encounter Plan of Treatment Upcoming Encounters Date Type Department Care Team (Late st Contact Info) Description 05/27/2025 1:00 PM EST Procedure Visit [facility] [address] [place] [address] Yane Morrissey NP [address] [place] [address] documented as of this encounter Visit Diagnoses Not on filedocumented in this encounter Additional Health Concerns Assessment Noted Time PHQ-9 Depression Total Score: 9 05/24/20 24 11:18 AM EST documented as of this encounter Care Teams Telephone Instrument Supervisor Relationship Specialty Start Date End Date Yane Morrissey NP [address] [place] [address] PCP - General Family Medicine 02/14/24 documented as of this encounter
--- OUTSIDE RECORDS SUMMARY | 2025-04-04 15:11 | XMS_ITS | Encounter Summary ---
Author Organization [employer] Address 75 [facility] 7t [place] [address] Care Team Providers Care Financial Accounting Manager Name Role Phone Claritza Canela Primary Care Provider [phone] Yane Morrissey NP Primary Care Provider [phone] Reason for Visit * Reason Onset Date Comments Medication Question 08/17/2023 Encounter Details Date Type Department Care Team (Late st Contact Info) Description 08/17/2023 Telephone [facility] [address] [place] [address] Claritza Canela FNP [address] [place], [place] [phone] Medication Question Social History Tobacco Use Types [...] with others, in a hotel, in a group home, living outside on the street, on [...] was sent by paramedics yesterday at the [facility] pharmacywhich is not covered, pt. Does not remember the name/T/C to [facility] pharmacy for above message, pharmacy [...] by her insurance. Please contact pt at [phone]. documented in this encounter Plan of Treatment Upcoming Encounters Date Type Department Care Team (Late st Contact Info) Description 05/27/2025 1:00 PM EST Procedure Visit [facility] [address] [place] [address] Yane Morrissey NP [address] [place] [address] documented as of this encounter Visit Diagnoses Not on filedocumented in this encounter Additional Health Concerns Assessment Noted Time PHQ-9 Depression Total Score: 23 023 10:13 AM EST documented as of this encounter Care Teams Financial Accounting Manager Relationship Specialty Start Date End Date Claritza Canela FNP [address] [place] [address] PCP - General Family Medicine 05/13/22 02/13/24 Yane Morrissey NP [address] [place] [address] PCP - General Family Medicine 02/14/24 documented as of this encounter
--- OUTSIDE RECORDS SUMMARY | 2025-04-04 15:11 | XMS_ITS | Encounter Summary ---
Author Organization [employer] Address 75 [facility] 7t [place] [address] Care Team Providers Care Internal Recruiter Name Role Phone Claritza Canela Primary Care Provider [phone] Yane Morrissey NP Primary Care Provider [phone] Reason for Visit * Reason Comments Med Refill Encounter Details Date Type Department Care Team (Late st Contact Info) Description 11/29/2022 Refill [facility] [address] [place] [address] Claritza Canela FNP [address] [place], [place] [phone] Rash and nonspecific skin eruption Social History [...] EST Procedure Visit [facility] [address] [place] [address] Yane Morrissey NP [address] [place] [address] documented as of this encounter Visit Diagnoses Diagnosis Rash and nonspecific skin eruption Rash and other nonspecific skin eruption documented in this encounter Additional Health Concerns Assessment Noted Time PHQ-9 Depression Total Score: 2 06/01/20 9:11 AM EST documented as of this encounter Care Teams Internal Recruiter Relationship Specialty Start Date End Date Claritza Canela FNP [address] [place] [address] PCP - General Family Medicine 05/13/22 02/13/24 Yane Morrissey NP [address] [place] [address] PCP - General Family Medicine 02/14/24 documented as of this encounter
--- OUTSIDE RECORDS SUMMARY | 2025-04-04 15:11 | XMS_ITS | Encounter Summary ---
Author Organization [email or web address] Address 75 [facility] 7t [place] [address] Care Team Providers Care Safe Deposit Attendant Name Role Phone Yane Morrissey NP Primary Care Provider Reason for Visit * Reason Comments Med Refill Encounter Details Date Type Department Care Team (Late st Contact Info) Description 08/20/[address] [facility] MEDICINE [address] [place] [address] Omaira Brian MD [address] [place] [address] Clogged ear, bilateral Social History Tobacco Use [...] PM EST Procedure Visit [facility] MEDICINE [address] [place] [address] Yane Morrissey NP [address] [place] [address] documented as of this encounter Visit Diagnoses Diagnosis Clogged ear, bilateral documented in this encounter Additional Health Concerns Assessment Noted Time PHQ-9 Depression Total Score: 9 05/24/20 24 11:18 AM EST documented as of this encounter Care Teams Safe Deposit Attendant Relationship Specialty Start Date End Date Yane Morrissey NP [address] [place] [address] PCP - General Family Medicine 02/14/24 documented as of this encounter
--- OUTSIDE RECORDS SUMMARY | 2025-04-04 15:11 | XMS_ITS | Encounter Summary ---
Author Organization [employer] Address 75 [facility] [address]t [place] [address] Care Team Providers Care Hand Bander Name Role Phone Claritza CanelaP Primary Care Provider [phone] Yane Morrissey NP Primary Care Provider [phone] Encounter Details Date Type Department Care Team (Late st Contact Info) Description 05/18/2022 Orders Only [facility] MEDICINE [address] [place] [address] Sonya Darnell MD [address] [place] [address] Type 2 diabetes mellitus with hyperosmolarity without coma, without long-term current use of insulin ([facility]) (Primary Dx) Social History Tobacco [...] 05/27/2025 1:00 PM EST Procedure Visit [facility] MEDICINE [address] [place] [address] Yane Morrissey NP [address] [place] [address] documented as of this encounter Visit Diagnoses Diagnosis Type 2 diabetes mellitus with hyperosmolarity without coma, without long-term current use of insulin (HCC)- Primary documented in this encounter Care Teams Hand Bander Relationship Specialty Start Date End Date Claritza Canela FNP [address] [place], [place] [phone] PCP - General Family Medicine 05/13/22 02/13/24 Yane Morrissey NP [address] [place], [place] [phone] PCP - General Family Medicine 02/14/24 documented as of this encounter
--- OUTSIDE RECORDS SUMMARY | 2025-04-04 15:11 | XMS_ITS | Encounter Summary ---
Author Organization [employer] Address 75 [facility] 7t [place] [address] Care Team Providers Care Convention Services Director Name Role Phone Claritza CanelaP Primary Care Provider [phone] Yane Morrissey NP Primary Care Provider [phone] Reason for Visit * Reason Onset Date Comments Referral 03/23/2023 Encounter Details Date Type Department Care Team (Late st Contact Info) Description 03/23/2023 Telephone [facility] MEDICINE [address] [place] [address] Claritza Canela FNP [address] [place] [address] Referral Social History Tobacco Use Types Packs/Day [...] [facility] MEDICINE [address] [place] [address] Yane Morrissey NP [address] [place] [address] documented as of this encounter Visit Diagnoses Not on filedocumented in this encounter Additional Health Concerns Assessment Noted Time PHQ-9 Depression Total Score: 2 06/01/20 22 9:11 AM EST documented as of this encounter Care Teams Convention Services Director Relationship Specialty Start Date End Date Claritza Canela FNP [address] [place] [address] PCP - General Family Medicine 05/13/22 02/13/24 Yane Morrissey NP [address] [place] [address] PCP - General Family Medicine 02/14/24 documented as of this encounter
--- OUTSIDE RECORDS SUMMARY | 2025-04-04 15:11 | XMS_ITS | Encounter Summary ---
Author Organization [employer] Address 75 [facility] 7t [place] [address] Care Team Providers Care Sales Department Clerk Name Role Phone Yane Morrissey NP Primary Care Provider [phone] Reason for Visit * Reason Onset Date Comments Med Refill 01/13/2025 Encounter Details Date Type Department Care Team (Late st Contact Info) Description 01/13/2025 Refill [facility] [address] [place] [address] Yane Morrissey NP [address] [place] [address] Type 2 diabetes mellitus without complication, with long-term current use of insulin ([facility]) Social History Tobacco Use Types Packs/Day Years [...] 1:00 PM EST Procedure Visit [facility] [address] [place] [address] Yane Morrissey NP [address] [place] [address] documented as of this encounter Visit Diagnoses Diagnosis Type 2 diabetes mellitus without complication, with long-term current use of insulin (HCC) documented in this encounter Additional Health Concerns Assessment Noted Time PHQ-9 Depression Total Score: 9 05/24/20 11:18 AM EST documented as of this encounter Care Teams Sales Department Clerk Relationship Specialty Start Date End Date Yane Morrissey NP [address] [place] [address] PCP - General Family Medicine 02/14/24 documented as of this encounter
--- OUTSIDE RECORDS SUMMARY | 2025-04-04 15:11 | XMS_ITS | Encounter Summary ---
Author Organization [employer] Address [address] [facility] [address] [place] [address] Care Team Providers Care Diagnostic Cardiac Sonographer Name Role Phone Claritza CanelaP Primary Care Provider [phone] Yane Morrissey NP Primary Care Provider [phone] Encounter Details Date Type Department Care Team (Late st Contact Info) Description 03/21/2023 Abstract [facility] [address] [place] [address] Michelle Castillo Social History Tobacco Use Types [...] t he electric, gas, oil or water [employer] threatened to shut off services in your [...] PM EST Procedure Visit [facility] [address] [place] [address] Yane Morrissey NP [address] [place] [address] documented as of this encounter Visit Diagnoses Not on filedocumented in this encounter Additional Health Concerns Assessment Noted Time PHQ-9 Depression Total Score: 2 06/01/20 22 9:11 AM EST documented as of this encounter Care Teams Diagnostic Cardiac Sonographer Relationship Specialty Start Date End Date Claritza Canela FNP [address] [place] [address] PCP - General Family Medicine 05/13/22 02/13/24 Yane Morrissey NP [address] [place] [address] PCP - General Family Medicine 02/14/24 documented as of this encounter
--- OUTSIDE RECORDS SUMMARY | 2025-04-04 15:11 | XMS_ITS | Encounter Summary ---
Author Organization [employer] Address [address] [facility] 7t [place] [address] Care Team Providers Care Music Publicist Name Role Phone Claritza Canela Primary Care Provider [phone] Yane Morrissey NP Primary Care Provider [phone] Encounter Details Date Type Department Care Team (Late st Contact Info) Description 01/30/2023 Orders Only [facility]EDS [address] [place] [address] Claritza Canela FNP [address] [place] [address] Social History Tobacco Use Types Packs/Day Years [...] 1:00 PM EST Procedure Visit [facility] [address] [place] [address] Yane Morrissey NP [address] [place] [address] documented as of this encounter Visit Diagnoses Not on filedocumented in this encounter Additional Health Concerns Assessment Noted Time PHQ-9 Depression Total Score: 2 06/01/20 22 9:11 AM EST documented as of this encounter Care Teams Music Publicist Relationship Specialty Start Date End Date Claritza Canela FNP [address] [place] [address] PCP - General Family Medicine 05/13/22 02/13/24 Yane Morrissey NP [address] [place] [address] PCP - General Family Medicine 02/14/24 documented as of this encounter
== END 2025-04-04 13:58 | disposition home or self-care (01) ==
LOC: HO.HOS 13:10
PROVIDERS: PCP Nurse Practitioner Family
DX: M17.0 Bilateral primary osteoarthritis of knee (principal)
CPT/HCPCS: 20610

== ENCOUNTER → 2025-04-04 13:10 | Outpatient (BNVA) | payer OTHER, SELFPAY | PROVIDERS: PCP Nurse Practitioner Family | DX: M17.11 Unilateral primary osteoarthritis, right knee (principal) | CPT/HCPCS: 20610; J0665; J1100; J2003 ==

== ENCOUNTER 2025-04-22 11:10 | Outpatient (AMB) | payer OTHER, SELFPAY ==
--- NOTE | 2025-04-22 11:13 | A.OFFVIS_ITS ---
Vital Signs 04/22/25 11:24 Height 5 ft 3 in Weight 213 lb BMI 37.7 Intake Visit Reasons: OV- Right index finger trigger finger Intake Note: Armand 64 year old right hand dominant female who presents today for a follow up of right index finger, last injection 06/14/23. Patient reports last injection to her index finger took about 2 weeks to have relief, states her discomfort returned about 2 months ago. States her discomfort has also moved to . She described her discomfort as a sharp shocking sensation for the past 2 weeks. Complaints of swelling at her MF MCP. She has difficulty with gripping items. She would like to discuss repeat of injection. Allergies aspirin (ASPIRIN) Allergy (Severe, Verified 04/22/25 11:17) TONGUE SWELLING bee pollen (BEE STINGS) Allergy (Severe, Verified 04/22/25 11:17) ANAPHYLAXIS HPI HPI OV- Right index finger trigger finger: Details: Armand is a 62 year old Diabetic woman who returns with complaints of her right index trigger finger. She was last seen and injected on 06/14/23, with relief. She complains of painful swelling & stiffness of her index finger. She also says she has a painful shocking sensation in her index finger. She has been hesitant to make a fist with her right hand and has painful stiffness in her fingers. She is unsure if she has locking of her finger as she has been hesitant to fully make a fist for the last 2 months She was tearful today in clinic due to her pain. She has a hx of multiple trigger releases to her left hand. Her left small finger trigger release on 05/02/22, & her left middle & ring fingers on 03/25/21, with good resolution of her symptoms. Right middle finger trigger release done in ~10/2017 at an outside clinic, as well as a right carpal tunnel release [facility] Medical History (Updated 04/04/25 @ 11:29 by Xochitl Garland MD) History of pancreatitis Breast nodule Arthritis Bilateral carpal tunnel syndrome History of trigger finger DDD (degenerative disc disease) Seasonal asthma Anxiety Hypertension Acid reflux Migraines High cholesterol Diabetes Surgical History (Reviewed 04/03/25 @ 10:21 by Suly Snider [facility] S/P LASIK surgery of both eyes History of carpal tunnel release S/P arthroscopic surgery of left knee (~1999) History of tonsillectomy History of section Family History Mother No problems noted. Father No problems noted. Paternal Aunt Uterine cancer Social History Alcohol intake: never Patient Tobacco Use Status: Never used Tobacco Second Hand Smoke Exposure: No Current occupational status: disabled Current occupation: rt hand Female Reproductive History Menstrual Age of Menarche: 11 Review of Systems Const All systems reviewed & are unremarkable except as noted in HPI and below Physical Exam Const General: no acute distress and alert Orientation/consciousness: patient oriented x3 Neuro General: patient oriented x3 Extrem Other: Evaluation of Right Upper Extremity: The patient is alert, oriented, and in no acute distress. She became somewhat tearful today in clinic, secondary to pain Neuro: Median, Ulnar, Radial nerves motor and sensory intact and sensation is normal to the tips of all digits Vascular: Cap refill brisk ROM: She has alot of stiffness of her fingers We worked on ROM exercises today in clinic Before leaving clinic she could bring her fingers closed to a fist and back into extension This caused increased pain & tightness over the dorsal index finger MCP & PIP joints She had some mild swelling over the dorsal MCP joint of the index finger Not really tender over the A1 pulleys today No locking or catching seen today in clinic No erythema or warmth. No lacerations or evidence of open injury. Psych Appearance: grossly normal Affect: normal affect Attitude: cooperative Assessment & Plan Assessment & Plan (1) Stiffness of finger joint of right hand: Code(s): M25.641 - Stiffness of right hand, not elsewhere classified Category: Medical (2) Trigger finger, right index finger: Code(s): M65.321 - Trigger finger, right index finger Category: Medical (3) Diabetes: Code(s): E11.9 - Type 2 diabetes mellitus without complications Category: Medical Plan Assessment & Plan: 1. Right hand pain & index finger MCP joint stiffness This is her chief complaint today 2. Right index finger trigger finger, S/P injection Date of injection: 06/14/23 No locking or catching today. I educated her about this condition I discussed operative and non-operative treatment options Given her level of stiffness, I recommend she complete a course of OT hand therapy before we discuss a repeat injection, and she is in agreement I ordered OT hand therapy to work on stretching, strengthening, and normaliziing function She will work on ROM exercises at home, 20x daily If she starts having trouble with locking and catching again she knows to let us know. She will follow up in 2 months to see how she is doing. Order X-rays of her right hand to assess her 2nd MCP joint 3. Left small trigger finger, S/P release DOS: 05/02/22 4. Left Carpal tunnel syndrome, S/P release 5. Left middle trigger finger, S/P release 6. Left ring trigger finger, S/P release DOS: 03/25/21 All with good resolution of her symptoms 7. Right middle finger trigger, S/P release 8. Right carpal tunnel syndrome, S/P release DOS: 10/2017 at an outside clinic Good relief of her symptoms Scribed for Diana Tanner MD by Adis Alvarez, medical underwriter, on 06/14/23 at 10:30 AM, EST. Orders: Orders OT Evaluation and Treatment Today M25.641 - Stiffness of right hand, not elsewhere classified, M65.321 - Trigger finger, right index finger Coding Level of Care Code Est Pt Level 3 (04392) Diagnoses Stiffness of finger joint of right hand M25.641 Trigger finger, right index finger M65.321 Diabetes E11.9
[2025-04-22 11:24] VITALS: BMI 37.7
--- OUTSIDE RECORDS SUMMARY | 2025-04-22 13:20 | XMS_ITS | Encounter Summary ---
Author Organization [employer] Address [address] [facility] [address]t [place] [address] Care Team Providers Care Airplane Navigator Name Role Phone Claritza Canela Primary Care Provider [phone] Yane Morrissey NP Primary Care Provider [phone] Encounter Details Date Type Department Care Team (Late st Contact Info) Description 01/30/2023 Orders Only [facility]S [address] [place] [address] Claritza Canela FNP [address] [place] [address] Breast density (Primary Dx) Social History Tobacco [...] Description 05/27/2025 1:00 PM EST Procedure Visit [facility] [address] [place] [address] Yane Morrissey NP [address] [place] [address] documented as of this encounter Visit Diagnoses Diagnosis Breast density- Primary Other sign and symptom in breast documented in this encounter Additional Health Concerns Assessment Noted Time PHQ-9 Depression Total Score: 2 06/01/20 22 9:11 AM EST documented as of this encounter Care Teams Airplane Navigator Relationship Specialty Start Date End Date Claritza Canela FNP [address] [place] [address] PCP - General Family Medicine 05/13/22 02/13/24 Yane Morrissey NP [address] [place] [address] PCP - General Family Medicine 02/14/24 documented as of this encounter
--- OUTSIDE RECORDS SUMMARY | 2025-04-22 13:20 | XMS_ITS | Encounter Summary ---
Author Organization [employer] Address [address] [facility] [address]t [place] [address] Care Team Providers Care Asp Developer Name Role Phone Claritza Canela Primary Care Provider [phone] Yane Morrissey NP Primary Care Provider [phone] Encounter Details Date Type Department Care Team (Late st Contact Info) Description 01/30/2023 Orders Only [facility] PEDS [address] [place] [address] Claritza Canela FNP [address] [place] [address] Social History Tobacco Use Types Packs/Day Years [...] 1:00 PM EST Procedure Visit [facility] [address] [place] [address] Yane Morrissey NP [address] [place] [address] documented as of this encounter Visit Diagnoses Not on filedocumented in this encounter Additional Health Concerns Assessment Noted Time PHQ-9 Depression Total Score: 2 06/01/20 22 9:11 AM EST documented as of this encounter Care Teams Asp Developer Relationship Specialty Start Date End Date Claritza Canela FNP [address] [place] [address] PCP - General Family Medicine 05/13/22 02/13/24 Yane Morrissey NP [address] [place] [address] PCP - General Family Medicine 02/14/24 documented as of this encounter
--- OUTSIDE RECORDS SUMMARY | 2025-04-22 13:20 | XMS_ITS | Encounter Summary ---
Author Organization [employer] Address [address] [facility] [address]t [place] [address] Care Team Providers Care Forge Shop Supervisor Name Role Phone Claritza Canela Primary Care Provider [phone] Yane Morrissey NP Primary Care Provider [phone] Reason for Visit * Reason Comments Med Refill Encounter Details Date Type Department Care Team (Late st Contact Info) Description 11/29/2022 Refill [facility] [address] [place] [address] Claritza Canela FNP [address] [place], [place] [id number] Rash and nonspecific skin eruption Social History [...] Description 05/27/2025 1:00 PM EST Procedure Visit [facility] [address] [place] [address] Yane Morrissey NP [address] [place] [address] documented as of this encounter Visit Diagnoses Diagnosis Rash and nonspecific skin eruption Rash and other nonspecific skin eruption documented in this encounter Additional Health Concerns Assessment Noted Time PHQ-9 Depression Total Score: 2 06/01/20 9:11 AM EST documented as of this encounter Care Teams Forge Shop Supervisor Relationship Specialty Start Date End Date Claritza Canela FNP [address] [place] [address] PCP - General Family Medicine 05/13/22 02/13/24 Yane Morrissey NP [address] [place] [address] PCP - General Family Medicine 02/14/24 documented as of this encounter
--- OUTSIDE RECORDS SUMMARY | 2025-04-22 13:20 | XMS_ITS | Encounter Summary ---
Author Organization [employer] Address [address] [facility] [address] [place] [address] Care Team Providers Care Barrel Rifler Hook Name Role Phone Claritza CanelaP Primary Care Provider [phone] Yane Morrissey NP Primary Care Provider [phone] Encounter Details Date Type Department Care Team (Late st Contact Info) Description 03/21/2023 Orders Only [facility] [address] [place] [address] Provider, MD [place] Social History Tobacco Use [...] t he electric, gas, oil or water [employer] threatened to shut off services in your [...] Description 05/27/2025 1:00 PM EST Procedure Visit [facility] [address] [place] [address] Yane Morrissey NP [address] [place] [address] documented as of this encounter Procedures Procedure [...] documented as of this encounter Care Teams Barrel Rifler Hook Relationship Specialty Start Date End Date Claritza Canela FNP [address] [place] [address] PCP - General Family Medicine 05/13/22 02/13/24 Yane Morrissey NP [address] [place] [address] PCP - General Family Medicine 02/14/24 documented as of this encounter
--- OUTSIDE RECORDS SUMMARY | 2025-04-22 13:20 | XMS_ITS | Encounter Summary ---
Author Organization [employer] Address [address] [facility] [address]t [place] [address] Care Team Providers Care Concert Or Lecture Hall Manager Name Role Phone Claritza Canela Primary Care Provider [phone] Yane Morrissey NP Primary Care Provider [phone] Reason for Referral * Imaging (Routine) - Closed Specialty Diagnoses / Procedures Referred By Luci leon Referred To Contact Diagnoses Mass of left breast, unspecified quadrant Procedures BI Mammogram Diagnostic Tomosynthesis Left Claritza Canela FNP [address] [place] [address] Phone: tel: fax: [address] Phone: tel: fax: Referral ID Status Reason Start Date Expiration Date Visits Re quested Visits Authorized [id number] Closed 11/11/2022 05/10/2023 1 1 Encounter Details Date Type Department Care Team (Late st Contact Info) Description 11/11/2022 Orders Only [facility] [address] [place] [address] Claritza Canela FNP [address] [place] [address] Mass of left breast, unspecified quadrant (Primary [...] Visit [facility] [address] [place] [address] Yane Morrissey NP [address] [place] [address] Scheduled Orders Name Type Priority Associated Diagnoses [...] documented as of this encounter Care Teams Concert Or Lecture Hall Manager Relationship Specialty Start Date End Date Claritza Canela FNP [address] [place], [place] [phone] PCP - General Family Medicine 05/13/22 02/13/24 Yane Morrissey NP [address] [place] [address] PCP - General Family Medicine 02/14/24 documented as of this encounter
--- OUTSIDE RECORDS SUMMARY | 2025-04-22 13:20 | XMS_ITS | Clinical Summary ---
Author Organization [employer] Address [address] [facility] 7[address] [place] [address] Care Team Providers Care Cmv Driver Name Role Phone Yane Morrissey NP Primary Care Provider [phone] Allergies Active Allergy Reactions Criticality Noted Date [...] Apply topically every 12 (twelve) hours. Active Blood Glucose Monitoring Suppl (FreeStyle Lite) [...] OR NEEDED 100 each 11 024 Active FreeStyle lancetsIndication s:Diabetic polyneuropathy associated with type 2 diabetes mellitus (HCC) 1 each by Other route if needed in the morning, at noon, and at bedtime (glucose). USE TO TEST BLOOD SUGAR TWICE A DAY 100 each 024 Active TRUEplus Lancets 33G miscIndications:T ype 2 diabetes mellitus with diabetic macular edema resolved after treatment, unspecified laterality, unspecified whether long chain beamer insulin use (HCC) TEST BLOOD SUGAR TWICE DAILY DIRECTED 100 each 11 025 Active Continuous Glucose Dust Handler (FreeStyle Ryder 3 [place]) deviceIndications :Type 2 diabetes mellitus without complication, with long-term current use of insulin ([facility]) 1 each Once per day. Use as directed for CGM 1 each 025 Active Continuous Glucose Sensor (FreeStyle Ryder 3 Plus Sensor) miscIndications:T ype 2 diabetes mellitus without complication, with long-term current use of insulin ([facility]) 1 each every 15 days. Apply 1 [...] A DAY 30 tablet 1 025 Active EPINEPHrine (Epipen) 0.3 [...] 12 hours or as directed by MD. 30 patch 025 Active albuterol (Ventolin HFA) 108 (90 Base) MCG/ACT inhaler INHALE 2 PUFFS EVERY 4 TO 6 HOURS NEEDED 18 g 3 025 Active Tirzepatide (Mounjaro) 2.5 MG/0.5ML solution auto-injectorIndi cations: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, with long-term current use of insulin, unspecified laterality (HCC) Inject 2.5 mg under the skin 1 (one) time per week. INJECT 2.5 MG SUBCUTANEOUS ONCE A WEEK. 2 mL 025 Active losartan (Cozaar) 50 MG tabletIndications :Essential hypertension TAKE ONE TABLET BY MOUTH EVERY DAY 90 tablet 1 025 Active albuterol (Ventolin HFA) 108 (90 Base) MCG/ACT inhaler INHALE 2 PUFFS EVERY 4 TO 6 HOURS NEEDED 18 g 3 023 2024 Discontinued( Reorder (will not trigger notification to Pharmacy)) losartan (Cozaar) 50 MG tabletIndications :Essential hypertension TAKE ONE TABLET BY MOUTH EVERY DAY 90 tablet 1 025 2024 Discontinued( Reorder (will not trigger notification to Pharmacy)) Mounjaro 2.5 MG/0.5ML solution auto-injectorIndi cations: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, with long-term current use of insulin, unspecified laterality (HCC) INJECT 2.5 MG SUBCUTANEOUS ONCE A WEEK. 2 mL 025 2024 Discontinued( Reorder (will not trigger notification to Pharmacy)) Active Problems Problem Noted Date Diagnosed Date Allergic arthritis of both knees 03/21/2025 Assessment & Plan (03/21/2025 2:13 PM EDT): Chronic pain of both knees 03/07/2025 Assessment & Plan (03/07/2025 5:12 PM EDT): Orders: lidocaine (Lidoderm) 5 % patch; Apply 1 patch topically Once per day. Remove & discard patch within 12 hours or as directed by MD. Mass of foot 10/31/2024 Cervicogenic headache 09/27/2024 [...] 12 hours or as directed by . Severe anxiety 12/15/2017 Assessment & Plan (04/11/2023 [...] with services. PLAN: 1. Follow up with [facility]: Not recommended for follow-up 2. Patient goal [...] her . Recommended to keep appt with [facility] therapist Carol Schaefer. At this time Armand Montilla meets criteria for Visit Diagnoses: Problem List Items Addressed This Visit Other Severe anxiety Major depressive disorder Patient ready to address current needs Armand is already engage in MH services at [facility]. Strengths include She is in action stage of change and this motivation will serve as treatment engagement. PLAN: 1. Follow up with [facility]: Not recommended for follow-up 2. Patient goal [...] with services. PLAN: 1. Follow up with [facility]: Not recommended for follow-up 2. Patient goal is to continue attending individual therapy with [facility] 3. Behavioral Recommendations a. Follow PCP recommendation for med management b. Practice self-care and self-compassion c. Set-up healthy boundaries with partner and improve communication skills Panic attack 12/15/2017 Encounters Date Type Department Care Team Description 04/18/2025 [facility] [place] [address] Yane Morrissey NP Essential hypertension 04/18/2025 Refill [facility] [address] [facility] [place] [address] [facility] 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, with long-term current use of insulin, unspecified laterality (HCC); Essential hypertension 04/08/2025 Refill [facility] [address] [facility] [place] [address] Ladi Arias, RN 04/03/2025 Orders Only [facility] External Provider, [facility] 03/24/2025 Telephone [facility] [address] [facility] [place] [address] Yane Morrissey NP Durable Medical Equipment (Diabetic shoes) 03/24/2025 Telephone [facility] MEDICINE [address] [place] [address] Yane Morrissey NP Durable Medical Equipment (Knee braces) 03/21/2025 1:45 PM EDT Office Visit [facility] [address] [facility] [place] [address] Yane Morrissey NP 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, with long-term current use of insulin, unspecified laterality (HCC) (Primary Dx); Essential hypertension; Osteoarthritis of both knees, unspecified osteoarthritis type 03/21/2025 Travel 03/21/2025 Refill [facility] [address] [facility] [place] [address] [facility] 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, with long-term current use of insulin, unspecified laterality (HCC) 03/21/2025 Refill [facility] [address] [facility] [place] [address] [facility] 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, with long-term current use of insulin, unspecified laterality (HCC) 03/20/2025 Telephone [facility] [address] [facility] [place] [address] Yane Morrissey NP Chart Prep 03/14/2025 Patient Outreach [facility] [address] [place] [address] Yane Morrissey NP Pre-visit Planning (SDOH negative, Tobacco screening negative. ) 03/14/2025 Travel 03/10/[address] [address] Yane Morrissey NP 03/07/2025 3:15 PM EDT Office Visit [address] [address] Yane Morrissey NP Chronic pain of both knees (Primary Dx); 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, unspecified laterality, unspecified whether long chain beamer insulin use (CMS/HCC); Post-traumatic osteoarthritis of both knees; Acute bilateral low back pain with right-sided sciatica 03/07/2025 Travel 03/06/2025 Travel 03/06/[address] [address] Yane Morrissey NP CHARTPREP 03/03/[address] [address] Yane Morrissey NP 02/21/[address] [address] Yane Morrissey NP 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, with long-term current use of insulin, unspecified laterality (CMS/HCC) 01/29/2025 9:30 AM EDT Office Visit [address] [address] Capo Marie MD Chronic left-sided low back pain with left-sided sciatica (Primary Dx) 01/29/2025 Travel 01/28/2025 Orders Only [facility] MED[facility] [address] [place] [address] Yane Morrissey NP 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, with long-term current use of insulin, unspecified laterality (CMS/HCC) (Primary Dx) 01/28/[address] [address] Bryson Bhardwaj [place] CHARTPREP 01/27/[address] [address] Yane Morrissey NP Nurse Triage 01/27/[address] [address] Yane Morrissey NP Medication Question 01/22/[address] [address] Yane Morrissey NP Medication Question 01/22/[address] [address] Yane Morrissey NP Acute bilateral low back pain with right-sided sciatica 01/22/[address] [address] Yane Morrissey NP Acute bilateral low back pain with right-sided sciatica from Last 3 Months Immunizations Immunization Administration [...] Description 05/27/2025 1:00 PM EST Procedure Visit [facility] [address] [place] [address] Yane Morrissey NP [address] [place] [address] Health Maintenance Due Date Last Done Comments [...] diabetes mellitus without complication, unspecified whether long chain beamer insulin use (CMS/HCC) LIPID PANEL, STANDARD Routine 07/27/2023 8:06 AM EST Type 2 diabetes mellitus without complication, unspecified whether shelter insulin use (CMS/HCC) HM PAP/HPV Routine 06/16/2023 12:00 AM EST HM MAMMOGRAPHY Routine 05/05/2023 [facility] HISTORICAL HEPATITIS C ANTIBODY RFLX Routine 06/20/2019 8:11 AM EST [facility] HISTORICAL HIV AB/AG Routine 06/20/2019 8:11 AM EST [facility] HISTORICAL HPV MRNA E6/E7 Routine 07/12/2018 9:56 AM EST from Last 3 Months or Most Recently Relevant to Health Maintenance Results * XR Lumbar Spine 2-3 Views (04/04/2025 10:30 AM EDT) Anatomical Region Laterality Modality Spine, L-spine Radiographic Shae ging 04/04/2025 10:3 0 AM EDT Narrative 04/04/2025 10:32 AM EDT [facility] [address] [facility] [address] [place] [address] XRay Report Signed Patient: Armand Montilla MR#: [id number] 97 : 1960 Acct:[id number] Age/Sex: 64 / F ADM Date: 04/03/25 Loc: HO.HOSX Attending Dr: Xochitl Garland MD Ordering Physician: Xochitl Lara Date of Service: 04/03/25 Procedure(s): XR lumbar spine 2-3V Accession Number(s): [id number] cc: Yane Morrissey INTERIOR [employer]SEM[employer] DEVELOPER [employer]; Xochitl Lara Reason for Exam: M54.9 - Dorsalgia, unspecified CLINICAL HISTORY: M54.9 - Dorsalgia, unspecified 3 views lumbar spine Comparison: None provided Findings: Severe multilevel facet arthropathy is present. [id number] multilevel marginal osteophyte formation and disc space [...] 04/04/25 1031 DD/ 1030 TD/TT: 04/04/25 1030 Shrimp Cleaner: Procedure Note Donotuseinterpreter, Image - 04/04/2025 [facility] [address] [place] [address] [place] [address] XRay Report Signed Patient: Roc Montilla#: [id number] [birth year] : 1960cct:[id number] Age/Sex: 64 / FADM Date: 04/03/25 Loc: [facility] Attending Dr: Xochitl Garland MD Ordering Physician: Xochitl Lara Date of Service: 04/03/25 Procedure(s): XR lumbar spine 2-3V Accession Number(s): [id number] cc: Yane Morrissey INTERIOR ASSEM[employer] DEVELOPER [employer]; Xochitl Lara Reason for Exam: M54.9 - Dorsalgia, unspecified CLINICAL HISTORY: M54.9 - Dorsalgia, unspecified 3 views lumbar spine Comparison: None provided Findings: Severe multilevel facet arthropathy is present. [id number]-[id number] multilevel marginal osteophyte formation and disc space [...] 04/04/25 1031 DD/ 1030 TD/TT: 04/04/25 1030 Shrimp Cleaner: [facility] External Provider IMG XR PROCEDURES Final Result * (ABNORMAL) POCT Hgb A1c (03/21/2025 1:50 PM EDT) Hemoglobin A1C 6.5(A) 4.0 - 5.7 % QC Media Lot # [id number] Lot# Expiration Date 41,627 Blood 03/21/2025 1:50 PM EDT Yane Morrissey INTERIOR [employer]SEMBL[employer] DEVELOPER [employer] POINT OF CARE TEST ENTER/EDIT OR DERABLES Final Result * POCT Glucose (03/21/2025 1:50 PM EDT) Glucose Blood, POC 142 60 - 200 mg/dL QC Media Lot # [id number] Lot# Expiration Date 31,126 Blood Capillary blood specimen / Unknown 03/21/2025 1:50 PM EDT Result [facility] Yane Morrissey INTERIOR [employer]SEMBL[employer] DEVELOPER [employer] POINT OF CARE TEST ENTER/EDIT OR DERABLES Final Result * FL Upper GI w/air w/Barium Swallow (02/06/2025 8:30 AM EDT) Anatomical Region Laterality Modality Body Radiographic Shae ging 02/06/2025 8:30 AM EDT Narrative 02/06/2025 10:42 AM EDT [address] [address] Fluoroscopy Report Signed Patient: Armand Montilla MR#: [id number] [birth year] : 1960 Acct:[id number] Age/Sex: 64 / F ADM Date: 02/06/25 Loc: HO.XRAY Attending Dr: Anmu Conley [facility] Ordering Physician: Anum Conley [facility] Date of Service: 02/06/25 Procedure(s): FL upper GI w air w Ba Swallow Accession Number(s): [id number] cc: Yane Morrissey INTERIOR [employer]SEM[employer] DEVELOPER [employer]; Anum Conley [facility] EXAMINATION: XR UPPER GI SERIES WITH [...] 02/06/25 1039 DD/ 0830 TD/TT: 02/06/25 0845 Shrimp Cleaner: [facility] Procedure Note Donotuseinterpreter, Image - 02/06/[address] [address] Fluoroscopy Report Signed Patient: Roc Montilla#: [id number] [birth year] : 1960cct:[id number] Age/Sex: 64 / FADM Date: 02/06/25 Loc: HO.XRAY Attending Dr: Anum Conley [facility] Ordering Physician: Anum Conley Date of Service: 02/06/25 Procedure(s): FL upper GI w air w Ba Swallow Accession Number(s): [id number] cc: Yane Morrissey NP; Anum Conley [facility] EXAMINATION: XR UPPER GI SERIES WITH [...] 02/06/25 1039 DD/ 0830 TD/TT: 02/06/25 0845 Shrimp Cleaner: JAQUAN [facility] External Provider IMG FLU OROSCOPY PROCEDURES Final Result * Referral to Podiatry (12/16/2024) Yane Morrissey NP OUTPATIENT REFERRAL ORDERABLES F inal Result * Albumin, Random Urine W/Creatinine (07/27/2023 8:40 AM EST) Creatinine, Urine 132.90 mg/dL [facility] Microalbumin Urine 17.0 mg/L [facility] Microalbum Creatinine Ratio Ur 12.7 <30 ug/mg cr [facility] Comment:Albumin/Creatinine R atio Reference Ranges: Normal: < 30 ug/mg creatinine Microalbuminuria: 30 - 300 ug/mg creatinineClinical Albuminuria: > 300 ug/mg creatinine Urine (Urine, Random) 07/27/2023 8:40 AM EST 07/27/2023 11:28 AM EST us Claritza Canela VASC TECH LAB URINE ORDERABLES Final Resu lt [facility] [address] [place] [phone] * Lipid Panel, Standard (07/27/2023 8:06 AM EST) Triglycerides 53 <150 mg/dL [facility] Comment:Desirable Triglyceri de: less than 150 mg/dLBorderline High Triglyceride 150-199 mg/dLHigh Triglyceride: 200-499 mg/dLVery High Triglyceride: greater than or equal to 5OO mg/dL Cholesterol 113 <200 mg/dL [facility] Comment:Desirable Cholestero l: less than 200 mg/dLBorderline High Cholesterol: 200-239 mg/dLHigh Cholesterol: greater than 239 mg/dL LDL Cholesterol Calculated 39 <100 mg/dL [facility] Comment:Desirable LDL: less than 100 mg/dLNear [...] EST 07/27/2023 11:15 AM EST Claritza Canela VASC TECH LAB BLOOD ORDERABLES Final Resu lt [facility] [address] [place] [address] [phone] * HM PAP/HPV (06/16/2023 12:00 AM EST) Historical Provider HEALTH MAINTENANCE Final Result * Hm Mammography (05/05/2023) Mammogram Bi-rads 2 Anatomical Region Laterality Modality Other Historical Provider HEALTH MAINTENANCE Final Result * HEPATITIS C ANTIBODY RFLX (06/20/2019 8:11 AM EST) Pathologist [facility] HEPATITIS C ANTIBODY NONREACTIVE NONREACTIVE [facility] Comment: Antibodies to HCV not detected; does not exclude early acute HCV infection. 06/20/2019 8:11 AM EST Albert Hollingsworth MD HISTORICAL/NON ORDERABLE LABS Fi nal Result [facility] [address] * HIV AB/AG (06/20/2019 8:11 AM EST) Pathologist [facility] HIV AG/AB NONREACTIVE [facility] [...] of detection of this assay. The [employer] Rental Manager HIV Ag/Ab Combo assay result and supplemental assay results should be interpreted in conjunction with the patient's clinical presentation, history and other laboratory results. If the results are inconsistent with clinical evidence, additional testing is suggested to confirm the result. 06/20/2019 8:11 AM EST Albert Hollingsworth MD HISTORICAL/NON ORDERABLE LABS Fi nal Result Performing Organization Address [facility]/ZIP Co de Phone Number [facility] [address] * HPV mRNA E6/E7 (07/12/2018 9:56 AM EST) HPV mRNA E6/E7 Not Detected NOT DETECTED [facility] Comment: This test was performed using the APTIMA(R) HPV Assay ([employer] This assay detects E6/E7 viral messenger RNA (mRNA) from 14 high-risk HPV types (16,18,31,33,35,39,45,51, 52,56,58,59,66,68). For additional information please refer to: http://education.Comuto/faq/DSE780v5 (This link is being provided for informational/ educational purposes only.) The analytical performance characteristics of this assay have been determined by [employer] [place], [place]. The modifications have not been cleared or approved by the FDA. This assay has been validated pursuant to the CLIA regulations and is used for clinical purposes. Test Performed by [facility], [facility], [address] [place] [address] Henok Carreno M.D., Ph.D., Director of Laboratories , CLIA [id number] Please note: Effective 02/22/2016, HPV testing will be performed using [employer]'s APTIMA test which targets mRNA. Detecting mRNA instead of DNA, as in older methods, offers significant improvements in specificity. 07/12/2018 9:56 AM EST Jayla Wang CNM HISTORICAL/NON ORDERABLE LABS Final Result Performing Organization Address [facility] Co de Phone Number [facility] [address] from Last 3 Months or Most Recently Relevant to Health Maintenance Insurance [facility] CARE < 65 SAR[place]AK SHAY [id number] Care Teams Cmv Driver Relationship Specialty Start Date End Date Yane Morrissey NP [address] [place] [id number] PCP - General Family Medicine 02/14/24
--- OUTSIDE RECORDS SUMMARY | 2025-04-22 13:20 | XMS_ITS | Encounter Summary ---
Author Organization [employer] Address [address] [facility] 7t [place] [address] Care Team Providers Care Cleaning Staff Supervisor Name Role Phone Claritza CnaelaP Primary Care Provider [phone] Yane Morrissey NP Primary Care Provider [phone] Reason for Visit * Reason Onset Date Comments Med Refill Abnormal mammo follow up 10/18/2022 Encounter Details Date Type Department Care Team (Late st Contact Info) Description 10/18/2022 Refill [facility] MED[facility]INE [address] [place] [address] Elsie Argueta ANP [address] [place] [address] Social History Tobacco Use Types Packs/Day Years [...] AM EDT Incoming call from Shana at [facility] calling to let us know [...] Procedure Visit [facility] [address] [place] [address] Yane Morrissey NP [address] [place] [address] documented as of this encounter Visit Diagnoses Not on filedocumented in this encounter Additional Health Concerns Assessment Noted Time PHQ-9 Depression Total Score: 2 06/01/20 22 9:11 AM EST documented as of this encounter Care Teams Cleaning Staff Supervisor Relationship Specialty Start Date End Date Claritza Canela FNP [address] [place] [address] PCP - General Family Medicine 05/13/22 02/13/24 Yane Morrissey NP [address] [place] [address] PCP - General Family Medicine 02/14/24 documented as of this encounter
--- OUTSIDE RECORDS SUMMARY | 2025-04-22 13:20 | XMS_ITS | Encounter Summary ---
Author Organization [employer] Address [address] [facility] 7t [place] [address] Care Team Providers Care Transfer And Pumphouse Operator Chief Name Role Phone Claritza Canela Primary Care Provider [phone] Yane Morrissey NP Primary Care Provider [phone] Encounter Details Date Type Department Care Team (Late st Contact Info) Description 09/05/2022 Orders Only [facility] [address] [place] [address] Claritza Canela FNP [address] [place] [address] Type 2 diabetes mellitus with hyperosmolarity without coma, without long-term current use of insulin ([facility]) Social History Tobacco Use Types Packs/Day Years [...] Procedure Visit [facility] [address] [place] [address] Yane Morrissey NP [address] [place] [address] documented as of this encounter Visit Diagnoses Diagnosis Type 2 diabetes mellitus with hyperosmolarity without coma, without long-term current use of insulin (HCC) documented in this encounter Additional Health Concerns Assessment Noted Time PHQ-9 Depression Total Score: 2 06/01/20 9:11 AM EST documented as of this encounter Care Teams Transfer And Pumphouse Operator Chief Relationship Specialty Start Date End Date Claritza Canela FNP [address] [place] [address] PCP - General Family Medicine 05/13/22 02/13/24 Yane Morrissey NP [address] [place] [address] PCP - General Family Medicine 02/14/24 documented as of this encounter
--- OUTSIDE RECORDS SUMMARY | 2025-04-22 13:20 | XMS_ITS | Encounter Summary ---
Author Organization [employer] Address [address] [facility] [address] [place] [address] Care Team Providers Care Baseball Hand Sewer Name Role Phone Claritza CanelaP Primary Care Provider [phone] Yane Morrissey NP Primary Care Provider [phone] Encounter Details Date Type Department Care Team (Late st Contact Info) Description 03/21/2023 Abstract [facility] [address] [place] [address] Michelle Castillo Social History Tobacco Use Types [...] t he electric, gas, oil or water [employer] threatened to shut off services in your [...] Procedure Visit [facility] [address] [place] [address] Yane Morrissey NP [address] [place] [address] documented as of this encounter Visit Diagnoses Not on filedocumented in this encounter Additional Health Concerns Assessment Noted Time PHQ-9 Depression Total Score: 2 06/01/20 22 9:11 AM EST documented as of this encounter Care Teams Baseball Hand Sewer Relationship Specialty Start Date End Date Claritza Canela FNP [address] [place] [address] PCP - General Family Medicine 05/13/22 02/13/24 Yane Morrissey NP [address] [place] [address] PCP - General Family Medicine 02/14/24 documented as of this encounter
--- OUTSIDE RECORDS SUMMARY | 2025-04-22 13:21 | XMS_ITS | Encounter Summary ---
Author Organization [employer] Address 75 [facility] 7t [place] [address] Care Team Providers Care Tetryl Wringer Operator Name Role Phone Claritza Canela Primary Care Provider [phone] Yane Morrissey NP Primary Care Provider [phone] Reason for Visit * Reason Onset Date Comments Medication Question 08/17/2023 Encounter Details Date Type Department Care Team (Late st Contact Info) Description 08/17/2023 Telephone [facility] MEDICINE [address] [place] [address] Claritza Canela FNP [address] [place] [address] Medication Question Social History Tobacco Use Types [...] by paramedics yesterday at the [facility] pharmacywhich is not covered, pt. Does not remember the name/T/C to [facility] pharmacy for above message, pharmacy states [...] by her insurance. Please contact pt at [phone]. documented in this encounter Plan of Treatment Upcoming Encounters Date Type Department Care Team (Late st Contact Info) Description 05/27/2025 1:00 PM EST Procedure Visit [facility] MEDICINE [address] [place] [address] Yane Morrissey NP [address] [place] [address] documented as of this encounter Visit Diagnoses Not on filedocumented in this encounter Additional Health Concerns Assessment Noted Time PHQ-9 Depression Total Score: 23 023 10:13 AM EST documented as of this encounter Care Teams Tetryl Wringer Operator Relationship Specialty Start Date End Date Claritza Canela FNP [address] [place] [address] PCP - General Family Medicine 05/13/22 02/13/24 Yane Morrissey NP [address] [place] [address] PCP - General Family Medicine 02/14/24 documented as of this encounter
--- OUTSIDE RECORDS SUMMARY | 2025-04-22 13:21 | XMS_ITS | Encounter Summary ---
Author Organization [employer] Address [address] [facility] [address] 7t [place] [address] Care Team Providers Care Analytics Intern Name Role Phone Claritza Canela Primary Care Provider [phone] Yane Morrissey NP Primary Care Provider [phone] Encounter Details Date Type Department Care Team (Late st Contact Info) Description 03/28/2023 Orders Only [facility] MED & PEDS [address] [place] [address] Claritza Canela FNP [address] [place] [address] Acute bilateral low back pain with right-sided [...] [facility] MEDICINE [address] [place] [address] Yane Morrissey NP [address] [place] [address] documented as of this encounter Visit Diagnoses Diagnosis Acute bilateral low back pain with right-sided sciatica documented in this encounter Additional Health Concerns Assessment Noted Time PHQ-9 Depression Total Score: 2 06/01/20 22 9:11 AM EST documented as of this encounter Care Teams Analytics Intern Relationship Specialty Start Date End Date Claritza Canela FNP [address] [place] [address] PCP - General Family Medicine 05/13/22 02/13/24 Yane Morrissey NP [address] [place] [address] PCP - General Family Medicine 02/14/24 documented as of this encounter
--- OUTSIDE RECORDS SUMMARY | 2025-04-22 13:21 | XMS_ITS | Encounter Summary ---
Author Organization [employer] Address 75 [facility] 7t [place] [address] Care Team Providers Care Asbestos Shingle Inspector Name Role Phone Yane Morrissey NP Primary Care Provider [phone] Reason for Visit * Reason Onset Date Comments Med Refill 01/22/2025 Encounter Details Date Type Department Care Team (Late st Contact Info) Description 01/22/2025 Refill [facility] MEDICINE [address] [place] [address] Yane Morrissey NP [address] [place] [address] Acute bilateral low back pain with right-sided [...] Description 05/27/2025 1:00 PM EST Procedure Visit [facility] MEDICINE [address] [place] [address] Yane Morrissey NP [address] [place] [address] documented as of this encounter Visit Diagnoses Diagnosis Acute bilateral low back pain with right-sided sciatica documented in this encounter Additional Health Concerns Assessment Noted Time PHQ-9 Depression Total Score: 9 05/24/20 24 11:18 AM EST documented as of this encounter Care Teams Asbestos Shingle Inspector Relationship Specialty Start Date End Date Yane Morrissey NP [address] [place] [address] PCP - General Family Medicine 02/14/24 documented as of this encounter
--- OUTSIDE RECORDS SUMMARY | 2025-04-22 13:21 | XMS_ITS | Encounter Summary ---
Author Organization [employer] Address 75 [facility] 7t [place] [address] Care Team Providers Care Operational Review Sergeant Name Role Phone Claritza Caneal Primary Care Provider [phone] Yane Morrissey NP Primary Care Provider [phone] Reason for Visit * Reason Onset Date Comments Medication Question 01/17/2024 Encounter Details Date Type Department Care Team (Late st Contact Info) Description 01/17/2024 Telephone [facility] MEDICINE [address] [place] [address] Claritza Canela FNP [address] [place], [place] [id number] Medication Question Social History Tobacco Use Types [...] with others, in a hotel, in a usp, living outside on the street, on a [...] any questions you can contact [facility] at [phone]. documented in this encounter Plan of Treatment Upcoming Encounters Date Type Department Care Team (Late st Contact Info) Description 05/27/2025 1:00 PM EST Procedure Visit [facility] MEDICINE [address] [place] [address] Yane Morrissey NP [address] [place] [address] documented as of this encounter Visit Diagnoses Not on filedocumented in this encounter Additional Health Concerns Assessment Noted Time PHQ-9 Depression Total Score: 23 023 10:13 AM EST documented as of this encounter Care Teams Operational Review Sergeant Relationship Specialty Start Date End Date Claritza Canela FNP [address] [place] [address] PCP - General Family Medicine 05/13/22 02/13/24 Yane Morrissey NP [address] [place] [address] PCP - General Family Medicine 02/14/24 documented as of this encounter
--- OUTSIDE RECORDS SUMMARY | 2025-04-22 13:21 | XMS_ITS | Encounter Summary ---
Author Organization [employer] Address 75 [facility] 7t [place] [address] Care Team Providers Care Slab Lifting Supervisor Name Role Phone Yane Morrissey NP Primary Care Provider [phone] Reason for Visit * Reason Onset Date Comments Nurse Triage 08/01/2024 Encounter Details Date Type Department Care Team ([facility] st Contact Info) Description 08/01/2024 Telephone [facility] MEDICINE [address] [place] [address] Yane Morrissey NP [address] [place] [address] Nurse Triage Social History Tobacco Use Types [...] 3 days The caller accepted this outcome. [phone] documented in this encounter Plan of Treatment Upcoming Encounters Date Type Department Care Team (Late st Contact Info) Description 05/27/2025 1:00 PM EST Procedure Visit [facility] MEDICINE [address] [place] [address] Yane Morrissey NP [address] [place] [address] documented as of this encounter Visit Diagnoses Not on filedocumented in this encounter Additional Health Concerns Assessment Noted Time PHQ-9 Depression Total Score: 9 05/24/20 24 11:18 AM EST documented as of this encounter Care Teams Slab Lifting Supervisor Relationship Specialty Start Date End Date Yane Morrissey NP [address] [place] [address] PCP - General Family Medicine 02/14/24 documented as of this encounter
--- OUTSIDE RECORDS SUMMARY | 2025-04-22 13:21 | XMS_ITS | Encounter Summary ---
Author Organization [employer] Address 75 [facility] 7t [place] [address] Care Team Providers Care Pleat Taper Name Role Phone Yane Morrissey NP Primary Care Provider [phone] Encounter Details Date Type Department Care Team (Late st Contact Info) Description 05/17/2024 Orders Only [facility] MEDICINE [address] [place] [address] Michelle Castillo Social History Tobacco Use Types [...] 05/27/2025 1:00 PM EST Procedure Visit [facility] MEDICINE [address] [place] [address] Yane Morrissey NP [address] [place] [address] documented as of this encounter Procedures Procedure [...] documented as of this encounter Care Teams Pleat Taper Relationship Specialty Start Date End Date Yane Morrissey NP [address] [place] [address] PCP - General Family Medicine 02/14/24 documented as of this encounter
--- OUTSIDE RECORDS SUMMARY | 2025-04-22 13:21 | XMS_ITS | Encounter Summary ---
Author Organization [employer] Address 75 [facility] 7t [place] [address] Care Team Providers Care Nurse Executive Name Role Phone Claritza Canela Primary Care Provider [phone] Yane Morrissey NP Primary Care Provider [phone] Reason for Visit * Reason Comments Med Refill Encounter Details Date Type Department Care Team (Late st Contact Info) Description 05/19/2023 Refill [facility] MEDICINE [address] [place] [address] Claritza Canela FNP [address] [place], [place] [phone] Anxiety Social History Tobacco Use Types Packs/Day [...] Description 05/27/2025 1:00 PM EST Procedure Visit [facility] MEDICINE [address] [place] [address] Yane Morrissey NP [address] [place] [address] documented as of this encounter Visit Diagnoses Diagnosis Anxiety Anxiety state, unspecified documented in this encounter Additional Health Concerns Assessment Noted Time PHQ-9 Depression Total Score: 23 023 10:13 AM EST documented as of this encounter Care Teams Nurse Executive Relationship Specialty Start Date End Date Claritza Canela FNP [address] [place] [address] PCP - General Family Medicine 05/13/22 02/13/24 Yane Morrissey NP [address] [place] [address] PCP - General Family Medicine 02/14/24 documented as of this encounter
--- OUTSIDE RECORDS SUMMARY | 2025-04-22 13:21 | XMS_ITS | Encounter Summary ---
Author Organization [employer] Address 75 [facility] 7t [place] [address] Care Team Providers Care Sap Analyst Name Role Phone Claritza CanelaP Primary Care Provider [phone] Yane Morrissey NP Primary Care Provider [phone] Encounter Details Date Type Department Care Team (Late st Contact Info) Description 05/18/2022 Orders Only [facility] MEDICINE [address] [place] [address] Sonya Darnell MD [address] [place] [address] Type 2 diabetes mellitus with hyperosmolarity without coma, without long-term current use of insulin (CMS/LTAC, [facility]) (Primary Dx) Social History Tobacco Use Types [...] Description 05/27/2025 1:00 PM EST Procedure Visit [facility] MEDICINE [address] [place] [address] Yane Morrissey NP [address] [place] [address] documented as of this encounter Visit Diagnoses Diagnosis Type 2 diabetes mellitus with hyperosmolarity without coma, without long-term current use of insulin (HCC)- Primary documented in this encounter Care Teams Sap Analyst Relationship Specialty Start Date End Date Claritza Canela FNP [address] [place], [place] [phone] PCP - General Family Medicine 05/13/22 02/13/24 Yane Morrissey NP [address] [place], [place] [phone] PCP - General Family Medicine 02/14/24 documented as of this encounter
--- OUTSIDE RECORDS SUMMARY | 2025-04-22 13:21 | XMS_ITS | Encounter Summary ---
Author Organization [employer] Address 75 [facility] 7t [place] [address] Care Team Providers Care Director Of Vocational Training Name Role Phone Claritza Canela Primary Care Provider [phone] Yane Morrissey NP Primary Care Provider [phone] Encounter Details Date Type Department Care Team (Late Contact Info) Description 05/27/2022 Orders Only [facility] MEDICINE [address] [place] [address] Corina Canchola, ISAAK Social History Tobacco Use [...] Description 05/27/2025 1:00 PM EST Procedure Visit [facility] MEDICINE [address] [place], [place] [phone] Yane Morrissey NP [address] [place], [place] [phone] documented as of this encounter Visit Diagnoses Not on filedocumented in this encounter Care Teams Director Of Vocational Training Relationship Specialty Start Date End Date Claritza Canela FNP [address] [place] [address] PCP - General Family Medicine 05/13/22 02/13/24 Yane Morrissey NP [address] [place] [address] PCP - General Family Medicine 02/14/24 documented as of this encounter
--- OUTSIDE RECORDS SUMMARY | 2025-04-22 13:21 | XMS_ITS | Encounter Summary ---
Author Organization [employer] Address 75 [facility] 7t [place] [address] Care Team Providers Care Box Toe Cementer Name Role Phone Yane Morrissey NP Primary Care Provider [phone] Reason for Visit * Reason Comments Med Refill Encounter Details Date Type Department Care Team (Late st Contact Info) Description 08/20/2024 Refill [facility] MEDICINE [address] [place] [address] Omaira Brian MD [address] [place] [address] Clogged ear, bilateral Social History Tobacco Use [...] EST Procedure Visit [facility] MEDICINE [address] [place] [address] Yane Morrissey NP [address] [place] [address] documented as of this encounter Visit Diagnoses Diagnosis Clogged ear, bilateral documented in this encounter Additional Health Concerns Assessment Noted Time PHQ-9 Depression Total Score: 9 05/24/20 24 11:18 AM EST documented as of this encounter Care Teams Box Toe Cementer Relationship Specialty Start Date End Date Yane Morrissey NP [address] [place] [address] PCP - General Family Medicine 02/14/24 documented as of this encounter
--- OUTSIDE RECORDS SUMMARY | 2025-04-22 13:21 | XMS_ITS | Encounter Summary ---
Author Organization [employer] Address 75 [facility] 7t [place] [address] Care Team Providers Care Splunk Architect Name Role Phone Yane Morrissey NP Primary Care Provider [phone] Reason for Visit * Reason Onset Date Comments Med Refill 04/18/2025 Encounter Details Date Type Department Care Team (Late st Contact Info) Description 04/18/2025 Refill [facility] MEDICINE [address] [place] [address] Yane Morrissey NP [address] [place] [address] Essential hypertension Social History Tobacco Use Types [...] Description 05/27/2025 1:00 PM EST Procedure Visit [facility] MEDICINE [address] [place] [address] Yane Morrissey NP [address] [place] [address] documented as of this encounter Visit Diagnoses Diagnosis Essential hypertension Unspecified essential hypertension documented in this encounter Additional Health Concerns Assessment Noted Time PHQ-9 Depression Total Score: 2 03/07/20 25 3:42 PM EDT documented as of this encounter Care Teams Splunk Architect Relationship Specialty Start Date End Date Yane Morrissey NP [address] [place] [address] PCP - General Family Medicine 02/14/24 documented as of this encounter
--- OUTSIDE RECORDS SUMMARY | 2025-04-22 13:21 | XMS_ITS | Encounter Summary ---
Author Organization [employer] Address 75 [facility] 7t [place] [address] Care Team Providers Care Rehab Nursing Tech Name Role Phone Yane Morrissey NP Primary Care Provider [phone] Reason for Visit * Reason Onset Date Comments Med Refill 03/21/2025 Encounter Details Date Type Department Care Team (Late st Contact Info) Description 03/21/2025 Refill [facility] MEDICINE [address] [place] [address] [facility] [address] [place] [address] Type 2 diabetes mellitus with diabetic macular [...] Description 05/27/2025 1:00 PM EST Procedure Visit [facility] MEDICINE [address] [place] [address] Yane Morrissey NP [address] [place] [address] documented as of this encounter Visit Diagnoses Diagnosis 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
--- OUTSIDE RECORDS SUMMARY | 2025-04-22 13:21 | XMS_ITS | Encounter Summary ---
Author Organization [employer] Address 75 [facility] 7t [place] [address] Care Team Providers Care Weeder Thinner Name Role Phone Claritza CanelaP Primary Care Provider [phone] Yane Morrissey NP Primary Care Provider [phone] Reason for Visit * Reason Onset Date Comments Referral 03/23/2023 Encounter Details Date Type Department Care Team (Late st Contact Info) Description 03/23/2023 Telephone [facility] MEDICINE [address] [place] [address] Claritza Canela FNP [address] [place] [address] Referral Social History Tobacco Use Types Packs/Day [...] Procedure Visit [facility] MEDICINE [address] [place] [address] Yane Morrissey NP [address] [place] [address] documented as of this encounter Visit Diagnoses Not on filedocumented in this encounter Additional Health Concerns Assessment Noted Time PHQ-9 Depression Total Score: 2 06/01/20 22 9:11 AM EST documented as of this encounter Care Teams Weeder Thinner Relationship Specialty Start Date End Date Claritza Canela FNP [address] [place] [address] PCP - General Family Medicine 05/13/22 02/13/24 Yane Morrissey NP [address] [place] [address] PCP - General Family Medicine 02/14/24 documented as of this encounter
--- OUTSIDE RECORDS SUMMARY | 2025-04-22 13:21 | XMS_ITS | Encounter Summary ---
Author Organization [employer] Address 75 [facility] 7t [place] [address] Care Team Providers Care Wearing Apparel Shaker Name Role Phone Yane Morrissey NP Primary Care Provider [phone] Reason for Visit * Reason Onset Date Comments Med Refill 01/13/2025 Encounter Details Date Type Department Care Team (Late st Contact Info) Description 01/13/2025 Refill [facility] MEDICINE [address] [place] [address] Yane Morrissey NP [address] [place] [address] Type 2 diabetes mellitus without complication, with long-term current use of insulin ([facility]) Social History Tobacco Use Types [...] Visit [facility] MEDICINE [address] [place] [address] Yane Morrissey NP [address] [place] [address] documented as of this encounter Visit Diagnoses Diagnosis Type 2 diabetes mellitus without complication, with long-term current use of insulin (HCC) documented in this encounter Additional Health Concerns Assessment Noted Time PHQ-9 Depression Total Score: 9 05/24/20 11:18 AM EST documented as of this encounter Care Teams Wearing Apparel Shaker Relationship Specialty Start Date End Date Yane Morrissey NP [address] [place] [address] PCP - General Family Medicine 02/14/24 documented as of this encounter
--- OUTSIDE RECORDS SUMMARY | 2025-04-22 13:21 | XMS_ITS | Encounter Summary ---
Author Organization [employer] Address 75 [facility] [address]t [place] [address] Care Team Providers Care Tin Stacker Name Role Phone Yane Morrissey NP Primary Care Provider [phone] Reason for Visit * Reason Onset Date Comments Nurse Triage 01/27/2025 Encounter Details Date Type Department Care Team ([facility] st Contact Info) Description 01/27/2025 Telephone [facility] MEDICINE [address] [place] [address] Yane Morrissey NP [address] [place] [address] Nurse Triage Social History Tobacco Use Types [...] severe. Pt is going to PT at [facility] in [place] which started 01/20/25 and is twice weekly. [...] caller accepted this outcome. Contact pt at [phone] documented in this encounter Plan of Treatment Upcoming Encounters Date Type Department Care Team (Late st Contact Info) Description 05/27/2025 1:00 PM EST Procedure Visit [facility] MEDICINE [address] [place] [address] Yane Morrissey NP [address] [place] [address] documented as of this encounter Visit Diagnoses Not on filedocumented in this encounter Additional Health Concerns Assessment Noted Time PHQ-9 Depression Total Score: 9 05/24/20 24 11:18 AM EST documented as of this encounter Care Teams Tin Stacker Relationship Specialty Start Date End Date Yane Morrissey NP [address] [place] [address] PCP - General Family Medicine 02/14/24 documented as of this encounter
--- OUTSIDE RECORDS SUMMARY | 2025-04-22 13:21 | XMS_ITS | Encounter Summary ---
Author Organization [employer] Address 75 [facility] 7t [place] [address] Care Team Providers Care Hydro Excavation Operator Name Role Phone Yane Morrissey NP Primary Care Provider [phone] Reason for Visit * Reason Onset Date Comments Lab Orders 08/02/2024 ER Follow-up 08/02/2024 Encounter Details Date Type Department Care Team (Late st Contact Info) Description 08/02/2024 Telephone [facility] MEDICINE [address] [place] [address] Yane Morrissey NP [address] [place] [address] Lab Orders; ER Follow-up Social History Tobacco [...] triage, spoke to pt. pt states seen [facility] 07/24 ER for stomach pain and intermittent [...] ED visit on : Date: 07/24/2024 Hospital: [facility] Seen for: Adonmonial Pain Symptomatic Yes *if yes message should go to Triage Patient advised will forward to team nurse for follow up Pt states that (ER doctor) called daughter stating that pt needs an outpatient Cat scan order sent to [facility]. Pt is still in a lot of pain currently. Don't Call pt from private number. documented in this encounter Plan of Treatment Upcoming Encounters Date Type Department Care Team (Late st Contact Info) Description 05/27/2025 1:00 PM EST Procedure Visit [facility] MEDICINE [address] [place] [address] Yane Morrissey NP [address] [place] [address] documented as of this encounter Visit Diagnoses Not on filedocumented in this encounter Additional Health Concerns Assessment Noted Time PHQ-9 Depression Total Score: 9 05/24/20 24 11:18 AM EST documented as of this encounter Care Teams Hydro Excavation Operator Relationship Specialty Start Date End Date Yane Morrissey NP [address] [place] [address] PCP - General Family Medicine 02/14/24 documented as of this encounter
--- OUTSIDE RECORDS SUMMARY | 2025-04-22 13:21 | XMS_ITS | Encounter Summary ---
Author Organization [employer] Address 75 [facility] 7t [place] [address] Care Team Providers Care Coil Finisher Name Role Phone Yane Morrissey NP Primary Care Provider [phone] Reason for Visit * Reason Comments Med Refill Encounter Details Date Type Department Care Team (Late st Contact Info) Description 08/26/2024 Refill [facility] MEDICINE [address] [place] [address] Claritza Canela FNP [address] [place] [address] Diabetic polyneuropathy associated with type 2 diabetes [...] Description 05/27/2025 1:00 PM EST Procedure Visit [facility] MEDICINE [address] [place] [address] Yane Morrissey NP [address] [place] [address] documented as of this encounter Visit Diagnoses Diagnosis Diabetic polyneuropathy associated with type 2 diabetes mellitus (HCC) documented in this encounter Additional Health Concerns Assessment Noted Time PHQ-9 Depression Total Score: 9 05/24/20 24 11:18 AM EST documented as of this encounter Care Teams Coil Finisher Relationship Specialty Start Date End Date Yane Morrissey NP [address] [place] [address] PCP - General Family Medicine 02/14/24 documented as of this encounter
--- OUTSIDE RECORDS SUMMARY | 2025-04-22 13:21 | XMS_ITS | Encounter Summary ---
Author Organization [employer] Address [address] [facility] 7t [place] [address] Care Team Providers Care Rn Charge Name Role Phone Claritza Canela Primary Care Provider [phone] Yane Morrissey NP Primary Care Provider [phone] Reason for Visit * Reason Onset Date Comments Med Refill 02/02/2024 Encounter Details Date Type Department Care Team (Late st Contact Info) Description 02/02/2024 Refill [facility] [address] [place] [address] Claritza Canela FNP [address] [place] [address] Diabetic polyneuropathy associated with type 2 diabetes [...] 1:00 PM EST Procedure Visit [facility] [address] [place] [address] Yane Morrissey NP [address] [place] [address] documented as of this encounter Visit Diagnoses Diagnosis Diabetic polyneuropathy associated with type 2 diabetes mellitus (HCC) Type 2 diabetes mellitus without complication, with long-term current use of insulin (HCC) documented in this encounter Additional Health Concerns Assessment Noted Time PHQ-9 Depression Total Score: 23 023 10:13 AM EST documented as of this encounter Care Teams Rn Charge Relationship Specialty Start Date End Date Claritza Canela FNP [address] [place] [address] PCP - General Family Medicine 05/13/22 02/13/24 Yane Morrissey NP [address] [place] [address] PCP - General Family Medicine 02/14/24 documented as of this encounter
--- OUTSIDE RECORDS SUMMARY | 2025-04-22 13:21 | XMS_ITS | Encounter Summary ---
Author Organization [employer] Address [address] [facility] 7t [place] [address] Care Team Providers Care Digital Forensic Examiner Name Role Phone Claritza CanelaP Primary Care Provider [phone] Yane Morrissey NP Primary Care Provider [phone] Encounter Details Date Type Department Care Team (Late st Contact Info) Description 07/19/2022 Orders Only [facility] [address] [place] [address] Claritza Canela FNP [address] [place] [address] Type 2 diabetes mellitus without complication, with long-term current use of insulin ([facility]) (Primary Dx) Social History Tobacco [...] 05/27/2025 1:00 PM EST Procedure Visit [facility] [address] [place] [address] Yane Morrissey NP [address] [place] [address] documented as of this encounter Visit Diagnoses Diagnosis Type 2 diabetes mellitus without complication, with long-term current use of insulin (HCC)- Primary documented in this encounter Additional Health Concerns Assessment Noted Time PHQ-9 Depression Total Score: 2 06/01/20 9:11 AM EST documented as of this encounter Care Teams Digital Forensic Examiner Relationship Specialty Start Date End Date Claritza Canela FNP [address] [place] [address] PCP - General Family Medicine 05/13/22 02/13/24 Yane Morrissey NP [address] [place] [address] PCP - General Family Medicine 02/14/24 documented as of this encounter
--- OUTSIDE RECORDS SUMMARY | 2025-04-22 13:21 | XMS_ITS | Encounter Summary ---
Author Organization [employer] Address [address] [facility] 7t [place] [address] Care Team Providers Care Heat Engineering Teacher Name Role Phone Claritza Canela Primary Care Provider [phone] Yane Morrissey NP Primary Care Provider [phone] Encounter Details Date Type Department Care Team (Late st Contact Info) Description 10/04/2023 Orders Only [facility] [address] [place] [address] Claritza Canela FNP [address] [place] [address] Social History Tobacco Use Types Packs/Day Years [...] 05/27/2025 1:00 PM EST Procedure Visit [facility] [address] [place] [address] Yane Morrissey NP [address] [place] [address] documented as of this encounter Visit Diagnoses Not on filedocumented in this encounter Additional Health Concerns Assessment Noted Time PHQ-9 Depression Total Score: 23 023 10:13 AM EST documented as of this encounter Care Teams Heat Engineering Teacher Relationship Specialty Start Date End Date Claritza Canela FNP [address] [place] [address] PCP - General Family Medicine 05/13/22 02/13/24 Yane Morrissey NP [address] [place] [address] PCP - General Family Medicine 02/14/24 documented as of this encounter
--- OUTSIDE RECORDS SUMMARY | 2025-04-22 13:21 | XMS_ITS | Encounter Summary ---
Author Organization [employer] Address [address] [facility] 7[address] [place] [address] Care Team Providers Care Congregational Care Pastor Name Role Phone Claritza CanelaP Primary Care Provider [phone] Yane Morrissey NP Primary Care Provider [phone] Reason for Visit * Reason Comments Med Refill Encounter Details Date Type Department Care Team (Late st Contact Info) Description 11/03/2023 Refill [facility] [address] [place] [address] Claritza Canela FNP [address] [place], [place] [id number] Social History Tobacco Use Types Packs/Day Years [...] Description 05/27/2025 1:00 PM EST Procedure Visit [facility] [address] [place] [address] Yane Morrissey NP [address] [place] [address] documented as of this encounter Visit Diagnoses Not on filedocumented in this encounter Additional Health Concerns Assessment Noted Time PHQ-9 Depression Total Score: 23 023 10:13 AM EST documented as of this encounter Care Teams Congregational Care Pastor Relationship Specialty Start Date End Date Claritza Canela FNP [address] [place] [address] PCP - General Family Medicine 05/13/22 02/13/24 Yane Morrissey NP [address] [place] [address] PCP - General Family Medicine 02/14/24 documented as of this encounter
--- OUTSIDE RECORDS SUMMARY | 2025-04-22 13:21 | XMS_ITS | Encounter Summary ---
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, with long-term current use of insulin, unspecified laterality (HCC); Essential hypertension Social History Tobacco Use Types [...] Description 05/27/2025 1:00 PM EST Procedure Visit [facility] [address] [place] [address] Yane Morrissey NP [address] [place] [address] documented as of this encounter Visit Diagnoses Diagnosis 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
--- OUTSIDE RECORDS SUMMARY | 2025-04-22 13:21 | XMS_ITS | Encounter Summary ---
Author Organization [employer] Address [address] [facility] 7[address] [place] [address] Care Team Providers Care Business Risk Analyst Name Role Phone Yane Morrissey NP Primary Care Provider [phone] Reason for Visit * Reason Onset Date Comments Med Refill 01/13/2025 Encounter Details Date Type Department Care Team (Late st Contact Info) Description 01/13/2025 Refill [facility] [address] [place] [address] Yane Morrissey NP [address] [place] [address] Essential hypertension Social History Tobacco Use Types [...] Description 05/27/2025 1:00 PM EST Procedure Visit [facility] [address] [place] [address] Yane Morrissey NP [address] [place] [address] documented as of this encounter Visit Diagnoses Diagnosis Essential hypertension Unspecified essential hypertension documented in this encounter Additional Health Concerns Assessment Noted Time PHQ-9 Depression Total Score: 9 05/24/20 24 11:18 AM EST documented as of this encounter Care Teams Business Risk Analyst Relationship Specialty Start Date End Date Yane Morrissey NP [address] [place] [address] PCP - General Family Medicine 02/14/24 documented as of this encounter
--- OUTSIDE RECORDS SUMMARY | 2025-04-22 13:21 | XMS_ITS | Encounter Summary ---
Author Organization [employer] Address [address] [facility] [address] [place] [address] Care Team Providers Care Yarn Texturing Machine Operator Name Role Phone Yane Morrissey NP Primary Care Provider [phone] Reason for Visit * Reason Onset Date Comments Med Refill 01/13/2025 Encounter Details Date Type Department Care Team (Late st Contact Info) Description 01/13/2025 Refill [facility] [address] [place] [address] Omaira Brian MD [address] [place] [address] Generalized abdominal pain Social History Tobacco Use [...] 1:00 PM EST Procedure Visit [facility] [address] [place] [address] Yane Morrissey NP [address] [place] [address] documented as of this encounter Visit Diagnoses Diagnosis Generalized abdominal pain Abdominal pain, generalized documented in this encounter Additional Health Concerns Assessment Noted Time PHQ-9 Depression Total Score: 9 05/24/20 24 11:18 AM EST documented as of this encounter Care Teams Yarn Texturing Machine Operator Relationship Specialty Start Date End Date Yane Morrissey NP [address] [place] [address] PCP - General Family Medicine 02/14/24 documented as of this encounter
== END 2025-04-22 13:22 | disposition home or self-care (01) ==
LOC: HO.HOS 11:11
PROVIDERS: PCP Nurse Practitioner Family; Visit Provider Orthopaedic Surgery
DX: M25.641 Stiffness of right hand, not elsewhere classified (principal); M65.321 Trigger finger, right index finger; E11.9 Type 2 diabetes mellitus without complications
CPT/HCPCS: 99213

== ENCOUNTER → 2025-04-22 11:10 | Outpatient (BNVA) | payer OTHER, SELFPAY | PROVIDERS: PCP Nurse Practitioner Family; Visit Provider Orthopaedic Surgery | DX: M25.641 Stiffness of right hand, not elsewhere classified (principal); M65.321 Trigger finger, right index finger; E11.9 Type 2 diabetes mellitus without complications | CPT/HCPCS: 99212 ==

== ENCOUNTER 2025-05-22 09:43 | Outpatient (AMB) | payer OTHER, SELFPAY ==
--- NOTE | 2025-05-22 09:57 | MHC.OFFVIS ---
Intake Visit Reasons: OV- LB PAIN Intake Note: Armand is a 64 year old female who presents today as follow up for her lower back pain. Patient was referred to pain management for SI joint injection at last visit, 04/03/25. At today's visit she states that the lower back pain is still active with her daily activities. She states that she bought a lower back pillow and feels like it is giving her the back support. Patient reports that while on vacation she did a lot of walking and she had to stop due to the pain. Pain scale- 6 Allergies aspirin (ASPIRIN) Allergy (Severe, Verified 04/22/25 11:17) TONGUE SWELLING bee pollen (BEE STINGS) Allergy (Severe, Verified 04/22/25 11:17) ANAPHYLAXIS Medication List - Last Reconciled 05/22/25 by Xochitl Garland MD albuterol sulfate 90 mcg/actuation 2 puffs inhalation Q4-6H PRN atorvastatin 40 mg PO BEDTIME buspirone 10 mg PO DAILY epinephrine IM DIRECTED famotidine 40 mg PO BEDTIME hydrochlorothiazide 25 mg PO DAILY insulin degludec (Tresiba FlexTouch U-200 insulin) units subcut Lactobacillus rhamnosus GG (Probiotic Digestive Care) ONE CAP orally DAILY lancets (TRUEplus Lancets) As directed lidocaine 5% patches topical losartan 50 mg PO DAILY melatonin 3 mg PO BEDTIME metformin 1,000 mg PO BID methylcellulose (laxative) (Citrucel) 500 mg PO DAILY ondansetron HCl mg PO TID-QID PRN semaglutide (Ozempic) 0.5 mg subcut QWEEK sennosides (Natural Senna Laxative) 17.2 mg (2 x 8.6 mg) PO BEDTIME topiramate 50 mg PO BID 90 days HPI Comments Details: Chronic more than 10 years. Pain worse on left than right, pointing to Si joint area and coccyx. Radiates to buttocks and posterior thigh. While sleeping, would feel a left calf cramp. Numbness goes down same distribution. Very hard to move her leg. Has already changed her mattress/bed without relief. Has done PT before, had massage, but no relief. Last PT finished March 2025. Xray of hip showed degenerative changes on SI joint and acetabulum. Ortho did not think this was related to hip joint though. She also reports spasms on right upper back/trapezius. History of CTS, follows with hand surgery. X-rays showed SI joint degeneration and left hip arthritis. Incidental finding of vascular calcifications. Patient says she follows with her PCP and her hypertension is controlled. She verbalized understanding of risks for cardiac if hypertension and cholesterol are not well managed. Repeat lumbar xray showed spondylosis, but also mentioned incidentally about findings on thoracic levels. I ordered lumbar MRI - which is scheduled on Friday 05/25 9am Points to more to left SI region as source of pain. Cannot sit or stand for long periods. She does her stretches as much as she can. No numbness on the legs. Last PT finished March 2025. Pain score 8/10, 10/10 with walking. But she still tries hard to walk for exercise. [facility] Medical History (Updated 04/04/25 @ 11:29 by Xochitl Garland MD) History of pancreatitis Breast nodule Arthritis Bilateral carpal tunnel syndrome History of trigger finger DDD (degenerative disc disease) Seasonal asthma Anxiety Hypertension Acid reflux Migraines High cholesterol Diabetes Surgical History S/P LASIK surgery of both eyes History of carpal tunnel release S/P arthroscopic surgery of left knee (~1999) History of tonsillectomy History of section Family History Mother No problems noted. Father No problems noted. Paternal Aunt Uterine cancer Social History Alcohol intake: never Patient Tobacco Use Status: Never used Tobacco Second Hand Smoke Exposure: No Current occupational status: disabled Current occupation: rt hand Female Reproductive History Menstrual Age of Menarche: 11 Physical Exam Exam Exam: Constitutional: Patient appears to be in no acute distress, well nourished and well developed. Patient was appropriately conversant and oriented. Good historian. MSK: No specific abnormalities found on inspection of the spine and all extremities. Very tender on left SI joint and gluteus. No tenderness over lumbar spinous processes or facets. Limited range of motion due to pain. Limited left hip range of motion due to pain. Strength is 5/5 in all muscle groups tested. No increased tone noted. Neurological: Neurologic examination of the upper and lower extremities was nonfocal with intact sensation, muscle stretch reflexes and without focal motor deficits . Akbar?s negative bilaterally. Babinski was down going bilaterally. Clonus was negative. Gait is antalgic without loss of balance. Results Reviewed Results Reviewed: Ordering Physician: Xochitl Lara Date of Service: 04/03/25 Procedure(s): XR lumbar spine 2-3V Accession Number(s): [id number] cc: Yane Morrissey CONFERENCE CONCIERGE; Xochitl Lara~ Reason for Exam: M54.9 - Dorsalgia, unspecified CLINICAL HISTORY: M54.9 - Dorsalgia, unspecified 3 views lumbar spine Comparison: None provided Findings: Severe multilevel facet arthropathy is present. Joki-ga-xlcafzye multilevel marginal osteophyte formation and disc space narrowing is also seen. There is grade 1 retrolisthesis of L1, L2, and L3. There is mild loss of anterior vertebral body height at T12. Cholecystectomy clips are noted. IMPRESSION: 1. 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 2. Mild loss of anterior vertebral body height at T12. 3. Grade 1 retrolisthesis of L1, L2, and L3. This document has been electronically signed by: Ladi Nesbitt on 04/04/2025 10:30:10 spon Ordering Physician: Cory Velasquez PA-C Date of Service: 12/30/24 Procedure(s): XR hip LT min 2V Accession Number(s): [id number] cc: Yane Morrissey NP; Cory Velasquez PA-C~ EXAMINATION: XR HIP, LEFT CLINICAL INFORMATION: M25.552 - Pain in left hip COMPARISON: 02/27/2018 TECHNIQUE: AP upright, AP supine, and frog-leg lateral views of the left hip. FINDINGS: There is sclerosis and narrowing with marginal osteophytes involving the articular portions of the SI joints. There are enthesophytes involving both iliac spines. Moderate vascular calcification is evident in the iliac and femoral arteries, increased since the prior. Numerous phleboliths are present in the pelvis. Left hip joint space is preserved and congruent. There is a small acetabular osteophyte. Interval developing enthesophyte formation is evident at the greater trochanter. 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 Moderate vascular calcifications, increasing since the prior. Minimal roof osteophytes involving left acetabulum. Electronically signed by: Skinny Flores MD 12/30/2024 03:57 PM EDT RP I reviewed records from the following: ortho Assessment & Plan Assessment & Plan (1) Chronic SI joint pain: Code(s): M53.3 - Sacrococcygeal disorders, not elsewhere classified; G89.29 - Other chronic pain Category: Medical (2) Left lumbar radiculitis: Code(s): M54.16 - Radiculopathy, lumbar region Category: Medical Plan Chronic lower back pain, left SI joint versus lumbar radiculitis. She is scheduled for lumbar MRI on Monday. If it shows L5-S1 disc herniation, would refer her for left-sided transforaminal epidural injection. If none, then she can trial left SI joint injection. Most likely we will refer to Dr. Quinonez, and she prefers to have injections done under conscious sedation. Assessment and plan discussed with patient, and patient was agreeable. All questions were answered thoroughly. We will call her after I receive MRI results. Total of 30 minutes spent today including chart review, results review, history taking, physical examination, discussion of assessment and plan, and coordination of care. Xochitl Garland MD, ANGELA Board Certified, [place] [employer] and [employer] (ABPMR) Board Certified, [place] Board [employer] Electrodiagnostic [employer] (ABEM) Coding Level of Care Code Est Pt Level 4 (07215) Diagnoses Chronic SI joint pain M53.3; G89.29 Left lumbar radiculitis M54.16
== END 2025-05-22 10:36 | disposition home or self-care (01) ==
LOC: HO.HOS 09:43
PROVIDERS: PCP Nurse Practitioner Family; Visit Provider Physical Medicine & Rehabilitation
DX: M53.3 Sacrococcygeal disorders, not elsewhere classified (principal); G89.29 Other chronic pain; M54.16 Radiculopathy, lumbar region
CPT/HCPCS: 99214

== ENCOUNTER → 2025-05-22 09:43 | Outpatient (BNVA) | payer OTHER, SELFPAY | PROVIDERS: PCP Nurse Practitioner Family; Visit Provider Physical Medicine & Rehabilitation | DX: M53.3 Sacrococcygeal disorders, not elsewhere classified (principal); M54.16 Radiculopathy, lumbar region; G89.29 Other chronic pain; M54.50 Low back pain, unspecified | CPT/HCPCS: 99212 ==

== ENCOUNTER 2025-05-25 08:35 | Outpatient (REF) | payer OTHER, SELFPAY ==
--- NOTE | ~2025-05-25 | MR_ITS ---
CLINICAL HISTORY: M51.36 - Other intervertebral disc degeneration, lumbar region --- Additional Notes or Special Instructions: pls evaluate for disc herniation or spinal stenosis Exam: Unenhanced MRI lumbar spine. Comparison: Radiographs dated 04/03/2025. Findings: Lumbar vertebral body heights and alignment are well-maintained. Lumbar signal intensities appear well-maintained. Intervertebral disc heights reveal disc space narrowing at L1-2. Remaining intervertebral disc heights appear generally maintained with minimal diffuse disc desiccation. Conus medullaris terminates at approximately T12 level. Axial images reveal the following: L1-2: There is diffuse mild disc bulging. No spinal or foraminal stenoses. L2-3: No focal disc herniation, spinal or foraminal compromise. L3-4: Diffuse moderate disc bulging is present. No significant spinal or left foraminal stenoses. There is mild right inferior foraminal stenoses. L4-5: Diffuse bank-tm-zwxgsray disc bulging and significant bilateral facet arthropathy are present. There is left worse than right ligamentum flavum hypertrophy. There appears to be resultant mild central canal stenoses (9; 35 and 10; 24). There is fairly severe appearing left and likely moderate right foraminal stenoses. L5-S1: Diffuse mild disc bulging is present as is mild facet arthropathy. No significant spinal or foraminal stenoses. Impression: 1. Multilevel degenerative disc disease, most significant at L4-5 level with mild central canal stenoses and left worse than right foraminal stenoses at this level. This document has been electronically signed by: Axel Macedo MD on 05/26/2025 18:05:51
== END 2025-05-25 08:36 | disposition home or self-care (01) ==
LOC: HO.MRI 08:35
PROVIDERS: PCP Nurse Practitioner Family; Visit Provider Physical Medicine & Rehabilitation
DX: M51.369 Other intervertebral disc degeneration, lumbar region without mention of lumbar back pain or lower extremity pain (principal); M53.3 Sacrococcygeal disorders, not elsewhere classified
CPT/HCPCS: 72148

== ENCOUNTER → 2025-05-25 08:48 | Outpatient (BNV) | payer OTHER, SELFPAY | PROVIDERS: PCP Nurse Practitioner Family; Visit Provider Radiology Diagnostic Radiology | DX: M51.369 Other intervertebral disc degeneration, lumbar region without mention of lumbar back pain or lower extremity pain (principal); M48.061 Spinal stenosis, lumbar region without neurogenic claudication; M99.63 Osseous and subluxation stenosis of intervertebral foramina of lumbar region | CPT/HCPCS: 72148 ==

== ENCOUNTER 2025-05-26 07:50 | Outpatient (AMB) | payer OTHER, SELFPAY ==
[2025-05-26 08:12] VITALS: BP 136/60; PULSE 88; O2SAT 98; BMI 37.6
--- NOTE | 2025-05-26 08:12 | MHC.OFFVIS ---
Vital Signs 05/26/25 08:12 Height 5 ft 3 in Weight 212 lb BMI 37.6 BP 136/60 Blood Pressure Location Rt brachial Position Sitting Pulse 88 Pulse Source Pulse Oximeter Pulse Oximetry (%) 98 Oxygen Delivery Method Room Air Intake Visit Reasons: 4m Intake Note: Est pt for GERD + CIC mgmt. CC: Pt denies any new GI sx or concerns and reports she has been making dietary adjustments and taking her currently Rx'd therapies w/o complications. Return To Vendor Required: No Accompanied by: Self / Same As Patient Allergies aspirin (ASPIRIN) Allergy (Severe, Verified 05/26/25 08:13) TONGUE SWELLING bee pollen (BEE STINGS) Allergy (Severe, Verified 05/26/25 08:13) ANAPHYLAXIS HPI HPI 4m: Details: LAST VISIT: Gastroesophageal reflux disease Postprandial epigastric pain Postprandial diarrhea Constipation Left lower quadrant abdominal pain History of pancreatitis Plan Patient will continue famotidine. Avoid dietary triggers and late night snacking. Staying upright for minimum 3 hours after meals discussed with patient. Patient will take MiraLax daily. Patient can take probiotic. Increase fluid intake and activity to come with her bowel motility. Patient will increase fiber intake. Recommend switching Ozempic to Mounjaro to prevent recurrence the of pancreatitis. Low fat, low carb diet. Patient will follow-up in 2-3 months, sooner on as needed basis. She is agreeable to this plan and verbalizes understanding of instructions. She was given the opportunity to ask questions and all questions answered. ? Thank you for allowing me to participate in her care New Lactobacillus rhamnosus GG (Probiotic Digestive Care) ONE CAP orally DAILY 30 caps 5RF TODAY'S VISIT Patient is here today for follow-up. Patient reports that she has been doing better. Ozempic was switched to Mounjaro, in patient is feeling better. Patient also reports doing dietary adjustments were she is eating more fruits and vegetables. Currently patient denies any acid reflux, denies dyspepsia, dysphagia or odynophagia. Patient denies abdominal patient and bloating. Patient admits to being constipated. She is drinking water. Patient is not taking senna or any other laxatives. Patient denies any melena, hematochezia, unintentional weight loss or ribbon like stools. Patient reports that she had a normal colonoscopy in 2017. Patient also went for endoscopy. [facility] Medical History History of pancreatitis Breast nodule Arthritis Bilateral carpal tunnel syndrome History of trigger finger DDD (degenerative disc disease) Seasonal asthma Anxiety Hypertension Acid reflux Migraines High cholesterol Diabetes Surgical History S/P LASIK surgery of both eyes History of carpal tunnel release S/P arthroscopic surgery of left knee (~1999) History of tonsillectomy History of section Family History Mother No problems noted. Father No problems noted. Paternal Aunt Uterine cancer Social History Alcohol intake: never Patient Tobacco Use Status: Never used Tobacco Second Hand Smoke Exposure: No Current occupational status: disabled Current occupation: rt hand Female Reproductive History Menstrual Age of Menarche: 11 Review of Systems Const Denies weight gain and Denies weight loss ENT Reports no additional complaints, Denies dysphagia and Denies odynophagia Card Reports no additional complaints Resp Reports no additional complaints GI Reports abdominal pain (Epigastric, LLQ), Denies belching, Denies melena, Reports bloating, Denies change in bowel habits, Reports constipation, Denies dysphagia, Denies excessive flatus, Denies dyspepsia, Reports heartburn, Denies diarrhea, Reports loose stools, Denies nausea, Denies odynophagia and Denies vomiting Reports no additional complaints Musc Reports no additional complaints Neuro Reports no additional complaints Psych Reports no additional complaints Endo Reports no additional complaints Physical Exam Vital Signs: Last Vital Signs Pulse 88 05/26/25 08:12 BP 136/60 05/26/25 08:12 Pulse Ox 98 05/26/25 08:12 Oxygen Delivery Method Room Air 05/26/25 08:12 BMI result Body Mass Index 37.6 Const General: healthy appearing and no acute distress Nutritional Appearance: well nourished and obese Orientation/consciousness: patient oriented x3 Resp Effort & Inspection: normal respiratory effort, able to speak in complete sentences, no tracheal deviation and symmetric chest movement Auscultation: clear to auscultation bilaterally Cardio Rate: regular rate GI Inspection: Yes normal to inspection, No distended and Yes obesity Palpation (GI): Soft to palpation, not firm, nontender and No hepatosplenomegaly present Auscultation: normal bowel sounds General: Yes no CVA tenderness Back/Spine/Pelvis Back: no CVA tenderness Skin General skin exam: elasticity normal, turgor normal and dry skin Neuro General: patient oriented x3 Psych Appearance: grossly normal Mental Status: mental status grossly normal Assessment & Plan Assessment & Plan (1) History of pancreatitis: Code(s): Z87.19 - Personal history of other diseases of the digestive system Category: Medical (2) Gastroesophageal reflux disease: Code(s): K21.9 - Gastro-esophageal reflux disease without esophagitis Qualifiers: Esophagitis presence: esophagitis presence not specified Qualified Code(s): K21.9 - Gastro-esophageal reflux disease without esophagitis (3) Postprandial epigastric pain: Code(s): R10.13 - Epigastric pain (4) Postprandial diarrhea: Code(s): K52.9 - Noninfective gastroenteritis and colitis, unspecified (5) Constipation: Code(s): K59.00 - Constipation, unspecified Qualifiers: Constipation type: slow transit constipation Qualified Code(s): K59.01 - Slow transit constipation (6) Left lower quadrant abdominal pain: Code(s): R10.32 - Left lower quadrant pain Plan Continue famotidine. Patient was encouraged to continue avoiding dietary triggers and late night snacking. Staying upright for minimum 3 hours after meals discussed with patient. Patient was encouraged to eat smaller meals. Continue famotidine. Increase fiber, fluid intake and activity to promote bowel motility. Can take Senokot as needed, patient tried MiraLax in the past and it was not working. Patient will return in 6 months and if she continues to have trouble with her bowels taking send her for colonoscopy. Per patient she had a normal colonoscopy in 2017. Patient is agreeable to current plan of care and verbalizes understanding of instructions. Patient was given the opportunity to ask questions and all questions answered Thank you for allowing me to participate in her care Medications: Refilled sennosides (Natural Senna Laxative) 17.2 mg (2 x 8.6 mg) PO BEDTIME 180 tabs 3RF constipation K59.00 - Constipation, unspecified Coding Level of Care Code Est Pt Level 4 (01814) Add On Problem Visit Only Diagnoses History of pancreatitis Z87.19 Gastroesophageal reflux disease, unspecified whether esophagitis present K21.9 Esophagitis presence: esophagitis presence not specified Postprandial epigastric pain R10.13 Postprandial diarrhea K52.9 Slow transit constipation K59.01 Constipation type: slow transit constipation Left lower quadrant abdominal pain R10.32 Time Spent (min) 35 Comment 25 minutes spent with patient and additional 10 minutes spent reviewing her records
== END 2025-05-26 08:49 | disposition home or self-care (01) ==
LOC: HO.HGI 07:50
PROVIDERS: PCP Nurse Practitioner Family; Visit Provider Nurse Practitioner Family
DX: Z87.19 Personal history of other diseases of the digestive system (principal); K21.9 Gastro-esophageal reflux disease without esophagitis; R10.13 Epigastric pain; K52.9 Noninfective gastroenteritis and colitis, unspecified; K59.01 Slow transit constipation; R10.32 Left lower quadrant pain
CPT/HCPCS: 99214; G2211

== ENCOUNTER → 2025-05-26 07:50 | Outpatient (BNVA) | payer OTHER, SELFPAY | PROVIDERS: PCP Nurse Practitioner Family; Visit Provider Nurse Practitioner Family | DX: K21.9 Gastro-esophageal reflux disease without esophagitis (principal); R10.13 Epigastric pain; K52.9 Noninfective gastroenteritis and colitis, unspecified; K59.01 Slow transit constipation; R10.32 Left lower quadrant pain; Z79.899 Other long term (current) drug therapy; Z87.19 Personal history of other diseases of the digestive system | CPT/HCPCS: 99212 ==